=== PATIENT | male | born 1970 | race African-American/Black ===

== ENCOUNTER 2017-01-30 19:38 | Inpatient (IN) | payer OTHER ==
[2017-01-30 20:35] VITALS: BMI 27.4
--- NOTE | 2017-01-30 20:45 | HP ---
CIWA Score - CIWA Score Nausea/Vomitin-No Nausea/No Vomiting Muscle Tremors: 2 Anxiety: 3 Agitation: 3 Paroxysmal Sweats: 2 Orientation: 0-Oriented Tacttile Disturbances: 0-None Auditory Disturbances: 1-Very Mild Visual Disturbances: 2-Mild Sensitivity Headache: 2-Mild CIWA-Ar Total Score: 15 Admission ROS BHS - HPI Chief Complaint: WITHDRAWAL SYMPTOMS Allergies/Adverse Reactions: Allergies Allergy/AdvReac Type Severity Reaction Status Date / Time No Known Allergies Allergy Verified 01/30/17 20:23 History of Present Illness: 46 Y.O. MAN WITH AN EXTENSIVE HISTORY OF DRUG AND ALCOHOL DEPENDENCE IS HERE FOR DETOX. REPORTS THE LONGEST PERIOD OF SOBRIETY HAS BEEN 2 YEARS WHILE INCARCERATED. Exam Limitations: No Limitations - Ebola screening Have you traveled outside of the country in the last 21 days: No Have you had contact with anyone from an Ebola affected area: No Have you been sick,other than usual withdrawal symptoms: No Do you have a fever: No - Review of Systems Constitutional: Night Sweats EENT: reports: Blurred Vision, Double Vision, Tearing Respiratory: reports: No Symptoms reported Cardiac: reports: Lightheadedness GI: reports: No Symptoms Reported : reports: No Symptoms Reported Musculoskeletal: reports: Muscle Pain, Other (RIGHT SHOULDER PAIN) Integumentary: reports: No Symptoms Reported Neuro: reports: No Symptoms reported Endocrine: reports: No Symptoms Reported Hematology: reports: Anemia (SICKLE CELL TRAIN) Psychiatric: reports: Mood/Affect Appropiate, Orientated x3, Anxious, Depressed , other (BIPOLAR) Other Systems: Reviewed and Negative Patient History - Patient Medical History Hx Anemia: Yes (SICKLE CELL TRAIT ) Hx Asthma: No Hx Chronic Obstructive Pulmonary Disease (COPD): No Hx Cancer: No Hx Cardiac Disorders: No Hx Congestive Heart Failure: No Hx Hypertension: No Hx Hypercholesterolemia: No Hx Pacemaker: No HX Cerebrovascular Accident: No Hx Seizures: No Hx Dementia: No Hx Diabetes: No (BORDERLINE ) Hx Gastrointestinal Disorders: No Hx Liver Disease: No Hx Genitourinary Disorders: No Hx Sexually Transmitted Disorders: No Hx Renal Disease (ESRD): No Hx Thyroid Disease: No Hx Human Immunodeficiency Virus (HIV): No Hx Hepatitis C: No Hx Depression: Yes Hx Suicide Attempt: No Hx Bipolar Disorder: Yes Hx Schizophrenia: No Other Medical History: H/O TB (TREATED) - Patient Surgical History Past Surgical History: Yes Hx Neurologic Surgery: No Hx Cataract Extraction: No Hx Cardiac Surgery: No Hx Lung Surgery: No Hx Breast Surgery: No Hx Breast Biopsy: No Hx Abdominal Surgery: No Hx Appendectomy: No Hx Cholecystectomy: No Hx Genitourinary Surgery: No Hx Section: No Hx Orthopedic Surgery: No Hx Hysterectomy: No Other Surgical History: fx floor of orbit in 2009 at [facility] with numbness of right fa Anesthesia Reaction: No - PPD History Previous Implant?: Yes Documented Results: Positive w/proof Results: NEEDS CXR PPD to be Administered?: No - Reproductive History Patient is a Female of Child Bearing Age (11 -55 yrs old): No - Smoking Cessation Smoking history: Current every day smoker Have you smoked in the past 12 months: Yes Aproximately how many cigarettes per day: 8 Hx Chewing Tobacco Use: No Initiated information on smoking cessation: Yes 'Breaking Loose' booklet given: 01/30/17 - Substance & Tx. History Hx Alcohol Use: Yes Hx Substance Use: Yes Substance Use Type: Alcohol, Cocaine Hx Substance Use Treatment: Yes (DETOX & REHAB (DOESN'T RECALL WHEN & WHERE HE WAS LAST ADMITTED;NOT RECENT)) - Substances Abused Alcohol Route: Oral Frequency: Daily Amount used: liquor- 2 pints, beer- 1 six pack Age of first use: 13 Date of Last Use: 01/30/17 Cocaine Route: Inhalation Frequency: 3-6 times per week Amount used: 10 bags Age of first use: 17 Date of Last Use: 01/30/17 Family Disease History - Family Disease History Family Disease History: Diabetes: Father, Heart Disease: Father Admission Physical Exam [facility] - Vital Signs Vital Signs: Vital Signs - 24 hr 01/30/17 20:23 Temperature 98.6 F Pulse Rate 108 H Respiratory 20 Rate Blood Pressure 140/90 - Physical General Appearance: Yes: Sweating, Anxious HEENTM: Yes: Normocephalic, Normal Voice Respiratory: Yes: Lungs Clear, Normal Breath Sounds, No Respiratory Distress, No Accessory Muscle Use Neck: Yes: No masses,lesions,Nodules, Trachea in good position Breast: Yes: Breast Exam Deferred Cardiology: Yes: Regular Rhythm, Tachycardia Abdominal: Yes: Non Tender, Flat, Soft Genitourinary: Yes: Other (NO COMPLAINTS REPORTED) Back: Yes: Normal Inspection Musculoskeletal: Yes: Joint Stiffness (RIGHT SHOULDER), Other (RIGHT SHOULDR PAIN) Extremities: Yes: Normal Inspection, Normal Range of Motion, Non-Tender Neurological: Yes: Alert, Normal Mood/Affect, Normal Response Integumentary: Yes: Normal Color, Dry, Warm Lymphatic: Yes: Within Normal Limits - Diagnostic (1) Alcohol dependence with uncomplicated withdrawal Current Visit: Yes Status: Chronic (2) Cocaine dependence, uncomplicated Current Visit: Yes Status: Chronic (3) History of tuberculosis Current Visit: Yes Status: Chronic (4) Nicotine dependence Current Visit: Yes Status: Chronic Cleared for Admission [facility] - Detox or Rehab [facility] Level of Care: Medically Managed Detox Regimen/Protocol: Librium [facility] Breath Alcohol Content Breath Alcohol Content: 0.064 Urine Drug Screen - Results Drug Screen Negative: No Urine Drug Screen Results: TIMBO-Cocaine
[2017-01-30] MEDS ORDERED: guaiFENesin/D-METHORPHAN HB 10 ML UNIT-DOSE CUPS PO PRN (20:58)
[2017-01-30] MEDS ORDERED: MAGNESIUM HYDROX 2400MG/30ML ORAL SUSPENSION 30 ML CUP PO PRN (20:58)
[2017-01-30] MEDS ORDERED: MAG HYDROX/AL HYDROX/SIMETH 30 ML UNIT-DOSE CUP PO PRN (20:58)
[2017-01-30] MEDS ORDERED: MAGNESIUM CITRATE 300 ML BOTTLE PO PRN (20:58)
[2017-01-30] MEDS ORDERED: LOPERAMIDE HCL 2 MG CAPSULE PO PRN (20:58)
[2017-01-30] MEDS ORDERED: MENTHOL/PHENOL 1 EACH UD MM PRN (20:58)
[2017-01-30] MEDS ORDERED: chlordiazePOXIDE HCL 25 MG CAPSULE PO ONE (20:58)
[2017-01-30] MEDS ORDERED: P-EPHED 60MG/TRIPROLIDI 2.5MG TABLET PO PRN (20:58)
[2017-01-30] MEDS ORDERED: ACETAMINOPHEN 325 MG TABLET (FP) PO PRN (20:58)
[2017-01-30] MEDS: diphenhydrAMINE HCL 50 MG CAPSULE PO PRN (23:08)
[2017-01-30] MEDS: THIAMINE HCL 100 MG TABLET (FP) PO SCH (23:08)
[2017-01-30] MEDS: chlordiazePOXIDE HCL 25 MG CAPSULE PO SCH (23:08)
[2017-01-31] MEDS: chlordiazePOXIDE HCL 25 MG CAPSULE PO SCH ×4 (05:23→22:43)
[2017-01-31 09:43] LABS: MCH 29.3 pg (25.7-33.7); MCHC 33.3 g/dl (32.0-35.9); MEAN CELL VOLUME 88.1 fl (80-96); MEAN PLT VOLUME 10.1 fl (7.5-11.1); PLATELET COUNT 151 K/MM3 (134-434); RDW 13.6 % (11.9-15.9); WHITE BLOOD COUNT 4.4 K/mm3 (4.0-10.0)
[2017-01-31] MEDS: PRENATAL VITAMINS W/ FOLIC ACID TABLET (FP) PO SCH (10:05)
[2017-01-31] MEDS: SERTRALINE HCL 50 MG TABLET (FP) PO SCH (10:06)
--- NOTE | 2017-01-31 10:11 | CONSULT ---
[facility] Psychiatric Consult - Data Date of interview: 01/31/17 Admission source: [facility] Identifying data: This is 46 years old male with psychiatric hosp[italization history intoxicated with: Alcohol, Cocaine and Nicotine Substance Abuse History: - Smoking Cessation. Smoking history: Current every day smoker. Have you smoked in the past 12 months: Yes. Aproximately how many cigarettes per day: 8. Hx Chewing Tobacco Use: No. Initiated information on smoking cessation: Yes. 'Breaking Loose' booklet given: 01/30/17. - Substance & Tx. History. Hx Alcohol Use: Yes. Hx Substance Use: Yes. Substance Use Type : Alcohol, Cocaine. Hx Substance Use Treatment: Yes (DETOX & REHAB (DOESN'T RECALL WHEN & WHERE HE WAS LAST ADMITTED;NOT RECENT)). - Substances Abused. * * Alcohol. Route: Oral. Frequency: Daily. Amount used: liquor- 2 pints, beer - 1 six pack. Age of first use: 13. Date of Last Use: 01/30/17. Cocaine. Route: Inhalation. Frequency: 3-6 times per week. Amount used: 10 bags. Age of first use: 17. Date of Last Use: 01/30/17 Medical History: History of TBC, Acute renal failure history Psychiatric History: [facility] with depressed mood, denies suicidal history. Patient reports history of deporession and anxioety, reports taking priore to admission: Remeron 15mg po qhs. Zoloft 50mg poqd. Patient reprots psychiatric admission on 2015 at [facility] Physical/Sexual Abuse/Trauma History: Denies Additional Comment: Remeron 15mg po qhs. Zoloft 50mg poqd Mental Status Exam - Mental Status Exam Alert and Oriented to: Person Cognitive Function: Fair Patient Appearance: Unkempt Mood: Sad Affect: Flat Patient Behavior: Sedated Speech Pattern: Delayed Voice Loudness: Mildly Soft/Quiet Thought Process: Circumstantial Thought Disorder: Being Controlled Hallucinations: Denies Suicidal Ideation: Denies Homicidal Ideation: Denies Insight/Judgement: Fair Sleep: Difficulty falling asleep Appetite: Fair Muscle strength/Tone: Mild Hypertonicity Gait/Station: Shuffling Additional Comments: Remeron 15mg po qhs. Zoloft 50mg poqd Psychiatric Findings - Problem List ([place] 1, 2,3) (1) Alcohol dependence with uncomplicated withdrawal Current Visit: Yes Status: Chronic (2) Cocaine dependence, uncomplicated Current Visit: Yes Status: Chronic (3) Nicotine dependence Current Visit: Yes Status: Chronic (4) Drug-induced mood disorder Current Visit: Yes Status: Acute - Initial Treatment Plan Initial Treatment Plan: Remeron 15mg po qhs. Zoloft 50mg poqd
[2017-01-31 10:12] LABS: ALBUMIN 3.9 g/dl (3.4-5.0); ALK PHOS 97 U/L (45-117); ANION GAP 8 (8-16); BILIRUBIN,TOTAL 1.3 mg/dL (0.2-1.0); CALCIUM 9.1 mg/dL (8.5-10.1); CO2 29 mmol/L (21-32); CREATININE 1.2 mg/dL (0.7-1.3); GLUCOSE,RANDOM 116 mg/dL (74-106); SGOT/AST 19 U/L (15-37); SGPT/ALT 19 U/L (12-78); TOT PROT 7.1 g/dl (6.4-8.2)
[2017-01-31] MEDS: IBUPROFEN 400 MG TABLET (FP) PO PRN ×2 (10:38→22:42)
[2017-01-31] MEDS: chlordiazePOXIDE HCL 25 MG CAPSULE PO PRN (11:59)
[2017-01-31] MEDS: hydrOXYzine PAMOATE 50 MG CAPSULE (FP) PO PRN (11:59)
--- NOTE | 2017-01-31 14:46 | EKG ---
Test Reason : Blood Pressure : / mmHG Vent. Rate : 095 BPM Atrial Rate : 095 BPM P-R Int : 172 ms QRS Dur : 080 ms QT Int : 370 ms P-R-T Axes : 051 035 019 degrees QTc Int : 464 ms NORMAL SINUS RHYTHM NORMAL ECG WHEN COMPARED WITH ECG OF 07-APR-2015 22:38, T WAVE VARIATION Confirmed by ROZ GONZALES MD ([id number]) on 01/31/2017 2:46:19 PM Referred By: Confirmed By:ROZ GONZALES MD
--- NOTE | 2017-01-31 15:02 | PN ---
S CIWA - CIWA Score Nausea/Vomitin-Mild Nausea/No Vomiting Muscle Tremors: 4-Moderate,w/Arms Extend Anxiety: 4-Mod. Anxious/Guarded Agitation: 3 Paroxysmal Sweats: 3 Orientation: 0-Oriented Tacttile Disturbances: 0-None Auditory Disturbances: 0-None Visual Disturbances: 0-None Headache: 0-None Present CIWA-Ar Total Score: 15 BHS Progress Note (SOAP) Subjective: Sweating,anxiety,tremors,interrupted sleep,restless Objective: 01/31/17 15:01 Vital Signs - 8 hr 01/31/17 01/31/17 09:18 13:12 Temperature 97.2 F L 97.2 F L Pulse Rate 90 89 Respiratory 20 18 Rate Blood Pressure 128/88 132/85 Laboratory Tests 01/31/17 01/31/17 01/31/17 07:00 07:00 07:00 WBC 4.4 RBC 5.29 Hgb 15.5 D Hct 46.6 MCV 88.1 MCHC 33.3 RDW 13.6 D Plt Count 151 D MPV 10.1 Sodium 141 Potassium 3.9 Chloride 104 Carbon Dioxide 29 Anion Gap 8 BUN 18 D Creatinine 1.2 D Creat Clearance w eGFR > 60 Random Glucose 116 H Calcium 9.1 Total Bilirubin 1.3 H D AST 19 D ALT 19 D Alkaline Phosphatase 97 Total Protein 7.1 Albumin 3.9 RPR Titer Nonreactive labs noted Assessment: 01/31/17 15:01 Withdrawal sx. Plan: Continue detox
[2017-01-31] MEDS: diphenhydrAMINE HCL 50 MG CAPSULE PO PRN (22:42)
[2017-01-31] MEDS: THIAMINE HCL 100 MG TABLET (FP) PO SCH (22:42)
[2017-01-31] MEDS: MIRTAZAPINE 15 MG TABLET (FP) PO SCH (22:43)
[2017-02-01] MEDS: chlordiazePOXIDE HCL 25 MG CAPSULE PO SCH ×3 (06:55→18:25)
[2017-02-01] MEDS: PRENATAL VITAMINS W/ FOLIC ACID TABLET (FP) PO SCH (10:33)
[2017-02-01] MEDS: SERTRALINE HCL 50 MG TABLET (FP) PO SCH (10:33)
--- NOTE | 2017-02-01 11:46 | PN ---
S CIWA - CIWA Score Nausea/Vomitin-Mild Nausea/No Vomiting Muscle Tremors: 4-Moderate,w/Arms Extend Anxiety: 4-Mod. Anxious/Guarded Agitation: 1-Slight > Activity Paroxysmal Sweats: 3 Orientation: 2-Disoriented Date<2 days Tacttile Disturbances: 0-None Auditory Disturbances: 2-Mild Harshness/Frighten Visual Disturbances: 2-Mild Sensitivity Headache: 0-None Present CIWA-Ar Total Score: 19 BHS Progress Note (SOAP) Subjective: Tremors, Anxious, Sweating. Objective: PT. A & O X 2 (DISORIENTED ABOUT DAY / DATE). NO ACUTE DISTRESS. 02/01/17 11:44 Vital Signs Temperature 95.2 F L 02/01/17 10:37 Pulse Rate 82 02/01/17 10:37 Respiratory Rate 16 02/01/17 10:37 Blood Pressure 123/83 02/01/17 10:37 O2 Sat by Pulse Oximetry (%) Laboratory Tests 01/31/17 01/31/17 01/31/17 07:00 07:00 07:00 WBC 4.4 RBC 5.29 Hgb 15.5 D Hct 46.6 MCV 88.1 MCHC 33.3 RDW 13.6 D Plt Count 151 D MPV 10.1 Sodium 141 Potassium 3.9 Chloride 104 Carbon Dioxide 29 Anion Gap 8 BUN 18 D Creatinine 1.2 D Creat Clearance w eGFR > 60 Random Glucose 116 H Calcium 9.1 Total Bilirubin 1.3 H D AST 19 D ALT 19 D Alkaline Phosphatase 97 Total Protein 7.1 Albumin 3.9 RPR Titer Nonreactive LABS NOTED. Assessment: 02/01/17 11:45 WITHDRAWAL SYMPTOMS. Plan: CONTINUE DETOX. INCREASE PO FLUID INTAKE.
[2017-02-01] MEDS: chlordiazePOXIDE HCL 25 MG CAPSULE PO PRN (12:30)
[2017-02-01] MEDS: hydrOXYzine PAMOATE 50 MG CAPSULE (FP) PO PRN (12:30)
[2017-02-01] MEDS: chlordiazePOXIDE 5 MG CAPSULE PO SCH (22:19)
[2017-02-01] MEDS: THIAMINE HCL 100 MG TABLET (FP) PO SCH (22:19)
[2017-02-01] MEDS: MIRTAZAPINE 15 MG TABLET (FP) PO SCH (22:19)
[2017-02-01] MEDS: diphenhydrAMINE HCL 50 MG CAPSULE PO PRN (22:19)
[2017-02-02] MEDS: chlordiazePOXIDE 5 MG CAPSULE PO SCH ×3 (06:28→17:40)
[2017-02-02] MEDS: PRENATAL VITAMINS W/ FOLIC ACID TABLET (FP) PO SCH (10:11)
[2017-02-02] MEDS: SERTRALINE HCL 50 MG TABLET (FP) PO SCH (10:12)
--- NOTE | 2017-02-02 13:08 | PN ---
BHS Progress Note (SOAP) Subjective: Sweating, Anxious. Objective: PT. A & O X 2 (DISORIENTED ABOUT DAY / DATE). PT. OBSERVED AMBULATING ON UNIT. NO ACUTE DISTRESS. 02/02/17 13:06 Vital Signs Temperature 97.3 F L 02/02/17 09:45 Pulse Rate 90 02/02/17 09:45 Respiratory Rate 18 02/02/17 09:45 Blood Pressure 131/89 02/02/17 09:45 O2 Sat by Pulse Oximetry (%) Laboratory Tests 01/31/17 01/31/17 01/31/17 07:00 07:00 07:00 WBC 4.4 RBC 5.29 Hgb 15.5 D Hct 46.6 MCV 88.1 MCHC 33.3 RDW 13.6 D Plt Count 151 D MPV 10.1 Sodium 141 Potassium 3.9 Chloride 104 Carbon Dioxide 29 Anion Gap 8 BUN 18 D Creatinine 1.2 D Creat Clearance w eGFR > 60 Random Glucose 116 H Calcium 9.1 Total Bilirubin 1.3 H D AST 19 D ALT 19 D Alkaline Phosphatase 97 Total Protein 7.1 Albumin 3.9 RPR Titer Nonreactive LABS NOTED. ADMISSION UA NOT YET COLLECTED. 02/02/17 13:09 Assessment: 02/02/17 13:07 WITHDRAWAL SYMPTOMS. Plan: CONTINUE DETOX. UA ORDERED.
[2017-02-02 16:57] LABS: URINE APPEARANCE CLEAR; URINE BILIRUBIN NEGATIVE (NEGATIVE); URINE BLOOD NEGATIVE (NEGATIVE); URINE COLOR LTYELLOW; URINE GLUCOSE (UA) NEGATIVE (NEGATIVE); URINE KETONE NEGATIVE (NEGATIVE); URINE LEUK ESTERASE NEGATIVE (NEGATIVE); URINE NITRITE NEGATIVE (NEGATIVE); URINE PROTEIN NEGATIVE (NEGATIVE); URINE UROBILINOGEN NEGATIVE E.U./dl (0.2-1.0)
[2017-02-02] MEDS: MIRTAZAPINE 15 MG TABLET (FP) PO SCH (22:35)
[2017-02-02] MEDS: chlordiazePOXIDE HCL 10 MG CAPSULE PO SCH (22:35)
[2017-02-02] MEDS: diphenhydrAMINE HCL 50 MG CAPSULE PO PRN (22:35)
[2017-02-02] MEDS: THIAMINE HCL 100 MG TABLET (FP) PO SCH (22:36)
[2017-02-03] MEDS: chlordiazePOXIDE HCL 10 MG CAPSULE PO SCH ×2 (06:20→11:08)
[2017-02-03 09:47] VITALS: BP 137/94; PULSE 90; TEMP 96.1
[2017-02-03] MEDS: SERTRALINE HCL 50 MG TABLET (FP) PO SCH (11:08)
[2017-02-03] MEDS: PRENATAL VITAMINS W/ FOLIC ACID TABLET (FP) PO SCH (11:08)
--- NOTE | 2017-02-03 11:58 | DS ---
[facility] Detox Discharge Summary Admission Date: 01/30/17 Discharge Date: 02/03/17 - History Present History: Alcohol Dependence, Cocaine Dependence Additional Comments: ADVISED PATIENT TO FOLLOW-UP WITH PRESS MACHINE OPERATOR AFTER DISCHARGE FROM DETOX FOR GENERAL MEDICAL ASSESSMENT. Pertinent Past History: DM (Borderline), Tuberculosis (Treated), Sickle Cell Trait, Depression, Bipolar disorder. - Physical Exam Results Vital Signs: Vital Signs Temperature 96.1 F L 02/03/17 09:46 Pulse Rate 90 02/03/17 09:46 Respiratory Rate 18 02/03/17 09:46 Blood Pressure 137/94 02/03/17 09:46 O2 Sat by Pulse Oximetry (%) Pertinent Admission Physical Exam Findings: WITHDRAWAL SYMPTOMS. Laboratory Tests 01/31/17 01/31/17 01/31/17 07:00 07:00 07:00 WBC 4.4 RBC 5.29 Hgb 15.5 D Hct 46.6 MCV 88.1 MCHC 33.3 RDW 13.6 D Plt Count 151 D MPV 10.1 Sodium 141 Potassium 3.9 Chloride 104 Carbon Dioxide 29 Anion Gap 8 BUN 18 D Creatinine 1.2 D Creat Clearance w eGFR > 60 Random Glucose 116 H Calcium 9.1 Total Bilirubin 1.3 H D AST 19 D ALT 19 D Alkaline Phosphatase 97 Total Protein 7.1 Albumin 3.9 Urine Color Urine Appearance Urine pH Ur Specific [place] Urine Protein Urine Glucose (UA) Urine Ketones Urine Blood Urine Nitrite Urine Bilirubin Urine Urobilinogen Ur Leukocyte Esterase RPR Titer Nonreactive 02/02/17 14:00 WBC RBC Hgb Hct MCV MCHC RDW Plt Count MPV Sodium Potassium Chloride Carbon Dioxide Anion Gap BUN Creatinine Creat Clearance w eGFR Random Glucose Calcium Total Bilirubin AST ALT Alkaline Phosphatase Total Protein Albumin Urine Color Ltyellow Urine Appearance Clear Urine pH 7.0 Ur Specific [place] 1.015 Urine Protein Negative Urine Glucose (UA) Negative Urine Ketones Negative Urine Blood Negative Urine Nitrite Negative Urine Bilirubin Negative Urine Urobilinogen Negative Ur Leukocyte Esterase Negative RPR Titer LABS NOTED. - Treatment Hospital Course: Detox Protocol Followed, Detoxed Safely, Responded well, Discharged Condition Good Patient has Accepted a Rehab Referral to: PT. ELECTING TO GO HOME. 12-STEP/AA/ NA OUTPATIENT PROGRAMS RECOMMENDED. - Medication Discharge Medications: Ambulatory Orders Mirtazapine [Remeron -] 100 mg PO BID 04/07/15 Sertraline HCl [Zoloft] 50 mg PO BID 04/07/15 Mirtazapine [Remeron -] 15 mg PO HS #30 tablet 01/31/17 Sertraline HCl [Zoloft -] 50 mg PO DAILY #30 tablet 01/31/17 - Diagnosis (1) Drug-induced mood disorder Current Visit: Yes Status: Acute (2) Alcohol dependence with uncomplicated withdrawal Current Visit: Yes Status: Acute (3) Cocaine dependence, uncomplicated Current Visit: Yes Status: Acute (4) History of tuberculosis Current Visit: Yes Status: Chronic (5) Nicotine dependence Current Visit: Yes Status: Chronic Qualifiers: Nicotine product type: cigarettes Substance use status: uncomplicated Qualified Code(s): F17.210 - Nicotine dependence, cigarettes, uncomplicated - AMA Did Patient Leave Against Medical Advice: No
== END 2017-02-03 12:48 | disposition home or self-care (01) | DRG 774 ==
LOC: YASAS 19:38 → Y3N 20:50
PROVIDERS: ADMIT Internal Medicine; ATTEND Internal Medicine
PROC: HZ2ZZZZ Detoxification Services for Substance Abuse Treatment (ICD-10-PCS; principal; 2017-02-03)
DX: F10.230 Alcohol dependence with withdrawal, uncomplicated (principal); F14.20 Cocaine dependence, uncomplicated; F17.210 Nicotine dependence, cigarettes, uncomplicated; F19.24 Other psychoactive substance dependence with psychoactive substance-induced mood disorder; Z86.11 Personal history of tuberculosis
CPT/HCPCS: 36415; 71020-TC; 80053; 81003; 85027; 86593; 93005; 93010

== ENCOUNTER 2017-07-27 12:07 | Inpatient (IN) | payer OTHER ==
[2017-07-27 13:01] VITALS: BMI 25.7
[2017-07-27] MEDS ORDERED: P-EPHED 60MG/TRIPROLIDI 2.5MG TABLET PO PRN (15:10)
[2017-07-27] MEDS ORDERED: ACETAMINOPHEN 325 MG TABLET (FP) PO PRN (15:10)
[2017-07-27] MEDS ORDERED: MAG HYDROX/AL HYDROX/SIMETH 30 ML UNIT-DOSE CUP PO PRN (15:10)
[2017-07-27] MEDS ORDERED: MAGNESIUM HYDROX 2400MG/30ML ORAL SUSPENSION 30 ML CUP PO PRN (15:10)
[2017-07-27] MEDS ORDERED: MENTHOL/PHENOL 1 EACH UD MM PRN (15:10)
[2017-07-27] MEDS ORDERED: MAGNESIUM CITRATE 300 ML BOTTLE PO PRN (15:10)
[2017-07-27] MEDS ORDERED: NICOTINE POLACRILEX 2 MG GUM BUC PRN (15:10)
[2017-07-27] MEDS ORDERED: guaiFENesin/D-METHORPHAN HB 10 ML UNIT-DOSE CUPS PO PRN (15:10)
[2017-07-27] MEDS ORDERED: chlordiazePOXIDE HCL 25 MG CAPSULE PO PRN (15:10)
[2017-07-27] MEDS ORDERED: LOPERAMIDE HCL 2 MG CAPSULE PO PRN (15:10)
--- NOTE | 2017-07-27 15:10 | HP ---
CIWA Score - CIWA Score Nausea/Vomitin Muscle Tremors: 2 Anxiety: 4-Mod. Anxious/Guarded Agitation: 1-Slight > Activity Paroxysmal Sweats: No Perspiration Orientation: 1-Uncertain about Date Tacttile Disturbances: 0-None Auditory Disturbances: 2-Mild Harshness/Frighten Visual Disturbances: 2-Mild Sensitivity Headache: 2-Mild CIWA-Ar Total Score: 16 Admission ROS BHS - HPI Allergies/Adverse Reactions: Allergies Allergy/AdvReac Type Severity Reaction Status Date / Time No Known Allergies Allergy Verified 07/27/17 13:41 - Ebola screening Have you traveled outside of the country in the last 21 days: No Have you had contact with anyone from an Ebola affected area: No Have you been sick,other than usual withdrawal symptoms: No Patient History - Patient Medical History Hx Anemia: Yes (SICKLE CELL TRAIT ) Hx Asthma: No Hx Chronic Obstructive Pulmonary Disease (COPD): No Hx Cancer: No Hx Cardiac Disorders: No Hx Congestive Heart Failure: No Hx Hypertension: No Hx Hypercholesterolemia: No Hx Pacemaker: No HX Cerebrovascular Accident: No Hx Seizures: No Hx Dementia: No Hx Diabetes: No Hx Gastrointestinal Disorders: No Hx Liver Disease: No Hx Genitourinary Disorders: No Hx Sexually Transmitted Disorders: No Hx Renal Disease (ESRD): No Hx Thyroid Disease: No Hx Human Immunodeficiency Virus (HIV): No Hx Hepatitis C: No Hx Depression: Yes Hx Suicide Attempt: Yes (remote) Hx Bipolar Disorder: Yes Hx Schizophrenia: No Other Medical History: on remeron, zoloft - Patient Surgical History Past Surgical History: Yes Hx Neurologic Surgery: No Hx Cataract Extraction: No Hx Cardiac Surgery: No Hx Lung Surgery: No Hx Breast Surgery: No Hx Breast Biopsy: No Hx Abdominal Surgery: No Hx Appendectomy: No Hx Cholecystectomy: No Hx Genitourinary Surgery: No Hx Section: No Hx Orthopedic Surgery: No Hx Hysterectomy: No Other Surgical History: fx floor of orbit in 2009 at [facility] with numbness of right fa Anesthesia Reaction: No - PPD History Previous Implant?: Yes Documented Results: Positive w/proof Results: NEEDS CXR - Smoking Cessation Smoking history: Current every day smoker Have you smoked in the past 12 months: Yes Aproximately how many cigarettes per day: 8 Hx Chewing Tobacco Use: No Initiated information on smoking cessation: Yes 'Breaking Loose' booklet given: 07/27/17 - Substances Abused Alcohol Route: Oral Frequency: Daily Amount used: beer(5-6 cans24 oz ) Age of first use: 13 Date of Last Use: 07/27/17 Cocaine Route: Smoking Frequency: Daily Amount used: $100 Age of first use: 15 Date of Last Use: 07/26/17 Family Disease History - Family Disease History Family Disease History: Diabetes: Father, Heart Disease: Father Admission Physical Exam [facility] - Vital Signs Vital Signs: Vital Signs - 24 hr 07/27/17 12:59 Temperature 98.0 F Pulse Rate 82 Respiratory 16 Rate Blood Pressure 130/85 - Physical General Appearance: Yes: Disheveled HEENTM: Yes: EOMI Respiratory: Yes: Chest Non-Tender, Lungs Clear Neck: Yes: No masses,lesions,Nodules Breast: Yes: Breast Exam Deferred Cardiology: Yes: Regular Rhythm, Regular Rate, S1, S2 Abdominal: Yes: Within Normal Limits Genitourinary: Yes: Within Normal Limits Back: Yes: Within Normal Limits Musculoskeletal: Yes: full range of Motion, Gait Steady Extremities: Yes: Normal Capillary Refill Neurological: Yes: subway guard II-XII NML intact, Fully Oriented, Alert Integumentary: Yes: Other (ant tibial skin maceration) Lymphatic: Yes: Within Normal Limits - Diagnostic (1) Alcohol abuse Current Visit: No Status: Chronic (2) Alcohol dependence with uncomplicated withdrawal Current Visit: No Status: Acute (3) History of tuberculosis Current Visit: No Status: Chronic (4) Nicotine dependence Current Visit: No Status: Chronic Qualifiers: (5) Hepatitis C Current Visit: Yes Status: Acute Cleared for Admission [facility] - Detox or Rehab [facility] Level of Care: Medically Managed Detox Regimen/Protocol: Librium [facility] Breath Alcohol Content Breath Alcohol Content: 0.071 Urine Drug Screen - Results Drug Screen Negative: No Urine Drug Screen Results: TIMBO-Cocaine
[2017-07-27 17:33] LABS: URINE APPEARANCE CLEAR; URINE BILIRUBIN NEGATIVE (NEGATIVE); URINE BLOOD NEGATIVE (NEGATIVE); URINE COLOR YELLOW; URINE GLUCOSE (UA) NEGATIVE (NEGATIVE); URINE KETONE 1+ (NEGATIVE); URINE LEUK ESTERASE NEGATIVE (NEGATIVE); URINE NITRITE NEGATIVE (NEGATIVE); URINE PROTEIN NEGATIVE (NEGATIVE); URINE UROBILINOGEN NEGATIVE mg/dL (0.2-1.0)
[2017-07-27] MEDS: chlordiazePOXIDE HCL 25 MG CAPSULE PO SCH ×2 (19:24→22:44)
[2017-07-27] MEDS: NICOTINE 14 MG/24 HOURS TOPICAL PATCH TD SCH (19:25)
[2017-07-27] MEDS: IBUPROFEN 400 MG TABLET (FP) PO PRN (19:28)
[2017-07-27 20:15] LABS: URINE LEUK ESTERASE Negative (NEGATIVE)
[2017-07-27] MEDS: THIAMINE HCL 100 MG TABLET (FP) PO SCH (22:44)
[2017-07-28] MEDS: chlordiazePOXIDE HCL 25 MG CAPSULE PO SCH ×4 (05:55→23:02)
--- NOTE | 2017-07-28 09:19 | EKG ---
Test Reason : Blood Pressure : / mmHG Vent. Rate : 099 BPM Atrial Rate : 099 BPM P-R Int : 172 ms QRS Dur : 084 ms QT Int : 360 ms P-R-T Axes : 066 047 025 degrees QTc Int : 462 ms NORMAL SINUS RHYTHM NONSPECIFIC ST ABNORMALITY WHEN COMPARED WITH ECG OF 30-JAN-2017 21:06, NO SIGNIFICANT CHANGE WAS FOUND Confirmed by LYNDSEY CONCEPCION MD ([id number]) on 07/28/2017 9:19:42 AM Referred By: Confirmed By:LYNDSEY CONCEPCION MD
[2017-07-28 10:17] LABS: MCH 28.5 pg (25.7-33.7); MCHC 33.2 g/dl (32.0-35.9); MEAN CELL VOLUME 85.9 fl (80-96); MEAN PLT VOLUME 9.2 fl (7.5-11.1); PLATELET COUNT 185 K/MM3 (134-434); WHITE BLOOD COUNT 4.6 K/mm3 (4.0-10.0)
[2017-07-28] MEDS: PRENATAL VITAMINS W/ FOLIC ACID TABLET (FP) PO SCH (10:25)
[2017-07-28] MEDS: NICOTINE 14 MG/24 HOURS TOPICAL PATCH TD SCH (10:25)
[2017-07-28 10:30] LABS: ALBUMIN 3.5 g/dl (3.4-5.0); ANION GAP 8 (8-16); CALCIUM 8.6 mg/dL (8.5-10.1); CO2 26 mmol/L (21-32); CREATININE 0.9 mg/dL (0.7-1.3); GLUCOSE,RANDOM 84 mg/dL (74-106); SGOT/AST 28 U/L (15-37); SGPT/ALT 19 U/L (12-78)
[2017-07-28 10:32] LABS: ALK PHOS 112 U/L (45-117); TOT PROT 6.5 g/dl (6.4-8.2)
[2017-07-28 10:47] LABS: HIV 1 & 2 AB NEGATIVE; HIV 1 AGp24 NEGATIVE
--- NOTE | 2017-07-28 11:47 | PN ---
[facility] CIWA - CIWA Score Nausea/Vomitin-No Nausea/No Vomiting Muscle Tremors: None Anxiety: 4-Mod. Anxious/Guarded Agitation: 2 Paroxysmal Sweats: 3 Orientation: 0-Oriented Tacttile Disturbances: 2-Mild Itch/Numbness/Burn Auditory Disturbances: 0-None Visual Disturbances: 2-Mild Sensitivity Headache: 4-Moderately Severe CIWA-Ar Total Score: 17 BHS Progress Note (SOAP) Subjective: Anxious, Sweating, H/A, Body Aches. Objective: PT. A & O X 3, OBSERVED AMBULATING ON UNIT. NO ACUTE DISTRESS. 07/28/17 11:46 Vital Signs Temperature 98.1 F 07/28/17 10:39 Pulse Rate 89 07/28/17 10:39 Respiratory Rate 20 07/28/17 10:39 Blood Pressure 114/79 07/28/17 10:39 O2 Sat by Pulse Oximetry (%) Laboratory Tests 07/27/17 07/27/17 07/28/17 07:00 17:30 07:00 WBC 4.6 RBC 5.17 Hgb 14.7 Hct 44.4 MCV 85.9 MCH 28.5 MCHC 33.2 RDW 14.0 Plt Count 185 D MPV 9.2 Sodium Potassium Chloride Carbon Dioxide Anion Gap BUN Creatinine Creat Clearance w eGFR Random Glucose Calcium Total Bilirubin AST ALT Alkaline Phosphatase Total Protein Albumin Urine Color Yellow Urine Appearance Clear Urine pH 5.0 D Ur Specific [place] 1.015 Urine Protein Negative Urine Glucose (UA) Negative Urine Ketones 1+ H Urine Blood Negative Urine Nitrite Negative Urine Bilirubin Negative Urine Urobilinogen Negative Ur Leukocyte Esterase Negative RPR Titer HIV 1&2 Antibody Screen Negative HIV P24 Antigen Negative 07/28/17 07/28/17 07:00 07:00 WBC RBC Hgb Hct MCV MCH MCHC RDW Plt Count MPV Sodium 142 Potassium 3.7 Chloride 108 H Carbon Dioxide 26 Anion Gap 8 BUN 17 Creatinine 0.9 D Creat Clearance w eGFR > 60 Random Glucose 84 D Calcium 8.6 Total Bilirubin 1.0 D AST 28 D ALT 19 Alkaline Phosphatase 112 Total Protein 6.5 Albumin 3.5 Urine Color Urine Appearance Urine pH Ur Specific [place] Urine Protein Urine Glucose (UA) Urine Ketones Urine Blood Urine Nitrite Urine Bilirubin Urine Urobilinogen Ur Leukocyte Esterase RPR Titer Nonreactive HIV 1&2 Antibody Screen HIV P24 Antigen LABS NOTED. Assessment: 07/28/17 11:46 WITHDRAWAL SYMPTOMS. Plan: CONTINUE DETOX. INCREASE DAILY PO FLUID INTAKE.
[2017-07-28] MEDS ORDERED: FLU VACCINE QUAD 60 MCG/0.5 ML (MDV 17-18) IM ONE (12:00)
--- NOTE | 2017-07-28 12:32 | CONSULT ---
[facility] Psychiatric Consult - Data Date of interview: 07/28/17 Admission source: [facility] Identifying data: This is one of several admissions to [facility] for this 46 y/ o AA male seeking detox treatment on for alcohol and cocaine dependence.Patient is single without children,homeless,unemployed and supported on Public Assistance. Substance Abuse History: Confirmed by patient in this interview.See details in current [facility] report : Smoking history: Current every day smoker. Have you smoked in the past 12 months: Yes. Aproximately how many cigarettes per day: 8. Hx Chewing Tobacco Use: No. Initiated information on smoking cessation: Yes. 'Breaking Loose' booklet given: 07/27/17. - Substances Abused. Alcohol. Route: Oral. Frequency: Daily. Amount used: beer(5-6 cans24 oz ). Age of first use: 13. Date of Last Use: 07/27/17. Cocaine. Route: Smoking. Frequency: Daily. Amount used: $100. Age of first use: 15. Date of Last Use: 07/26/17 Medical History: Hepatitis C,antecedent of treatment for tuberculosis and renal failure,sickle cell trait and a history of surgery for fracture of floor of left orbit (2009). Psychiatric History: Patient remembers [facility] as one of the institutions where he received inpatient psychiatric care in the past.Reportedly diagnosed with Bipolar Disorder and prescribed seroquel and sertraline (doses not recalled).Mr Mcfarland denies recent history of OPD care." I don't have a psychiatrist outside." Non-adherent to medications.Patient denies history of suicide attempts. Physical/Sexual Abuse/Trauma History: Patient denies history of abuse. Additional Comment: Urine Drug Screen Results: TIMBO-Cocaine.Noted. Mental Status Exam - Mental Status Exam Alert and Oriented to: Time, Place, Person Cognitive Function: Good Patient Appearance: Well Groomed Mood: Nervous, Withdrawn, Irritable Affect: Mood Congruent Patient Behavior: Fatigued, Cooperative Speech Pattern: Clear, Appropriate Voice Loudness: Normal Thought Process: Goal Oriented Thought Disorder: Not Present Hallucinations: Denies Suicidal Ideation: Denies Homicidal Ideation: Denies Insight/Judgement: Poor Sleep: Poorly, Difficulty falling asleep Appetite: Good Muscle strength/Tone: Normal Gait/Station: Normal Psychiatric Findings - Problem List ([place] 1, 2,3) (1) Alcohol dependence with uncomplicated withdrawal Current Visit: Yes Status: Acute (2) Cocaine dependence, uncomplicated Current Visit: Yes Status: Acute (3) Nicotine dependence Current Visit: Yes Status: Acute Qualifiers: Nicotine product type: cigarettes (4) Drug-induced mood disorder Current Visit: Yes Status: Acute (5) Insomnia Current Visit: Yes Status: Acute - Initial Treatment Plan Initial Treatment Plan: Previous records are reviewed.Psychoeducation.Sleep hygiene.Detoxification in progress.Medications : seroquel 100 mg po hs + zoloft 50 mg po daily.Side effects/benefits of both drugs are discussed with patient.Mr Mcfarland expresses his agreement to this careplan.Obs
[2017-07-28] MEDS: IBUPROFEN 400 MG TABLET (FP) PO PRN (17:49)
[2017-07-28] MEDS: THIAMINE HCL 100 MG TABLET (FP) PO SCH (23:02)
[2017-07-29] MEDS: chlordiazePOXIDE HCL 25 MG CAPSULE PO SCH ×2 (06:13→10:41)
[2017-07-29] MEDS: NICOTINE 14 MG/24 HOURS TOPICAL PATCH TD SCH (10:41)
[2017-07-29] MEDS: PRENATAL VITAMINS W/ FOLIC ACID TABLET (FP) PO SCH (10:41)
[2017-07-29] MEDS: IBUPROFEN 400 MG TABLET (FP) PO PRN (15:36)
--- NOTE | 2017-07-29 16:36 | PN ---
S CIWA - CIWA Score Nausea/Vomitin-No Nausea/No Vomiting Muscle Tremors: None Anxiety: 4-Mod. Anxious/Guarded Agitation: 1-Slight > Activity Paroxysmal Sweats: 3 Orientation: 0-Oriented Tacttile Disturbances: 2-Mild Itch/Numbness/Burn Auditory Disturbances: 0-None Visual Disturbances: 3-Moderate Sensitivity Headache: 2-Mild CIWA-Ar Total Score: 15 BHS Progress Note (SOAP) Subjective: Anxious, Sweating, H/A, Body Aches. Objective: PT. A & O X 3. NO ACUTE DISTRESS. 07/29/17 16:37 Vital Signs Temperature 97.0 F L 07/29/17 13:55 Pulse Rate 88 07/29/17 13:55 Respiratory Rate 18 07/29/17 13:55 Blood Pressure 109/79 07/29/17 13:55 O2 Sat by Pulse Oximetry (%) Laboratory Tests 07/27/17 07/27/17 07/28/17 07:00 17:30 07:00 WBC 4.6 RBC 5.17 Hgb 14.7 Hct 44.4 MCV 85.9 MCH 28.5 MCHC 33.2 RDW 14.0 Plt Count 185 D MPV 9.2 Sodium Potassium Chloride Carbon Dioxide Anion Gap BUN Creatinine Creat Clearance w eGFR Random Glucose Calcium Total Bilirubin AST ALT Alkaline Phosphatase Total Protein Albumin Urine Color Yellow Urine Appearance Clear Urine pH 5.0 D Ur Specific [place] 1.015 Urine Protein Negative Urine Glucose (UA) Negative Urine Ketones 1+ H Urine Blood Negative Urine Nitrite Negative Urine Bilirubin Negative Urine Urobilinogen Negative Ur Leukocyte Esterase Negative RPR Titer HIV 1&2 Antibody Screen Negative HIV P24 Antigen Negative 07/28/17 07/28/17 07:00 07:00 WBC RBC Hgb Hct MCV MCH MCHC RDW Plt Count MPV Sodium 142 Potassium 3.7 Chloride 108 H Carbon Dioxide 26 Anion Gap 8 BUN 17 Creatinine 0.9 D Creat Clearance w eGFR > 60 Random Glucose 84 D Calcium 8.6 Total Bilirubin 1.0 D AST 28 D ALT 19 Alkaline Phosphatase 112 Total Protein 6.5 Albumin 3.5 Urine Color Urine Appearance Urine pH Ur Specific [place] Urine Protein Urine Glucose (UA) Urine Ketones Urine Blood Urine Nitrite Urine Bilirubin Urine Urobilinogen Ur Leukocyte Esterase RPR Titer Nonreactive HIV 1&2 Antibody Screen HIV P24 Antigen LABS NOTED. Assessment: 07/29/17 16:39 WITHDRAWAL SYMPTOMS. Plan: CONTINUE DETOX. INCREASE DAILY PO FLUID INTAKE. ENCOURAGE AMBULATION.
[2017-07-29] MEDS: chlordiazePOXIDE 5 MG CAPSULE PO SCH ×2 (16:39→22:15)
[2017-07-29] MEDS: THIAMINE HCL 100 MG TABLET (FP) PO SCH (22:15)
[2017-07-30] MEDS: chlordiazePOXIDE 5 MG CAPSULE PO SCH ×2 (06:10→10:36)
[2017-07-30] MEDS: SERTRALINE HCL 50 MG TABLET (FP) PO SCH (10:36)
[2017-07-30] MEDS: NICOTINE 14 MG/24 HOURS TOPICAL PATCH TD SCH (10:36)
[2017-07-30] MEDS: PRENATAL VITAMINS W/ FOLIC ACID TABLET (FP) PO SCH (10:37)
--- NOTE | 2017-07-30 16:16 | PN ---
[facility] Progress Note (SOAP) Subjective: Sweating, interrupted sleep, anxious Objective: 07/30/17 16:15 Last Vital Signs Temp Pulse Resp BP Pulse Ox 97.3 F L 74 19 108/72 07/30/17 09:34 07/30/17 09:34 07/30/17 09:34 07/30/17 09:34 Laboratory Tests 07/27/17 07/27/17 07/28/17 07:00 17:30 07:00 WBC 4.6 RBC 5.17 Hgb 14.7 Hct 44.4 MCV 85.9 MCH 28.5 MCHC 33.2 RDW 14.0 Plt Count 185 D MPV 9.2 Sodium Potassium Chloride Carbon Dioxide Anion Gap BUN Creatinine Creat Clearance w eGFR Random Glucose Calcium Total Bilirubin AST ALT Alkaline Phosphatase Total Protein Albumin Urine Color Yellow Urine Appearance Clear Urine pH 5.0 D Ur Specific [place] 1.015 Urine Protein Negative Urine Glucose (UA) Negative Urine Ketones 1+ H Urine Blood Negative Urine Nitrite Negative Urine Bilirubin Negative Urine Urobilinogen Negative Ur Leukocyte Esterase Negative RPR Titer HIV 1&2 Antibody Screen Negative HIV P24 Antigen Negative 07/28/17 07/28/17 07:00 07:00 WBC RBC Hgb Hct MCV MCH MCHC RDW Plt Count MPV Sodium 142 Potassium 3.7 Chloride 108 H Carbon Dioxide 26 Anion Gap 8 BUN 17 Creatinine 0.9 D Creat Clearance w eGFR > 60 Random Glucose 84 D Calcium 8.6 Total Bilirubin 1.0 D AST 28 D ALT 19 Alkaline Phosphatase 112 Total Protein 6.5 Albumin 3.5 Urine Color Urine Appearance Urine pH Ur Specific [place] Urine Protein Urine Glucose (UA) Urine Ketones Urine Blood Urine Nitrite Urine Bilirubin Urine Urobilinogen Ur Leukocyte Esterase RPR Titer Nonreactive HIV 1&2 Antibody Screen HIV P24 Antigen Labs noted Assessment: 07/30/17 16:15 Withdrawal symptoms Plan: Continue detox
[2017-07-30] MEDS: chlordiazePOXIDE HCL 10 MG CAPSULE PO SCH ×2 (17:35→22:09)
[2017-07-30] MEDS: IBUPROFEN 400 MG TABLET (FP) PO PRN (17:57)
[2017-07-30] MEDS ORDERED: QUEtiapine FUMARATE 100 MG TABLET (FP) PO SCH (22:00)
[2017-07-30] MEDS: THIAMINE HCL 100 MG TABLET (FP) PO SCH (22:09)
[2017-07-31] MEDS: chlordiazePOXIDE HCL 10 MG CAPSULE PO SCH ×2 (06:11→10:45)
[2017-07-31 09:34] VITALS: BP 117/82; PULSE 71; TEMP 98
[2017-07-31] MEDS: NICOTINE 14 MG/24 HOURS TOPICAL PATCH TD SCH (10:44)
[2017-07-31] MEDS: SERTRALINE HCL 50 MG TABLET (FP) PO SCH (10:45)
[2017-07-31] MEDS: PRENATAL VITAMINS W/ FOLIC ACID TABLET (FP) PO SCH (10:45)
--- NOTE | 2017-07-31 11:24 | DS ---
[facility] Detox Discharge Summary Admission Date: 07/27/17 Discharge Date: 07/31/17 - History Present History: Alcohol Dependence, Cocaine Dependence Pertinent Past History: Hepatitis C - Physical Exam Results Vital Signs: Vital Signs Temperature 98.0 F 07/31/17 09:33 Pulse Rate 71 07/31/17 09:33 Respiratory Rate 18 07/31/17 09:33 Blood Pressure 117/82 07/31/17 09:33 O2 Sat by Pulse Oximetry (%) Pertinent Admission Physical Exam Findings: Withdrawal symptoms Laboratory Tests 07/27/17 07/27/17 07/28/17 07:00 17:30 07:00 WBC 4.6 RBC 5.17 Hgb 14.7 Hct 44.4 MCV 85.9 MCH 28.5 MCHC 33.2 RDW 14.0 Plt Count 185 D MPV 9.2 Sodium Potassium Chloride Carbon Dioxide Anion Gap BUN Creatinine Creat Clearance w eGFR Random Glucose Calcium Total Bilirubin AST ALT Alkaline Phosphatase Total Protein Albumin Urine Color Yellow Urine Appearance Clear Urine pH 5.0 D Ur Specific [place] 1.015 Urine Protein Negative Urine Glucose (UA) Negative Urine Ketones 1+ H Urine Blood Negative Urine Nitrite Negative Urine Bilirubin Negative Urine Urobilinogen Negative Ur Leukocyte Esterase Negative RPR Titer HIV 1&2 Antibody Screen Negative HIV P24 Antigen Negative 07/28/17 07/28/17 07:00 07:00 WBC RBC Hgb Hct MCV MCH MCHC RDW Plt Count MPV Sodium 142 Potassium 3.7 Chloride 108 H Carbon Dioxide 26 Anion Gap 8 BUN 17 Creatinine 0.9 D Creat Clearance w eGFR > 60 Random Glucose 84 D Calcium 8.6 Total Bilirubin 1.0 D AST 28 D ALT 19 Alkaline Phosphatase 112 Total Protein 6.5 Albumin 3.5 Urine Color Urine Appearance Urine pH Ur Specific [place] Urine Protein Urine Glucose (UA) Urine Ketones Urine Blood Urine Nitrite Urine Bilirubin Urine Urobilinogen Ur Leukocyte Esterase RPR Titer Nonreactive HIV 1&2 Antibody Screen HIV P24 Antigen Labs noted - Treatment Hospital Course: Detox Protocol Followed, Detoxed Safely, Responded well, Discharged Condition Good - Medication Discharge Medications: Ambulatory Orders Mirtazapine [Remeron -] 15 mg PO HS #30 tablet 01/31/17 Sertraline HCl [Zoloft -] 50 mg PO DAILY #30 tablet 01/31/17 Quetiapine Fumarate [Seroquel -] 200 mg PO HS 07/27/17 - Diagnosis (1) Bipolar disorder Current Visit: Yes Status: Chronic (2) Depression Current Visit: Yes Status: Chronic (3) Alcohol dependence with uncomplicated withdrawal Current Visit: Yes Status: Acute (4) Cocaine dependence, uncomplicated Current Visit: Yes Status: Chronic (5) Hepatitis C Current Visit: Yes Status: Chronic Qualifiers: Viral hepatitis chronicity: chronic Hepatic coma status: without hepatic coma Qualified Code(s): B18.2 - Chronic viral hepatitis C (6) Nicotine dependence Current Visit: Yes Status: Chronic Qualifiers: Nicotine product type: cigarettes Substance use status: uncomplicated Qualified Code(s): F17.210 - Nicotine dependence, cigarettes, uncomplicated - AMA Did Patient Leave Against Medical Advice: No (F/U with PCP within 1-2 weeks or sooner if warranted )
== END 2017-07-31 13:46 | disposition home or self-care (01) | DRG 774 ==
LOC: YASAS 12:07 → Y3N 14:53
PROVIDERS: ADMIT Internal Medicine; ATTEND Internal Medicine
PROC: HZ2ZZZZ Detoxification Services for Substance Abuse Treatment (ICD-10-PCS; principal; 2017-07-27)
DX: F10.230 Alcohol dependence with withdrawal, uncomplicated (principal); F14.20 Cocaine dependence, uncomplicated; F17.210 Nicotine dependence, cigarettes, uncomplicated; F31.9 Bipolar disorder, unspecified; F19.24 Other psychoactive substance dependence with psychoactive substance-induced mood disorder; B18.2 Chronic viral hepatitis C; G47.00 Insomnia, unspecified; D57.3 Sickle-cell trait
CPT/HCPCS: 36415; 80053; 81003; 85027; 86593; 87389; 93005; 93010

== ENCOUNTER 2017-08-09 05:12 | Inpatient (IN) | payer SELFPAY ==
--- NOTE | 2017-08-09 08:06 | PDOC ---
History of Present Illness - General History Source: Patient - History of Present Illness Timing/Duration: other <Jose L George - Last Filed: 08/09/17 13:10> <Ronal Birmingham - Last Filed: 08/27/17 08:30> - General Chief Complaint: Pain, Acute Stated Complaint: LEG/BACK PAIN Time Seen by Provider: 08/09/17 07:30 Past History - Past Medical History Anemia: Yes (SICKLE CELL TRAIT ) Asthma: No Cancer: No Cardiac Disorders: No CVA: No COPD: No CHF: No Dementia: No Diabetes: No GI Disorders: No Disorders: No HTN: No Hypercholesterolemia: No Kidney Stones: No Liver Disease: No Psychiatric Problems: Yes (bipolar) Seizures: No Thyroid Disease: No - Surgical History Abdominal Surgery: No Appendectomy: No Cardiac Surgery: No Cholecystectomy: No Lung Surgery: No Neurologic Surgery: No Orthopedic Surgery: No - Reproductive History Testicular Surgery: No - Suicide/Smoking/Psychosocial Hx Smoking History: Current every day smoker Have you smoked in the past 12 months: Yes Number of Cigarettes Smoked Daily: 8 Information on smoking cessation initiated: No 'Breaking Loose' booklet given: 07/27/17 Hx Alcohol Use: Yes Drug/Substance Use Hx: Yes Substance Use Type: Alcohol, Cocaine Hx Substance Use Treatment: Yes <Jose L George - Last Filed: 08/09/17 13:10> <Ronal Birmingham - Last Filed: 08/27/17 08:30> - Past Medical History Allergies/Adverse Reactions: Allergies Allergy/AdvReac Type Severity Reaction Status Date / Time No Known Allergies Allergy Verified 08/25/17 10:08 Home Medications: Ambulatory Orders Mirtazapine [Remeron -] 15 mg PO HS #30 tablet 01/31/17 Sertraline HCl [Zoloft -] 50 mg PO DAILY #30 tablet 01/31/17 Quetiapine Fumarate [Seroquel -] 100 mg PO HS 08/25/17 Quetiapine Fumarate [Seroquel] 100 mg PO HS #30 tablet 08/26/17 Sertraline HCl [Zoloft -] 50 mg PO DAILY #30 tablet 08/26/17 Review of Systems - Review of Systems Constitutional: No: Chills, Fever Respiratory: No: Cough, Shortness of Breath Cardiac (ROS): No: Chest Pain ABD/GI: No: Diarrhea, Nausea, Vomiting, Abdominal cramping : No: Dysuria, Hematuria Psychiatric: Yes: Other (HI) <Jose L George - Last Filed: 08/09/17 13:10> *Physical Exam - Vital Signs Last Vital Signs Temp Pulse Resp BP Pulse Ox 96.6 F L 85 21 135/72 97 08/09/17 05:28 08/09/17 05:28 08/09/17 05:28 08/09/17 05:28 08/09/17 05:28 <Jose L George - Last Filed: 08/09/17 13:10> - Vital Signs Last Vital Signs Temp Pulse Resp BP Pulse Ox 96.6 F L 85 21 135/72 97 08/09/17 05:28 08/09/17 05:28 08/09/17 05:28 08/09/17 05:28 08/09/17 05:28 <VninieRonal - Last Filed: 08/27/17 08:30> Heart Score/ECG Review - ECG Impressions Comment:: 08/09/17 10:38 Twelve-lead EKG was performed and reviewed by me. There is normal sinus rhythm with a normal rate. rate of 78 The axis is normal. The intervals are normal. There is normal R wave progression There are no ST or T wave abnormalities. Impression: Normal twelve-lead EKG <VinnieEliaRonal - Last Filed: 08/27/17 08:30> ED Treatment Course - LABORATORY CBC & Chemistry Diagram: 08/09/17 08:35 08/09/17 08:35 - RADIOLOGY Radiology Studies Ordered: Category Date Time Status CHEST X-RAY PORTABLE* [RAD] Stat Radiology 08/09/17 07:57 Ordered <Jose L George - Last Filed: 08/09/17 13:10> - LABORATORY CBC & Chemistry Diagram: 08/10/17 06:25 08/10/17 06:25 - ADDITIONAL ORDERS Additional order review: Laboratory Results 08/09/17 08/09/17 08:35 08:35 Sodium 137 Potassium 4.4 Chloride 103 Carbon Dioxide 25 Anion Gap 9 BUN 16 Creatinine 1.1 D Creat Clearance w eGFR > 60 Random Glucose 81 Calcium 9.2 Total Bilirubin 1.2 H AST 26 ALT 28 D Alkaline Phosphatase 130 H Creatine Kinase 797 H Troponin I < 0.02 Total Protein 8.1 D Albumin 4.4 D Lipase 153 Alcohol, Quantitative < 5.0 08/09/17 08:35 RBC 5.58 MCV 85.8 MCHC 33.0 RDW 14.2 MPV 9.9 Neutrophils % 67.2 Lymphocytes % 18.2 Monocytes % 13.1 H Eosinophils % 0.8 Basophils % 0.7 - Medications Given in the ED: ED Medications Discontinued Medications Generic Name Dose Route Start Last Admin Trade Name Chelle PRN Reason Stop Dose Admin Acetaminophen 650 mg 08/09/17 08:07 08/09/17 08:45 Tylenol - PO 08/09/17 08:08 650 mg ONCE ONE Administration Diphenhydramine HCl 50 mg 08/09/17 08:45 08/09/17 08:45 Benadryl Injection - IVPUSH 08/09/17 08:46 50 mg ONCE ONE Administration Sodium Chloride 1,000 mls @ 1,000 mls/hr 08/09/17 08:07 08/09/17 08:45 Normal Saline - IV 08/09/17 09:06 1,000 mls/hr ASDIR STA Administration <Ronal Birmingham - Last Filed: 08/27/17 08:30> Medical Decision Making - Medical Decision Making 08/09/17 08:00 46-year-old male, undomiciled, w/ history of HTN, diabetes, bipolar disorder, cocaine and alcohol abuse, status post recent admission to [facility] for detox and discharged last week, p/w homicidal ideation. Patient states he is currently off all his meds for unclear reasons. States he does not have insurance or outpatient psychiatric M.D. Patient informs me that he was recently seen at [facility] for psych issues and was "kept" in ED for 4 days pending inpatient psychiatric bed at a facility in , but states he was ultimately told there were no bed available and that he was discharged 4 days ago. Patient here stating he wants to "hurt people" for hurting him. Denies any suicidal ideation or visual or auditory hallucinations at this time. Regarding medical complaints patient reports generalized body aches for 20 years. No acute medical symptoms See exam Homicidal ideation History of bipolar, not currently on meds No SI or hallucinations at this time No acute medical complaints Stable in ED with unremarkable physical exam -will medically clear and discuss case w/ Dr Mensah of psychiatry, patient most likely needs inpatient psych admission at this time 08/09/17 08:46 08/09/17 11:[address] Mensah, who states he should be in the ED in about an hour to assess patient. Is aware that case management coordinator contacted [facility], who is willing to board pt onto their psych unit, but states currently there are no beds available. assistant accounting manager was told to call back at 4 PM 08/09/17 12:[address] Mensah, who agrees with psych admission. 2 PC form signed. Given that patient will be here for over 8 hours, case was d/w hospitalist and pt admitted to ED OBs/short stay. 08/09/17 13:01 As per case management coordinator, patient should be made to be admitted to inpatient status given that he is a 2 PC and currently on one-to-one. Informed hospitalist <Jose L George - Last Filed: 08/09/17 13:10> - Medical Decision Making 08/27/17 08:29 The patient was seen and evaluated in conjunction with AUTUMN George under my direct supervision, ancillary studies were reviewed. I agree with the plan as outlined by AUTUMN George . <Ronal Birmingham - Last Filed: 08/27/17 08:30> *DC/Admit/Observation/Transfer - Discharge Dispostion Admit: Yes <Jose L George - Last Filed: 08/09/17 13:10> <Ronal Birmingham - Last Filed: 08/27/17 08:30> Diagnosis at time of Disposition: Bipolar disorder Qualifiers: Psychotic features: without psychotic features - Discharge Dispostion Disposition: TRANSFER ACUTE CARE/OTHER HOSP Condition at time of disposition: Guarded
[2017-08-09] MEDS ORDERED: ACETAMINOPHEN 325 MG TABLET (FP) PO ONE (08:07)
[2017-08-09] MEDS ORDERED: SODIUM CHLORIDE 1,000 ML IV STA ×3 (08:07→14:16)
[2017-08-09] MEDS ORDERED: ACETAMINOPHEN 650 MG/20.3 ML ORAL SOLUTION (CUPS) ONE (08:47)
[2017-08-09 09:13] LABS: BASO % 0.7 % (0-2.0); EOS % 0.8 % (0-4.5); HEMATOCRIT 47.9 % (35.4-49); HEMOGLOBIN 15.8 GM/dL (11.7-16.9); LYMPH % 18.2 % (8-40); MCH 28.3 pg (25.7-33.7); MEAN CELL VOLUME 85.8 fl (80-96); MEAN PLT VOLUME 9.9 fl (7.5-11.1); MONO % 13.1 % (3.8-10.2); NEUT % 67.2 % (42.8-82.8); PLATELET COUNT 174 K/MM3 (134-434); RBC 5.58 M/mm3 (4.00-5.60); RDW 14.2 % (11.9-15.9); WHITE BLOOD COUNT 7.9 K/mm3 (4.0-10.0)
[2017-08-09 09:35] LABS: CHLORIDE 103 mmol/L (98-107); POTASSIUM 4.4 mmol/L (3.5-5.1); SODIUM 137 mmol/L (136-145)
[2017-08-09 09:52] LABS: ALBUMIN 4.4 g/dl (3.4-5.0); ALK PHOS 130 U/L (45-117); ANION GAP 9 (8-16); BILIRUBIN,TOTAL 1.2 mg/dL (0.2-1.0); BLOOD UREA NITROGEN 16 mg/dL (7-18); CALCIUM 9.2 mg/dL (8.5-10.1); CO2 25 mmol/L (21-32); CREATININE 1.1 mg/dL (0.7-1.3); GLUCOSE,RANDOM 81 mg/dL (74-106); LIPASE 153 U/L (73-393); SGOT/AST 26 U/L (15-37); SGPT/ALT 28 U/L (12-78); TOT PROT 8.1 g/dl (6.4-8.2)
[2017-08-09 11:06] LABS: URINE APPEARANCE CLEAR; URINE BILIRUBIN NEGATIVE (NEGATIVE); URINE BLOOD NEGATIVE (NEGATIVE); URINE COLOR LTYELLOW; URINE GLUCOSE (UA) NEGATIVE (NEGATIVE); URINE KETONE NEGATIVE (NEGATIVE); URINE LEUK ESTERASE NEGATIVE (NEGATIVE); URINE NITRITE NEGATIVE (NEGATIVE); URINE PROTEIN NEGATIVE (NEGATIVE); URINE UROBILINOGEN NEGATIVE mg/dL (0.2-1.0)
[2017-08-09 11:29] LABS: URINE AMPHETAMINES NEGATIVE ng/ml (CUTOFF=500); URINE BARBITURATES NEGATIVE ng/ml (CUTOFF=200)
[2017-08-09 11:30] LABS: METHADONE, UR NEGATIVE ng/ml (CUTOFF=300); OPIATES, URI NEGATIVE ng/ml (CUTOFF=300); PHENCYCLIDINE,URINE NEGATIVE ng/ml (CUTOFF=25); URINE BENZODIAZEPINES POSITIVE ng/ml (CUTOFF=200)
[2017-08-09 11:31] LABS: COCAINE, UR POSITIVE ng/ml (CUTOFF=300)
--- NOTE | 2017-08-09 11:57 | CON.PSY ---
Psychiatry Consult Chief Complaint: I am a psych patient and abuse drugs. I need to go to the Hospital. i goto [facility]. I have been there many times. I sont feel good. i am afraid of doing some thing. I take Seroquel, zoloft and some thing else. I have not been taking my meds. Symptoms: reports: Self destructive thoughts, Inability to Control Temper, Aggressivity, Impulsivity - Previous Psychiatric Treatment Outpatient: Less than 6 mos ago Inpatient: 2 or more prior admissions - Previous Substance Abuse Treatment Outpatient: None Inpatient: None - Reason for Previous Treatment Reason for Previous Treatment: Biploar Illness, Cocaine - Allergies Allergies: Allergies Allergy/AdvReac Type Severity Reaction Status Date / Time No Known Allergies Allergy Verified 08/09/17 05:30 - Current Living Status Usual Living Arrangement: Alone - Current Mental Status Evaluation Appearance: Disheveled Attitude: Guarded - Affect Affect: Constrictive Appropriateness: Not Appropriate - Mood Mood: Angry - Speech/Language Expressive: Delayed - Psychomotor Activity Psychomotor Activity: Hyperactive - Thought Process Thought Process: Circumstantial - Thought Content Hallucinations: Absent Delusions: Present Type: Persectory, Grandiose - Self Perception Self Perception: No Impairment - Cognition Attention: Diminished Orientation: Time Memory, Immediate Recall: Intact Memory, Short Term: 2/3 Memory, Remote with Promptin/3 - Concentration Serial Sevens Intact: No Simple Calculations Intact: No - Abstraction Proverb Interpretation: Intact Judgement: Severely Impaired - Insight Insight: Impaired - Impulse Control Impulse Control: Moderately Impaired - Suicidal Ideation Suicidal Ideation: No - Homicidal Ideation Homicidal Ideation: No Assessment/Plan Patient requires In Patient psych Admission to stabilize his mental status.
--- NOTE | 2017-08-09 12:58 | PDOC ---
*Physical Exam - Vital Signs Last Vital Signs Temp Pulse Resp BP Pulse Ox 98.2 F 78 17 126/77 98 08/09/17 10:56 08/09/17 10:56 08/09/17 10:56 08/09/17 10:56 08/09/17 10:56 ED Treatment Course - LABORATORY CBC & Chemistry Diagram: 08/09/17 08:35 08/09/17 08:35 - ADDITIONAL ORDERS Additional order review: Laboratory Results 08/09/17 08/09/17 08/09/17 10:50 10:50 10:45 Sodium Potassium Chloride Carbon Dioxide Anion Gap BUN Creatinine Creat Clearance w eGFR Random Glucose Calcium Total Bilirubin AST ALT Alkaline Phosphatase Creatine Kinase Creatine Kinase Index CK-MB (CK-2) Troponin I Total Protein Albumin Lipase Urine Color Ltyellow Urine Appearance Clear Urine pH 5.0 Ur Specific [place] 1.012 Urine Protein Negative Urine Glucose (UA) Negative Urine Ketones Negative Urine Blood Negative Urine Nitrite Negative Urine Bilirubin Negative Urine Urobilinogen Negative Salicylates Opiates Screen Negative Methadone Screen Negative Acetaminophen < 5.0 L Barbiturate Screen Negative Phencyclidine Screen Negative Ur Amphetamines Screen Negative MDMA (Ecstasy) Screen Negative Benzodiazepines Screen Positive Cocaine Screen Positive U Marijuana (THC) Screen Negative Alcohol, Quantitative 08/09/17 08/09/17 08/09/17 10:45 08:35 08:35 Sodium 137 Potassium 4.4 Chloride 103 Carbon Dioxide 25 Anion Gap 9 BUN 16 Creatinine 1.1 D Creat Clearance w eGFR > 60 Random Glucose 81 Calcium 9.2 Total Bilirubin 1.2 H AST 26 ALT 28 D Alkaline Phosphatase 130 H Creatine Kinase 797 H Creatine Kinase Index 1.1 CK-MB (CK-2) 9.090 H Troponin I < 0.02 Total Protein 8.1 D Albumin 4.4 D Lipase 153 Urine Color Urine Appearance Urine pH Ur Specific [place] Urine Protein Urine Glucose (UA) Urine Ketones Urine Blood Urine Nitrite Urine Bilirubin Urine Urobilinogen Salicylates < 4.0 Opiates Screen Methadone Screen Acetaminophen Barbiturate Screen Phencyclidine Screen Ur Amphetamines Screen MDMA (Ecstasy) Screen Benzodiazepines Screen Cocaine Screen U Marijuana (THC) Screen Alcohol, Quantitative < 5.0 08/09/17 08:35 RBC 5.58 MCV 85.8 MCHC 33.0 RDW 14.2 MPV 9.9 Neutrophils % 67.2 Lymphocytes % 18.2 Monocytes % 13.1 H Eosinophils % 0.8 Basophils % 0.7 - RADIOLOGY Radiology Studies Ordered: Category Date Time Status CHEST X-RAY PORTABLE* [RAD] Stat Radiology 08/09/17 07:57 Ordered - Medications Given in the ED: ED Medications Discontinued Medications Generic Name Dose Route Start Last Admin Trade Name Chaunceyq PRN Reason Stop Dose Admin Acetaminophen 650 mg 08/09/17 08:07 08/09/17 08:45 Tylenol - PO 08/09/17 08:08 650 mg ONCE ONE Administration Diphenhydramine HCl 50 mg 08/09/17 08:45 08/09/17 08:45 Benadryl Injection - IVPUSH 08/09/17 08:46 50 mg ONCE ONE Administration Sodium Chloride 1,000 mls @ 1,000 mls/hr 08/09/17 08:07 08/09/17 08:45 Normal Saline - IV 08/09/17 09:06 1,000 mls/hr ASDIR STA Administration Sodium Chloride 1,000 mls @ 1,000 mls/hr 08/09/17 10:26 08/09/17 10:51 Normal Saline - IV 08/09/17 11:25 1,000 mls/hr ASDIR STA Administration *DC/Admit/Observation/Transfer Diagnosis at time of Disposition: Bipolar disorder Qualifiers: Active/Remission status: currently active Current bipolar episode type: mixed Current episode severity: severe Psychotic features: with psychotic features Qualified Code(s): F31.64 - Bipolar disorder, current episode mixed, severe, with psychotic features - Discharge Dispostion Condition at time of disposition: Fair Admit: Yes Decision to Admit order Date/Time: Decision to Admit Order Category Date Time Status Decision to Admit to Hospital Routine Admission 08/09/17 12:15 Active - Referrals - Patient Instructions - Post Discharge Activity
--- NOTE | 2017-08-09 13:10 | EKG ---
Test Reason : Blood Pressure : / mmHG Vent. Rate : 078 BPM Atrial Rate : 078 BPM P-R Int : 192 ms QRS Dur : 084 ms QT Int : 410 ms P-R-T Axes : 042 040 025 degrees QTc Int : 467 ms NORMAL SINUS RHYTHM NORMAL ECG WHEN COMPARED WITH ECG OF 27-JUL-2017 20:15, NO SIGNIFICANT CHANGE WAS FOUND Confirmed by ANDREW FAIRBANKS MD ([id number]) on 08/09/2017 1:10:06 PM Referred By: Confirmed By:ANDREW FAIRBANKS MD
[2017-08-09] MEDS ORDERED: ACETAMINOPHEN 325 MG TABLET (FP) PO PRN (14:16)
[2017-08-09] MEDS ORDERED: THIAMINE HCL 100 MG TABLET (FP) PO ONE (14:19)
[2017-08-09] MEDS ORDERED: HALOPERIDOL LACTATE 5 MG/ML IM PRN (14:22)
--- NOTE | 2017-08-09 15:07 | HP ---
CHIEF COMPLAINT: "I want to kill people." PCP: NONE HISTORY OF PRESENT ILLNESS: This is a 46yo man with PMH bipolar disorder and polysubstance abuse who was brought to the ER with homicidal ideation. He states he presented to a rehab facility at 2am and was told to return in the morning for admission. He states he refused to leave the facility at that time. EMS activated to bring to ED for evaluation. He reports using cocaine and ETOH last night. He states he wants to kill his sister's boyfriend. He denies access to weapon or specific plan to hurt him. ER course was notable for: (1) mildly elevated CPK (2) 2PC by Dr. Mensah Recent Travel: denies PAST MEDICAL HISTORY: see hpi PAST SURGICAL HISTORY: see hpi Social History: Smoking: denies Alcohol: daily- does not specify amount Drugs: daily cocaine- does not specify amount Family History: Allergies No Known Allergies Allergy (Verified 08/09/17 05:30) HOME MEDICATIONS: Home Medications Medication Instructions Recorded Mirtazapine [Remeron -] 15 mg PO HS #30 tablet 01/31/17 Sertraline HCl [Zoloft -] 50 mg PO DAILY #30 tablet 01/31/17 Quetiapine Fumarate [Seroquel -] 200 mg PO HS 07/27/17 REVIEW OF SYSTEMS CONSTITUTIONAL: Absent: fever, chills, diaphoresis, generalized weakness, malaise, loss of appetite, weight change HEENT: Absent: rhinorrhea, nasal congestion, throat pain, throat swelling, difficulty swallowing, mouth swelling, ear pain, eye pain, visual changes CARDIOVASCULAR: Absent: chest pain, syncope, palpitations, irregular heart rate, lightheadedness , peripheral edema RESPIRATORY: Absent: cough, shortness of breath, dyspnea with exertion, orthopnea, wheezing, stridor, hemoptysis GASTROINTESTINAL: Absent: abdominal pain, abdominal distension, nausea, vomiting, diarrhea, constipation, melena, hematochezia GENITOURINARY: Absent: dysuria, frequency, urgency, hesitancy, hematuria, flank pain, genital pain MUSCULOSKELETAL: Absent: myalgia, arthralgia, joint swelling, back pain, neck pain SKIN: Absent: rash, itching, pallor HEMATOLOGIC/IMMUNOLOGIC: Absent: easy bleeding, easy bruising, lymphadenopathy, frequent infections ENDOCRINE: Absent: unexplained weight gain, unexplained weight loss, heat intolerance, cold intolerance NEUROLOGIC: Absent: headache, focal weakness or paresthesias, dizziness, unsteady gait, seizure, mental status changes, bladder or bowel incontinence PSYCHIATRIC: Absent: anxiety, depression, suicidal or homicidal ideation, hallucinations. PHYSICAL EXAMINATION Vital Signs - 24 hr 08/09/17 08/09/17 05:28 10:56 Temperature 96.6 F L 98.2 F Pulse Rate 85 Pulse Rate [ 78 Right Radial] Respiratory 21 17 Rate Blood Pressure 135/72 Blood Pressure 126/77 [Left Arm] O2 Sat by Pulse 97 98 Oximetry (%) GENERAL: Awake, alert, and fully oriented, in no acute distress. HEAD: Normal with no signs of trauma. EYES: Pupils equal, round and reactive to light, extraocular movements intact, sclera anicteric, conjunctiva clear. No lid lag. EARS, NOSE, THROAT: Ears normal, nares patent, oropharynx clear without exudates. Moist mucous membranes. NECK: Normal range of motion, supple without lymphadenopathy, JVD, or masses. LUNGS: Breath sounds equal, clear to auscultation bilaterally. No wheezes, and no crackles. No accessory muscle use. HEART: Regular rate and rhythm, normal S1 and S2 without murmur, rub or gallop. ABDOMEN: Soft, nontender, not distended, normoactive bowel sounds, no guarding, no rebound, no masses. No hepatomegaly or splenomegaly. MUSCULOSKELETAL: Normal range of motion at all joints. No bony deformities or tenderness. No CVA tenderness. UPPER EXTREMITIES: 2+ pulses, warm, well-perfused. No cyanosis. No clubbing. No peripheral edema. LOWER EXTREMITIES: 2+ pulses, warm, well-perfused. No calf tenderness. No peripheral edema. NEUROLOGICAL: Cranial nerves II-XII intact. Normal speech. Normal gait. PSYCHIATRIC: Cooperative. Poor eye contact. pressured speech. Homicidal ideation - want to hurt his sister's boyfriend but won't because he would want to kill himself. SKIN: Warm, dry, normal turgor, no rashes or lesions noted, normal capillary refill. Laboratory Results - last 24 hr 08/09/17 08/09/17 08/09/17 08:35 08:35 08:35 WBC 7.9 D RBC 5.58 Hgb 15.8 Hct 47.9 MCV 85.8 MCH 28.3 MCHC 33.0 RDW 14.2 Plt Count 174 MPV 9.9 Neutrophils % 67.2 Lymphocytes % 18.2 Monocytes % 13.1 H Eosinophils % 0.8 Basophils % 0.7 Sodium 137 Potassium 4.4 Chloride 103 Carbon Dioxide 25 Anion Gap 9 BUN 16 Creatinine 1.1 D Creat Clearance w eGFR > 60 Random Glucose 81 Calcium 9.2 Total Bilirubin 1.2 H AST 26 ALT 28 D Alkaline Phosphatase 130 H Creatine Kinase 797 H Creatine Kinase Index 1.1 CK-MB (CK-2) 9.090 H Troponin I < 0.02 Total Protein 8.1 D Albumin 4.4 D Lipase 153 Urine Color Urine Appearance Urine pH Ur Specific [place] Urine Protein Urine Glucose (UA) Urine Ketones Urine Blood Urine Nitrite Urine Bilirubin Urine Urobilinogen Salicylates Opiates Screen Methadone Screen Acetaminophen Barbiturate Screen Phencyclidine Screen Ur Amphetamines Screen MDMA (Ecstasy) Screen Benzodiazepines Screen Cocaine Screen U Marijuana (THC) Screen Alcohol, Quantitative < 5.0 08/09/17 08/09/17 08/09/17 10:45 10:45 10:50 WBC RBC Hgb Hct MCV MCH MCHC RDW Plt Count MPV Neutrophils % Lymphocytes % Monocytes % Eosinophils % Basophils % Sodium Potassium Chloride Carbon Dioxide Anion Gap BUN Creatinine Creat Clearance w eGFR Random Glucose Calcium Total Bilirubin AST ALT Alkaline Phosphatase Creatine Kinase Creatine Kinase Index CK-MB (CK-2) Troponin I Total Protein Albumin Lipase Urine Color Ltyellow Urine Appearance Clear Urine pH 5.0 Ur Specific [place] 1.012 Urine Protein Negative Urine Glucose (UA) Negative Urine Ketones Negative Urine Blood Negative Urine Nitrite Negative Urine Bilirubin Negative Urine Urobilinogen Negative Salicylates < 4.0 Opiates Screen Methadone Screen Acetaminophen < 5.0 L Barbiturate Screen Phencyclidine Screen Ur Amphetamines Screen MDMA (Ecstasy) Screen Benzodiazepines Screen Cocaine Screen U Marijuana (THC) Screen Alcohol, Quantitative 08/09/17 10:50 WBC RBC Hgb Hct MCV MCH MCHC RDW Plt Count MPV Neutrophils % Lymphocytes % Monocytes % Eosinophils % Basophils % Sodium Potassium Chloride Carbon Dioxide Anion Gap BUN Creatinine Creat Clearance w eGFR Random Glucose Calcium Total Bilirubin AST ALT Alkaline Phosphatase Creatine Kinase Creatine Kinase Index CK-MB (CK-2) Troponin I Total Protein Albumin Lipase Urine Color Urine Appearance Urine pH Ur Specific [place] Urine Protein Urine Glucose (UA) Urine Ketones Urine Blood Urine Nitrite Urine Bilirubin Urine Urobilinogen Salicylates Opiates Screen Negative Methadone Screen Negative Acetaminophen Barbiturate Screen Negative Phencyclidine Screen Negative Ur Amphetamines Screen Negative MDMA (Ecstasy) Screen Negative Benzodiazepines Screen Positive Cocaine Screen Positive U Marijuana (THC) Screen Negative Alcohol, Quantitative ASSESSMENT/PLAN: A: 46yo man with PMH bipolar disorder and polysubstance abuse who was admitted pending transfer to [facility] for inpatient psych. P: Bipolar - 1:1 for homicidal ideation - 2pc - haldol prn - ativan prn - benadryl prn Mildly elevated CPK - NS 1 liter bolus - recheck in AM F/E/N - regular diet PPX - OOB Dispo- 2pc awaiting transfer to [facility] for inpatient psychiatric evaluation Visit type - Emergency Visit Emergency Visit: Yes Care time: The patient presented to the Emergency Department on the above date and was hospitalized for further evaluation of their emergent condition. - New Patient This patient is new to me today: Yes Date on this admission: 08/09/17 - Critical Care Critical Care patient: No
[2017-08-09] MEDS ORDERED: FOLIC ACID 1 MG TABLET (FP) PO ONE (15:45)
[2017-08-09] MEDS ORDERED: FOLIC ACID 1 MG TABLET (FP) ONE ×2 (16:54→16:55)
[2017-08-09] MEDS ORDERED: diphenhydrAMINE HCL 25 MG CAPSULE (FP) PO ONE ×2 (22:09→22:28)
--- NOTE | 2017-08-09 22:11 | HOSP ---
Subjective - Review of Symptoms Events since last encounter: Hospitalist Encounter Notified by the primary nurse that the patient is requesting medicine for sleep A/P 46yo man with PMH bipolar disorder and polysubstance abuse who was admitted pending transfer to [facility] for inpatient psych. Benadryl po x1 now Continue to monitor Physical Examination Vital Signs: Vital Signs Temperature 98.2 F 08/09/17 10:56 Pulse Rate 78 08/09/17 10:56 Respiratory Rate 17 08/09/17 10:56 Blood Pressure 126/77 08/09/17 10:56 O2 Sat by Pulse Oximetry (%) 98 08/09/17 10:56 Labs: CBC, BMP 08/09/17 08:35 08/09/17 08:35
[2017-08-10 07:26] LABS: BASO % 0.7 % (0-2.0); EOS % 2.8 % (0-4.5); HEMATOCRIT 42.7 % (35.4-49); LYMPH % 31.3 % (8-40); MCH 28.6 pg (25.7-33.7); MCHC 32.8 g/dl (32.0-35.9); MEAN CELL VOLUME 87.2 fl (80-96); MEAN PLT VOLUME 9.9 fl (7.5-11.1); MONO % 16.8 % (3.8-10.2); NEUT % 48.4 % (42.8-82.8); PLATELET COUNT 131 K/MM3 (134-434); RDW 14.2 % (11.9-15.9)
[2017-08-10 07:51] LABS: ALBUMIN 3.4 g/dl (3.4-5.0); ANION GAP 10 (8-16); BLOOD UREA NITROGEN 16 mg/dL (7-18); CALCIUM 8.7 mg/dL (8.5-10.1); CHLORIDE 107 mmol/L (98-107); CO2 24 mmol/L (21-32); GLUCOSE,RANDOM 77 mg/dL (74-106); POTASSIUM 4.2 mmol/L (3.5-5.1); SGOT/AST 16 U/L (15-37); SGPT/ALT 21 U/L (12-78); SODIUM 141 mmol/L (136-145)
[2017-08-10 07:53] LABS: ALK PHOS 102 U/L (45-117); BILIRUBIN,TOTAL 0.8 mg/dL (0.2-1.0); TOT PROT 6.3 g/dl (6.4-8.2)
[2017-08-10] MEDS ORDERED: HYDROCORTISONE 0.5% TOPICAL OINTMENT TUBE TP PRN (08:55)
--- NOTE | 2017-08-10 08:57 | PN ---
Physical Exam: SUBJECTIVE: Patient seen and examined in the ER. He denies pain, shortness of breath or discomfort. OBJECTIVE: Medically cleared for transfer to inpatient psych at [facility] Vital Signs Period Temp Pulse Resp BP Sys/Tyson Pulse Ox Last 24 Hr 98 F-98.2 F 65-78 17-18 116-126/65-77 98-98 GENERAL: The patient is awake, alert, and fully oriented, in no acute distress, has 1:1 at bedside HEAD: Normal with no signs of trauma. EYES: PERRL, extraocular movements intact, sclera anicteric, conjunctiva clear. No ptosis. ENT: Ears normal, nares patent, oropharynx clear without exudates, moist mucous membranes. NECK: Trachea midline, full range of motion, supple. LUNGS: Breath sounds equal, clear to auscultation bilaterally HEART: Regular rate and rhythm, S1, S2 without murmur, rub or gallop. ABDOMEN: Soft, nontender, nondistended, normoactive bowel sounds EXTREMITIES: no edema, mild itchiness, mild rash on right posterior leg NEUROLOGICAL: Normal speech, gait not observed. PSYCH: Poor eye contact. Homicidal ideation- want to hurt his sister's boyfriend Laboratory Results - last 24 hr 08/09/17 08/09/17 08/09/17 08:35 08:35 08:35 WBC 7.9 D RBC 5.58 Hgb 15.8 Hct 47.9 MCV 85.8 MCH 28.3 MCHC 33.0 RDW 14.2 Plt Count 174 MPV 9.9 Neutrophils % 67.2 Lymphocytes % 18.2 Monocytes % 13.1 H Eosinophils % 0.8 Basophils % 0.7 Sodium 137 Potassium 4.4 Chloride 103 Carbon Dioxide 25 Anion Gap 9 BUN 16 Creatinine 1.1 D Creat Clearance w eGFR > 60 Random Glucose 81 Calcium 9.2 Total Bilirubin 1.2 H AST 26 ALT 28 D Alkaline Phosphatase 130 H Creatine Kinase 797 H Creatine Kinase Index 1.1 CK-MB (CK-2) 9.090 H Troponin I < 0.02 Total Protein 8.1 D Albumin 4.4 D Lipase 153 Urine Color Urine Appearance Urine pH Ur Specific [place] Urine Protein Urine Glucose (UA) Urine Ketones Urine Blood Urine Nitrite Urine Bilirubin Urine Urobilinogen Ur Leukocyte Esterase Salicylates Opiates Screen Methadone Screen Acetaminophen Barbiturate Screen Phencyclidine Screen Ur Amphetamines Screen MDMA (Ecstasy) Screen Benzodiazepines Screen Cocaine Screen U Marijuana (THC) Screen Alcohol, Quantitative < 5.0 08/09/17 08/09/17 08/09/17 10:45 10:45 10:50 WBC RBC Hgb Hct MCV MCH MCHC RDW Plt Count MPV Neutrophils % Lymphocytes % Monocytes % Eosinophils % Basophils % Sodium Potassium Chloride Carbon Dioxide Anion Gap BUN Creatinine Creat Clearance w eGFR Random Glucose Calcium Total Bilirubin AST ALT Alkaline Phosphatase Creatine Kinase Creatine Kinase Index CK-MB (CK-2) Troponin I Total Protein Albumin Lipase Urine Color Ltyellow Urine Appearance Clear Urine pH 5.0 Ur Specific [place] 1.012 Urine Protein Negative Urine Glucose (UA) Negative Urine Ketones Negative Urine Blood Negative Urine Nitrite Negative Urine Bilirubin Negative Urine Urobilinogen Negative Ur Leukocyte Esterase Negative Salicylates < 4.0 Opiates Screen Methadone Screen Acetaminophen < 5.0 L Barbiturate Screen Phencyclidine Screen Ur Amphetamines Screen MDMA (Ecstasy) Screen Benzodiazepines Screen Cocaine Screen U Marijuana (THC) Screen Alcohol, Quantitative 08/09/17 08/10/17 08/10/17 10:50 06:25 06:25 WBC 4.0 D RBC 4.90 Hgb 14.0 D Hct 42.7 MCV 87.2 MCH 28.6 MCHC 32.8 RDW 14.2 Plt Count 131 L D MPV 9.9 Neutrophils % 48.4 D Lymphocytes % 31.3 D Monocytes % 16.8 H Eosinophils % 2.8 D Basophils % 0.7 Sodium 141 Potassium 4.2 Chloride 107 Carbon Dioxide 24 Anion Gap 10 BUN 16 Creatinine 1.0 Creat Clearance w eGFR > 60 Random Glucose 77 Calcium 8.7 Total Bilirubin 0.8 D AST 16 D ALT 21 D Alkaline Phosphatase 102 D Creatine Kinase Creatine Kinase Index CK-MB (CK-2) Troponin I Total Protein 6.3 L D Albumin 3.4 D Lipase Urine Color Urine Appearance Urine pH Ur Specific [place] Urine Protein Urine Glucose (UA) Urine Ketones Urine Blood Urine Nitrite Urine Bilirubin Urine Urobilinogen Ur Leukocyte Esterase Salicylates Opiates Screen Negative Methadone Screen Negative Acetaminophen Barbiturate Screen Negative Phencyclidine Screen Negative Ur Amphetamines Screen Negative MDMA (Ecstasy) Screen Negative Benzodiazepines Screen Positive Cocaine Screen Positive U Marijuana (THC) Screen Negative Alcohol, Quantitative Active Medications Generic Name Dose Route Start Last Admin Trade Name Freq PRN Reason Stop Dose Admin Acetaminophen 650 mg 08/09/17 14:16 Tylenol - PO Q4H PRN FEVER OR PAIN Diphenhydramine HCl 50 mg 08/09/17 14:22 Benadryl Injection - IM ONCE PRN AGITATION Folic Acid 1 mg 08/10/17 10:00 Folic Acid - PO DAILY [place] Haloperidol 5 mg 08/09/17 14:22 Haldol Injection (Fast Acting) - IM ONCE PRN AGITATION Lorazepam 2 mg 08/09/17 14:22 Ativan Injection - IM ONCE PRN AGITATION Thiamine HCl 100 mg 08/10/17 10:00 Vitamin B1 - PO DAILY [facility] ASSESSMENT/PLAN: Patient is a 46 year old male with a significant past medical history of bipolar disorder and polysubstance abuse. He is currently pending transfer to [facility] for inpatient psych. Psyche: Homicidal Ideation Bipolar Discorder with psychotic features On 1:1 for homicidal ideation 2 PC, Awaiting bed at [facility] Haldol, Ativan, Benadryl PRN Maintain safety with 1:1 Inpatient psyche at [facility] to stabilize his mental status. ETOH and cocaine use reported Utox noted Monitor for signs of withdrawal Mildly elevated CPK @ 797 NS 1 liter bolus, given on 08/09/2017 CPK now 409 Encourage PO fluid intake F.E.N. Fluids: PO adequate Electrolytes: within normal limits Nutrition: regular diet Prophy: DVT: ambulatory GI: deferred [facility] awaiting transfer to [facility] for inpatient psychiatric evaluation. Medically cleared for transfer to [facility]. Visit type - Emergency Visit Emergency Visit: Yes Care time: The patient presented to the Emergency Department on the above date and was hospitalized for further evaluation of their emergent condition. - New Patient This patient is new to me today: Yes Date on this admission: 08/10/17 - Critical Care Critical Care patient: No - Discharge Referral Referred to [facility] Med P.C.: No
--- NOTE | 2017-08-10 09:23 | DS ---
Physical Exam: SUBJECTIVE: Patient seen and examined OBJECTIVE: Vital Signs Period Temp Pulse Resp BP Sys/Tyson Pulse Ox Last 24 Hr 98 F-98.2 F 65-78 17-18 116-126/65-77 98-98 PHYSICAL EXAM GENERAL: The patient is awake, alert, and fully oriented, in no acute distress, has 1:1 at bedside HEAD: Normal with no signs of trauma. EYES: PERRL, extraocular movements intact, sclera anicteric, conjunctiva clear. No ptosis. ENT: Ears normal, nares patent, oropharynx clear without exudates, moist mucous membranes. NECK: Trachea midline, full range of motion, supple. LUNGS: Breath sounds equal, clear to auscultation bilaterally HEART: Regular rate and rhythm, S1, S2 without murmur, rub or gallop. ABDOMEN: Soft, nontender, nondistended, normoactive bowel sounds EXTREMITIES: no edema, mild itchiness, mild rash on right posterior leg NEUROLOGICAL: Normal speech, gait not observed. PSYCH: Poor eye contact. Homicidal ideation- want to hurt his sister's boyfriend LABS Laboratory Results - last 24 hr 08/09/17 08/09/17 08/09/17 08:35 08:35 10:45 WBC RBC Hgb Hct MCV MCH MCHC RDW Plt Count MPV Neutrophils % Lymphocytes % Monocytes % Eosinophils % Basophils % Sodium 137 Potassium 4.4 Chloride 103 Carbon Dioxide 25 Anion Gap 9 BUN 16 Creatinine 1.1 D Creat Clearance w eGFR > 60 Random Glucose 81 Calcium 9.2 Total Bilirubin 1.2 H AST 26 ALT 28 D Alkaline Phosphatase 130 H Creatine Kinase 797 H Creatine Kinase Index 1.1 CK-MB (CK-2) 9.090 H Troponin I < 0.02 Total Protein 8.1 D Albumin 4.4 D Lipase 153 Urine Color Urine Appearance Urine pH Ur Specific [place] Urine Protein Urine Glucose (UA) Urine Ketones Urine Blood Urine Nitrite Urine Bilirubin Urine Urobilinogen Ur Leukocyte Esterase Salicylates < 4.0 Opiates Screen Methadone Screen Acetaminophen Barbiturate Screen Phencyclidine Screen Ur Amphetamines Screen MDMA (Ecstasy) Screen Benzodiazepines Screen Cocaine Screen U Marijuana (THC) Screen Alcohol, Quantitative < 5.0 08/09/17 08/09/17 08/09/17 10:45 10:50 10:50 WBC RBC Hgb Hct MCV MCH MCHC RDW Plt Count MPV Neutrophils % Lymphocytes % Monocytes % Eosinophils % Basophils % Sodium Potassium Chloride Carbon Dioxide Anion Gap BUN Creatinine Creat Clearance w eGFR Random Glucose Calcium Total Bilirubin AST ALT Alkaline Phosphatase Creatine Kinase Creatine Kinase Index CK-MB (CK-2) Troponin I Total Protein Albumin Lipase Urine Color Ltyellow Urine Appearance Clear Urine pH 5.0 Ur Specific [place] 1.012 Urine Protein Negative Urine Glucose (UA) Negative Urine Ketones Negative Urine Blood Negative Urine Nitrite Negative Urine Bilirubin Negative Urine Urobilinogen Negative Ur Leukocyte Esterase Negative Salicylates Opiates Screen Negative Methadone Screen Negative Acetaminophen < 5.0 L Barbiturate Screen Negative Phencyclidine Screen Negative Ur Amphetamines Screen Negative MDMA (Ecstasy) Screen Negative Benzodiazepines Screen Positive Cocaine Screen Positive U Marijuana (THC) Screen Negative Alcohol, Quantitative 08/10/17 08/10/17 08/10/17 06:25 06:25 06:25 WBC 4.0 D RBC 4.90 Hgb 14.0 D Hct 42.7 MCV 87.2 MCH 28.6 MCHC 32.8 RDW 14.2 Plt Count 131 L D MPV 9.9 Neutrophils % 48.4 D Lymphocytes % 31.3 D Monocytes % 16.8 H Eosinophils % 2.8 D Basophils % 0.7 Sodium 141 Potassium 4.2 Chloride 107 Carbon Dioxide 24 Anion Gap 10 BUN 16 Creatinine 1.0 Creat Clearance w eGFR > 60 Random Glucose 77 Calcium 8.7 Total Bilirubin 0.8 D AST 16 D ALT 21 D Alkaline Phosphatase 102 D Creatine Kinase 409 H Cancelled Creatine Kinase Index CK-MB (CK-2) Troponin I Total Protein 6.3 L D Albumin 3.4 D Lipase Urine Color Urine Appearance Urine pH Ur Specific [place] Urine Protein Urine Glucose (UA) Urine Ketones Urine Blood Urine Nitrite Urine Bilirubin Urine Urobilinogen Ur Leukocyte Esterase Salicylates Opiates Screen Methadone Screen Acetaminophen Barbiturate Screen Phencyclidine Screen Ur Amphetamines Screen MDMA (Ecstasy) Screen Benzodiazepines Screen Cocaine Screen U Marijuana (THC) Screen Alcohol, Quantitative HOSPITAL COURSE: Date of Admission:08/09/17 Date of Discharge: 08/10/17 ASSESSMENT/PLAN: Patient is a 46 year old male with a significant past medical history of bipolar disorder and polysubstance abuse. He is currently pending transfer to [facility] for inpatient psych. Psyche: Homicidal Ideation Bipolar Discorder with psychotic features On 1:1 for homicidal ideation 2 PC, Awaiting bed at [facility] Haldol, Ativan, Benadryl PRN Maintain safety with 1:1 Inpatient psyche at [facility] to stabilize his mental status. ETOH and cocaine use reported Utox noted Monitor for signs of withdrawal Mildly elevated CPK @ 797 NS 1 liter bolus, given on 08/09/2017 CPK now 409 Encourage PO fluid intake F.E.N. Fluids: PO adequate Electrolytes: within normal limits Nutrition: regular diet Prophy: DVT: ambulatory GI: deferred [facility]position- [facility] awaiting transfer to [facility] for inpatient psychiatric evaluation. Medically cleared for transfer to [facility]. Minutes to complete discharge: 60 Discharge Summary Reason For Visit: LEG/BACK PAIN Current Active Problems Bipolar disorder (Chronic) Condition: Guarded - Instructions Diet, Activity, Other Instructions: Transfer to [facility] for homicidal ideation/psyche unit Inpatient psyche at [facility] to stabilize his mental status. Disposition: TRANSFER ACUTE CARE/OTHER HOSP - Home Medications Comprehensive Discharge Medication List: Ambulatory Orders Mirtazapine [Remeron -] 15 mg PO HS #30 tablet 01/31/17 Sertraline HCl [Zoloft -] 50 mg PO DAILY #30 tablet 01/31/17 Quetiapine Fumarate [Seroquel -] 200 mg PO HS 07/27/17 This patient is new to me today: Yes Date on this admission: 08/10/17 Emergency Visit: Yes Care time: The patient presented to the Emergency Department on the above date and was hospitalized for further evaluation of their emergent condition. Critical Care patient: No - Discharge Referral Referred to [facility] Med P.C.: No Physician Referral: Chester Niño MD ([facility])
[2017-08-10] MEDS: FOLIC ACID 1 MG TABLET (FP) PO SCH (10:27)
[2017-08-10] MEDS: THIAMINE HCL 100 MG TABLET (FP) PO SCH (10:27)
[2017-08-10] MEDS: HYDROCORTISONE 0.5% TOPICAL OINTMENT TUBE TP SCH (10:27)
[2017-08-10] MEDS ORDERED: SERTRALINE HCL 50 MG TABLET (FP) ONE (15:19)
[2017-08-10] MEDS: SERTRALINE HCL 50 MG TABLET (FP) PO SCH (15:21)
[2017-08-10] MEDS ORDERED: MIRTAZAPINE 15 MG TABLET (FP) ONE ×2 (16:48→23:27)
[2017-08-10] MEDS ORDERED: MIRTAZAPINE 15 MG TABLET (FP) PO ONE (17:25)
[2017-08-10] MEDS ORDERED: MIRTAZAPINE 15 MG TABLET (FP) PO SCH (22:00)
[2017-08-11] MEDS ORDERED: PNEUMOC 13-VAL CONJ-DIP CRM/PF 0.5 ML DISP.SYRIN IM ONE (00:16)
[2017-08-11 00:38] VITALS: BMI 26.1
[2017-08-11] MEDS ORDERED: FLU VACCINE QUAD 60 MCG/0.5 ML (MDV 17-18) IM ONE (09:00)
[2017-08-11] MEDS: SERTRALINE HCL 50 MG TABLET (FP) PO SCH (12:08)
[2017-08-11] MEDS: THIAMINE HCL 100 MG TABLET (FP) PO SCH (12:09)
[2017-08-11] MEDS: FOLIC ACID 1 MG TABLET (FP) PO SCH (12:09)
[2017-08-11] MEDS: HYDROCORTISONE 0.5% TOPICAL OINTMENT TUBE TP SCH (12:11)
[2017-08-11 14:19] VITALS: BP 117/82; PULSE 58; TEMP 98.1
--- NOTE | 2017-08-11 16:24 | PN ---
Physical Exam: SUBJECTIVE: Patient seen and examined at the bedside. OBJECTIVE: Medically cleared for transfer to inpatient psych at [facility] , bed pending Vital Signs Period Temp Pulse Resp BP Sys/Tyson Pulse Ox Last 24 Hr 98.0 F-98.4 F 58-69 16-18 117-134/61-82 98-98 GENERAL: The patient is awake, alert, and fully oriented, in no acute distress, has 1:1 at bedside for safety HEAD: Normal with no signs of trauma. EYES: PERRL, extraocular movements intact, sclera anicteric, conjunctiva clear. No ptosis. ENT: Ears normal, nares patent, oropharynx clear without exudates, moist mucous membranes. NECK: Trachea midline, full range of motion, supple. LUNGS: Breath sounds equal, clear to auscultation bilaterally HEART: Regular rate and rhythm, S1, S2 without murmur, rub or gallop. ABDOMEN: Soft, nontender, nondistended, normoactive bowel sounds EXTREMITIES: no edema, mild itchiness, mild rash on right posterior leg NEUROLOGICAL: Normal speech, gait not observed. PSYCH: Poor eye contact. Homicidal ideation Active Medications Generic Name Dose Route Start Last Admin Trade Name Freq PRN Reason Stop Dose Admin Acetaminophen 650 mg 08/09/17 14:16 Tylenol - PO Q4H PRN FEVER OR PAIN Diphenhydramine HCl 50 mg 08/09/17 14:22 Benadryl Injection - IM ONCE PRN AGITATION Folic Acid 1 mg 08/10/17 10:00 08/11/17 12:09 Folic Acid - PO 1 mg DAILY [place] Administration Haloperidol 5 mg 08/09/17 14:22 Haldol Injection (Fast Acting) - IM ONCE PRN AGITATION Hydrocortisone 1 applic 08/10/17 10:00 08/11/17 12:11 Hytone 0.5% Ointment - TP 1 applic DAILY [place] Administration Lorazepam 2 mg 08/09/17 14:22 Ativan Injection - IM ONCE PRN AGITATION Mirtazapine 15 mg 08/10/17 22:00 08/10/17 22:16 Remeron - PO 15 mg HS [place] Administration Sertraline HCl 50 mg 08/10/17 15:00 08/11/17 12:08 Zoloft - PO 50 mg DAILY [place] Administration Thiamine HCl 100 mg 08/10/17 10:00 08/11/17 12:09 Vitamin B1 - PO 100 mg DAILY [place] Administration ASSESSMENT/PLAN: Patient is a 46 year old male with a significant past medical history of bipolar disorder and polysubstance abuse. He is currently pending transfer to [facility] for inpatient psych. Psyche: Homicidal Ideation Bipolar Disorder with psychotic features On 1:1 for homicidal ideation 2 PC, Awaiting bed at [facility] Haldol, Ativan, Benadryl PRN Maintain safety with 1:1 Inpatient psyche at [facility] to stabilize his mental status. ETOH and cocaine use reported Utox noted Monitor for signs of withdrawal, none currently Mildly elevated CPK @ 797 NS 1 liter bolus, given on 08/09/2017 CPK now 409 Encourage PO fluid intake F.E.N. Fluids: PO adequate Electrolytes: within normal limits Nutrition: regular diet Prophy: DVT: ambulatory GI: deferred [facility] for inpatient psychiatric evaluation. Medically cleared for transfer to [facility]. Visit type - Emergency Visit Emergency Visit: Yes ED Registration Date: 08/09/17 Care time: The patient presented to the Emergency Department on the above date and was hospitalized for further evaluation of their emergent condition. - New Patient This patient is new to me today: No - Critical Care Critical Care patient: No - Discharge Referral Referred to [facility] Med P.C.: No
== END 2017-08-11 20:54 | DRG 753 ==
LOC: JER 05:12 → JERBED 12:15 → J8W 08-10 23:59
PROVIDERS: ADMIT Internal Medicine; ATTEND Nurse Practitioner Family
PROC: HZ2ZZZZ Detoxification Services for Substance Abuse Treatment (ICD-10-PCS; principal; 2017-08-09)
DX: F31.64 Bipolar disorder, current episode mixed, severe, with psychotic features (principal); F14.20 Cocaine dependence, uncomplicated; E11.9 Type 2 diabetes mellitus without complications; R45.850 Homicidal ideations; I10 Essential (primary) hypertension; F10.20 Alcohol dependence, uncomplicated; F17.210 Nicotine dependence, cigarettes, uncomplicated; M79.606 Pain in leg, unspecified; R74.8 Abnormal levels of other serum enzymes; D57.3 Sickle-cell trait; Z59.0 Homelessness; Y90.0 Blood alcohol level of less than 20 mg/100 ml
CPT/HCPCS: 36415; 80053; 80307; 81003; 82550; 82553; 83690; 84484; 85025; 90688; 93005; 93010; 99285-25; G0008

== ENCOUNTER 2017-08-25 00:22 | Emergency (ER) | payer SELFPAY ==
[2017-08-25 00:53] VITALS: TEMP 98.6; BMI 27.3
--- NOTE | 2017-08-25 01:41 | PDOC ---
Attending Attestation - HPI HPI: 08/25/17 01:45 The patient is a 46 year old male with a significant PMH of bipolar disorder, schizophrenia, alcohol abuse, and cocaine abuse who presents to the emergency department with right shoulder pain and requesting detox. The patient believes his right shoulder pain is chronic which has worsened recently. He primarily presents to the ED requesting detox for alcohol and cocaine, his last use being today. Allergies: NKA <Anson Churchill - Last Filed: 08/25/17 01:45> - Resident Resident Name: Srikanth Ko - ED Attending Attestation I have performed the following: I have examined & evaluated the patient, The case was reviewed & discussed with the resident, I agree w/resident's findings & plan, Exceptions are as noted - Physicial Exam PE: 08/25/17 04:04 *Physical Exam General Appearance: Yes: Appropriately Dressed. No: Apparent Distress, Intoxicated HEENT: positive: EOMI, VEDA, Normal ENT Inspection, Normal Voice, TMs Normal, Pharynx Normal. negative: Pale Conjunctivae, Photophobia, Scleral Icterus (R), Scleral Icterus (L) Neck: positive: Trachea midline, Normal Thyroid, Supple. negative: Tender, Rigid, Carotid bruit, Stridor, Lymphadenopathy (R), Lymphadenopathy (L), Thyromegaly Respiratory/Chest: positive: Lungs Clear, Normal Breath Sounds. negative: Chest Tender, Respiratory Distress, Accessory Muscle Use, Labored Respiration, RES, Crackles, Rales, Rhonchi, Stridor, Wheezing, Dullness Cardiovascular: positive: Regular Rhythm, Regular Rate, S1, S2. negative: Edema , JVD, Murmur, Bradycardia, Tachycardia Vascular Pulses: Dorsalis-Pedis (R): 2+, Doralis-Pedis (L): 2+ Gastrointestinal/Abdominal: positive: Normal Bowel Sounds, Flat, Soft. negative : Tender, Organomegaly, Pulsatile Mass, Increased Bowel Sounds, Decreased BS, Distended, Guarding, Rebound, Hernia, Hepatomegaly, Spleenomegaly Lymphatic: negative: Adenopathy, Tenderness Musculoskeletal: positive: Normal Inspection. negative: CVA Tenderness, Decreased Range of Motion Extremity: positive: Normal Capillary Refill, Normal Inspection, Normal Range of Motion, Pelvis Stable. negative: Tender, Pedal Edema, Swelling, Erythema Integumentary: positive: Normal Color, Dry, Warm. negative: Cyanotic, Erythema , Jaundice, Rash Neurologic: positive: medical researcher II-XII NML intact, Fully Oriented, Alert, Normal Mood/ Affect, Motor Strength 5/5. negative: EOM Palsy, Facial Droop, Sensory Deficit - Medical Decision Making 08/25/17 05:33 Pt treated and released. <Zoran Amos - Last Filed: 08/25/17 05:34>
--- NOTE | 2017-08-25 01:42 | PDOC ---
History of Present Illness - General Chief Complaint: Pain, Acute Stated Complaint: SHOULDER PAIN Time Seen by Provider: 08/25/17 01:18 History Source: Patient Exam Limitations: No Limitations - History of Present Illness Initial Comments: 08/25/17 01:42 Patient is a 46M with history of bipolar disorder, cocaine abuse, and alcohol abuse is here today complaining of right shoulder pain. The patient has had pain in his right shoulder for years after injuring it in [facility] and not healing it properly, but it has worsened in the past day. He denies any acute trauma. He is also requesting detox from alcohol and cocaine. Last use was today. Denies SI/HI. Denies chest pain, shortness of breath, abdominal pain, nausea, vomiting, fevers and chills. Past History - Past Medical History Allergies/Adverse Reactions: Allergies Allergy/AdvReac Type Severity Reaction Status Date / Time No Known Allergies Allergy Verified 08/25/17 00:30 Home Medications: Ambulatory Orders Mirtazapine [Remeron -] 15 mg PO HS #30 tablet 01/31/17 Sertraline HCl [Zoloft -] 50 mg PO DAILY #30 tablet 01/31/17 Quetiapine Fumarate [Seroquel -] 200 mg PO HS 07/27/17 Acetaminophen [Tylenol .Regular Strength -] 650 mg PO Q4H PRN tablet 08/10/17 Diphenhydramine [Benadryl Injection -] 50 mg IM ONCE PRN vial 08/10/17 Folic Acid - 1 mg PO DAILY tablet 08/10/17 Haloperidol Injection [Haldol Injection (Fast Acting) -] 5 mg IM ONCE PRN ml Hydrocortisone 0.5% Ointment [Hytone 0.5% Ointment -] 1 applic TP DAILY tube Hydrocortisone 0.5% Ointment [Hytone 0.5% Ointment -] 1 applic TP DAILY PRN tube 08/10/17 Thiamine HCl [Vitamin B1 -] 100 mg PO DAILY tablet 08/10/17 Anemia: Yes (SICKLE CELL TRAIT ) Kidney Stones: No Psychiatric Problems: Yes (bipolar) - Reproductive History Testicular Surgery: No - Suicide/Smoking/Psychosocial Hx Smoking History: Never smoked Have you smoked in the past 12 months: No Number of Cigarettes Smoked Daily: 8 Information on smoking cessation initiated: No 'Breaking Loose' booklet given: 07/27/17 Hx Alcohol Use: No Drug/Substance Use Hx: No Substance Use Type: Alcohol, Cocaine Hx Substance Use Treatment: Yes Review of Systems - Review of Systems Comments:: 08/25/17 01:44 GENERAL/CONSTITUTIONAL: No fever or chills. No weakness. HEAD, EYES, EARS, NOSE AND THROAT: No change in vision. No sore throat. CARDIOVASCULAR: No chest pain or shortness of breath RESPIRATORY: No cough, wheezing, or hemoptysis. GASTROINTESTINAL: No nausea, vomiting, diarrhea or constipation. GENITOURINARY: No dysuria, frequency, or change in urination. MUSCULOSKELETAL: Positive for right shoulder pain. SKIN: No rash NEUROLOGIC: No headache, vertigo, loss of consciousness, or change in strength/ sensation. ALLERGIC/IMMUNOLOGIC: No hives or skin allergy. *Physical Exam - Vital Signs Last Vital Signs Temp Pulse Resp BP Pulse Ox 98.6 F 98 H 20 131/72 99 08/25/17 00:30 08/25/17 00:30 08/25/17 00:30 08/25/17 00:30 08/25/17 00:30 - Physical Exam Comments: 08/25/17 01:45 GENERAL: Awake, alert, and fully oriented, in no acute distress PSYCH: Denies SI/HI, appropriate mood and affect R Shoulder: No gross dislocation, minimally tender along distal clavicle, extension limited at about 90%, no gross deformity or sign of injury, neurovascularly intact distal to injury. HEAD: No signs of trauma, normocephalic, atraumatic EYES: PERRLA, EOMI, sclera anicteric, conjunctiva clear ENT: Auricles normal inspection, hearing grossly normal, nares patent, oropharynx clear without exudates. Moist mucosa LUNGS: No distress, speaks full sentences, clear to auscultation bilaterally HEART: Regular rate and rhythm, normal S1 and S2, no murmurs, rubs or gallops, peripheral pulses normal and equal bilaterally. NEUROLOGICAL: Cranial nerves II through XII grossly intact. Normal speech, normal gait, no focal sensorimotor deficits SKIN: Warm, Dry, normal turgor, no rashes or lesions noted. ED Treatment Course - RADIOLOGY Radiology Studies Ordered: Category Date Time Status SHOULDER W/TRANS-RIGHT [RAD] Stat Radiology 08/25/17 01:27 Ordered Medical Decision Making - Medical Decision Making 08/25/17 01:46 46M with history of alcohol abuse, cocaine abuse, and bipolar disorder here today complaining of right shoulder pain. Vital signs stable and normal. Will evaluate with right shoulder x-ray and utox. [facility] called for possible placement. 08/25/17 03:31 Utox positive for cocaine. Patient has bed available at [facility]. X-ray of shoulder shows evidence of old fracture and arthritis, but no acute injury. Will discharge to [facility]. *DC/Admit/Observation/Transfer Diagnosis at time of Disposition: Cocaine abuse - Discharge Dispostion Disposition: HOME Condition at time of disposition: Good Admit: No - Referrals - Patient Instructions Additional Instructions: Please go to [facility] for detox and rehab. A bed is available for you. Please return if you have any new, worsening or concerning symptoms. - Post Discharge Activity
[2017-08-25 02:55] LABS: COCAINE, UR POSITIVE ng/ml (CUTOFF=300); METHADONE, UR NEGATIVE ng/ml (CUTOFF=300); OPIATES, URI NEGATIVE ng/ml (CUTOFF=300); PHENCYCLIDINE,URINE NEGATIVE ng/ml (CUTOFF=25); URINE AMPHETAMINES NEGATIVE ng/ml (CUTOFF=500); URINE BARBITURATES NEGATIVE ng/ml (CUTOFF=200); URINE BENZODIAZEPINES NEGATIVE ng/ml (CUTOFF=200)
[2017-08-25 04:39] VITALS: BP 118/77; PULSE 89
== END 2017-08-25 04:40 | disposition home or self-care (01) ==
LOC: JER 00:22
DX: M25.511 Pain in right shoulder (principal); F14.10 Cocaine abuse, uncomplicated; F10.10 Alcohol abuse, uncomplicated; F31.9 Bipolar disorder, unspecified
CPT/HCPCS: 73030-TC-RT; 80307; 99281-25

== ENCOUNTER 2017-08-25 08:29 | Inpatient (IN) | payer OTHER ==
[2017-08-25 09:20] VITALS: BMI 28.0
--- NOTE | 2017-08-25 11:17 | HP ---
CIWA Score - CIWA Score Nausea/Vomitin Muscle Tremors: 3 Anxiety: 3 Agitation: 3 Paroxysmal Sweats: 3 Orientation: 0-Oriented Tacttile Disturbances: 1-Very Mild Itch/Numbness Auditory Disturbances: 0-None Visual Disturbances: 0-None Headache: 2-Mild CIWA-Ar Total Score: 18 Admission ROS S - [facility] Chief Complaint: alcohol withdrawal sx Allergies/Adverse Reactions: Allergies Allergy/AdvReac Type Severity Reaction Status Date / Time No Known Allergies Allergy Verified 08/25/17 10:08 History of Present Illness: 46 yo m w h/o cnronic alcoholism repeated admissions to detox at [facility] alcso uses cocaine, was sent from ed after being treatted with ativan and otehr meds for chronic r shoulder pain from trauma. requesting inpatient detox for alcohool withdrwal sx, last drink yesterday. pmh depression on mecs, no h/ oseizuers or dts. Exam Limitations: No Limitations - Ebola screening Have you traveled outside of the country in the last 21 days: No (N) Have you had contact with anyone from an Ebola affected area: No Have you been sick,other than usual withdrawal symptoms: No Do you have a fever: No - Review of Systems Constitutional: Chills, Diaphoresis, Changes in sleep, Weakness, Unintentional Wgt. Loss EENT: reports: No Symptoms Reported Respiratory: reports: No Symptoms reported Cardiac: reports: No Symptoms Reported GI: reports: Nausea, Poor Appetite, Poor Fluid Intake, Abdominal cramping : reports: No Symptoms Reported Musculoskeletal: reports: Back Pain, Joint Pain (right shoulder), Other (feet pain) Integumentary: reports: Flushing, Sweating Neuro: reports: Headache, Numbness, Tingling, Tremors, Weakness Endocrine: reports: Increased Thirst Hematology: reports: No Symptoms Reported Psychiatric: reports: Judgement Intact, Mood/Affect Appropiate, Orientated x3, Anxious, Depressed Other Systems: Reviewed and Negative Patient History - Patient Medical History Hx Anemia: Yes (SICKLE CELL TRAIT ) Hx Asthma: No Hx Chronic Obstructive Pulmonary Disease (COPD): No Hx Cancer: No Hx Cardiac Disorders: No Hx Congestive Heart Failure: No Hx Hypertension: No Hx Hypercholesterolemia: No Hx Pacemaker: No HX Cerebrovascular Accident: No Hx Seizures: No Hx Dementia: No Hx Diabetes: Yes (borderline) Hx Gastrointestinal Disorders: No Hx Liver Disease: No Hx Genitourinary Disorders: No Hx Sexually Transmitted Disorders: No Hx Renal Disease (ESRD): No Hx Thyroid Disease: No Hx Human Immunodeficiency Virus (HIV): No Hx Hepatitis C: No Hx Depression: Yes (on meds) Hx Suicide Attempt: No (no si at this time) Hx Bipolar Disorder: Yes Hx Schizophrenia: No - Patient Surgical History Past Surgical History: Yes Hx Neurologic Surgery: No Hx Cataract Extraction: No Hx Cardiac Surgery: No Hx Lung Surgery: No Hx Breast Surgery: No Hx Breast Biopsy: No Hx Abdominal Surgery: No Hx Appendectomy: No Hx Cholecystectomy: No Hx Genitourinary Surgery: No Hx Section: No Hx Orthopedic Surgery: Yes (Fx R eye socket sx in 2013) Hx Hysterectomy: No Other Surgical History: fx floor of orbit in 2009 at [facility] with numbness of right fa Anesthesia Reaction: No - PPD History Previous Implant?: Yes Documented Results: Positive w/proof Implanted On Prior [facility] Admission?: No Results: CXR neg 01/28 PPD to be Administered?: No - Reproductive History Patient is a Female of Child Bearing Age (11 -55 yrs old): No Patient : No - Smoking Cessation Smoking history: Current every day smoker Have you smoked in the past 12 months: Yes Aproximately how many cigarettes per day: 6 Hx Chewing Tobacco Use: No Initiated information on smoking cessation: Yes 'Breaking Loose' booklet given: 08/25/17 - Substance & Tx. History Hx Alcohol Use: Yes Hx Substance Use: Yes Substance Use Type: Alcohol, Cocaine Hx Substance Use Treatment: Yes ([facility] detox) - Substances Abused Alcohol Route: Oral Frequency: Daily Amount used: 3-4 24 oz beers Age of first use: 13 Date of Last Use: 08/24/17 Crack Route: Smoking Frequency: Daily Amount used: 4-5 bags Age of first use: 16 Date of Last Use: 08/24/17 Family Disease History - Family Disease History Family Disease History: Diabetes: Father, Heart Disease: Father Admission Physical Exam [facility] - Vital Signs Vital Signs: Vital Signs - 24 hr 08/25/17 09:18 Temperature 97.7 F Pulse Rate 95 H Respiratory 18 Rate Blood Pressure 111/71 - Physical General Appearance: Yes: No Apparent Distress, Nourished, Appropriately Dressed , Disheveled, Alcohol on Breath, Tremorous, Irritable, Sweating, Anxious HEENTM: Yes: Within Normal Limits, EOMI, Hearing grossly Normal, Normal ENT Inspection, Normocephalic, Normal Voice, VEDA, Pharynx Normal Respiratory: Yes: Within Normal Limits, Chest Non-Tender, Lungs Clear, Normal Breath Sounds, No Respiratory Distress, No Accessory Muscle Use Neck: Yes: Within Normal Limits, No masses,lesions,Nodules, Supple, Trachea in good position Breast: Yes: Breast Exam Deferred Cardiology: Yes: Within Normal Limits, Regular Rhythm, Regular Rate, S1, S2 Abdominal: Yes: Within Normal Limits, Normal Bowel Sounds, Non Tender, Flat, Soft, Increased Bowel Sounds Back: Yes: Within Normal Limits, Normal Inspection Musculoskeletal: Yes: full range of Motion, Gait Steady, Pelvis Stable, Back pain, Joint Stiffness, Joint swelling, Muscle Pain Extremities: Yes: Normal Capillary Refill, Normal Range of Motion, Non-Tender, Tremors Neurological: Yes: secretary receptionist II-XII NML intact, Fully Oriented, Alert, Motor Strength 5/5, Normal Response, Depressed Affect Lymphatic: Yes: Within Normal Limits - Addiitonal Findings: withdrawal sx, patietn using cane to ambulate. pain management ordered fro rt shoulder and back pain - Diagnostic (1) Chronic pain in right shoulder Current Visit: Yes Status: Acute (2) Alcohol dependence with uncomplicated withdrawal Current Visit: No Status: Acute (3) Drug-induced mood disorder Current Visit: No Status: Acute (4) Bipolar disorder Current Visit: No Status: Chronic Qualifiers: Active/Remission status: currently active Current bipolar episode type: mixed Current episode severity: severe Psychotic features: with psychotic features Qualified Code(s): F31.64 - Bipolar disorder, current episode mixed, severe, with psychotic features (5) Cocaine dependence, uncomplicated Current Visit: No Status: Chronic (6) Hepatitis C Current Visit: No Status: Chronic Qualifiers: Viral hepatitis chronicity: chronic Hepatic coma status: without hepatic coma Qualified Code(s): B18.2 - Chronic viral hepatitis C (7) Nicotine dependence Current Visit: No Status: Chronic Qualifiers: Nicotine product type: cigarettes Substance use status: uncomplicated Qualified Code(s): F17.210 - Nicotine dependence, cigarettes, uncomplicated (8) History of tuberculosis Current Visit: No Status: Resolved Cleared for Admission S - Detox or Rehab [facility] Level of Care: Medically Managed Detox Regimen/Protocol: Librium [facility] Breath Alcohol Content Breath Alcohol Content: 0 Urine Drug Screen - Results Drug Screen Negative: No Urine Drug Screen Results: TIMBO-Cocaine, BZO-Benzodiazepines
[2017-08-25] MEDS ORDERED: chlordiazePOXIDE HCL 25 MG CAPSULE PO PRN (11:18)
[2017-08-25] MEDS ORDERED: NICOTINE POLACRILEX 2 MG GUM BUC PRN (11:18)
[2017-08-25] MEDS ORDERED: LOPERAMIDE HCL 2 MG CAPSULE PO PRN (11:18)
[2017-08-25] MEDS ORDERED: MAGNESIUM HYDROX 2400MG/30ML ORAL SUSPENSION 30 ML CUP PO PRN (11:18)
[2017-08-25] MEDS ORDERED: MENTHOL/PHENOL 1 EACH UD MM PRN (11:18)
[2017-08-25] MEDS ORDERED: P-EPHED 60MG/TRIPROLIDI 2.5MG TABLET PO PRN (11:18)
[2017-08-25] MEDS ORDERED: MAG HYDROX/AL HYDROX/SIMETH 30 ML UNIT-DOSE CUP PO PRN (11:18)
[2017-08-25] MEDS ORDERED: guaiFENesin/D-METHORPHAN HB 10 ML UNIT-DOSE CUPS PO PRN (11:18)
[2017-08-25] MEDS ORDERED: MAGNESIUM CITRATE 300 ML BOTTLE PO PRN (11:18)
[2017-08-25] MEDS ORDERED: chlordiazePOXIDE HCL 25 MG CAPSULE PO ONE (12:38)
[2017-08-25] MEDS: PANTOPRAZOLE 40 MG TABLET (FP) PO SCH (13:15)
[2017-08-25] MEDS: LIDOCAINE 5% TOPICAL PATCH TP SCH (13:15)
[2017-08-25] MEDS: NAPROXEN 500 MG TABLET (FP) PO SCH ×2 (13:15→22:12)
[2017-08-25] MEDS: NICOTINE 14 MG/24 HOURS TOPICAL PATCH TD SCH (13:15)
[2017-08-25 14:27] LABS: HEMATOCRIT 45.8 % (35.4-49); HEMOGLOBIN 14.8 GM/dL (11.7-16.9); MCH 28.2 pg (25.7-33.7); MCHC 32.3 g/dl (32.0-35.9); MEAN CELL VOLUME 87.3 fl (80-96); MEAN PLT VOLUME 10.4 fl (7.5-11.1); PLATELET COUNT 163 K/MM3 (134-434); RBC 5.24 M/mm3 (4.00-5.60); RDW 14.4 % (11.9-15.9); WHITE BLOOD COUNT 7.3 K/mm3 (4.0-10.0)
[2017-08-25 14:32] LABS: ALBUMIN 4.2 g/dl (3.4-5.0); ANION GAP 8 (8-16); BLOOD UREA NITROGEN 24 mg/dL (7-18); CALCIUM 8.6 mg/dL (8.5-10.1); CHLORIDE 103 mmol/L (98-107); CO2 27 mmol/L (21-32); GLUCOSE,RANDOM 117 mg/dL (74-106); POTASSIUM 3.9 mmol/L (3.5-5.1); SODIUM 138 mmol/L (136-145)
[2017-08-25 14:36] LABS: ALK PHOS 129 U/L (45-117); BILIRUBIN,TOTAL 1.6 mg/dL (0.2-1.0); CREATININE 1.1 mg/dL (0.7-1.3); SGOT/AST 48 U/L (15-37); SGPT/ALT 50 U/L (12-78); TOT PROT 7.9 g/dl (6.4-8.2)
--- NOTE | 2017-08-25 15:48 | CONSULT ---
[facility] Psychiatric Consult - Data Date of interview: 08/25/17 Admission source: [facility] Identifying data: Another admission to [facility] for this 46 y/o AA male seeking detox treatment on for alcohol and cocaine dependence.Patient is single without children,homeless,unemployed and supported on Public Assistance. Substance Abuse History: Confirmed by patient in this interview.Refer to current [facility] report for details : Smoking history: Current every day smoker. Have you smoked in the past 12 months: Yes. Aproximately how many cigarettes per day: 6. Hx Chewing Tobacco Use: No. Initiated information on smoking cessation: Yes. 'Breaking Loose' booklet given: 08/25/17. - Substance & Tx. History. Hx Alcohol Use: Yes. Hx Substance Use: Yes. Substance Use Type: Alcohol, Cocaine. Hx Substance Use Treatment: Yes ([facility] detox). - Substances Abused. Alcohol. Route: Oral. Frequency: Daily. Amount used: 3 -4 24 oz beers. Age of first use: 13. Date of Last Use: 08/24/17. Crack. Route: Smoking. Frequency: Daily. Amount used: 4-5 bags. Age of first use: 16. Date of Last Use: 08/24/17 Medical History: Diabetes mellitus (borderline),hepatitis C,antecedent of treatment for tuberculosis and renal failure,anemia,sickle cell trait and a history of surgery for fracture of floor of left orbit (2009). Psychiatric History: Patient admits to a history of multiple psychiatric hospitalizations (mostly at [facility] but also at [facility]).Reportedly diagnosed with Bipolar Disorder.Usually prescribed remeron 15 mg/hs + seroquel 100 mg/hs + zoloft 100 mg/day (self- report).Mr Mcfarland informs that he last took these medications "only two days ago ".No regular psychiatric OPD care." I get my medications whenever I get admitted somewhere.I get scripts from detox and rehab places around [facility]." Patient denies history of suicide attempts. Physical/Sexual Abuse/Trauma History: Patient denies history of abuse. Additional Comment: Urine Drug Screen Results: TIMBO-Cocaine, BZO- Benzodiazepines.Noted. Mental Status Exam - Mental Status Exam Alert and Oriented to: Time, Place, Person Cognitive Function: Good Patient Appearance: Well Groomed (tall stature,walks with a cane) Mood: Nervous, Withdrawn, Hopeful Affect: Mood Congruent, Constricted Patient Behavior: Fatigued, Cooperative Speech Pattern: Clear, Appropriate Voice Loudness: Normal Thought Process: Goal Oriented Thought Disorder: Not Present Hallucinations: Denies Suicidal Ideation: Denies Homicidal Ideation: Denies Insight/Judgement: Poor Sleep: Poorly, Difficulty falling asleep Appetite: Good Gait/Station: Other (walks with a cane) Psychiatric Findings - Problem List ([place] 1, 2,3) (1) Alcohol dependence with uncomplicated withdrawal Current Visit: Yes Status: Acute (2) Cocaine dependence, uncomplicated Current Visit: Yes Status: Acute (3) Nicotine dependence Current Visit: Yes Status: Acute Qualifiers: Nicotine product type: cigarettes Substance use status: uncomplicated Qualified Code(s): F17.210 - Nicotine dependence, cigarettes, uncomplicated (4) Drug-induced mood disorder Current Visit: Yes Status: Acute (5) Bipolar disorder Current Visit: No Status: Chronic Qualifiers: Psychotic features: without psychotic features Comment: As per records.Prescribed medications.History of non-compliance. (6) Insomnia Current Visit: Yes Status: Acute - Initial Treatment Plan Initial Treatment Plan: Old records are reviewed.Sleep hygiene discussed.Psychoeducation and support are provided.Detoxification in progress.Medications : seroquel 100 mg po hs + zoloft 50 mg po daily.Remeron NOT renewed.Side effects/benefits of both medications are discusssed with patient.Consent (verbal) given for this treatment.Contact made with [id number] for verification of medications ([phone]) with patient's verbal accord : last refills on file are dated 02/2017 for seroquel,zoloft and remeron (patient, according to pharmacist,declined to pick up driver remeron refill).Monitor daily progress.
[2017-08-25] MEDS: chlordiazePOXIDE HCL 25 MG CAPSULE PO SCH ×2 (17:26→22:12)
[2017-08-25] MEDS: THIAMINE HCL 100 MG TABLET (FP) PO SCH (22:12)
[2017-08-25] MEDS: QUEtiapine FUMARATE 100 MG TABLET (FP) PO SCH (22:12)
[2017-08-25] MEDS: LIDOCAINE PATCH REMOVAL MC SCH (22:14)
[2017-08-25 23:22] LABS: URINE APPEARANCE CLEAR; URINE BILIRUBIN NEGATIVE (NEGATIVE); URINE BLOOD NEGATIVE (NEGATIVE); URINE COLOR YELLOW; URINE GLUCOSE (UA) NEGATIVE (NEGATIVE); URINE KETONE NEGATIVE (NEGATIVE); URINE LEUK ESTERASE NEGATIVE (NEGATIVE); URINE NITRITE NEGATIVE (NEGATIVE); URINE PROTEIN NEGATIVE (NEGATIVE); URINE UROBILINOGEN NEGATIVE mg/dL (0.2-1.0)
[2017-08-26] MEDS: chlordiazePOXIDE HCL 25 MG CAPSULE PO SCH ×4 (05:53→22:20)
[2017-08-26] MEDS: LIDOCAINE 5% TOPICAL PATCH TP SCH (10:13)
[2017-08-26] MEDS: SERTRALINE HCL 50 MG TABLET (FP) PO SCH (10:14)
[2017-08-26] MEDS: NAPROXEN 500 MG TABLET (FP) PO SCH ×2 (10:14→22:20)
[2017-08-26] MEDS: PANTOPRAZOLE 40 MG TABLET (FP) PO SCH (10:14)
[2017-08-26] MEDS: PRENATAL VITAMINS W/ FOLIC ACID TABLET (FP) PO SCH (10:14)
[2017-08-26] MEDS: NICOTINE 14 MG/24 HOURS TOPICAL PATCH TD SCH (10:15)
--- NOTE | 2017-08-26 10:37 | PN ---
S CIWA - CIWA Score Nausea/Vomitin-Mild Nausea/No Vomiting Muscle Tremors: 2 Anxiety: 2 Agitation: 2 Paroxysmal Sweats: 3 Orientation: 0-Oriented Tacttile Disturbances: 1-Very Mild Itch/Numbness Auditory Disturbances: 1-Very Mild Visual Disturbances: 1-Very Mild Sensitivity Headache: 2-Mild CIWA-Ar Total Score: 15 S Progress Note (SOAP) Subjective: Sweats, chills and interrupted sleep Objective: 08/26/17 10:37 Vital Signs - 8 hr 08/26/17 08/26/17 08/26/17 03:26 06:23 09:07 Temperature 96.0 F L 97.1 F L Pulse Rate 67 74 Respiratory 18 18 18 Rate Blood Pressure 103/68 107/72 Laboratory Last Values WBC 7.3 K/mm3 (4.0-10.0) D 08/25/17 12:50 RBC 5.24 M/mm3 (4.00-5.60) 08/25/17 12:50 Hgb 14.8 GM/dL (11.7-16.9) 08/25/17 12:50 Hct 45.8 % (35.4-49) 08/25/17 12:50 MCV 87.3 fl (80-96) 08/25/17 12:50 MCH 28.2 pg (25.7-33.7) 08/25/17 12:50 MCHC 32.3 g/dl (32.0-35.9) 08/25/17 12:50 RDW 14.4 % (11.9-15.9) 08/25/17 12:50 Plt Count 163 K/MM3 (134-434) D 08/25/17 12:50 MPV 10.4 fl (7.5-11.1) 08/25/17 12:50 Sodium 138 mmol/L (136-145) 08/25/17 12:50 Potassium 3.9 mmol/L (3.5-5.1) 08/25/17 12:50 Chloride 103 mmol/L (98-107) 08/25/17 12:50 Carbon Dioxide 27 mmol/L (21-32) 08/25/17 12:50 Anion Gap 8 (8-16) 08/25/17 12:50 BUN 24 mg/dL (7-18) H D 08/25/17 12:50 Creatinine 1.1 mg/dL (0.7-1.3) 08/25/17 12:50 Creat Clearance w eGFR > 60 (>60) 08/25/17 12:50 POC Glucometer 120 UNITS (80-120) 08/25/17 10:27 Random Glucose 117 mg/dL (74-106) H D 08/25/17 12:50 Calcium 8.6 mg/dL (8.5-10.1) 08/25/17 12:50 Total Bilirubin 1.6 mg/dL (0.2-1.0) H D 08/25/17 12:50 AST 48 U/L (15-37) H D 08/25/17 12:50 ALT 50 U/L (12-78) D 08/25/17 12:50 Alkaline Phosphatase 129 U/L (45-117) H D 08/25/17 12:50 Total Protein 7.9 g/dl (6.4-8.2) D 08/25/17 12:50 Albumin 4.2 g/dl (3.4-5.0) D 08/25/17 12:50 Urine Color Yellow 08/25/17 21:00 Urine Appearance Clear 08/25/17 21:00 Urine pH 5.0 (5.0-8.0) 08/25/17 21:00 Ur Specific Felt 1.016 (1.001-1.035) 08/25/17 21:00 Urine Protein Negative (NEGATIVE) 08/25/17 21:00 Urine Glucose (UA) Negative (NEGATIVE) 08/25/17 21:00 Urine Ketones Negative (NEGATIVE) 08/25/17 21:00 Urine Blood Negative (NEGATIVE) 08/25/17 21:00 Urine Nitrite Negative (NEGATIVE) 08/25/17 21:00 Urine Bilirubin Negative (NEGATIVE) 08/25/17 21:00 Urine Urobilinogen Negative mg/dL (0.2-1.0) 08/25/17 21:00 Ur Leukocyte Esterase Negative (NEGATIVE) 08/25/17 21:00 RPR Titer Nonreactive (NONREACTIVE) 08/25/17 12:50 HIV 1&2 Antibody Screen Negative 08/25/17 10:15 HIV P24 Antigen Negative 08/25/17 10:15 Labs noted Assessment: 08/26/17 10:37 Alcohol withdrawal sx Plan: Continue detox
--- NOTE | 2017-08-26 17:10 | EKG ---
Test Reason : Blood Pressure : / mmHG Vent. Rate : 088 BPM Atrial Rate : 088 BPM P-R Int : 172 ms QRS Dur : 084 ms QT Int : 388 ms P-R-T Axes : 057 020 027 degrees QTc Int : 469 ms NORMAL SINUS RHYTHM NORMAL ECG WHEN COMPARED WITH ECG OF 09-AUG-2017 09:26, NO SIGNIFICANT CHANGE WAS FOUND Confirmed by EBENEZER GUDINO MD ([id number]) on 08/26/2017 5:10:10 PM Referred By: Confirmed By:EBENEZER GUDINO MD
[2017-08-26] MEDS: QUEtiapine FUMARATE 100 MG TABLET (FP) PO SCH (22:20)
[2017-08-26] MEDS: THIAMINE HCL 100 MG TABLET (FP) PO SCH (22:20)
[2017-08-26] MEDS: LIDOCAINE PATCH REMOVAL MC SCH (22:21)
[2017-08-27] MEDS: chlordiazePOXIDE HCL 25 MG CAPSULE PO SCH ×2 (06:17→10:37)
[2017-08-27] MEDS: ACETAMINOPHEN 325 MG TABLET (FP) PO PRN (06:18)
[2017-08-27] MEDS: SERTRALINE HCL 50 MG TABLET (FP) PO SCH (10:37)
[2017-08-27] MEDS: PRENATAL VITAMINS W/ FOLIC ACID TABLET (FP) PO SCH (10:37)
[2017-08-27] MEDS: PANTOPRAZOLE 40 MG TABLET (FP) PO SCH (10:37)
[2017-08-27] MEDS: NAPROXEN 500 MG TABLET (FP) PO SCH ×2 (10:37→22:14)
[2017-08-27] MEDS: LIDOCAINE 5% TOPICAL PATCH TP SCH (10:38)
[2017-08-27] MEDS: NICOTINE 14 MG/24 HOURS TOPICAL PATCH TD SCH (10:38)
--- NOTE | 2017-08-27 16:46 | PN ---
[facility] CIWA - CIWA Score Nausea/Vomitin Muscle Tremors: 3 Anxiety: 3 Agitation: 3 Paroxysmal Sweats: 2 Orientation: 0-Oriented Tacttile Disturbances: 0-None Auditory Disturbances: 0-None Visual Disturbances: 0-None Headache: 0-None Present CIWA-Ar Total Score: 13 B[facility] Progress Note (SOAP) Subjective: sweats shakes anxiety Objective: 08/27/17 16:45 Vital Signs Temperature 97.1 F L 08/27/17 14:10 Pulse Rate 77 08/27/17 14:10 Respiratory Rate 18 08/27/17 14:10 Blood Pressure 118/74 08/27/17 14:10 O2 Sat by Pulse Oximetry (%) Assessment: 08/27/17 16:46 withdrawal sx Plan: continue detox
[2017-08-27] MEDS: chlordiazePOXIDE 5 MG CAPSULE PO SCH ×2 (17:35→22:14)
[2017-08-27] MEDS: LIDOCAINE PATCH REMOVAL MC SCH (21:26)
[2017-08-27] MEDS: THIAMINE HCL 100 MG TABLET (FP) PO SCH (22:14)
[2017-08-27] MEDS: QUEtiapine FUMARATE 100 MG TABLET (FP) PO SCH (22:14)
[2017-08-28] MEDS: chlordiazePOXIDE 5 MG CAPSULE PO SCH ×2 (07:27→12:10)
[2017-08-28] MEDS: LIDOCAINE 5% TOPICAL PATCH TP SCH (10:45)
[2017-08-28] MEDS: NAPROXEN 500 MG TABLET (FP) PO SCH ×2 (10:45→22:08)
[2017-08-28] MEDS: NICOTINE 14 MG/24 HOURS TOPICAL PATCH TD SCH (10:45)
[2017-08-28] MEDS: SERTRALINE HCL 50 MG TABLET (FP) PO SCH (10:46)
[2017-08-28] MEDS: PANTOPRAZOLE 40 MG TABLET (FP) PO SCH (10:46)
[2017-08-28] MEDS: PRENATAL VITAMINS W/ FOLIC ACID TABLET (FP) PO SCH (10:46)
--- NOTE | 2017-08-28 12:08 | PN ---
[facility] Progress Note (SOAP) Subjective: SLIGHT ANXIETY,FATIGUE. Objective: 08/28/17 12:07 Vital Signs Temperature 97.3 F L 08/27/17 21:37 Pulse Rate 78 08/28/17 09:05 Respiratory Rate 18 08/28/17 09:05 Blood Pressure 114/87 08/28/17 09:05 O2 Sat by Pulse Oximetry (%) Laboratory Last Values WBC 7.3 K/mm3 (4.0-10.0) D 08/25/17 12:50 RBC 5.24 M/mm3 (4.00-5.60) 08/25/17 12:50 Hgb 14.8 GM/dL (11.7-16.9) 08/25/17 12:50 Hct 45.8 % (35.4-49) 08/25/17 12:50 MCV 87.3 fl (80-96) 08/25/17 12:50 MCH 28.2 pg (25.7-33.7) 08/25/17 12:50 MCHC 32.3 g/dl (32.0-35.9) 08/25/17 12:50 RDW 14.4 % (11.9-15.9) 08/25/17 12:50 Plt Count 163 K/MM3 (134-434) D 08/25/17 12:50 MPV 10.4 fl (7.5-11.1) 08/25/17 12:50 Sodium 138 mmol/L (136-145) 08/25/17 12:50 Potassium 3.9 mmol/L (3.5-5.1) 08/25/17 12:50 Chloride 103 mmol/L (98-107) 08/25/17 12:50 Carbon Dioxide 27 mmol/L (21-32) 08/25/17 12:50 Anion Gap 8 (8-16) 08/25/17 12:50 BUN 24 mg/dL (7-18) H D 08/25/17 12:50 Creatinine 1.1 mg/dL (0.7-1.3) 08/25/17 12:50 Creat Clearance w eGFR > 60 (>60) 08/25/17 12:50 POC Glucometer 120 UNITS (80-120) 08/25/17 10:27 Random Glucose 117 mg/dL (74-106) H D 08/25/17 12:50 Calcium 8.6 mg/dL (8.5-10.1) 08/25/17 12:50 Total Bilirubin 1.6 mg/dL (0.2-1.0) H D 08/25/17 12:50 AST 48 U/L (15-37) H D 08/25/17 12:50 ALT 50 U/L (12-78) D 08/25/17 12:50 Alkaline Phosphatase 129 U/L (45-117) H D 08/25/17 12:50 Total Protein 7.9 g/dl (6.4-8.2) D 08/25/17 12:50 Albumin 4.2 g/dl (3.4-5.0) D 08/25/17 12:50 Urine Color Yellow 08/25/17 21:00 Urine Appearance Clear 08/25/17 21:00 Urine pH 5.0 (5.0-8.0) 08/25/17 21:00 Ur Specific [place] 1.016 (1.001-1.035) 08/25/17 21:00 Urine Protein Negative (NEGATIVE) 08/25/17 21:00 Urine Glucose (UA) Negative (NEGATIVE) 08/25/17 21:00 Urine Ketones Negative (NEGATIVE) 08/25/17 21:00 Urine Blood Negative (NEGATIVE) 08/25/17 21:00 Urine Nitrite Negative (NEGATIVE) 08/25/17 21:00 Urine Bilirubin Negative (NEGATIVE) 08/25/17 21:00 Urine Urobilinogen Negative mg/dL (0.2-1.0) 08/25/17 21:00 Ur Leukocyte Esterase Negative (NEGATIVE) 08/25/17 21:00 RPR Titer Nonreactive (NONREACTIVE) 08/25/17 12:50 HIV 1&2 Antibody Screen Negative 08/25/17 10:15 HIV P24 Antigen Negative 08/25/17 10:15 Assessment: 08/28/17 12:08 WITHDRAWAL SX Plan: CONTINUE DETOX
[2017-08-28] MEDS: chlordiazePOXIDE HCL 10 MG CAPSULE PO SCH ×2 (17:06→22:08)
[2017-08-28] MEDS: LIDOCAINE PATCH REMOVAL MC SCH (22:08)
[2017-08-28] MEDS: THIAMINE HCL 100 MG TABLET (FP) PO SCH (22:08)
[2017-08-28] MEDS: QUEtiapine FUMARATE 100 MG TABLET (FP) PO SCH (22:08)
[2017-08-29] MEDS: chlordiazePOXIDE HCL 10 MG CAPSULE PO SCH ×2 (06:00→10:21)
[2017-08-29] MEDS: PRENATAL VITAMINS W/ FOLIC ACID TABLET (FP) PO SCH (10:19)
[2017-08-29] MEDS: NAPROXEN 500 MG TABLET (FP) PO SCH ×2 (10:19→22:07)
[2017-08-29] MEDS: PANTOPRAZOLE 40 MG TABLET (FP) PO SCH (10:19)
[2017-08-29] MEDS: NICOTINE 14 MG/24 HOURS TOPICAL PATCH TD SCH (10:19)
[2017-08-29] MEDS: SERTRALINE HCL 50 MG TABLET (FP) PO SCH (10:19)
[2017-08-29] MEDS: LIDOCAINE 5% TOPICAL PATCH TP SCH (10:20)
--- NOTE | 2017-08-29 10:55 | PN ---
[facility] Progress Note (SOAP) Subjective: DECREASED ANXIETY,SWEATS,TREMORS. LAST DAY OF LIBRIUM TAPER. PT WANTS TO GO TO REHAB. COUNSELOR SHASHI MET WITH PATIENT RE:REHAB ARRANGEMENTS. Objective: 08/29/17 10:54 Vital Signs Temperature 97.3 F L 08/29/17 10:09 Pulse Rate 79 08/29/17 10:09 Respiratory Rate 18 08/29/17 10:09 Blood Pressure 117/83 08/29/17 10:09 O2 Sat by Pulse Oximetry (%) Laboratory Last Values WBC 7.3 K/mm3 (4.0-10.0) D 08/25/17 12:50 RBC 5.24 M/mm3 (4.00-5.60) 08/25/17 12:50 Hgb 14.8 GM/dL (11.7-16.9) 08/25/17 12:50 Hct 45.8 % (35.4-49) 08/25/17 12:50 MCV 87.3 fl (80-96) 08/25/17 12:50 MCH 28.2 pg (25.7-33.7) 08/25/17 12:50 MCHC 32.3 g/dl (32.0-35.9) 08/25/17 12:50 RDW 14.4 % (11.9-15.9) 08/25/17 12:50 Plt Count 163 K/MM3 (134-434) D 08/25/17 12:50 MPV 10.4 fl (7.5-11.1) 08/25/17 12:50 Sodium 138 mmol/L (136-145) 08/25/17 12:50 Potassium 3.9 mmol/L (3.5-5.1) 08/25/17 12:50 Chloride 103 mmol/L (98-107) 08/25/17 12:50 Carbon Dioxide 27 mmol/L (21-32) 08/25/17 12:50 Anion Gap 8 (8-16) 08/25/17 12:50 BUN 24 mg/dL (7-18) H D 08/25/17 12:50 Creatinine 1.1 mg/dL (0.7-1.3) 08/25/17 12:50 Creat Clearance w eGFR > 60 (>60) 08/25/17 12:50 POC Glucometer 120 UNITS (80-120) 08/25/17 10:27 Random Glucose 117 mg/dL (74-106) H D 08/25/17 12:50 Calcium 8.6 mg/dL (8.5-10.1) 08/25/17 12:50 Total Bilirubin 1.6 mg/dL (0.2-1.0) H D 08/25/17 12:50 AST 48 U/L (15-37) H D 08/25/17 12:50 ALT 50 U/L (12-78) D 08/25/17 12:50 Alkaline Phosphatase 129 U/L (45-117) H D 08/25/17 12:50 Total Protein 7.9 g/dl (6.4-8.2) D 08/25/17 12:50 Albumin 4.2 g/dl (3.4-5.0) D 08/25/17 12:50 Urine Color Yellow 08/25/17 21:00 Urine Appearance Clear 08/25/17 21:00 Urine pH 5.0 (5.0-8.0) 08/25/17 21:00 Ur Specific [place] 1.016 (1.001-1.035) 08/25/17 21:00 Urine Protein Negative (NEGATIVE) 08/25/17 21:00 Urine Glucose (UA) Negative (NEGATIVE) 08/25/17 21:00 Urine Ketones Negative (NEGATIVE) 08/25/17 21:00 Urine Blood Negative (NEGATIVE) 08/25/17 21:00 Urine Nitrite Negative (NEGATIVE) 08/25/17 21:00 Urine Bilirubin Negative (NEGATIVE) 08/25/17 21:00 Urine Urobilinogen Negative mg/dL (0.2-1.0) 08/25/17 21:00 Ur Leukocyte Esterase Negative (NEGATIVE) 08/25/17 21:00 RPR Titer Nonreactive (NONREACTIVE) 08/25/17 12:50 HIV 1&2 Antibody Screen Negative 08/25/17 10:15 HIV P24 Antigen Negative 08/25/17 10:15 Assessment: 08/29/17 10:55 DECREASED WITHDRAWAL SX Plan: CONTINUE DETOX. DECEMBER D/C IN AM.
[2017-08-29] MEDS: THIAMINE HCL 100 MG TABLET (FP) PO SCH (22:07)
[2017-08-29] MEDS: QUEtiapine FUMARATE 100 MG TABLET (FP) PO SCH (22:07)
[2017-08-29] MEDS: ACETAMINOPHEN 325 MG TABLET (FP) PO PRN (22:08)
[2017-08-29] MEDS: hydrOXYzine PAMOATE 50 MG CAPSULE (FP) PO PRN (22:10)
[2017-08-29] MEDS: LIDOCAINE PATCH REMOVAL MC SCH (22:23)
[2017-08-30] MEDS: PANTOPRAZOLE 40 MG TABLET (FP) PO SCH (10:14)
[2017-08-30] MEDS: SERTRALINE HCL 50 MG TABLET (FP) PO SCH (10:14)
[2017-08-30] MEDS: NAPROXEN 500 MG TABLET (FP) PO SCH (10:14)
[2017-08-30] MEDS: PRENATAL VITAMINS W/ FOLIC ACID TABLET (FP) PO SCH (10:14)
[2017-08-30] MEDS: LIDOCAINE 5% TOPICAL PATCH TP SCH (10:15)
[2017-08-30] MEDS: NICOTINE 14 MG/24 HOURS TOPICAL PATCH TD SCH (10:15)
--- NOTE | 2017-08-30 11:06 | DS ---
[facility] Detox Discharge Summary Admission Date: 08/25/17 Discharge Date: 08/30/17 - History Present History: Alcohol Dependence, Cocaine Dependence Additional Comments: DETOX COMPLETED. ALERT O X 3. NAD. REFERRED TO REHAB. Pertinent Past History: SEE DX BELOW - Physical Exam Results Vital Signs: Vital Signs Temperature 96.1 F L 08/30/17 09:14 Pulse Rate 86 08/30/17 09:14 Respiratory Rate 18 08/30/17 09:14 Blood Pressure 128/82 08/30/17 09:14 O2 Sat by Pulse Oximetry (%) Pertinent Admission Physical Exam Findings: WITHDRAWAL SX Laboratory Last Values WBC 7.3 K/mm3 (4.0-10.0) D 08/25/17 12:50 RBC 5.24 M/mm3 (4.00-5.60) 08/25/17 12:50 Hgb 14.8 GM/dL (11.7-16.9) 08/25/17 12:50 Hct 45.8 % (35.4-49) 08/25/17 12:50 MCV 87.3 fl (80-96) 08/25/17 12:50 MCH 28.2 pg (25.7-33.7) 08/25/17 12:50 MCHC 32.3 g/dl (32.0-35.9) 08/25/17 12:50 RDW 14.4 % (11.9-15.9) 08/25/17 12:50 Plt Count 163 K/MM3 (134-434) D 08/25/17 12:50 MPV 10.4 fl (7.5-11.1) 08/25/17 12:50 Sodium 138 mmol/L (136-145) 08/25/17 12:50 Potassium 3.9 mmol/L (3.5-5.1) 08/25/17 12:50 Chloride 103 mmol/L (98-107) 08/25/17 12:50 Carbon Dioxide 27 mmol/L (21-32) 08/25/17 12:50 Anion Gap 8 (8-16) 08/25/17 12:50 BUN 24 mg/dL (7-18) H D 08/25/17 12:50 Creatinine 1.1 mg/dL (0.7-1.3) 08/25/17 12:50 Creat Clearance w eGFR > 60 (>60) 08/25/17 12:50 POC Glucometer 120 UNITS (80-120) 08/25/17 10:27 Random Glucose 117 mg/dL (74-106) H D 08/25/17 12:50 Calcium 8.6 mg/dL (8.5-10.1) 08/25/17 12:50 Total Bilirubin 1.6 mg/dL (0.2-1.0) H D 08/25/17 12:50 AST 48 U/L (15-37) H D 08/25/17 12:50 ALT 50 U/L (12-78) D 08/25/17 12:50 Alkaline Phosphatase 129 U/L (45-117) H D 08/25/17 12:50 Total Protein 7.9 g/dl (6.4-8.2) D 08/25/17 12:50 Albumin 4.2 g/dl (3.4-5.0) D 08/25/17 12:50 Urine Color Yellow 08/25/17 21:00 Urine Appearance Clear 08/25/17 21:00 Urine pH 5.0 (5.0-8.0) 08/25/17 21:00 Ur Specific [place] 1.016 (1.001-1.035) 08/25/17 21:00 Urine Protein Negative (NEGATIVE) 08/25/17 21:00 Urine Glucose (UA) Negative (NEGATIVE) 08/25/17 21:00 Urine Ketones Negative (NEGATIVE) 08/25/17 21:00 Urine Blood Negative (NEGATIVE) 08/25/17 21:00 Urine Nitrite Negative (NEGATIVE) 08/25/17 21:00 Urine Bilirubin Negative (NEGATIVE) 08/25/17 21:00 Urine Urobilinogen Negative mg/dL (0.2-1.0) 08/25/17 21:00 Ur Leukocyte Esterase Negative (NEGATIVE) 08/25/17 21:00 RPR Titer Nonreactive (NONREACTIVE) 08/25/17 12:50 HIV 1&2 Antibody Screen Negative 08/25/17 10:15 HIV P24 Antigen Negative 08/25/17 10:15 - Treatment Hospital Course: Detox Protocol Followed, Detoxed Safely, Responded well, Discharged Condition Good, Rehab Referral Accepted Patient has Accepted a Rehab Referral to: [address] - Medication Discharge Medications: Ambulatory Orders Mirtazapine [Remeron -] 15 mg PO HS #30 tablet 01/31/17 Sertraline HCl [Zoloft -] 50 mg PO DAILY #30 tablet 01/31/17 Quetiapine Fumarate [Seroquel -] 100 mg PO HS 08/25/17 Quetiapine Fumarate [Seroquel] 100 mg PO HS #30 tablet 08/26/17 Sertraline HCl [Zoloft -] 50 mg PO DAILY #30 tablet 08/26/17 - Diagnosis (1) Alcohol dependence with uncomplicated withdrawal Current Visit: Yes Status: Acute (2) Cocaine dependence, uncomplicated Current Visit: Yes Status: Acute (3) Nicotine dependence Current Visit: Yes Status: Acute Qualifiers: Nicotine product type: cigarettes Substance use status: in withdrawal Qualified Code(s): F17.213 - Nicotine dependence, cigarettes, with withdrawal (4) Chronic pain in right shoulder Current Visit: Yes Status: Acute (5) Hepatitis C Current Visit: Yes Status: Chronic Qualifiers: Viral hepatitis chronicity: chronic Hepatic coma status: without hepatic coma Qualified Code(s): B18.2 - Chronic viral hepatitis C - AMA Did Patient Leave Against Medical Advice: No
[2017-08-30 13:06] VITALS: BP 124/88; PULSE 72; TEMP 97
[2017-08-30] MEDS: hydrOXYzine PAMOATE 50 MG CAPSULE (FP) PO PRN (15:34)
== END 2017-08-30 16:52 | disposition other institution (70) | DRG 774 ==
LOC: YASAS 08:29 → Y3N 12:31
PROVIDERS: ADMIT Internal Medicine; ATTEND Internal Medicine
PROC: HZ2ZZZZ Detoxification Services for Substance Abuse Treatment (ICD-10-PCS; principal; 2017-08-25)
DX: F10.230 Alcohol dependence with withdrawal, uncomplicated (principal); F14.20 Cocaine dependence, uncomplicated; F17.213 Nicotine dependence, cigarettes, with withdrawal; F19.24 Other psychoactive substance dependence with psychoactive substance-induced mood disorder; F31.9 Bipolar disorder, unspecified; D57.3 Sickle-cell trait; B18.2 Chronic viral hepatitis C; R73.03 Prediabetes; M25.511 Pain in right shoulder; G89.29 Other chronic pain; G47.00 Insomnia, unspecified; Z86.11 Personal history of tuberculosis
CPT/HCPCS: 36415; 80053; 81003; 82962; 85027; 86593; 87389; 93005; 93010

== ENCOUNTER 2017-08-30 17:26 | Inpatient (IN) | payer OTHER ==
[2017-08-30 18:01] VITALS: BMI 22.3
[2017-08-30] MEDS ORDERED: MAGNESIUM CITRATE 300 ML BOTTLE PO PRN (18:08)
[2017-08-30] MEDS ORDERED: guaiFENesin/D-METHORPHAN HB 10 ML UNIT-DOSE CUPS PO PRN (18:08)
[2017-08-30] MEDS ORDERED: LOPERAMIDE HCL 2 MG CAPSULE PO PRN (18:08)
[2017-08-30] MEDS ORDERED: NICOTINE POLACRILEX 2 MG GUM BUC PRN (18:08)
[2017-08-30] MEDS ORDERED: P-EPHED 60MG/TRIPROLIDI 2.5MG TABLET PO PRN (18:08)
[2017-08-30] MEDS ORDERED: NICOTINE 14 MG/24 HOURS TOPICAL PATCH TD PRN (18:08)
[2017-08-30] MEDS ORDERED: MAG HYDROX/AL HYDROX/SIMETH 30 ML UNIT-DOSE CUP PO PRN (18:08)
[2017-08-30] MEDS ORDERED: MAGNESIUM HYDROX 2400MG/30ML ORAL SUSPENSION 30 ML CUP PO PRN (18:08)
[2017-08-30] MEDS ORDERED: MENTHOL/PHENOL 1 EACH UD MM PRN (18:08)
--- NOTE | 2017-08-30 18:08 | HP ---
[facility] Re[facility] Assess/Revision - Admission History Admitted to Rehab from: [facility] Date of Admission to Rehab: 08/30/17 - Vital signs Vital Signs: Vital Signs Period Temp Pulse Resp BP Sys/Tyson Pulse Ox Last 24 Hr 97.8 F 81 20 131/92 - Findings Detox History & Physical reviewed: Yes Concur with findings: Yes Comments/Additional Findings: transferred from detox to rehab admission as per protocol Inpatient Rehab Admission - Initial Determination Are CD services needed?: Yes Free of communicable disease: Yes Not in need of hospitalization: Yes - Rehab Admission Criteria Previous failed treatment: Yes Poor recovery environment: Yes Comorbidities: Yes Lacks judgement: No Patient is meeting Inpatient Rehab admission criteria:: Yes
[2017-08-30] MEDS: ACETAMINOPHEN 325 MG TABLET (FP) PO PRN (21:15)
[2017-08-30] MEDS: QUEtiapine FUMARATE 100 MG TABLET (FP) PO SCH (21:15)
[2017-08-30] MEDS: MIRTAZAPINE 15 MG TABLET (FP) PO SCH (21:15)
[2017-08-30] MEDS: THIAMINE HCL 100 MG TABLET (FP) PO SCH (21:15)
[2017-08-31] MEDS: PRENATAL VITAMINS W/ FOLIC ACID TABLET (FP) PO SCH (09:44)
[2017-08-31] MEDS: IBUPROFEN 400 MG TABLET (FP) PO PRN (09:45)
[2017-08-31] MEDS ORDERED: SERTRALINE HCL 50 MG TABLET (FP) PO SCH (10:00)
--- NOTE | 2017-08-31 11:41 | HP ---
Psychiatrist Admission - Data Date of interview: 08/31/17 Admission source: 3N Identifying data: This is the second 5N inpatient rehabilitation admission for this 46 year old AA male who is singel no children, unemployed and supported on PA. Medical History: Diabetes mellitus (borderline),hepatitis C,antecedent of treatment for tuberculosis and renal failure,anemia,sickle cell trait and a history of surgery for fracture of floor of left orbit (2009). Smokes cigarettes 6 a day. Psychiatric History: Patient reports history of several psychiatris hospiltalizations ([facility], [facility] with most recent admission on August 2017 at [facility] for 8 days , due to depressed, irritable mood, states prior to his last hospitalization he not been taking his medications. Patient states was diagnosed as Bipolar disorder. Was on different psychotropics (Seroquel, Risperdal, lexapro), currently on Remeron 15 mg po hs, Seroquel 100 mg po hs and Zoloft 100 mg po daily. Non-compliant with aftercare, reports he gets medications whenever he get admitted. Seen by and continued medications. Physical/Sexual Abuse/Trauma History: Patient denies history of sexual, physical and verbal abuse. Vital Signs: Vital Signs - 24 hr 08/30/17 08/31/17 08/31/17 17:53 00:52 03:59 Temperature 97.8 F Pulse Rate 81 Respiratory 20 18 18 Rate Blood Pressure 131/92 08/31/17 06:52 Temperature 97.2 F L Pulse Rate 85 Respiratory 18 Rate Blood Pressure 129/77 Allergies/Adverse Reactions: Allergies Allergy/AdvReac Type Severity Reaction Status Date / Time No Known Allergies Allergy Verified 08/30/17 17:56 Date of last physical exam: 08/25/17 Concur with the findings of this exam: Yes - Substance Abuse/Tx History Hx Alcohol Use: Yes (age at first use 13) Substance Use Type: Alcohol (daily 3-4 24 oz beer), Cocaine (age of first use 16 , daily 4-5 bags) Hx Substance Use Treatment: Yes ([facility] detox/rehab.) Mental Status Exam - Mental Status Exam Alert and Oriented to: Time, Place, Person Cognitive Function: Grossly Intact Patient Appearance: Well Groomed Mood: Depressed, Sad Affect: Mood Congruent, Flat, Constricted Patient Behavior: Appropriate, Cooperative Speech Pattern: Clear, Appropriate Voice Loudness: Normal Thought Process: Goal Oriented Thought Disorder: Not Present Hallucinations: Denies Suicidal Ideation: Denies Homicidal Ideation: Denies Insight/Judgement: Fair Sleep: Fair Appetite: Fair Muscle strength/Tone: Normal Gait/Station: Other (using cane) Psychiatric Findings - Problem List ([place] 1, 2,3) (1) Alcohol dependence Current Visit: Yes Status: Acute (2) Nicotine dependence Current Visit: No Status: Acute Qualifiers: Nicotine product type: cigarettes Substance use status: in withdrawal Qualified Code(s): F17.213 - Nicotine dependence, cigarettes, with withdrawal (3) Bipolar disorder Current Visit: No Status: Chronic Qualifiers: Psychotic features: without psychotic features Comment: As per records.Prescribed medications.History of non-compliance. (4) Hepatitis C Current Visit: No Status: Chronic Qualifiers: Viral hepatitis chronicity: chronic Hepatic coma status: without hepatic coma Qualified Code(s): B18.2 - Chronic viral hepatitis C (5) Cocaine dependence Current Visit: Yes Status: Acute - Initial Treatment Plan Initial Treatment Plan: Will continue medications, adjust Zoloft 100 mg , monitor progress as needed.
[2017-08-31] MEDS: MIRTAZAPINE 15 MG TABLET (FP) PO SCH (21:10)
[2017-08-31] MEDS: THIAMINE HCL 100 MG TABLET (FP) PO SCH (21:10)
[2017-08-31] MEDS: QUEtiapine FUMARATE 100 MG TABLET (FP) PO SCH (21:10)
[2017-08-31] MEDS: ACETAMINOPHEN 325 MG TABLET (FP) PO PRN (21:12)
[2017-09-01] MEDS: PRENATAL VITAMINS W/ FOLIC ACID TABLET (FP) PO SCH (11:25)
[2017-09-01] MEDS: SERTRALINE HCL 50 MG TABLET (FP) PO SCH (11:25)
[2017-09-01] MEDS: QUEtiapine FUMARATE 100 MG TABLET (FP) PO SCH (21:15)
[2017-09-01] MEDS: THIAMINE HCL 100 MG TABLET (FP) PO SCH (21:15)
[2017-09-01] MEDS: MIRTAZAPINE 15 MG TABLET (FP) PO SCH (21:15)
[2017-09-02] MEDS: PRENATAL VITAMINS W/ FOLIC ACID TABLET (FP) PO SCH (09:43)
[2017-09-02] MEDS: SERTRALINE HCL 50 MG TABLET (FP) PO SCH (09:43)
[2017-09-02] MEDS: ACETAMINOPHEN 325 MG TABLET (FP) PO PRN (09:44)
[2017-09-02] MEDS: IBUPROFEN 400 MG TABLET (FP) PO PRN (18:57)
[2017-09-02] MEDS: MIRTAZAPINE 15 MG TABLET (FP) PO SCH (21:04)
[2017-09-02] MEDS: QUEtiapine FUMARATE 100 MG TABLET (FP) PO SCH (21:04)
[2017-09-02] MEDS: THIAMINE HCL 100 MG TABLET (FP) PO SCH (21:04)
[2017-09-03] MEDS: ACETAMINOPHEN 325 MG TABLET (FP) PO PRN (06:56)
[2017-09-03] MEDS: PRENATAL VITAMINS W/ FOLIC ACID TABLET (FP) PO SCH (09:36)
[2017-09-03] MEDS: SERTRALINE HCL 50 MG TABLET (FP) PO SCH (09:36)
[2017-09-03] MEDS: THIAMINE HCL 100 MG TABLET (FP) PO SCH (21:03)
[2017-09-03] MEDS: QUEtiapine FUMARATE 100 MG TABLET (FP) PO SCH (21:03)
[2017-09-03] MEDS: MIRTAZAPINE 15 MG TABLET (FP) PO SCH (21:03)
[2017-09-03] MEDS: IBUPROFEN 400 MG TABLET (FP) PO PRN (21:04)
[2017-09-04] MEDS: PRENATAL VITAMINS W/ FOLIC ACID TABLET (FP) PO SCH (10:01)
[2017-09-04] MEDS: SERTRALINE HCL 50 MG TABLET (FP) PO SCH (10:01)
[2017-09-04] MEDS: ACETAMINOPHEN 325 MG TABLET (FP) PO PRN ×2 (10:02→21:14)
[2017-09-04] MEDS: QUEtiapine FUMARATE 100 MG TABLET (FP) PO SCH (21:13)
[2017-09-04] MEDS: MIRTAZAPINE 15 MG TABLET (FP) PO SCH (21:13)
[2017-09-04] MEDS: THIAMINE HCL 100 MG TABLET (FP) PO SCH (21:13)
[2017-09-05] MEDS: PRENATAL VITAMINS W/ FOLIC ACID TABLET (FP) PO SCH (09:51)
[2017-09-05] MEDS: SERTRALINE HCL 50 MG TABLET (FP) PO SCH (09:51)
[2017-09-05] MEDS: ACETAMINOPHEN 325 MG TABLET (FP) PO PRN ×2 (09:52→21:11)
[2017-09-05] MEDS: THIAMINE HCL 100 MG TABLET (FP) PO SCH (21:10)
[2017-09-05] MEDS: QUEtiapine FUMARATE 100 MG TABLET (FP) PO SCH (21:10)
[2017-09-05] MEDS: MIRTAZAPINE 15 MG TABLET (FP) PO SCH (21:10)
[2017-09-06] MEDS: PRENATAL VITAMINS W/ FOLIC ACID TABLET (FP) PO SCH (10:03)
[2017-09-06] MEDS: SERTRALINE HCL 50 MG TABLET (FP) PO SCH (10:03)
[2017-09-06] MEDS: ACETAMINOPHEN 325 MG TABLET (FP) PO PRN (10:04)
[2017-09-06] MEDS ORDERED: QUEtiapine FUMARATE 100 MG TABLET (FP) PO ONE (11:33)
[2017-09-06] MEDS ORDERED: QUEtiapine FUMARATE 50 MG TABLET PO PRN (11:35)
--- NOTE | 2017-09-06 12:05 | PN ---
Psychiatric Progress Note Vital Signs: Vital Signs Period Temp Pulse Resp BP Sys/Tyson Pulse Ox Last 24 Hr 98.0 F 74 14-20 131/90 Date of Session: 09/06/17 Chief Complaint:: "I want to hurt people" HPI: Patient is a 46 year old with history of alcohol, cocaine, nicotine dependence comorbid Bipolar disorder. ROS: HepC. Current Medications: Active Medications Generic Name Dose Route Start Last Admin Trade Name Freq PRN Reason Stop Dose Admin Acetaminophen 650 mg 08/30/17 18:08 09/06/17 10:04 Tylenol - PO 650 mg Q4H PRN Administration FEVER Al Hydroxide/Mg Hydroxide 30 ml 08/30/17 18:08 Mylanta Oral Suspension - PO Q6H PRN DYSPEPSIA Eucalyptus/Menthol/Phenol/Sorbitol 1 each 08/30/17 18:08 Cepastat Lozenge - MM Q4H PRN SORE THROAT Guaifenesin 10 ml 08/30/17 18:08 Robitussin Dm - PO Q6H PRN COUGH Ibuprofen 400 mg 08/30/17 18:08 09/03/17 21:04 Motrin - PO 400 mg Q6H PRN Administration Pain Level 4-6 Loperamide HCl 4 mg 08/30/17 18:08 Imodium - PO Q6H PRN DIARRHEA Magnesium Citrate 300 ml 08/30/17 18:08 Citroma - PO Q48H PRN CONSTIPATION Magnesium Hydroxide 30 ml 08/30/17 18:08 Milk Of Magnesia - PO DAILY PRN CONSTIPATION Mirtazapine 15 mg 08/30/17 22:00 09/05/17 21:10 Remeron - PO 15 mg HS [place] Administration Nicotine 14 mg 08/30/17 18:08 Nicoderm Patch - TD DAILY PRN WITHDRAWAL(CONT SUBST) Nicotine Polacrilex 2 mg 08/30/17 18:08 Nicorette Gum - BUC Q2H PRN NICOTINE REPLACEMENT RX Multivit/Folic Acid/Iron 1 tab 08/31/17 10:00 09/06/17 10:03 Vitamins (Sjr) - PO 1 tab DAILY [place] Administration Pseudoephedrine/Triprolidine 1 combo 08/30/17 18:08 Actifed - PO TID PRN NASAL CONGESTION Quetiapine Fumarate 50 mg 09/06/17 11:35 Seroquel - PO Q4H PRN AGITATION Quetiapine Fumarate 200 mg 09/06/17 22:00 Seroquel - PO HS [place] Sertraline HCl 100 mg 09/01/17 10:00 09/06/17 10:03 Zoloft - PO 100 mg DAILY [place] Administration Thiamine HCl 100 mg 08/30/17 22:00 09/05/17 21:10 Vitamin B1 - PO 100 mg HS CAR[place]INA Administration Medication(s) Change(s): Seroquel 100 mg po stat, increase 200 at hs , and 50 mg PRN for agitation. Current Side Effect: No Lab tests ordered: No Lab tests reviewed: Yes Provider note:: Patient was seen today, due to his threatening behavior toward to the staf and other patient (he wants to hurt people), patient is very angry, hostile, aggiated, uncooperative, irritable and confirmed that he is going to hurt people as well his sisters' boyfriend", he reports that he does not want to be desturbed, refusing vital signs, states needs to stay in bed otherwise he will hurt people. This morning patient had an incident with the medical staff, was very angry, agitated , disperspectful using profanity, patient was difficult to redirect. At this time patient is dangerous to self and others, he made a thread toward other patients on the unit as well to the staff, violent and needs to be placed to the inpatient psychiatric unit for evaluation and stabilization. Patient was placed on 1:1. Hospitals contacted for beds availability. Total face to face time:: 45 Mental Status Exam - Mental Status Exam Alert and Oriented to: Time, Place, Person Cognitive Function: Grossly Intact Patient Appearance: Inappropriate Mood: Angry, Hostile, Expansive, Irritable Affect: Mood Congruent Patient Behavior: Uncooperative, Impulsive, Resitive to Care, Agitated Speech Pattern: Clear Voice Loudness: Mildly Loud Thought Process: Flight of Ideas Thought Disorder: Paranoid Ideation Hallucinations: Denies Suicidal Ideation: Denies Homicidal Ideation: Current, Plan (to hurt medical staff and patients) Insight/Judgement: Impaired Sleep: Fair Appetite: Good Muscle strength/Tone: Normal Gait/Station: Other (ambulates with cane.) Psychiatric Treatment Plan - Problem List (1) Alcohol dependence Current Visit: Yes (2) Nicotine dependence Current Visit: No Qualifiers: Nicotine product type: cigarettes Substance use status: in withdrawal Qualified Code(s): F17.213 - Nicotine dependence, cigarettes, with withdrawal (3) Bipolar disorder Current Visit: No Qualifiers: Psychotic features: without psychotic features Comment: As per records.Prescribed medications.History of non-compliance. (4) Hepatitis C Current Visit: No Qualifiers: Viral hepatitis chronicity: chronic Hepatic coma status: without hepatic coma Qualified Code(s): B18.2 - Chronic viral hepatitis C (5) Cocaine dependence Current Visit: Yes
--- NOTE | 2017-09-06 13:41 | PN ---
[facility] Progress Note Note: 46 y/o pt admitted to detox with h/o alcohol ,cocaine and nicotine dependence. PMHX: hep. c, fx to rt eye socket in 2013 with reconstruction ,fx to floor of rt orbit in and h/o bipolar d/o . After detox he was placed in rehab. The pt has now become threathening to staff and states he wants to hurt pepole. Pt has no medical complaint except for chronic rt shoulder pain. He gives no h/ o other medical problems and he takes no meds except those for bipolar d/o Vital Signs Temperature 98.0 F 09/06/17 07:06 Pulse Rate 74 09/06/17 07:06 Respiratory Rate 18 09/06/17 07:06 Blood Pressure 131/90 09/06/17 07:06 O2 Sat by Pulse Oximetry (%) Laboratory Tests 08/30/17 09/01/17 18:35 06:53 POC Glucometer 127 164 pt aox3 in nad lying in bed heent wnl neck soft supple from lungs clear to a/p cor rrr, w/o m r or galop abd soft nontender bs+ ext no c/c/or edema neuro aox3 IMP - m pt with bipolar d/o expressing aggressive behavior who is medically clear for pysch hosp.transfer/evalauation . PLan -transfer to [facility] ,no medical tx indicated at this time
[2017-09-06] MEDS: MIRTAZAPINE 15 MG TABLET (FP) PO SCH (21:14)
[2017-09-06] MEDS: QUEtiapine FUMARATE 200 MG TABLET PO SCH (21:14)
[2017-09-06] MEDS: THIAMINE HCL 100 MG TABLET (FP) PO SCH (21:14)
[2017-09-06] MEDS: IBUPROFEN 400 MG TABLET (FP) PO PRN (21:15)
--- NOTE | 2017-09-07 08:04 | PN ---
[facility] Progress Note Note: Call made this am by undersigned to [facility] to inquire the status for patient, as per Elicia from transfer center beds are still available , but patient's chart is still reviewing by psychiatric department and they will contact [facility] when patient will be accepted for admission.Patient was seen this am, states he feels very uncomfortable and easily aggravated, continues with thoughts of hurting people. On 09/06/17 other hospitals contacted for bed [facility], [facility]. Will continue 1:1.
[2017-09-07] MEDS: PRENATAL VITAMINS W/ FOLIC ACID TABLET (FP) PO SCH (10:35)
[2017-09-07] MEDS: SERTRALINE HCL 50 MG TABLET (FP) PO SCH (10:35)
--- NOTE | 2017-09-07 13:49 | PN ---
Psychiatric Progress Note Vital Signs: Vital Signs Period Temp Pulse Resp BP Sys/Tyson Pulse Ox Last 24 Hr 98.4 F 93 17-20 99/76 Date of Session: 09/07/17 Chief Complaint:: progress update HPI: patient with h/o alcohol, cocaine, nicotine dependence comorbid bipolar disorder. ROS: Hep C. Current Medications: Active Medications Generic Name Dose Route Start Last Admin Trade Name Freq PRN Reason Stop Dose Admin Acetaminophen 650 mg 08/30/17 18:08 09/06/17 10:04 Tylenol - PO 650 mg Q4H PRN Administration FEVER Al Hydroxide/Mg Hydroxide 30 ml 08/30/17 18:08 09/06/17 18:16 Mylanta Oral Suspension - PO 30 ml Q6H PRN Administration DYSPEPSIA Eucalyptus/Menthol/Phenol/Sorbitol 1 each 08/30/17 18:08 Cepastat Lozenge - MM Q4H PRN SORE THROAT Guaifenesin 10 ml 08/30/17 18:08 Robitussin Dm - PO Q6H PRN COUGH Ibuprofen 400 mg 08/30/17 18:08 09/06/17 21:15 Motrin - PO 400 mg Q6H PRN Administration Pain Level 4-6 Loperamide HCl 4 mg 08/30/17 18:08 Imodium - PO Q6H PRN DIARRHEA Magnesium Citrate 300 ml 08/30/17 18:08 Citroma - PO Q48H PRN CONSTIPATION Magnesium Hydroxide 30 ml 08/30/17 18:08 Milk Of Magnesia - PO DAILY PRN CONSTIPATION Mirtazapine 15 mg 08/30/17 22:00 09/06/17 21:14 Remeron - PO 15 mg HS [place] Administration Nicotine 14 mg 08/30/17 18:08 Nicoderm Patch - TD DAILY PRN WITHDRAWAL(CONT SUBST) Nicotine Polacrilex 2 mg 08/30/17 18:08 Nicorette Gum - BUC Q2H PRN NICOTINE REPLACEMENT RX Multivit/Folic Acid/Iron 1 tab 08/31/17 10:00 09/07/17 10:35 Vitamins (Sjr) - PO Not Given DAILY [place] Pseudoephedrine/Triprolidine 1 combo 08/30/17 18:08 Actifed - PO TID PRN NASAL CONGESTION Quetiapine Fumarate 50 mg 09/06/17 11:35 Seroquel - PO Q4H PRN AGITATION Quetiapine Fumarate 200 mg 09/06/17 22:00 09/06/17 21:14 Seroquel - PO 200 mg HS [place] Administration Quetiapine Fumarate 50 mg 09/08/17 07:00 Seroquel - PO AM [place] Sertraline HCl 100 mg 09/01/17 10:00 09/07/17 10:35 Zoloft - PO Not Given DAILY [place] Thiamine HCl 100 mg 08/30/17 22:00 09/06/17 21:14 Vitamin B1 - PO 100 mg HS [place] Administration Medication(s) Change(s): add seroquel 50 mg po am Current Side Effect: No Lab tests ordered: No Lab tests reviewed: Yes Provider note:: patient was seen aj, unhappy he is on 1:1, reports he feels that he can be without observation, he admits to contiue having thoughts of hurting people, patient was explained that he at this point for safety he needs to be on 1:1 till he feels better/.MEanwhile the [facility] contacted today several times, last spoke with Riccardo at 1.30, it was reported that patient medical record still under review at [facility]. Patient was provided with supportive therapy, will continue 1:1. The other hospitals [facility] contacted, no beds. Will continue to monitor, patient will be re-evaluated. Total face to face time:: 35 Mental Status Exam - Mental Status Exam Alert and Oriented to: Time, Place, Person Cognitive Function: Grossly Intact Patient Appearance: Well Groomed Mood: Angry, Hostile, Irritable Affect: Mood Congruent, Labile Patient Behavior: Guarded, Resitive to Care Speech Pattern: Clear, Appropriate Voice Loudness: Normal Thought Process: Goal Oriented Thought Disorder: Not Present Hallucinations: Denies Suicidal Ideation: Denies Homicidal Ideation: Current (will hurt people when out ) Insight/Judgement: Poor Sleep: Fair Appetite: Fair Muscle strength/Tone: Normal Gait/Station: Normal Psychiatric Treatment Plan - Problem List (1) Alcohol dependence Current Visit: Yes (2) Nicotine dependence Current Visit: No Qualifiers: Nicotine product type: cigarettes Substance use status: in withdrawal Qualified Code(s): F17.213 - Nicotine dependence, cigarettes, with withdrawal (3) Bipolar disorder Current Visit: No Qualifiers: Psychotic features: without psychotic features Comment: As per records.Prescribed medications.History of non-compliance. (4) Hepatitis C Current Visit: No Qualifiers: Viral hepatitis chronicity: chronic Hepatic coma status: without hepatic coma Qualified Code(s): B18.2 - Chronic viral hepatitis C (5) Cocaine dependence Current Visit: Yes
[2017-09-07] MEDS: ACETAMINOPHEN 325 MG TABLET (FP) PO PRN (14:00)
[2017-09-07] MEDS: MIRTAZAPINE 15 MG TABLET (FP) PO SCH (21:24)
[2017-09-07] MEDS: QUEtiapine FUMARATE 200 MG TABLET PO SCH (21:24)
[2017-09-07] MEDS: THIAMINE HCL 100 MG TABLET (FP) PO SCH (21:24)
[2017-09-08] MEDS: ACETAMINOPHEN 325 MG TABLET (FP) PO PRN (06:21)
[2017-09-08 06:53] VITALS: BP 118/81; PULSE 80; TEMP 98.3
[2017-09-08] MEDS ORDERED: QUEtiapine FUMARATE 50 MG TABLET PO SCH (07:00)
[2017-09-08] MEDS: SERTRALINE HCL 50 MG TABLET (FP) PO SCH (10:07)
[2017-09-08] MEDS: PRENATAL VITAMINS W/ FOLIC ACID TABLET (FP) PO SCH (10:07)
--- NOTE | 2017-09-08 10:54 | PN ---
[facility] Progress Note Note: [facility] contacted, and was trying to reach psychiatrist on duty Dr.Lidia Tay, who was in ER and spoke with [facility] admitting who reported that chart still under review and they will contact me. Meanwhile continued to call the hospitals to get bed, [facility], [facility], [facility], [facility] and [facility] no bed available. This morning patient was seen in team meeting, he continued kept saying how angry and uncertain his behavior may become. Patient is dangerous for self and others, he is unpredictable, poor impulse control, history of violent behavior he needs to be in the psychiatric unit,to ensure safety of others. Due the the fact that beds are unavailable and patient consider the patient's severe mental condition for the patient and other patient's safety will call 911 and transfer patient to ER for further evaluation.
--- NOTE | 2017-09-08 11:23 | PN ---
[facility] Progress Note Note: received call from [facility] admission, Ms Jovanna who states that they don't have beds today.
--- NOTE | 2017-09-08 14:02 | PN ---
S Progress Note Note: Patient was transferred to the psychiatric ER for further evaluation.
--- NOTE | 2017-09-08 14:59 | PN ---
Psychiatric Progress Note Vital Signs: Vital Signs Period Temp Pulse Resp BP Sys/Tyson Pulse Ox Last 24 Hr 98.3 F 80 18-18 118/81 Date of Session: 09/08/17 Chief Complaint:: discharge ROS: Hep C. Current Side Effect: No Lab tests ordered: No Lab tests reviewed: Yes Provider note:: Patient was seen prior to 911 call, he was in his bed with 1:1, patient was explained that he will be transfer to psychiatric ER for further evaluations, he asked for [facility], patient was explained that he will be taken to the nearest hospital for evaluation, he verbalized understanding. Patient's C papers signed. Ambulance called. Patient was asked to provide with his sister's phone number to call her and inform about patient, but he refused to provide a number reported "I don't have anything to do with her, she is crazy I have not seen her in years". Total face to face time:: 15 Mental Status Exam - Mental Status Exam Alert and Oriented to: Place Cognitive Function: Impaired Patient Appearance: Unkempt Mood: Angry, Hostile, Irritable Affect: Mood Congruent Patient Behavior: Resitive to Care (refuses medications), Cooperative Speech Pattern: Clear Thought Process: Flight of Ideas Thought Disorder: Paranoid Ideation Hallucinations: Denies Suicidal Ideation: Denies Homicidal Ideation: Current, Past (history of vilence.) Insight/Judgement: Poor, Impaired Sleep: Fair Appetite: Fair Muscle strength/Tone: Normal Gait/Station: Normal Psychiatric Treatment Plan - Problem List (2) Nicotine dependence Qualifiers: Nicotine product type: cigarettes Substance use status: in withdrawal Qualified Code(s): F17.213 - Nicotine dependence, cigarettes, with withdrawal (3) Bipolar disorder Qualifiers: Psychotic features: without psychotic features Comment: As per records.Prescribed medications.History of non-compliance. (4) Hepatitis C Qualifiers: Viral hepatitis chronicity: chronic Hepatic coma status: without hepatic coma Qualified Code(s): B18.2 - Chronic viral hepatitis C
== END 2017-09-08 12:17 | disposition home or self-care (01) | DRG 772 ==
LOC: YASAS 17:26 → Y5N 17:27
PROVIDERS: ADMIT Psychiatry & Neurology Psychiatry; ATTEND Psychiatry & Neurology Psychiatry
PROC: HZ42ZZZ Group Counseling for Substance Abuse Treatment, Cognitive-Behavioral (ICD-10-PCS; principal; 2017-08-30)
DX: F10.20 Alcohol dependence, uncomplicated (principal); F14.20 Cocaine dependence, uncomplicated; F17.210 Nicotine dependence, cigarettes, uncomplicated; F31.9 Bipolar disorder, unspecified; B18.2 Chronic viral hepatitis C
CPT/HCPCS: 82962

== ENCOUNTER 2017-09-20 19:45 | Inpatient (IN) | payer MEDICARE, OTHER ==
--- NOTE | 2017-09-20 20:09 | PDOC ---
Rapid Medical Evaluation Time Seen by Provider: 09/20/17 19:58 Medical Evaluation: Allergies Allergy/AdvReac Type Severity Reaction Status Date / Time No Known Allergies Allergy Verified 08/30/17 17:56 09/20/17 19:58 I have performed a brief in-person evaluation of this patient. The patient presents with a chief complaint of: homocidal ideation, also c/o back and R shoulder pain hx of bipolar disorder, schizophrenia, alcohol abuse, and cocaine abuse. "i'm here for psychiatric help"- i was "told by a custodial in [place] that i can' t be on the property just because i broke a small window, i feel very angry right now", denies plan but admits ideation of "hurting other people" with weapons, was in long-term recently "turned myself in on warrant, and now they tell me i'm on 3 years probation" - was at [facility] was supposed to be sent into city "but i didn't want to go because it was 1 am and it was snowing" Pertinent physical exam findings: anxious appearing I have ordered the following: nothing The patient will proceed to the ED for further evaluation.
[2017-09-20] MEDS ORDERED: MIRTAZAPINE 15 MG TABLET (FP) PO ONE (21:16)
[2017-09-20] MEDS ORDERED: SERTRALINE HCL 50 MG TABLET (FP) PO ONE (21:16)
[2017-09-20] MEDS ORDERED: QUEtiapine FUMARATE 100 MG TABLET (FP) PO ONE (21:16)
[2017-09-20] MEDS ORDERED: ACETAMINOPHEN 325 MG TABLET (FP) PO ONE (21:19)
[2017-09-20] MEDS ORDERED: ACETAMINOPHEN 325 MG TABLET (FP) ONE (21:23)
[2017-09-20] MEDS ORDERED: SERTRALINE HCL 50 MG TABLET (FP) ONE (21:23)
[2017-09-20] MEDS ORDERED: QUEtiapine FUMARATE 100 MG TABLET (FP) ONE (21:23)
[2017-09-20] MEDS ORDERED: MIRTAZAPINE 15 MG TABLET (FP) ONE ×2 (21:23→21:26)
[2017-09-20 21:29] LABS: BASO % 0.6 % (0-2.0); EOS % 0.2 % (0-4.5); HEMATOCRIT 44.5 % (35.4-49); HEMOGLOBIN 14.9 GM/dL (11.7-16.9); MCH 28.8 pg (25.7-33.7); MCHC 33.5 g/dl (32.0-35.9); MEAN CELL VOLUME 85.9 fl (80-96); MEAN PLT VOLUME 9.4 fl (7.5-11.1); MONO % 9.2 % (3.8-10.2); PLATELET COUNT 210 K/MM3 (134-434); RBC 5.18 M/mm3 (4.00-5.60); RDW 14.3 % (11.9-15.9)
--- NOTE | 2017-09-20 21:31 | PDOC ---
History of Present Illness - General Chief Complaint: Psychiatric Stated Complaint: PSYCHIATRIC Time Seen by Provider: 09/20/17 19:58 History Source: Patient - History of Present Illness Initial Comments: 46-year-old male with history of bipolar disorder and depression currently on Seroquel, Zoloft, Remeron presents to the ER complaining of homicide ideation,' I just want to hurt people with weapons.' Patient reports that he is angry that he no longer can stay at the [facility] due to probation status [facility]. Due to previous behavioral problems patient is banned from coming to any is a [facility]. Patient reports that he was recently admitted at the [facility] behavioral unit and was released. Patient reports that I want to be admitted to the psychiatric unit. Patient also reports drinking beers last night, denies drug use. Patient has a history of alcohol and drug abuse. Past History - Past Medical History Allergies/Adverse Reactions: Allergies No Known Allergies Allergy (Verified 09/20/17 20:05) Home Medications: Ambulatory Orders Mirtazapine [Remeron -] 15 mg PO HS #30 tablet 01/31/17 Sertraline HCl [Zoloft -] 50 mg PO DAILY #30 tablet 01/31/17 Quetiapine Fumarate [Seroquel -] 100 mg PO HS 08/25/17 Psychosocial History: Yes: bipolar, depression Surgical History: Yes: No Surgical History - Immunization History Tetanus Status: Unknown - Social History Smoking Status: Current every day smoker Number of Cigarettes Per Day: 10 *Review of Systems - Review of Systems Able to Perform ROS?: Yes Constitutional: No: Symptoms Reported, See HPI, Chills, Diaphoresis, Fever, Loss of Appetite, Malaise, Night Sweats, Weakness, Weight Stable, Unintentional Wgt. Loss, Unexplained wgt Loss, Other HEENTM: No: Symptoms Reported, See HPI, Eye Pain, Blurred Vision, Tearing, Recent change in vision, Double Vision, Cataracts, Ear Pain, Ocular Prothesis, Ear Discharge, Nose Pain, Nose Congestion, Tinnitus, Nose Bleeding, Hearing Loss , Throat Pain, Throat Swelling, Mouth Pain, Dental Problems, Difficulty Swallowing, Mouth Swelling, Other Neurological: No: Symptoms reported, See HPI, Headache, Numbness, Paresthesia, Pre-Existing Deficit, Seizure, Tingling, Tremors, Weakness, Unsteady Gait, Ataxia, Dizziness, Other Psychiatric: Yes: Emotional Problems, Mood Swings. No: Anxiety, Depression, Frequent Crying, Stressors, Sleep Pattern Change, Change in Appetite, Other *Physical Exam - Vital Signs Last Vital Signs Temp Pulse Resp BP Pulse Ox 99.2 F 95 H 20 125/82 96 09/20/17 20:05 09/20/17 20:05 09/20/17 20:05 09/20/17 20:05 09/20/17 20:05 - Physical Exam Comments: 09/21/17 06:52 EKG: NSr 89bpm General Appearance: Yes: Appropriately Dressed, Other (loud and pressed speech) Respiratory/Chest: positive: Lungs Clear, Normal Breath Sounds Cardiovascular: positive: Regular Rhythm, Regular Rate Gastrointestinal/Abdominal: positive: Normal Bowel Sounds, Soft Extremity: positive: Normal Capillary Refill, Normal Inspection, Normal Range of Motion Integumentary: positive: Normal Color, Dry, Warm Neurologic: positive: Fully Oriented Plan - Laboratory CBC & Chemistry Diagram: 09/20/17 21:19 09/20/17 21:19 - Consult/PCP Time Called: 21:42 Case discussed with personal care physician: Abhinav Salazar Case Discussed with Personal Care Physician Not on Staff:: I spoke to Elvira Salazar. recommends 1: 1 monitoring. give scheduled meds. reevaluate in the Am.
[2017-09-20 21:43] LABS: URINE APPEARANCE CLEAR; URINE BILIRUBIN NEGATIVE (NEGATIVE); URINE BLOOD NEGATIVE (NEGATIVE); URINE COLOR LTYELLOW; URINE GLUCOSE (UA) NEGATIVE (NEGATIVE); URINE KETONE TRACE (NEGATIVE); URINE LEUK ESTERASE NEGATIVE (NEGATIVE); URINE NITRITE NEGATIVE (NEGATIVE); URINE PROTEIN NEGATIVE (NEGATIVE); URINE UROBILINOGEN NEGATIVE mg/dL (0.2-1.0)
[2017-09-20 22:07] LABS: METHADONE, UR NEGATIVE ng/ml (CUTOFF=300); OPIATES, URI NEGATIVE ng/ml (CUTOFF=300); PHENCYCLIDINE,URINE NEGATIVE ng/ml (CUTOFF=25); URINE AMPHETAMINES NEGATIVE ng/ml (CUTOFF=500); URINE BARBITURATES NEGATIVE ng/ml (CUTOFF=200); URINE BENZODIAZEPINES NEGATIVE ng/ml (CUTOFF=200)
[2017-09-20 22:08] LABS: COCAINE, UR POSITIVE ng/ml (CUTOFF=300)
[2017-09-20 22:10] LABS: ALBUMIN 4.7 g/dl (3.4-5.0); ANION GAP 12 (8-16); BLOOD UREA NITROGEN 18 mg/dL (7-18); CALCIUM 8.8 mg/dL (8.5-10.1); CHLORIDE 101 mmol/L (98-107); CO2 25 mmol/L (21-32); CREATININE 1.1 mg/dL (0.7-1.3); GLUCOSE,RANDOM 70 mg/dL (74-106); POTASSIUM 3.7 mmol/L (3.5-5.1); SGOT/AST 31 U/L (15-37); SGPT/ALT 27 U/L (12-78); SODIUM 138 mmol/L (136-145)
--- NOTE | 2017-09-20 22:13 | PDOC ---
*Physical Exam - Vital Signs Last Vital Signs Temp Pulse Resp BP Pulse Ox 99.2 F 95 H 20 125/82 96 09/20/17 20:05 09/20/17 20:05 09/20/17 20:05 09/20/17 20:05 09/20/17 20:05 ED Treatment Course - LABORATORY CBC & Chemistry Diagram: 09/20/17 21:19 09/24/17 06:37 - ADDITIONAL ORDERS Additional order review: Laboratory Results 09/20/17 09/20/17 09/20/17 21:19 21:10 21:10 Urine Color Ltyellow Urine Appearance Clear Urine pH 5.0 Ur Specific [place] 1.013 Urine Protein Negative Urine Glucose (UA) Negative Urine Ketones Trace H Urine Blood Negative Urine Nitrite Negative Urine Bilirubin Negative Urine Urobilinogen Negative Ur Leukocyte Esterase Negative Opiates Screen Negative Methadone Screen Negative Barbiturate Screen Negative Phencyclidine Screen Negative Ur Amphetamines Screen Negative MDMA (Ecstasy) Screen Negative Benzodiazepines Screen Negative Cocaine Screen Positive U Marijuana (THC) Screen Negative Alcohol, Quantitative 40.2 H* 09/20/17 21:19 RBC 5.18 MCV 85.9 MCHC 33.5 RDW 14.3 MPV 9.4 Neutrophils % 72.0 D Lymphocytes % 18.0 D Monocytes % 9.2 Eosinophils % 0.2 D Basophils % 0.6 - Medications Given in the ED: ED Medications Discontinued Medications Generic Name Dose Route Start Last Admin Trade Name Chelle PRN Reason Stop Dose Admin Acetaminophen 650 mg 09/20/17 21:19 09/20/17 21:43 Tylenol - PO 09/20/17 21:20 650 mg ONCE ONE Administration Mirtazapine 15 mg 09/20/17 21:16 09/20/17 21:43 Remeron - PO 09/20/17 21:17 15 mg ONCE ONE Administration Quetiapine Fumarate 100 mg 09/20/17 21:16 09/20/17 21:43 Seroquel - PO 09/20/17 21:17 Not Given ONCE ONE Sertraline HCl 100 mg 09/20/17 21:16 09/20/17 21:43 Zoloft - PO 09/20/17 21:17 100 mg ONCE ONE Administration - Consult/PCP Time Called: 21:42 Case discussed with personal care physician: Abhinav Salazar Case Discussed with Personal Care Physician Not on Staff:: I spoke to Grain Broker And Market Operator Darcy. recommends 1: 1 monitoring. give scheduled meds. reevaluate in the Am. Medical Decision Making - Medical Decision Making 09/20/17 22:12 agree with care from MELINDA Duke *DC/Admit/Observation/Transfer Diagnosis at time of Disposition: Homicidal ideation - Discharge Dispostion Disposition: HOME Condition at time of disposition: Improved - Prescriptions - Referrals - Patient Instructions - Post Discharge Activity
[2017-09-20 22:21] LABS: ALK PHOS 138 U/L (45-117); BILIRUBIN,TOTAL 1.9 mg/dL (0.2-1.0)
--- NOTE | 2017-09-21 09:12 | PDOC ---
*Physical Exam - Vital Signs Last Vital Signs Temp Pulse Resp BP Pulse Ox 99.2 F 95 H 20 125/82 96 09/20/17 20:05 09/20/17 20:05 09/20/17 20:05 09/20/17 20:05 09/20/17 20:05 ED Treatment Course - LABORATORY CBC & Chemistry Diagram: 09/20/17 21:19 09/20/17 21:19 - ADDITIONAL ORDERS Additional order review: Laboratory Results 09/20/17 09/20/17 09/20/17 21:19 21:19 21:10 Sodium 138 Potassium 3.7 Chloride 101 Carbon Dioxide 25 Anion Gap 12 BUN 18 D Creatinine 1.1 Creat Clearance w eGFR > 60 Random Glucose 70 L D Calcium 8.8 Total Bilirubin 1.9 H AST 31 D ALT 27 D Alkaline Phosphatase 138 H Total Protein 8.0 Albumin 4.7 TSH 4.05 H Urine Color Urine Appearance Urine pH Ur Specific [place] Urine Protein Urine Glucose (UA) Urine Ketones Urine Blood Urine Nitrite Urine Bilirubin Urine Urobilinogen Ur Leukocyte Esterase Opiates Screen Negative Methadone Screen Negative Barbiturate Screen Negative Phencyclidine Screen Negative Ur Amphetamines Screen Negative MDMA (Ecstasy) Screen Negative Benzodiazepines Screen Negative Cocaine Screen Positive U Marijuana (THC) Screen Negative Alcohol, Quantitative 40.2 H* 09/20/17 21:10 Sodium Potassium Chloride Carbon Dioxide Anion Gap BUN Creatinine Creat Clearance w eGFR Random Glucose Calcium Total Bilirubin AST ALT Alkaline Phosphatase Total Protein Albumin TSH Urine Color Ltyellow Urine Appearance Clear Urine pH 5.0 Ur Specific [place] 1.013 Urine Protein Negative Urine Glucose (UA) Negative Urine Ketones Trace H Urine Blood Negative Urine Nitrite Negative Urine Bilirubin Negative Urine Urobilinogen Negative Ur Leukocyte Esterase Negative Opiates Screen Methadone Screen Barbiturate Screen Phencyclidine Screen Ur Amphetamines Screen MDMA (Ecstasy) Screen Benzodiazepines Screen Cocaine Screen U Marijuana (THC) Screen Alcohol, Quantitative 09/20/17 21:19 RBC 5.18 MCV 85.9 MCHC 33.5 RDW 14.3 MPV 9.4 Neutrophils % 72.0 D Lymphocytes % 18.0 D Monocytes % 9.2 Eosinophils % 0.2 D Basophils % 0.6 - Medications Given in the ED: ED Medications Discontinued Medications Generic Name Dose Route Start Last Admin Trade Name Freq PRN Reason Stop Dose Admin Acetaminophen 650 mg 09/20/17 21:19 09/20/17 21:43 Tylenol - PO 09/20/17 21:20 650 mg ONCE ONE Administration Mirtazapine 15 mg 09/20/17 21:16 09/20/17 21:43 Remeron - PO 09/20/17 21:17 15 mg ONCE ONE Administration Quetiapine Fumarate 100 mg 09/20/17 21:16 09/20/17 21:43 Seroquel - PO 09/20/17 21:17 Not Given ONCE ONE Sertraline HCl 100 mg 09/20/17 21:16 09/20/17 21:43 Zoloft - PO 09/20/17 21:17 100 mg ONCE ONE Administration - Consult/PCP Time Called: 21:42 Case discussed with personal care physician: Abhinav Taveras Case Discussed with Personal Care Physician Not on Staff:: I spoke to Melinda Taveras. recommends 1: 1 monitoring. give scheduled meds. reevaluate in the Am. Medical Decision Making - Medical Decision Making 09/21/17 08:50 Patient received in sign out from MELINDA Duke. Patient awaiting psychiatry consult secondary to homicidal ideation. Patient currently with one-to-one and resting in bed. Called psychiatry , MELINDA Taveras, to confirm ETA and he states will be here before 12 noon 09/21/17 14:17 Patient seen by MELINDA Waldron who 2PC the patient's and now awaiting bed placement at [facility]. capacity planning manager aware and working on transfer. Microblog also sent to hospitalist in regards to the case in case patient does need to stay at [facility] due to no bed placement. Patient endorsed to resident Young.
--- NOTE | 2017-09-21 12:06 | EKG ---
Test Reason : Blood Pressure : / mmHG Vent. Rate : 089 BPM Atrial Rate : 089 BPM P-R Int : 168 ms QRS Dur : 086 ms QT Int : 400 ms P-R-T Axes : 119 137 140 degrees QTc Int : 486 ms SUSPECT ARM LEAD REVERSAL, INTERPRETATION ASSUMES NO REVERSAL NORMAL SINUS RHYTHM RIGHT AXIS DEVIATION INCREASED R/S RATIO IN V1, CONSIDER EARLY TRANSITION OR POSTERIOR INFARCT ABNORMAL ECG WHEN COMPARED WITH ECG OF 25-AUG-2017 14:23, QRS AXIS SHIFTED RIGHT NONSPECIFIC T WAVE ABNORMALITY NOW EVIDENT IN LATERAL LEADS Confirmed by YANET LING MD ([id number]) on 09/21/2017 12:05:56 PM Referred By: Confirmed By:YANET LING MD
[2017-09-21] MEDS ORDERED: ACETAMINOPHEN 325 MG TABLET (FP) PO ONE (19:13)
[2017-09-21] MEDS ORDERED: ACETAMINOPHEN 325 MG TABLET (FP) ONE (19:16)
--- NOTE | 2017-09-22 13:25 | CON.PSY ---
Psychiatry Consult Chief Complaint: 89 Year old AA male with a History of Paranoid Schizophrenia, chronic came to ER reporting that he is going to Kill his Brother In Law. also reports feeling helpless and hopeless and no place to go. He has not been taking his ppsychy meds for a while. Non Compliant with meds. Symptoms: reports: Depressed Mood, Suicidality, Hopelessness, Paranoia - Previous Psychiatric Treatment Outpatient: Less than 6 mos ago, More than 6 mos ago Inpatient: 2 or more prior admissions - Previous Substance Abuse Treatment Outpatient: None - Reason for Previous Treatment Reason for Previous Treatment: Major Depression, Psychotic Episode - Allergies Allergies: Allergies Allergy/AdvReac Type Severity Reaction Status Date / Time No Known Allergies Allergy Verified 09/20/17 20:05 - Current Living Status Usual Living Arrangement: Alone - Current Mental Status Evaluation Appearance: Disheveled Attitude: Suspicious - Affect Affect: Constrictive Appropriateness: Not Appropriate - Mood Mood: Angry - Speech/Language Expressive: Coherent - Psychomotor Activity Psychomotor Activity: Agitated - Thought Process Thought Process: Circumstantial - Thought Content Type: Auditory Delusions: Present Type: Persectory - Self Perception Self Perception: No Impairment - Cognition Attention: Alert Orientation: Time Memory, Immediate Recall: Intact Memory, Short Term: 2/3 Memory, Remote with Promptin/3 - Concentration Serial Sevens Intact: No Simple Calculations Intact: No - Abstraction Proverb Interpretation: Impaired Judgement: Severely Impaired - Insight Insight: Impaired - Impulse Control Impulse Control: Severly Impaired - Suicidal Ideation Suicidal Ideation: No - Homicidal Ideation Homicidal Ideation: Yes (wants to kill his brother in law,) Assessment/Plan 1) Patient needs In Patient Psych admission to stabilize his mental status, mental status.
[2017-09-22] MEDS ORDERED: MIRTAZAPINE 15 MG TABLET (FP) PO ONE (17:59)
[2017-09-22] MEDS ORDERED: SERTRALINE HCL 50 MG TABLET (FP) PO ONE (18:00)
--- NOTE | 2017-09-23 07:42 | PDOC ---
*Physical Exam - Vital Signs Last Vital Signs Temp Pulse Resp BP Pulse Ox 98.0 F 78 16 100/67 98 09/23/17 06:34 09/23/17 06:34 09/23/17 06:34 09/23/17 06:34 09/23/17 06:34 ED Treatment Course - LABORATORY CBC & Chemistry Diagram: 09/20/17 21:19 09/20/17 21:19 - ADDITIONAL ORDERS Additional order review: 09/20/17 21:19 RBC 5.18 MCV 85.9 MCHC 33.5 RDW 14.3 MPV 9.4 Neutrophils % 72.0 D Lymphocytes % 18.0 D Monocytes % 9.2 Eosinophils % 0.2 D Basophils % 0.6 - Medications Given in the ED: ED Medications Discontinued Medications Generic Name Dose Route Start Last Admin Trade Name Chaunceyq PRN Reason Stop Dose Admin Acetaminophen 650 mg 09/20/17 21:19 09/20/17 21:43 Tylenol - PO 09/20/17 21:20 650 mg ONCE ONE Administration Acetaminophen 650 mg 09/21/17 19:13 09/21/17 19:15 Tylenol - PO 09/21/17 19:14 650 mg ONCE ONE Administration Mirtazapine 15 mg 09/20/17 21:16 09/20/17 21:43 Remeron - PO 09/20/17 21:17 15 mg ONCE ONE Administration Mirtazapine 15 mg 09/22/17 17:59 09/22/17 22:05 Remeron - PO 09/22/17 18:00 15 mg NOW ONE Administration Quetiapine Fumarate 100 mg 09/20/17 21:16 09/20/17 21:43 Seroquel - PO 09/20/17 21:17 Not Given ONCE ONE Sertraline HCl 100 mg 09/20/17 21:16 09/20/17 21:43 Zoloft - PO 09/20/17 21:17 100 mg ONCE ONE Administration Sertraline HCl 50 mg 09/22/17 18:00 09/22/17 22:05 Zoloft - PO 09/22/17 18:01 50 mg NOW ONE Administration - Consult/PCP Time Called: 21:42 Case discussed with personal care physician: Abhinav Salazar Case Discussed with Personal Care Physician Not on Staff:: I spoke to Elvira Salazar. recommends 1: 1 monitoring. give scheduled meds. reevaluate in the Am. Medical Decision Making - Medical Decision Making 09/23/17 07:40 as pt has been herer 59hrs and still waiting for bed will admit to inpatient cse dw dr conner, agree with admission under dr. laguerre service stable for med surg on 08-14 currently Case discussed in detail with admitting physician including history, physical exam and ancillary studies. Admitting physician has assumed care for the patient, will follow all pending diagnostics and will complete the evaluation and treatment. *DC/Admit/Observation/Transfer Diagnosis at time of Disposition: Homicidal ideation - Discharge Dispostion Condition at time of disposition: Stable Admit: Yes - Referrals - Patient Instructions - Post Discharge Activity
--- NOTE | 2017-09-23 13:30 | HP ---
CHIEF COMPLAINT: "im going through problems" PCP: No PCP HISTORY OF PRESENT ILLNESS: 46 y/o M w/PMH of bipolar disorder and depression presents to the ER because pt states he wants to go into a psych facility. He states "Im going through problems" and states he would like to hurt his brother in law. He was recently released from nursing home 1 week ago and is on probation and states he is only allowed to live in [place] due to probation and the shelters here will not allow him in due to past transgressions. He states he is on seroquel, remeron, and zoloft but has been non-compliant with his meds. He denies any suicidal ideation , auditory or visual hallucinations. He denies CP, SOB, abd pain, change in bowel or urinary habits, lower extremity edema. Pt states he drinks 1-3 "twenty- five-ounce cans" of beer 1-2 times per week and his last drink was before coming to the ER. ER course was notable for: (1) remeron, sertraline, cbc, bmp, ua, utox, ekg (2) (3) PAST MEDICAL HISTORY: bipolar d/o, depression PAST SURGICAL HISTORY: "facial surgery" 3 years ago Social History: Smoking: current smoker, smokes 6 cigarettes/day Alcohol: 1-3 "ydnndg-dyhe-ggyip cans" of beer 1-2 times per week Drugs: when asked pt states he does "drugs" but would not admit to which. Utox positive for cocaine. Family History: mother - alcoholic () Allergies No Known Allergies Allergy (Verified 09/20/17 20:05) HOME MEDICATIONS: Home Medications Medication Instructions Recorded Mirtazapine [Remeron -] 15 mg PO HS #30 tablet 01/31/17 Sertraline HCl [Zoloft -] 50 mg PO DAILY #30 tablet 01/31/17 Quetiapine Fumarate [Seroquel -] 100 mg PO HS 08/25/17 REVIEW OF SYSTEMS CONSTITUTIONAL: Absent: fever, chills CARDIOVASCULAR: Absent: chest pain, peripheral edema RESPIRATORY: Absent: cough, shortness of breath GASTROINTESTINAL: Absent: abdominal pain, change in bowel habits GENITOURINARY: Absent: dysuria, change in urinary habits PSYCHIATRIC: +homicidal ideation Absent: suicidal ideation, auditory or visual hallucinations. PHYSICAL EXAMINATION Vital Signs - 24 hr 09/22/17 09/23/17 09/23/17 19:21 06:34 12:35 Temperature 98.0 F 98.0 F 97.8 F Pulse Rate [ 72 78 72 Left Apical] Respiratory 16 16 18 Rate Blood Pressure 110/62 100/67 134/78 [Left Arm] O2 Sat by Pulse 100 98 98 Oximetry (%) GENERAL: Awake, alert, and fully oriented, in no acute distress. EYES: extraocular movements intact, sclera anicteric, conjunctiva clear. EARS, NOSE, THROAT: Ears normal, nares patent, Moist mucous membranes. NECK: Normal range of motion, supple LUNGS: Breath sounds equal, clear to auscultation bilaterally. No wheezes, and no crackles. No accessory muscle use. HEART: Regular rate and rhythm, normal S1 and S2 without murmur, rub or gallop. ABDOMEN: Soft, nontender, not distended, normoactive bowel sounds, no guarding, no rebound UPPER EXTREMITIES: No peripheral edema. LOWER EXTREMITIES: 2+ pulses, warm, well-perfused. No peripheral edema. NEUROLOGICAL: Normal speech. Gait not observed. PSYCHIATRIC: Mostly cooperative. Good eye contact. SKIN: Warm, dry CBCD WBC 9.0 K/mm3 (4.0-10.0) 09/20/17 21:19 RBC 5.18 M/mm3 (4.00-5.60) 09/20/17 21:19 Hgb 14.9 GM/dL (11.7-16.9) 09/20/17 21:19 Hct 44.5 % (35.4-49) 09/20/17 21:19 MCV 85.9 fl (80-96) 09/20/17 21:19 MCHC 33.5 g/dl (32.0-35.9) 09/20/17 21:19 RDW 14.3 % (11.9-15.9) 09/20/17 21:19 Plt Count 210 K/MM3 (134-434) D 09/20/17 21:19 MPV 9.4 fl (7.5-11.1) 09/20/17 21:19 CMP Sodium 138 mmol/L (136-145) 09/20/17 21:19 Potassium 3.7 mmol/L (3.5-5.1) 09/20/17 21:19 Chloride 101 mmol/L (98-107) 09/20/17 21:19 Carbon Dioxide 25 mmol/L (21-32) 09/20/17 21:19 Anion Gap 12 (8-16) 09/20/17 21:19 BUN 18 mg/dL (7-18) D 09/20/17 21:19 Creatinine 1.1 mg/dL (0.7-1.3) 09/20/17 21:19 Creat Clearance w eGFR > 60 (>60) 09/20/17 21:19 Random Glucose 70 mg/dL (74-106) L D 09/20/17 21:19 Calcium 8.8 mg/dL (8.5-10.1) 09/20/17 21:19 Total Bilirubin 1.9 mg/dL (0.2-1.0) H 09/20/17 21:19 AST 31 U/L (15-37) D 09/20/17 21:19 ALT 27 U/L (12-78) D 09/20/17 21:19 Alkaline Phosphatase 138 U/L (45-117) H 09/20/17 21:19 Total Protein 8.0 g/dl (6.4-8.2) 09/20/17 21:19 Albumin 4.7 g/dl (3.4-5.0) 09/20/17 21:19 ASSESSMENT/PLAN: 46 y/o M w/PMH of bipolar disorder and depression presents to the ER because pt states he wants to go into a psych facility. Currently admitted for homicidal ideation and awaiting transfer to inpatient psych facility. -Homicidal Ideation -1:1 observation, c/w psych recommendations -awaiting transfer to inpatient psych -Hx of alcohol use -monitor for signs of withdrawal -no signs of withdrawal currently -Bipolar d/o w/MDD -pt last picked up his meds in February 2017. Will hold off on restarting meds currently. -DVT ppx -Heparin 5000 units SQ q8h -FEN -no fluids -electrolytes wnl on last labs -regular diet -Dispo: Admit to m/s, awaiting transfer to inpatient psych facility. Visit type - Emergency Visit Emergency Visit: Yes ED Registration Date: 09/23/17 Care time: The patient presented to the Emergency Department on the above date and was hospitalized for further evaluation of their emergent condition. - New Patient This patient is new to me today: Yes Date on this admission: 09/23/17 - Critical Care Critical Care patient: No
--- NOTE | 2017-09-23 14:00 | PN ---
Teaching Attending Note Name of Resident: Blayne Foster ATTENDING PHYSICIAN STATEMENT I saw and evaluated the patient. I reviewed the resident's note and discussed the case with the resident. I agree with the resident's findings and plan as documented. SUBJECTIVE: CC: " Homicidal ideation" HPI: limited hx as he did not want to provide much information . He had thought about hurting his brother in law. he has been stressed out . has no place to go. no further hx. denies any SOB, fever , chills, abd pain or other meical complaints . he said he took seroquel and remaron but his pharmacy confirmed that last time he picked up any meds was 02/27 . he was seen by psych and 2pc and aceted at [facility] per ER Md . To the resident he reported drinking 2 beers a day and reports using drugs ( not specified) . to me he reported no drug or alcohol use OBJECTIVE: NAD , flat affect. MMM, no facial droop, EOMI. tongue at mid mar[place] e CV: RRR Lungs: CTAB Abd: soft, NT, ND , NL BS ext: no edema on upper or lower ext , refused feet exam and any further exam ASSESSMENT AND PLAN: 46 y/o man with h/o Paranoid Schizophrenia who presented with homicidal ideations. 1- Homicidal ideation : - 2PC done for inpt psych - not compliant with meds, hold any treatment at this point - monitor 2- LAcohol use: no signs of withdrawal . Monitor 3- Drug use , no signs of withdrawal 4- elevated total bili, repeat in am . likely due to alcohol use . pending transfer to [facility]
[2017-09-23] MEDS ORDERED: ACETAMINOPHEN 325 MG TABLET (FP) PO ONE (14:31)
[2017-09-23] MEDS ORDERED: ACETAMINOPHEN 325 MG TABLET (FP) ONE (14:33)
[2017-09-23] MEDS ORDERED: QUEtiapine FUMARATE 100 MG TABLET (FP) PO ONE (17:25)
[2017-09-23] MEDS ORDERED: MIRTAZAPINE 15 MG TABLET (FP) PO ONE (17:26)
[2017-09-23] MEDS ORDERED: MIRTAZAPINE 15 MG TABLET (FP) ONE (17:29)
[2017-09-23] MEDS ORDERED: QUEtiapine FUMARATE 100 MG TABLET (FP) ONE (17:29)
[2017-09-23] MEDS: HEPARIN NA (PORCINE) 5,000 UNITS/ML 1ML VIAL SQ SCH (22:20)
[2017-09-24] MEDS: HEPARIN NA (PORCINE) 5,000 UNITS/ML 1ML VIAL SQ SCH ×2 (06:10→14:32)
[2017-09-24 06:57] VITALS: TEMP 97.9
[2017-09-24 07:27] LABS: ALBUMIN 3.7 g/dl (3.4-5.0); ALK PHOS 112 U/L (45-117); ANION GAP 2 (8-16); BILIRUBIN,TOTAL 0.8 mg/dL (0.2-1.0); BLOOD UREA NITROGEN 15 mg/dL (7-18); CALCIUM 8.7 mg/dL (8.5-10.1); CHLORIDE 111 mmol/L (98-107); CO2 30 mmol/L (21-32); CREATININE 1.2 mg/dL (0.7-1.3); GLUCOSE,RANDOM 86 mg/dL (74-106); POTASSIUM 4.4 mmol/L (3.5-5.1); SGOT/AST 13 U/L (15-37); SGPT/ALT 21 U/L (12-78); SODIUM 143 mmol/L (136-145); TOT PROT 6.7 g/dl (6.4-8.2)
[2017-09-24 12:04] VITALS: BP 141/75; PULSE 86
--- NOTE | 2017-09-24 14:21 | PN ---
Progress Note (short form) - Note Progress Note: Patient seen for Psych follow up.stable, alert and oriented. Has been Staff report that patient has been satble< Eating and sleeping well. No evidence of any acute Psychosis or depression. Talking to his family. Patient denies any acute suicidal or Homicidal ideas at this time. No acute Psychosis at this time. Cognitionis intact. PLan: Discharge patient . 2) will go [facility] Penitentiary and seek treatment there at [facility].
--- NOTE | 2017-09-24 14:47 | DS ---
Physical Examination Vital Signs: Vital Signs Temperature 97.9 F 09/24/17 06:56 Pulse Rate 86 09/24/17 12:04 Respiratory Rate 16 09/24/17 06:56 Blood Pressure 141/75 09/24/17 12:04 O2 Sat by Pulse Oximetry (%) 97 09/24/17 12:04 Findings/Remarks: feels the "same" refused to provide more hx and refused exam . wanted breakfast to eat Constitutional: Yes: Well Nourished, No Distress, Calm Labs: CBC, BMP 09/20/17 21:19 09/24/17 06:37 Discharge Summary Reason For Visit: HOMICIDAL IDEATION Current Active Problems Homicidal ideation (Acute) Hospital Course: 46 y/o man with h/o Paranoid Schizophrenia who presented with homicidal ideation. He reported more depression than normal and thoughts to hurt his brother in law. he was admitted and treated with seroquel , remaron . he was not compoliant without pt meds. he was seen by psych, and the initial plan was to do an inpt psych admission , but in the 3 days he has been here , he showed stable mood, good appetite and good sleep. He was also seen talking to his family. today dr. Mazariegos felt pt is not a danger to anyone, and was stable enough to go home. He was dc on his home meds and provided prescriptions he reported h/o alcohol and drg use, but had no signs of withdrawal at all He will be dc dispo: long-term. condition at dc stable and improved. Time spent 30 min Condition: Improved - Instructions Diet, Activity, Other Instructions: please follow up with your psychiatrist , if you don't have one , please see Dr. Villalta. please follow with ronald Adames don't have a primary care doctor Referrals: Du Mensah MD [Staff Physician] - Rivera Vincent MD [Staff Physician] - Disposition: HOME - Home Medications Comprehensive Discharge Medication List: Ambulatory Orders Mirtazapine [Remeron -] 15 mg PO HS #30 tablet 09/24/17 Quetiapine Fumarate [Seroquel -] 100 mg PO HS #60 tablet 09/24/17 Sertraline HCl [Zoloft -] 50 mg PO DAILY #30 tablet 09/24/17 This patient is new to me today: No Emergency Visit: Yes ED Registration Date: 09/23/17 Care time: The patient presented to the Emergency Department on the above date and was hospitalized for further evaluation of their emergent condition. Critical Care patient: No - Discharge Referral Referred to [facility] Med P.C.: No
[2017-09-24 15:02] VITALS: BMI 32.1
[2017-09-24] MEDS ORDERED: MIRTAZAPINE 15 MG TABLET (FP) PO SCH (22:00)
[2017-09-24] MEDS ORDERED: QUEtiapine FUMARATE 100 MG TABLET (FP) PO SCH (22:00)
== END 2017-09-24 15:05 | disposition home or self-care (01) | DRG 760 ==
LOC: JER 19:45 → JERBED 09-23 07:42
PROVIDERS: ADMIT Internal Medicine; ATTEND Internal Medicine
DX: R45.850 Homicidal ideations (principal); F31.89 Other bipolar disorder; F20.0 Paranoid schizophrenia; F17.210 Nicotine dependence, cigarettes, uncomplicated; F10.10 Alcohol abuse, uncomplicated; F14.10 Cocaine abuse, uncomplicated; Z91.19 Patient's noncompliance with other medical treatment and regimen; Z59.0 Homelessness
CPT/HCPCS: 36415; 80053; 80307; 81003; 84443; 85025; 93005; 93010; 99285-25

== ENCOUNTER 2017-09-25 21:08 | Inpatient (IN) | payer SELFPAY ==
[2017-09-25 21:11] VITALS: BMI 28.0
--- NOTE | 2017-09-25 22:20 | HP ---
CIWA Score - CIWA Score Nausea/Vomitin-No Nausea/No Vomiting Muscle Tremors: 3 Anxiety: 4-Mod. Anxious/Guarded Agitation: 3 Paroxysmal Sweats: 3 Orientation: 0-Oriented Tacttile Disturbances: 3-Moderate Itch/Numb/Burn Auditory Disturbances: 2-Mild Harshness/Frighten Visual Disturbances: 2-Mild Sensitivity Headache: 2-Mild CIWA-Ar Total Score: 22 Admission ROS S - HPI Chief Complaint: withdrawal symptoms Allergies/Adverse Reactions: Allergies Allergy/AdvReac Type Severity Reaction Status Date / Time No Known Allergies Allergy Verified 09/20/17 20:05 History of Present Illness: 46 yo male with hx cocaine, nicotine and alcohol dependence is here for detox. Reports smoking since 13 yo, currently smokes 7 cigarettes per day. PMHX: Hep C , Pre- diabetes, neuropathy b/t lower extremities, depression and bipolar . Reports hx of suicide attempt at 13 yo by drinking disinfectant. Currently denies suicidal / homicidal ideation, or suicide attempts. Reports last hospitalization 09/23/16 [address] [facility] for psych: homicidal ideation. Last detox [facility] July 2017. Exam Limitations: No Limitations - Ebola screening Have you traveled outside of the country in the last 21 days: No Have you had contact with anyone from an Ebola affected area: No Have you been sick,other than usual withdrawal symptoms: No Do you have a fever: Yes - Review of Systems Constitutional: Chills, Weakness EENT: reports: No Symptoms Reported Respiratory: reports: No Symptoms reported Cardiac: reports: No Symptoms Reported GI: reports: Indigestion : reports: No Symptoms Reported Musculoskeletal: reports: Joint Pain, Muscle Pain Integumentary: reports: No Symptoms Reported Neuro: reports: Numbness, Tingling (bilateral lower extremities), Unsteady Gait (uses a cane to get around) Endocrine: reports: No Symptoms Reported Hematology: reports: Anemia, Other (Sickle Cell Trait) Psychiatric: reports: Orientated x3, Anxious, Depressed Other Systems: Reviewed and Negative Patient History - Patient Medical History Hx Anemia: Yes Hx Asthma: No Hx Chronic Obstructive Pulmonary Disease (COPD): No Hx Cancer: No Hx Cardiac Disorders: No Hx Congestive Heart Failure: No Hx Hypertension: No Hx Hypercholesterolemia: No Hx Pacemaker: No HX Cerebrovascular Accident: No Hx Seizures: No Hx Dementia: No Hx Diabetes: Yes (borderline) Hx Gastrointestinal Disorders: No Hx Liver Disease: Yes (Hep C ) Hx Genitourinary Disorders: No Hx Sexually Transmitted Disorders: No Hx Renal Disease (ESRD): No Hx Thyroid Disease: No Hx Human Immunodeficiency Virus (HIV): No Hx Hepatitis C: No Hx Depression: Yes (on meds) Hx Suicide Attempt: Yes (slit inner elbow as a kid) Hx Bipolar Disorder: Yes Hx Schizophrenia: No - Patient Surgical History Past Surgical History: Yes Hx Neurologic Surgery: No Hx Cataract Extraction: No Hx Cardiac Surgery: No Hx Lung Surgery: No Hx Breast Surgery: No Hx Breast Biopsy: No Hx Abdominal Surgery: No Hx Appendectomy: No Hx Cholecystectomy: No Hx Genitourinary Surgery: No Hx Section: No Hx Orthopedic Surgery: Yes (Fx R eye socket sx in 2013) Hx Hysterectomy: No Other Surgical History: fx floor of orbit in 2009 at [facility] with numbness of right fa Anesthesia Reaction: No - PPD History Previous Implant?: Yes Documented Results: Positive w/o proof Results: CXR neg 08/31 PPD to be Administered?: No - Reproductive History Patient is a Female of Child Bearing Age (11 -55 yrs old): No - Smoking Cessation Smoking history: Current every day smoker Have you smoked in the past 12 months: Yes Aproximately how many cigarettes per day: 7 Hx Chewing Tobacco Use: No Initiated information on smoking cessation: Yes 'Breaking Loose' booklet given: 09/25/17 - Substance & Tx. History Hx Alcohol Use: Yes Hx Substance Use: Yes Substance Use Type: Alcohol, Cocaine Hx Substance Use Treatment: Yes ([facility] July 2017) - Substances Abused Alcohol Route: Oral Frequency: 3-6 times per week Amount used: 5- 6 25 oz Budweiser cans of beer Age of first use: 13 Date of Last Use: 09/23/17 Cocaine Route: Inhalation Frequency: Daily Amount used: $30 Age of first use: 18 Date of Last Use: 09/30/17 Family Disease History - Family Disease History Family Disease History: Diabetes: Father, Heart Disease: Father, Other: Mother ( dec, alcoholism ) Admission Physical Exam BHS - Vital Signs Vital Signs: Vital Signs - 24 hr 09/25/17 21:10 Temperature 98.8 F Pulse Rate 90 Respiratory 18 Rate Blood Pressure 115/97 - Physical General Appearance: Yes: Disheveled, Sweating, Anxious, Other (malodorous) HEENTM: Yes: EOMI, Hearing grossly Normal, Normal ENT Inspection, Normocephalic , Normal Voice, VEDA, Pharynx Normal, Tm's normal Respiratory: Yes: Chest Non-Tender, Lungs Clear, Normal Breath Sounds, No Respiratory Distress, No Accessory Muscle Use Neck: Yes: No masses,lesions,Nodules, Trachea in good position Breast: Yes: Breast Exam Deferred Cardiology: Yes: Regular Rhythm, Regular Rate, S1, S2 Abdominal: Yes: Normal Bowel Sounds, Non Tender, Flat, Soft Genitourinary: Yes: Within Normal Limits Back: Yes: Normal Inspection Extremities: Yes: Normal Capillary Refill, Normal Inspection, Normal Range of Motion, Non-Tender, Other (uses cane to ambulate) Neurological: Yes: hardware trainer II-XII NML intact, Fully Oriented, Alert, Motor Strength 5/5, Normal Response, Depressed Affect Integumentary: Yes: Normal Color, Dry, Warm Lymphatic: Yes: Within Normal Limits - Diagnostic (1) Alcohol dependence with withdrawal Current Visit: Yes Status: Acute Qualifiers: Complication of substance-induced condition: uncomplicated Qualified Code(s ): F10.230 - Alcohol dependence with withdrawal, uncomplicated (2) Use of cane as ambulatory aid Current Visit: Yes Status: Chronic (3) Prediabetes Current Visit: Yes Status: Chronic (4) Bipolar disorder Current Visit: Yes Status: Chronic Qualifiers: Psychotic features: without psychotic features Comment: As per records.Prescribed medications.History of non-compliance. (5) Chronic pain in right shoulder Current Visit: Yes Status: Chronic (6) Cocaine dependence Current Visit: No Status: Chronic (7) Hepatitis C Current Visit: Yes Status: Chronic Qualifiers: Viral hepatitis chronicity: chronic Hepatic coma status: without hepatic coma Qualified Code(s): B18.2 - Chronic viral hepatitis C (8) History of tuberculosis Current Visit: Yes Status: Chronic Cleared for Admission S - Detox or Rehab [facility] Level of Care: Medically Managed Detox Regimen/Protocol: Librium [facility] Breath Alcohol Content Breath Alcohol Content: 0 Urine Drug Screen - Results Drug Screen Negative: No Urine Drug Screen Results: TIMBO-Cocaine
[2017-09-25] MEDS ORDERED: hydrOXYzine PAMOATE 50 MG CAPSULE (FP) PO PRN (22:31)
[2017-09-25] MEDS ORDERED: MENTHOL/PHENOL 1 EACH UD MM PRN (22:31)
[2017-09-25] MEDS ORDERED: chlordiazePOXIDE HCL 25 MG CAPSULE PO ONE (22:31)
[2017-09-25] MEDS ORDERED: ACETAMINOPHEN 325 MG TABLET (FP) PO PRN (22:31)
[2017-09-25] MEDS ORDERED: P-EPHED 60MG/TRIPROLIDI 2.5MG TABLET PO PRN (22:31)
[2017-09-25] MEDS ORDERED: MAGNESIUM CITRATE 300 ML BOTTLE PO PRN (22:31)
[2017-09-25] MEDS ORDERED: MAG HYDROX/AL HYDROX/SIMETH 30 ML UNIT-DOSE CUP PO PRN (22:31)
[2017-09-25] MEDS ORDERED: MAGNESIUM HYDROX 2400MG/30ML ORAL SUSPENSION 30 ML CUP PO PRN (22:31)
[2017-09-25] MEDS ORDERED: IBUPROFEN 400 MG TABLET (FP) PO PRN (22:31)
[2017-09-25] MEDS ORDERED: guaiFENesin/D-METHORPHAN HB 10 ML UNIT-DOSE CUPS PO PRN (22:31)
[2017-09-25] MEDS ORDERED: LOPERAMIDE HCL 2 MG CAPSULE PO PRN (22:31)
[2017-09-25] MEDS ORDERED: NICOTINE POLACRILEX 2 MG GUM BC PRN (22:31)
[2017-09-25] MEDS ORDERED: chlordiazePOXIDE HCL 25 MG CAPSULE PO PRN (22:31)
[2017-09-25] MEDS: chlordiazePOXIDE HCL 25 MG CAPSULE PO SCH (23:57)
[2017-09-26] MEDS: chlordiazePOXIDE HCL 25 MG CAPSULE PO SCH ×4 (05:05→22:11)
[2017-09-26] MEDS: GABAPENTIN 100 MG CAPSULE (FP) PO SCH ×3 (05:05→22:10)
--- NOTE | 2017-09-26 09:08 | CONSULT ---
[facility] Psychiatric Consult - Data Date of interview: 09/26/17 Admission source: [facility] Identifying data: Pt is a 46 year old male, single, without kids, unemployed and currently homeless. This is one of multiple admissions for patient. Pt. admitted to for alcohol and cocaine dependence. Substance Abuse History: Following information confirmed with Mr. Mcfarland: - Smoking Cessation. Smoking history: Current every day smoker. Have you smoked in the past 12 months: Yes. Aproximately how many cigarettes per day: 7. Hx Chewing Tobacco Use: No. Initiated information on smoking cessation: Yes. ' Breaking Loose' booklet given: 09/25/17. - Substance & Tx. History. Hx Alcohol Use: Yes. Hx Substance Use: Yes. Substance Use Type: Alcohol, Cocaine. Hx Substance Use Treatment: Yes ([facility] July 2017). - Substances Abused. Alcohol. Route: Oral. Frequency: 3-6 times per week. Amount used : 5- 6 25 oz Budweiser cans of beer. Age of first use: 13. Date of Last Use: 09/23/17. Cocaine. Route: Inhalation. Frequency: Daily. Amount used: $ 30. Age of first use: 18. Date of Last Use: 09/30/17 Medical History: Diabetes (borderline), Hep C Psychiatric History: Patient's most recent psychiatric hospitalization was at [facility] in 2017. Pt. states he admitted himself because he was "angry." Pt. has also been admitted to [facility], [facility], and [facility]. Pt. has a diagnosis of Bipolar disorder. Denies outpatient care. Pt. was recently admitted to rehab in [facility] on 08/31 and was prescribed Zoloft 100mg +Seroquel 100mg qhs +Mirtzapine 15mg qhs. Pt. reports one suicide attempt as a child via drinking a small amount of disinfected liquid. Pt. denies suicidal and homicidal ideation. Physical/Sexual Abuse/Trauma History: Denies. Mental Status Exam - Mental Status Exam Alert and Oriented to: Time, Place, Person Cognitive Function: Good Patient Appearance: Well Groomed Mood: Euthymic Affect: Mood Congruent Patient Behavior: Cooperative Voice Loudness: Normal Thought Process: Goal Oriented Thought Disorder: Not Present Hallucinations: Denies Suicidal Ideation: Denies Homicidal Ideation: Denies Insight/Judgement: Poor Sleep: Poorly Appetite: Fair Muscle strength/Tone: Normal Gait/Station: Normal Psychiatric Findings - Problem List ([place] 1, 2,3) (1) Alcohol dependence with withdrawal Current Visit: Yes Status: Acute Qualifiers: Complication of substance-induced condition: uncomplicated Qualified Code(s ): F10.230 - Alcohol dependence with withdrawal, uncomplicated (2) Bipolar disorder Current Visit: Yes Status: Chronic Qualifiers: Psychotic features: without psychotic features Comment: As per records.Prescribed medications.History of non-compliance. (3) Alcohol dependence Current Visit: Yes Status: Acute (4) Cocaine dependence, uncomplicated Current Visit: Yes Status: Acute (5) Nicotine dependence Current Visit: Yes Status: Chronic Qualifiers: Nicotine product type: cigarettes Substance use status: in withdrawal Qualified Code(s): F17.213 - Nicotine dependence, cigarettes, with withdrawal - Initial Treatment Plan Initial Treatment Plan: Psychoeducation provided. Detoxification provided. Zoloft 100mg + seroquel 50mg qhs (Reduce dosage, will increase to 100mg depending if patient can tolerate current dosages of medications)+ Mirtazapine 15mg qhs. Benefits and side effects discussed. Verbal consent given. Will continue to monitor patient.
--- NOTE | 2017-09-26 09:19 | PN ---
S CIWA - CIWA Score Nausea/Vomitin Muscle Tremors: 3 Anxiety: 3 Agitation: 3 Paroxysmal Sweats: 2 Orientation: 0-Oriented Tacttile Disturbances: 1-Very Mild Itch/Numbness Auditory Disturbances: 1-Very Mild Visual Disturbances: 0-None Headache: 2-Mild CIWA-Ar Total Score: 18 BHS Progress Note (SOAP) Subjective: ALERT,IRRITABLE,ANXIOUS,INTERRUPTED SLEEP,TREMOR,PAIN IN THE BODY Objective: 09/26/17 09:15 Vital Signs Temperature 97.7 F 09/26/17 06:13 Pulse Rate 73 09/26/17 06:13 Respiratory Rate 18 09/26/17 06:13 Blood Pressure 99/59 09/26/17 06:13 O2 Sat by Pulse Oximetry (%) EKG NSR,NORMAL ECG Laboratory Last Values POC Glucometer 107 UNITS (80-120) 09/26/17 06:41 LABS PENDING Assessment: 09/26/17 09:16 WITHDRAWAL SYMPTOM Plan: CONTINUE DETOX
[2017-09-26 09:57] LABS: HEMOGLOBIN 14.9 GM/dL (11.7-16.9); MCH 28.6 pg (25.7-33.7); MCHC 33.2 g/dl (32.0-35.9); MEAN CELL VOLUME 86.1 fl (80-96); MEAN PLT VOLUME 9.8 fl (7.5-11.1); PLATELET COUNT 153 K/MM3 (134-434); RBC 5.22 M/mm3 (4.00-5.60); RDW 14.6 % (11.9-15.9); WHITE BLOOD COUNT 4.9 K/mm3 (4.0-10.0)
[2017-09-26 10:25] LABS: ALBUMIN 4.2 g/dl (3.4-5.0); BILIRUBIN,TOTAL 1.2 mg/dL (0.2-1.0); BLOOD UREA NITROGEN 22 mg/dL (7-18); CALCIUM 8.5 mg/dL (8.5-10.1); CO2 29 mmol/L (21-32); GLUCOSE,RANDOM 95 mg/dL (74-106); SGOT/AST 26 U/L (15-37); SGPT/ALT 24 U/L (12-78); TOT PROT 7.3 g/dl (6.4-8.2)
[2017-09-26 10:28] LABS: ALK PHOS 118 U/L (45-117); ANION GAP 7 (8-16); CHLORIDE 103 mmol/L (98-107); CREATININE 1.2 mg/dL (0.7-1.3); SODIUM 139 mmol/L (136-145)
[2017-09-26] MEDS: PRENATAL VITAMINS W/ FOLIC ACID TABLET (FP) PO SCH (12:06)
[2017-09-26] MEDS: NICOTINE 14 MG/24 HOURS TOPICAL PATCH TD SCH (12:06)
[2017-09-26] MEDS: SERTRALINE HCL 50 MG TABLET (FP) PO SCH (12:07)
--- NOTE | 2017-09-26 13:56 | EKG ---
Test Reason : Blood Pressure : / mmHG Vent. Rate : 093 BPM Atrial Rate : 093 BPM P-R Int : 168 ms QRS Dur : 084 ms QT Int : 372 ms P-R-T Axes : 062 024 014 degrees QTc Int : 462 ms NORMAL SINUS RHYTHM NORMAL ECG WHEN COMPARED WITH ECG OF 26-SEP-2017 00:03, NO SIGNIFICANT CHANGE WAS FOUND Confirmed by MD Arroyo Edward ([id number]) on 09/26/2017 1:56:44 PM Referred By: Confirmed By:Yuan Arroyo MD
[2017-09-26 14:38] LABS: URINE APPEARANCE CLEAR; URINE BILIRUBIN NEGATIVE (NEGATIVE); URINE BLOOD NEGATIVE (NEGATIVE); URINE COLOR LTYELLOW; URINE GLUCOSE (UA) NEGATIVE (NEGATIVE); URINE KETONE NEGATIVE (NEGATIVE); URINE LEUK ESTERASE NEGATIVE (NEGATIVE); URINE NITRITE NEGATIVE (NEGATIVE); URINE PROTEIN NEGATIVE (NEGATIVE); URINE UROBILINOGEN NEGATIVE mg/dL (0.2-1.0)
[2017-09-26] MEDS: QUEtiapine FUMARATE 50 MG TABLET PO SCH (22:10)
[2017-09-26] MEDS: THIAMINE HCL 100 MG TABLET (FP) PO SCH (22:10)
[2017-09-26] MEDS: MIRTAZAPINE 15 MG TABLET (FP) PO SCH (22:12)
[2017-09-27] MEDS: GABAPENTIN 100 MG CAPSULE (FP) PO SCH ×3 (05:57→22:13)
[2017-09-27] MEDS: chlordiazePOXIDE HCL 25 MG CAPSULE PO SCH ×3 (05:58→18:05)
--- NOTE | 2017-09-27 09:22 | PN ---
S CIWA - CIWA Score Nausea/Vomitin Muscle Tremors: 3 Anxiety: 3 Agitation: 3 Paroxysmal Sweats: 1-Minimal Palms Moist Orientation: 0-Oriented Tacttile Disturbances: 1-Very Mild Itch/Numbness Auditory Disturbances: 1-Very Mild Visual Disturbances: 1-Very Mild Sensitivity Headache: 2-Mild CIWA-Ar Total Score: 18 BHS Progress Note (SOAP) Subjective: ALERT,IRRITABLE,ANXIOUS,INTERRUPTED SLEEP,TREMOR Objective: 09/27/17 09:20 Vital Signs Temperature 96.8 F L 09/27/17 06:46 Pulse Rate 85 09/27/17 06:46 Respiratory Rate 19 09/27/17 06:46 Blood Pressure 111/65 09/27/17 06:46 O2 Sat by Pulse Oximetry (%) 09/27/17 09:20 Laboratory Last Values WBC 4.9 K/mm3 (4.0-10.0) D 09/26/17 07:30 RBC 5.22 M/mm3 (4.00-5.60) 09/26/17 07:30 Hgb 14.9 GM/dL (11.7-16.9) 09/26/17 07:30 Hct 45.0 % (35.4-49) 09/26/17 07:30 MCV 86.1 fl (80-96) 09/26/17 07:30 MCH 28.6 pg (25.7-33.7) 09/26/17 07:30 MCHC 33.2 g/dl (32.0-35.9) 09/26/17 07:30 RDW 14.6 % (11.9-15.9) 09/26/17 07:30 Plt Count 153 K/MM3 (134-434) D 09/26/17 07:30 MPV 9.8 fl (7.5-11.1) 09/26/17 07:30 Sodium 139 mmol/L (136-145) 09/26/17 07:30 Potassium 4.0 mmol/L (3.5-5.1) 09/26/17 07:30 Chloride 103 mmol/L (98-107) 09/26/17 07:30 Carbon Dioxide 29 mmol/L (21-32) 09/26/17 07:30 Anion Gap 7 (8-16) L 09/26/17 07:30 BUN 22 mg/dL (7-18) H D 09/26/17 07:30 Creatinine 1.2 mg/dL (0.7-1.3) 09/26/17 07:30 Creat Clearance w eGFR > 60 (>60) 09/26/17 07:30 POC Glucometer 107 UNITS (80-120) 09/26/17 06:41 Random Glucose 95 mg/dL (74-106) 09/26/17 07:30 Calcium 8.5 mg/dL (8.5-10.1) 09/26/17 07:30 Total Bilirubin 1.2 mg/dL (0.2-1.0) H D 09/26/17 07:30 AST 26 U/L (15-37) D 09/26/17 07:30 ALT 24 U/L (12-78) 09/26/17 07:30 Alkaline Phosphatase 118 U/L (45-117) H 09/26/17 07:30 Total Protein 7.3 g/dl (6.4-8.2) 09/26/17 07:30 Albumin 4.2 g/dl (3.4-5.0) 09/26/17 07:30 Urine Color Ltyellow 09/26/17 10:30 Urine Appearance Clear 09/26/17 10:30 Urine pH 5.0 (5.0-8.0) 09/26/17 10:30 Ur Specific [place] 1.018 (1.001-1.035) 09/26/17 10:30 Urine Protein Negative (NEGATIVE) 09/26/17 10:30 Urine Glucose (UA) Negative (NEGATIVE) 09/26/17 10:30 Urine Ketones Negative (NEGATIVE) 09/26/17 10:30 Urine Blood Negative (NEGATIVE) 09/26/17 10:30 Urine Nitrite Negative (NEGATIVE) 09/26/17 10:30 Urine Bilirubin Negative (NEGATIVE) 09/26/17 10:30 Urine Urobilinogen Negative mg/dL (0.2-1.0) 09/26/17 10:30 Ur Leukocyte Esterase Negative (NEGATIVE) 09/26/17 10:30 RPR Titer Nonreactive (NONREACTIVE) 09/26/17 07:30 Hepatitis C Antibody <0.1 s/co ratio (0.0-0.9) 09/25/17 07:30 Assessment: 09/27/17 09:22 WITHDRAWAL SYMPTOM Plan: CONTINUE DETOX,ENCOURAGE ORAL FLUID
[2017-09-27] MEDS: PRENATAL VITAMINS W/ FOLIC ACID TABLET (FP) PO SCH (11:37)
[2017-09-27] MEDS: NICOTINE 14 MG/24 HOURS TOPICAL PATCH TD SCH (11:37)
[2017-09-27] MEDS: SERTRALINE HCL 50 MG TABLET (FP) PO SCH (12:28)
[2017-09-27] MEDS: chlordiazePOXIDE 5 MG CAPSULE PO SCH (22:11)
[2017-09-27] MEDS: THIAMINE HCL 100 MG TABLET (FP) PO SCH (22:13)
[2017-09-27] MEDS: MIRTAZAPINE 15 MG TABLET (FP) PO SCH (22:13)
[2017-09-27] MEDS: QUEtiapine FUMARATE 50 MG TABLET PO SCH (22:13)
[2017-09-28] MEDS: GABAPENTIN 100 MG CAPSULE (FP) PO SCH ×4 (05:15→23:03)
[2017-09-28] MEDS: chlordiazePOXIDE 5 MG CAPSULE PO SCH ×3 (05:15→17:22)
--- NOTE | 2017-09-28 09:32 | PN ---
S Progress Note (SOAP) Subjective: ALERT,IRRITABLE,ANXIOUS,INTERRUPTED SLEEP Objective: 09/28/17 09:31 Vital Signs Temperature 97.9 F 09/28/17 06:00 Pulse Rate 70 09/28/17 06:00 Respiratory Rate 18 09/28/17 06:00 Blood Pressure 121/73 09/28/17 06:00 O2 Sat by Pulse Oximetry (%) Assessment: 09/28/17 09:31 WITHDRAWAL SYMPTOM Plan: CONTINUE DETOX,DISCHARGE IN AM
[2017-09-28] MEDS: NICOTINE 14 MG/24 HOURS TOPICAL PATCH TD SCH (12:35)
[2017-09-28] MEDS: PRENATAL VITAMINS W/ FOLIC ACID TABLET (FP) PO SCH (12:35)
[2017-09-28] MEDS: SERTRALINE HCL 50 MG TABLET (FP) PO SCH (13:48)
[2017-09-28 21:35] VITALS: BP 127/83; PULSE 83; TEMP 98.2
[2017-09-28] MEDS: MIRTAZAPINE 15 MG TABLET (FP) PO SCH (23:03)
[2017-09-28] MEDS: THIAMINE HCL 100 MG TABLET (FP) PO SCH (23:04)
[2017-09-28] MEDS: QUEtiapine FUMARATE 50 MG TABLET PO SCH (23:04)
[2017-09-28] MEDS: chlordiazePOXIDE HCL 10 MG CAPSULE PO SCH (23:05)
[2017-09-29] MEDS: chlordiazePOXIDE HCL 10 MG CAPSULE PO SCH (06:30)
[2017-09-29] MEDS: GABAPENTIN 100 MG CAPSULE (FP) PO SCH (06:30)
--- NOTE | 2017-09-29 08:56 | DS ---
[facility] Detox Discharge Summary Admission Date: 09/25/17 Discharge Date: 09/29/17 - History Present History: Alcohol Dependence, Cocaine Dependence Additional Comments: follow up with after care program as arrangement Pertinent Past History: bipolar disorder hepatitis c - Physical Exam Results Vital Signs: Vital Signs Temperature 98.2 F 09/28/17 21:34 Pulse Rate 83 09/28/17 21:34 Respiratory Rate 18 09/29/17 03:30 Blood Pressure 127/83 09/28/17 21:34 O2 Sat by Pulse Oximetry (%) Pertinent Admission Physical Exam Findings: withdrawal sign and symptom - Treatment Hospital Course: Detox Protocol Followed, Detoxed Safely, Responded well, Discharged Condition Good Patient has Accepted a Rehab Referral to: declined - Medication Discharge Medications: Ambulatory Orders Mirtazapine [Remeron -] 15 mg PO HS #30 tablet 09/24/17 Quetiapine Fumarate [Seroquel -] 100 mg PO HS #60 tablet 09/24/17 Sertraline HCl [Zoloft -] 50 mg PO DAILY #30 tablet 09/24/17 - Diagnosis (1) Alcohol dependence with withdrawal Current Visit: Yes Status: Acute Qualifiers: Complication of substance-induced condition: uncomplicated Qualified Code(s ): F10.230 - Alcohol dependence with withdrawal, uncomplicated (2) Cocaine dependence, uncomplicated Current Visit: Yes Status: Acute (3) Hepatitis C Current Visit: Yes Status: Chronic Qualifiers: Viral hepatitis chronicity: chronic Hepatic coma status: without hepatic coma Qualified Code(s): B18.2 - Chronic viral hepatitis C (4) Chronic pain in right shoulder Current Visit: Yes Status: Chronic - AMA Did Patient Leave Against Medical Advice: No
== END 2017-09-29 12:09 | disposition home or self-care (01) | DRG 774 ==
LOC: YASAS 21:08 → Y6N 22:54
PROVIDERS: ADMIT Internal Medicine; ATTEND Internal Medicine
PROC: HZ2ZZZZ Detoxification Services for Substance Abuse Treatment (ICD-10-PCS; principal; 2017-09-25)
DX: F10.230 Alcohol dependence with withdrawal, uncomplicated (principal); F14.20 Cocaine dependence, uncomplicated; F17.210 Nicotine dependence, cigarettes, uncomplicated; F31.9 Bipolar disorder, unspecified; R73.03 Prediabetes; B18.2 Chronic viral hepatitis C; M25.511 Pain in right shoulder; G89.29 Other chronic pain; G62.9 Polyneuropathy, unspecified; R26.2 Difficulty in walking, not elsewhere classified; Z99.89 Dependence on other enabling machines and devices; Z86.11 Personal history of tuberculosis; Z91.5 Personal history of self-harm
CPT/HCPCS: 36415; 80053; 81003; 82962; 85027; 86593; 86803; 93005; 93010

== ENCOUNTER 2017-10-24 23:56 | Emergency (ER) | payer SELFPAY ==
[2017-10-25 02:21] VITALS: BP 127/71; PULSE 71; TEMP 98.4; BMI 26.6
--- NOTE | 2017-10-25 04:12 | PDOC ---
History of Present Illness - General Chief Complaint: Alcohol intoxication Stated Complaint: DETOX Time Seen by Provider: 10/25/17 02:14 History Source: Patient Exam Limitations: No Limitations - History of Present Illness Initial Comments: CHIEF COMPLAINT: 47 y/o male BIB EMS after being turned away from [facility] detox because they don't have any beds. HISTORY OF PRESENT ILLNESS: The patient went to [facility] to be admitted for alcohol detox but they didn't have any beds so they sent him here. The patient has no complaints of pain and only wants to sleep here until the morning to go back to [facility] to be admitted. Vital signs on arrival are within normal limits. REVIEW OF SYSTEMS: GENERAL/CONSTITUTIONAL: No fever/chills. No weakness. No weight change. HEAD, EYES, EARS, NOSE AND THROAT: No change in vision. No ear pain or discharge. No sore throat. CARDIOVASCULAR: No chest pain or shortness of breath. RESPIRATORY: No cough, wheezing, or hemoptysis. GASTROINTESTINAL: No abd pain, nausea, vomiting, diarrhea. GENITOURINARY: No dysuria, frequency, or change in urination. MUSCULOSKELETAL: No joint or muscle swelling or pain. No neck or back pain. SKIN: No rash or easy bruising. NEUROLOGIC: No headache, vertigo, loss of consciousness, or loss of sensation. PHYSICAL EXAM: GENERAL: The patient is awake, alert, and fully oriented, in no acute distress. HEAD: Normal with no signs of trauma. ENT: Pupils equal, round and reactive to light, extraocular movements intact, sclera anicteric, conjunctiva clear. Neck supple. LUNGS: Clear to auscultation bilaterally. Normal excursion. No respiratory distress or use of accessory muscles. CV: RRR, S1/S2, no MRG. Cap refill < 2 sec. ABDOMEN: Soft, non-distended, non-tender even to deep palpation, no hepatomegaly or splenomegaly, no masses. EXTREMITIES: Normal range of motion, no edema. NEUROLOGICAL: Normal speech, normal gait. CN II-XII grossly intact. No tremors. SKIN: Warm, dry, normal turgor, no rashes or lesions noted. Past History - Past Medical History Allergies/Adverse Reactions: Allergies Allergy/AdvReac Type Severity Reaction Status Date / Time No Known Allergies Allergy Verified 10/25/17 02:10 Home Medications: Ambulatory Orders Mirtazapine [Remeron -] 15 mg PO HS #30 tablet 09/24/17 Quetiapine Fumarate [Seroquel -] 100 mg PO HS #60 tablet 09/24/17 Sertraline HCl [Zoloft -] 50 mg PO DAILY #30 tablet 09/24/17 Anemia: Yes Asthma: No Cancer: No Cardiac Disorders: No CVA: No COPD: No CHF: No Dementia: No Diabetes: Yes (borderline) GI Disorders: No Disorders: No HTN: No Hypercholesterolemia: No Kidney Stones: No Liver Disease: Yes (Hep C ) Psychiatric Problems: Yes (Depression, anxiety) Seizures: No Thyroid Disease: No - Surgical History Abdominal Surgery: No Appendectomy: No Cardiac Surgery: No Cholecystectomy: No Lung Surgery: No Neurologic Surgery: No Orthopedic Surgery: Yes (Fx R eye socket sx in 2013) - Reproductive History Testicular Surgery: No - Suicide/Smoking/Psychosocial Hx Smoking History: Unknown if ever smoked Have you smoked in the past 12 months: Yes Number of Cigarettes Smoked Daily: 7 Information on smoking cessation initiated: No 'Breaking Loose' booklet given: 09/25/17 Hx Alcohol Use: Yes Drug/Substance Use Hx: No Substance Use Type: Alcohol, Cocaine Hx Substance Use Treatment: Yes ([facility] July 2017) *Physical Exam - Vital Signs Last Vital Signs Temp Pulse Resp BP Pulse Ox 98.4 F 71 14 127/71 96 10/25/17 02:11 10/25/17 02:11 10/25/17 02:11 10/25/17 02:11 10/25/17 02:11 Medical Decision Making - Medical Decision Making A/P: 47 y/o male here to sleep until morning so he can go back to [facility] to be admitted for ETOH detox. The patient has no medical complaints and has a normal physical exam. Will be discharged. *DC/Admit/Observation/Transfer Diagnosis at time of Disposition: Alcohol dependence - Discharge Dispostion Disposition: HOME Condition at time of disposition: Good - Referrals - Patient Instructions Printed Discharge Instructions: DI for Alcohol Abuse - Post Discharge Activity
== END 2017-10-25 04:29 | disposition home or self-care (01) ==
LOC: JER 23:56
DX: F10.20 Alcohol dependence, uncomplicated (principal); B18.2 Chronic viral hepatitis C; F41.8 Other specified anxiety disorders
CPT/HCPCS: 99281-25

== ENCOUNTER 2017-10-25 11:28 | Inpatient (IN) | payer SELFPAY ==
[2017-10-25 13:51] VITALS: BMI 26.2
--- NOTE | 2017-10-25 17:44 | HP ---
CIWA Score - CIWA Score Nausea/Vomitin-Mild Nausea/No Vomiting Muscle Tremors: 3 Anxiety: 3 Agitation: 3 Paroxysmal Sweats: 3 Orientation: 0-Oriented Tacttile Disturbances: 1-Very Mild Itch/Numbness Auditory Disturbances: 0-None Visual Disturbances: 0-None Headache: 2-Mild CIWA-Ar Total Score: 16 Admission ROS BHS - HPI Chief Complaint: alcohol withdrawal sx Allergies/Adverse Reactions: Allergies Allergy/AdvReac Type Severity Reaction Status Date / Time No Known Allergies Allergy Verified 10/25/17 02:10 History of Present Illness: 47 yo m with h/o alcohol use diorder and cocaien dependence admitted becasue of alcohol withrawql sx when he does nto drink. dnies seizures or DTs, smoke 1/2 PPD thirsty, anxiety depression and insomnia on medications Exam Limitations: No Limitations - Ebola screening Have you traveled outside of the country in the last 21 days: No Have you had contact with anyone from an Ebola affected area: No Have you been sick,other than usual withdrawal symptoms: No Do you have a fever: No - Review of Systems Constitutional: Chills, Diaphoresis, Night Sweats, Changes in sleep, Unintentional Wgt. Loss EENT: reports: No Symptoms Reported Respiratory: reports: No Symptoms reported Cardiac: reports: No Symptoms Reported GI: reports: Diarrhea, Nausea, Poor Appetite, Poor Fluid Intake, Indigestion, Abdominal cramping : reports: No Symptoms Reported Musculoskeletal: reports: No Symptoms Reported, Joint Pain (shoulder pain 2/2 trauma) Integumentary: reports: Flushing, Sweating Neuro: reports: Headache, Numbness, Tingling, Tremors Endocrine: reports: Increased Hunger, Increased Thirst Hematology: reports: No Symptoms Reported Psychiatric: reports: Judgement Intact, Mood/Affect Appropiate, Orientated x3, Anxious, Depressed Other Systems: Reviewed and Negative Patient History - Patient Medical History Hx Anemia: Yes Hx Asthma: No Hx Chronic Obstructive Pulmonary Disease (COPD): No Hx Cancer: No Hx Cardiac Disorders: No Hx Congestive Heart Failure: No Hx Hypertension: No Hx Hypercholesterolemia: No Hx Pacemaker: No HX Cerebrovascular Accident: No Hx Seizures: No Hx Dementia: No Hx Diabetes: Yes (borderline) Hx Gastrointestinal Disorders: No Hx Liver Disease: Yes (Hep C ) Hx Genitourinary Disorders: No Hx Sexually Transmitted Disorders: No Hx Renal Disease (ESRD): No Hx Thyroid Disease: No Hx Human Immunodeficiency Virus (HIV): No Hx Hepatitis C: No Hx Depression: No (onmedications) Hx Suicide Attempt: Yes (slit inner elbow as a kid, no si a this time) Hx Bipolar Disorder: Yes Hx Schizophrenia: No - Patient Surgical History Past Surgical History: Yes Hx Neurologic Surgery: No Hx Cataract Extraction: No Hx Cardiac Surgery: No Hx Lung Surgery: No Hx Breast Surgery: No Hx Breast Biopsy: No Hx Abdominal Surgery: No Hx Appendectomy: No Hx Cholecystectomy: No Hx Genitourinary Surgery: No Hx Section: No Hx Orthopedic Surgery: Yes (Fx R eye socket sx in 2013) Hx Hysterectomy: No Other Surgical History: fx floor of orbit in 2009 at [facility] with numbness of right fa Anesthesia Reaction: No - PPD History Results: CXR neg 08/31 - Smoking Cessation Smoking history: Unknown if ever smoked Have you smoked in the past 12 months: Yes Aproximately how many cigarettes per day: 7 Hx Chewing Tobacco Use: No - Substances Abused Alcohol Route: Oral Frequency: Daily Amount used: 5/25OZ CANS BEER Age of first use: 17 Date of Last Use: 10/24/17 Cocaine Route: Smoking Frequency: 3-6 times per week Amount used: 3 BAGS Age of first use: 16 Date of Last Use: 10/22/17 Family Disease History - Family Disease History Family Disease History: Diabetes: Father, Heart Disease: Father, Other: Mother ( dec, alcoholism ) Admission Physical Exam BHS - Vital Signs Vital Signs: Vital Signs - 24 hr 10/25/17 13:50 Temperature 97.7 F Pulse Rate 70 Respiratory 20 Rate Blood Pressure 117/75 - Physical General Appearance: Yes: Nourished, Appropriately Dressed, Disheveled, Mild Distress, Thin, Tremorous, Irritable, Sweating, Anxious HEENTM: Yes: Within Normal Limits, EOMI, Hearing grossly Normal, Normal ENT Inspection, Normocephalic, Normal Voice, VEDA, Pharynx Normal Respiratory: Yes: Within Normal Limits, Chest Non-Tender, Lungs Clear, Normal Breath Sounds, No Respiratory Distress, No Accessory Muscle Use Neck: Yes: Within Normal Limits, No masses,lesions,Nodules, Supple, Trachea in good position Breast: Yes: Breast Exam Deferred Cardiology: Yes: Within Normal Limits, Regular Rhythm, Regular Rate, S1, S2 Abdominal: Yes: Within Normal Limits, Normal Bowel Sounds, Non Tender, Flat, Soft, Increased Bowel Sounds Genitourinary: Yes: Within Normal Limits Back: Yes: Within Normal Limits, Normal Inspection Musculoskeletal: Yes: Gait Steady, Pelvis Stable, Joint Stiffness (right sholder pain with decreased rom 2/2 pain) Extremities: Yes: Normal Capillary Refill, Normal Range of Motion, Tremors Neurological: Yes: filer metal patterns II-XII NML intact, Fully Oriented, Alert, Motor Strength 5/5, Normal Response, Depressed Affect Integumentary: Yes: Normal Color, Warm, Diaphoresis, Moist Lymphatic: Yes: Within Normal Limits - Addiitonal Findings: withdrawal sx - Diagnostic (1) Cocaine dependence, uncomplicated Current Visit: No Status: Acute (2) Drug-induced mood disorder Current Visit: No Status: Acute (3) Alcohol dependence with uncomplicated withdrawal Current Visit: No Status: Chronic (4) Bipolar disorder Current Visit: No Status: Chronic Comment: As per records.Prescribed medications.History of non-compliance. (5) Chronic pain in right shoulder Current Visit: No Status: Chronic (6) Depression Current Visit: No Status: Chronic (7) Hepatitis C Current Visit: No Status: Chronic Qualifiers: (8) History of tuberculosis Current Visit: No Status: Chronic (9) Neuropathy Current Visit: No Status: Chronic (10) Nicotine dependence Current Visit: No Status: Chronic Qualifiers: (11) Use of cane as ambulatory aid Current Visit: No Status: Chronic Cleared for Admission [facility] - Detox or Rehab [facility] Level of Care: Medically Managed Detox Regimen/Protocol: Librium [facility] Breath Alcohol Content Breath Alcohol Content: 0 Urine Drug Screen - Results Drug Screen Negative: No Urine Drug Screen Results: TIMBO-Cocaine
[2017-10-25] MEDS ORDERED: guaiFENesin/D-METHORPHAN HB 10 ML UNIT-DOSE CUPS PO PRN (17:45)
[2017-10-25] MEDS ORDERED: MAGNESIUM CITRATE 300 ML BOTTLE PO PRN (17:45)
[2017-10-25] MEDS ORDERED: MAGNESIUM HYDROX 2400MG/30ML ORAL SUSPENSION 30 ML CUP PO PRN (17:45)
[2017-10-25] MEDS ORDERED: IBUPROFEN 400 MG TABLET (FP) PO PRN (17:45)
[2017-10-25] MEDS ORDERED: P-EPHED 60MG/TRIPROLIDI 2.5MG TABLET PO PRN (17:45)
[2017-10-25] MEDS ORDERED: LOPERAMIDE HCL 2 MG CAPSULE PO PRN (17:45)
[2017-10-25] MEDS ORDERED: MENTHOL/PHENOL 1 EACH UD MM PRN (17:45)
[2017-10-25] MEDS ORDERED: MAG HYDROX/AL HYDROX/SIMETH 30 ML UNIT-DOSE CUP PO PRN (17:45)
[2017-10-25] MEDS ORDERED: ACETAMINOPHEN 325 MG TABLET (FP) PO PRN (17:45)
[2017-10-25] MEDS: chlordiazePOXIDE HCL 25 MG CAPSULE PO PRN (19:11)
[2017-10-25] MEDS: PANTOPRAZOLE 40 MG TABLET (FP) PO SCH (19:11)
[2017-10-25] MEDS: LIDOCAINE 5% TOPICAL PATCH TP SCH (19:11)
[2017-10-25] MEDS: chlordiazePOXIDE HCL 25 MG CAPSULE PO SCH (23:04)
[2017-10-25] MEDS: THIAMINE HCL 100 MG TABLET (FP) PO SCH (23:06)
[2017-10-25] MEDS: NAPROXEN 500 MG TABLET (FP) PO SCH (23:06)
[2017-10-25] MEDS: LIDOCAINE PATCH REMOVAL MC SCH (23:07)
[2017-10-25 23:13] LABS: URINE APPEARANCE CLEAR; URINE BILIRUBIN NEGATIVE (NEGATIVE); URINE BLOOD NEGATIVE (NEGATIVE); URINE COLOR LTYELLOW; URINE GLUCOSE (UA) NEGATIVE (NEGATIVE); URINE KETONE NEGATIVE (NEGATIVE); URINE LEUK ESTERASE NEGATIVE (NEGATIVE); URINE NITRITE NEGATIVE (NEGATIVE); URINE PROTEIN NEGATIVE (NEGATIVE); URINE UROBILINOGEN NEGATIVE mg/dL (0.2-1.0)
[2017-10-26] MEDS: chlordiazePOXIDE HCL 25 MG CAPSULE PO SCH ×4 (06:15→22:13)
--- NOTE | 2017-10-26 10:01 | CONSULT ---
[facility] Psychiatric Consult - Data Date of interview: 10/26/17 Admission source: [facility] Identifying data: Pt. is a 47 year old single male, father of one, disabled and currently homeless. This is one of multiple admissions for patient. Pt. admitted to for alcohol and cocaine dependence. Substance Abuse History: Following information confirmed with Mr. Mcfarland: Smoking Cessation. Smoking history: Unknown if ever smoked. Have you smoked in the past 12 months: Yes. Aproximately how many cigarettes per day: 7. Hx Chewing Tobacco Use: No. - Substances Abused. Alcohol. Route: Oral. Frequency: Daily. Amount used: 5/25OZ CANS BEER. Age of first use: 17. Date of Last Use: 10/24/17. Cocaine. Route: Smoking. Frequency: 3-6 times per week. Amount used: 3 BAGS. Age of first use: 16. Date of Last Use: 10/22/17 Medical History: Anemia, diabetes, Hep C Psychiatric History: Pt. reports multiple psychiatric hospitalizations with most recent hospitalization at [facility] in 2017 for depression. Pt. has also been hospitalized at [facility]. Pt is noncompliant to outpatient treatment and reports getting his medications from hospitals and detox/rehab facilities. Pt. has a diagnosis of Bipolar disorder and is prescribed Zoloft 50mg, Seroquel 100mg, and Mirtzapine 15mg. Pt. reports last taking his medications less then one week ago. Pt. reports one suicide attempt as a child via drinking a small amount of disinfected liquid. Pt. currently denies suicidal and homicidal ideation. Physical/Sexual Abuse/Trauma History: Denies. Mental Status Exam - Mental Status Exam Alert and Oriented to: Time, Place, Person Cognitive Function: Good Patient Appearance: Well Groomed Mood: Irritable Affect: Mood Congruent Patient Behavior: Fatigued, Guarded Speech Pattern: Delayed Voice Loudness: Normal Thought Process: Goal Oriented Thought Disorder: Not Present Hallucinations: Denies Suicidal Ideation: Denies Homicidal Ideation: Denies Insight/Judgement: Poor Sleep: Poorly Appetite: Fair Muscle strength/Tone: Normal Gait/Station: Normal Psychiatric Findings - Problem List ([place] 1, 2,3) (1) Alcohol dependence Current Visit: Yes Status: Acute (2) Cocaine dependence, uncomplicated Current Visit: Yes Status: Acute (3) Drug-induced mood disorder Current Visit: Yes Status: Acute (4) Bipolar disorder Current Visit: Yes Status: Chronic Comment: As per records.Prescribed medications.History of non-compliance to outpatient treatment. States he receives medications from hospitals and detox/rehah facilities. (5) Nicotine dependence Current Visit: Yes Status: Chronic Qualifiers: - Initial Treatment Plan Initial Treatment Plan: Psychoeducation provided. Detoxification provided. Zoloft 50mg PO daily + Seroquel 100mg qhs. Will not order Mirtazapine 15mg qhs due to patient's history of noncompliance. Benefits and side effects discussed. Verbal consent given. Will continue to monitor.
[2017-10-26 10:14] LABS: HEMOGLOBIN 14.7 GM/dL (11.7-16.9); MCH 29.4 pg (25.7-33.7); MCHC 33.5 g/dl (32.0-35.9); MEAN CELL VOLUME 87.8 fl (80-96); MEAN PLT VOLUME 9.9 fl (7.5-11.1); PLATELET COUNT 135 K/MM3 (134-434); RBC 5.01 M/mm3 (4.00-5.60); RDW 14.7 % (11.9-15.9); WHITE BLOOD COUNT 3.4 K/mm3 (4.0-10.0)
[2017-10-26] MEDS: SERTRALINE HCL 50 MG TABLET (FP) PO SCH (10:15)
[2017-10-26] MEDS: PANTOPRAZOLE 40 MG TABLET (FP) PO SCH (10:15)
[2017-10-26] MEDS: NAPROXEN 500 MG TABLET (FP) PO SCH ×2 (10:15→22:12)
[2017-10-26] MEDS: PRENATAL VITAMINS W/ FOLIC ACID TABLET (FP) PO SCH (10:16)
[2017-10-26] MEDS: LIDOCAINE 5% TOPICAL PATCH TP SCH (10:16)
[2017-10-26 10:24] LABS: CHLORIDE 110 mmol/L (98-107); POTASSIUM 4.3 mmol/L (3.5-5.1); SODIUM 144 mmol/L (136-145)
[2017-10-26 10:30] LABS: ALBUMIN 3.5 g/dl (3.4-5.0); ALK PHOS 106 U/L (45-117); ANION GAP 8 (8-16); BILIRUBIN,TOTAL 0.8 mg/dL (0.2-1.0); BLOOD UREA NITROGEN 11 mg/dL (7-18); CALCIUM 8.1 mg/dL (8.5-10.1); CO2 26 mmol/L (21-32); CREATININE 1.1 mg/dL (0.7-1.3); GLUCOSE,RANDOM 84 mg/dL (74-106); SGOT/AST 10 U/L (15-37); SGPT/ALT 14 U/L (12-78); TOT PROT 6.2 g/dl (6.4-8.2)
--- NOTE | 2017-10-26 15:12 | PN ---
[facility] CIWA - CIWA Score Nausea/Vomitin-No Nausea/No Vomiting Muscle Tremors: 3 Anxiety: 5 Agitation: 4-Moderately Restless Paroxysmal Sweats: 3 Orientation: 2-Disoriented Date<2 days Tacttile Disturbances: 2-Mild Itch/Numbness/Burn Auditory Disturbances: 0-None Visual Disturbances: 0-None Headache: 0-None Present CIWA-Ar Total Score: 19 BHS Progress Note (SOAP) Subjective: Tremors, Sweating, Body Aches, Anxious, Fatigue. Objective: PATIENT A & O X 2 (UNCERTAIN ABOUT CURRENT DAY /DATE). NO ACUTE DISTRESS. 10/26/17 15:10 Vital Signs Temperature 98.1 F 10/26/17 15:10 Pulse Rate 81 10/26/17 15:10 Respiratory Rate 18 10/26/17 15:10 Blood Pressure 124/77 10/26/17 15:10 O2 Sat by Pulse Oximetry (%) Laboratory Tests 10/25/17 10/26/17 10/26/17 23:00 08:00 08:00 WBC 3.4 L D RBC 5.01 Hgb 14.7 Hct 44.0 MCV 87.8 MCH 29.4 MCHC 33.5 RDW 14.7 Plt Count 135 MPV 9.9 Sodium Potassium Chloride Carbon Dioxide Anion Gap BUN Creatinine Creat Clearance w eGFR Random Glucose Calcium Total Bilirubin AST ALT Alkaline Phosphatase Total Protein Albumin Urine Color Ltyellow Urine Appearance Clear Urine pH 5.0 Ur Specific [place] 1.015 Urine Protein Negative Urine Glucose (UA) Negative Urine Ketones Negative Urine Blood Negative Urine Nitrite Negative Urine Bilirubin Negative Urine Urobilinogen Negative Ur Leukocyte Esterase Negative RPR Titer HIV 1&2 Antibody Screen Negative HIV P24 Antigen Negative 10/26/17 10/26/17 08:00 08:00 WBC RBC Hgb Hct MCV MCH MCHC RDW Plt Count MPV Sodium 144 Potassium 4.3 Chloride 110 H Carbon Dioxide 26 Anion Gap 8 BUN 11 D Creatinine 1.1 Creat Clearance w eGFR > 60 Random Glucose 84 Calcium 8.1 L Total Bilirubin 0.8 D AST 10 L D ALT 14 D Alkaline Phosphatase 106 Total Protein 6.2 L Albumin 3.5 Urine Color Urine Appearance Urine pH Ur Specific [place] Urine Protein Urine Glucose (UA) Urine Ketones Urine Blood Urine Nitrite Urine Bilirubin Urine Urobilinogen Ur Leukocyte Esterase RPR Titer Nonreactive HIV 1&2 Antibody Screen HIV P24 Antigen LABS NOTED. HCV AB RESULT PENDING. 10/26/17 15:12 Assessment: 10/26/17 15:11 WITHDRAWAL SYMPTOMS. Plan: CONTINUE DETOX. INCREASE DAILY PO FLUID INTAKE.
--- NOTE | 2017-10-26 16:44 | EKG ---
Test Reason : Blood Pressure : / mmHG Vent. Rate : 071 BPM Atrial Rate : 071 BPM P-R Int : 166 ms QRS Dur : 086 ms QT Int : 398 ms P-R-T Axes : 051 036 038 degrees QTc Int : 432 ms NORMAL SINUS RHYTHM NORMAL ECG WHEN COMPARED WITH ECG OF 26-SEP-2017 00:03, NO SIGNIFICANT CHANGE WAS FOUND Confirmed by YANET LING MD ([id number]) on 10/26/2017 4:43:56 PM Referred By: Fred Neil Confirmed By:YANET LING MD
[2017-10-26] MEDS: THIAMINE HCL 100 MG TABLET (FP) PO SCH (22:12)
[2017-10-26] MEDS: QUEtiapine FUMARATE 50 MG TABLET PO SCH (22:12)
[2017-10-26] MEDS: LIDOCAINE PATCH REMOVAL MC SCH (22:45)
[2017-10-27] MEDS: chlordiazePOXIDE HCL 25 MG CAPSULE PO SCH ×3 (07:09→18:04)
[2017-10-27] MEDS: PANTOPRAZOLE 40 MG TABLET (FP) PO SCH (10:17)
[2017-10-27] MEDS: SERTRALINE HCL 50 MG TABLET (FP) PO SCH (10:17)
[2017-10-27] MEDS: NAPROXEN 500 MG TABLET (FP) PO SCH ×2 (10:17→22:20)
[2017-10-27] MEDS: PRENATAL VITAMINS W/ FOLIC ACID TABLET (FP) PO SCH (10:17)
[2017-10-27] MEDS: LIDOCAINE 5% TOPICAL PATCH TP SCH (11:13)
--- NOTE | 2017-10-27 13:04 | PN ---
[facility] CIWA - CIWA Score Nausea/Vomitin-No Nausea/No Vomiting Muscle Tremors: 3 Anxiety: 4-Mod. Anxious/Guarded Agitation: 3 Paroxysmal Sweats: 3 Orientation: 0-Oriented Tacttile Disturbances: 2-Mild Itch/Numbness/Burn Auditory Disturbances: 0-None Visual Disturbances: 1-Very Mild Sensitivity Headache: 0-None Present CIWA-Ar Total Score: 16 S Progress Note (SOAP) Subjective: Tremors, Anxious, Body Aches, Sweating, Fatigue. Objective: PATIENT A & O X 3. NO ACUTE DISTRESS. 10/27/17 13:02 Vital Signs Temperature 98.1 F 10/27/17 10:19 Pulse Rate 75 10/27/17 10:19 Respiratory Rate 18 10/27/17 10:19 Blood Pressure 124/73 10/27/17 10:19 O2 Sat by Pulse Oximetry (%) Laboratory Tests 10/25/17 10/26/17 10/26/17 23:00 08:00 08:00 WBC 3.4 L D RBC 5.01 Hgb 14.7 Hct 44.0 MCV 87.8 MCH 29.4 MCHC 33.5 RDW 14.7 Plt Count 135 MPV 9.9 Sodium Potassium Chloride Carbon Dioxide Anion Gap BUN Creatinine Creat Clearance w eGFR Random Glucose Calcium Total Bilirubin AST ALT Alkaline Phosphatase Total Protein Albumin Urine Color Ltyellow Urine Appearance Clear Urine pH 5.0 Ur Specific [place] 1.015 Urine Protein Negative Urine Glucose (UA) Negative Urine Ketones Negative Urine Blood Negative Urine Nitrite Negative Urine Bilirubin Negative Urine Urobilinogen Negative Ur Leukocyte Esterase Negative RPR Titer Hep C Ab Diagnostic HIV 1&2 Antibody Screen Negative HIV P24 Antigen Negative 10/26/17 10/26/17 10/26/17 08:00 08:00 08:00 WBC RBC Hgb Hct MCV MCH MCHC RDW Plt Count MPV Sodium 144 Potassium 4.3 Chloride 110 H Carbon Dioxide 26 Anion Gap 8 BUN 11 D Creatinine 1.1 Creat Clearance w eGFR > 60 Random Glucose 84 Calcium 8.1 L Total Bilirubin 0.8 D AST 10 L D ALT 14 D Alkaline Phosphatase 106 Total Protein 6.2 L Albumin 3.5 Urine Color Urine Appearance Urine pH Ur Specific [place] Urine Protein Urine Glucose (UA) Urine Ketones Urine Blood Urine Nitrite Urine Bilirubin Urine Urobilinogen Ur Leukocyte Esterase RPR Titer Nonreactive Hep C Ab Diagnostic 0.1 HIV 1&2 Antibody Screen HIV P24 Antigen LABS NOTED. Assessment: 10/27/17 13:02 WITHDRAWAL SYMPTOMS. Plan: CONTINUE DETOX. INCREASE DAILY PO FLUID INTAKE.
[2017-10-27] MEDS: QUEtiapine FUMARATE 50 MG TABLET PO SCH (22:20)
[2017-10-27] MEDS: chlordiazePOXIDE 5 MG CAPSULE PO SCH (22:20)
[2017-10-27] MEDS: THIAMINE HCL 100 MG TABLET (FP) PO SCH (22:21)
[2017-10-27] MEDS: LIDOCAINE PATCH REMOVAL MC SCH (22:21)
[2017-10-28] MEDS: chlordiazePOXIDE 5 MG CAPSULE PO SCH ×3 (07:15→17:02)
[2017-10-28] MEDS: PANTOPRAZOLE 40 MG TABLET (FP) PO SCH (11:16)
[2017-10-28] MEDS: NAPROXEN 500 MG TABLET (FP) PO SCH ×2 (11:16→22:07)
[2017-10-28] MEDS: LIDOCAINE 5% TOPICAL PATCH TP SCH (11:16)
[2017-10-28] MEDS: PRENATAL VITAMINS W/ FOLIC ACID TABLET (FP) PO SCH (11:16)
[2017-10-28] MEDS: SERTRALINE HCL 50 MG TABLET (FP) PO SCH (11:16)
[2017-10-28] MEDS: chlordiazePOXIDE HCL 25 MG CAPSULE PO PRN (12:23)
--- NOTE | 2017-10-28 16:21 | PN ---
BHS Progress Note (SOAP) Subjective: Sweating, Anxious, Fatigue. Objective: PATIENT A & O X 3, OBSERVED AMBULATING ON UNIT. NO ACUTE DISTRESS. 10/28/17 16:20 Vital Signs Temperature 97.4 F L 10/28/17 14:47 Pulse Rate 95 H 10/28/17 14:47 Respiratory Rate 18 10/28/17 14:47 Blood Pressure 133/86 10/28/17 14:47 O2 Sat by Pulse Oximetry (%) Laboratory Tests 10/25/17 10/26/17 10/26/17 23:00 08:00 08:00 WBC 3.4 L D RBC 5.01 Hgb 14.7 Hct 44.0 MCV 87.8 MCH 29.4 MCHC 33.5 RDW 14.7 Plt Count 135 MPV 9.9 Sodium Potassium Chloride Carbon Dioxide Anion Gap BUN Creatinine Creat Clearance w eGFR Random Glucose Calcium Total Bilirubin AST ALT Alkaline Phosphatase Total Protein Albumin Urine Color Ltyellow Urine Appearance Clear Urine pH 5.0 Ur Specific [place] 1.015 Urine Protein Negative Urine Glucose (UA) Negative Urine Ketones Negative Urine Blood Negative Urine Nitrite Negative Urine Bilirubin Negative Urine Urobilinogen Negative Ur Leukocyte Esterase Negative RPR Titer Hep C Ab Diagnostic HIV 1&2 Antibody Screen Negative HIV P24 Antigen Negative 10/26/17 10/26/17 10/26/17 08:00 08:00 08:00 WBC RBC Hgb Hct MCV MCH MCHC RDW Plt Count MPV Sodium 144 Potassium 4.3 Chloride 110 H Carbon Dioxide 26 Anion Gap 8 BUN 11 D Creatinine 1.1 Creat Clearance w eGFR > 60 Random Glucose 84 Calcium 8.1 L Total Bilirubin 0.8 D AST 10 L D ALT 14 D Alkaline Phosphatase 106 Total Protein 6.2 L Albumin 3.5 Urine Color Urine Appearance Urine pH Ur Specific [place] Urine Protein Urine Glucose (UA) Urine Ketones Urine Blood Urine Nitrite Urine Bilirubin Urine Urobilinogen Ur Leukocyte Esterase RPR Titer Nonreactive Hep C Ab Diagnostic 0.1 HIV 1&2 Antibody Screen HIV P24 Antigen LABS NOTED. Assessment: 10/28/17 16:20 WITHDRAWAL SYMPTOMS. Plan: CONTINUE DETOX.
[2017-10-28] MEDS: THIAMINE HCL 100 MG TABLET (FP) PO SCH (22:07)
[2017-10-28] MEDS: LIDOCAINE PATCH REMOVAL MC SCH (22:07)
[2017-10-28] MEDS: QUEtiapine FUMARATE 50 MG TABLET PO SCH (22:07)
[2017-10-28] MEDS: chlordiazePOXIDE HCL 10 MG CAPSULE PO SCH (22:07)
[2017-10-28] MEDS ORDERED: hydrOXYzine PAMOATE 50 MG CAPSULE (FP) PO ONE (23:20)
[2017-10-29] MEDS: chlordiazePOXIDE HCL 10 MG CAPSULE PO SCH (06:06)
[2017-10-29 06:23] VITALS: BP 122/79; PULSE 65; TEMP 97.2
--- NOTE | 2017-10-29 11:23 | DS ---
[facility] Detox Discharge Summary Admission Date: 10/25/17 Discharge Date: 10/29/17 - History Present History: Alcohol Dependence, Cocaine Dependence Pertinent Past History: Hepatitis C Neuropathy History of TB - Physical Exam Results Vital Signs: Vital Signs Temperature 97.2 F L 10/29/17 06:22 Pulse Rate 65 10/29/17 06:22 Respiratory Rate 18 10/29/17 06:22 Blood Pressure 122/79 10/29/17 06:22 O2 Sat by Pulse Oximetry (%) Pertinent Admission Physical Exam Findings: Withdrawal symptoms Laboratory Tests 10/25/17 10/26/17 10/26/17 23:00 08:00 08:00 WBC 3.4 L D RBC 5.01 Hgb 14.7 Hct 44.0 MCV 87.8 MCH 29.4 MCHC 33.5 RDW 14.7 Plt Count 135 MPV 9.9 Sodium Potassium Chloride Carbon Dioxide Anion Gap BUN Creatinine Creat Clearance w eGFR Random Glucose Calcium Total Bilirubin AST ALT Alkaline Phosphatase Total Protein Albumin Urine Color Ltyellow Urine Appearance Clear Urine pH 5.0 Ur Specific [place] 1.015 Urine Protein Negative Urine Glucose (UA) Negative Urine Ketones Negative Urine Blood Negative Urine Nitrite Negative Urine Bilirubin Negative Urine Urobilinogen Negative Ur Leukocyte Esterase Negative RPR Titer Hep C Ab Diagnostic HIV 1&2 Antibody Screen Negative HIV P24 Antigen Negative 10/26/17 10/26/17 10/26/17 08:00 08:00 08:00 WBC RBC Hgb Hct MCV MCH MCHC RDW Plt Count MPV Sodium 144 Potassium 4.3 Chloride 110 H Carbon Dioxide 26 Anion Gap 8 BUN 11 D Creatinine 1.1 Creat Clearance w eGFR > 60 Random Glucose 84 Calcium 8.1 L Total Bilirubin 0.8 D AST 10 L D ALT 14 D Alkaline Phosphatase 106 Total Protein 6.2 L Albumin 3.5 Urine Color Urine Appearance Urine pH Ur Specific [place] Urine Protein Urine Glucose (UA) Urine Ketones Urine Blood Urine Nitrite Urine Bilirubin Urine Urobilinogen Ur Leukocyte Esterase RPR Titer Nonreactive Hep C Ab Diagnostic 0.1 HIV 1&2 Antibody Screen HIV P24 Antigen Labs reviewed - Treatment Hospital Course: Detox Protocol Followed, Detoxed Safely, Responded well, Discharged Condition Good - Medication Discharge Medications: Ambulatory Orders Mirtazapine [Remeron -] 15 mg PO HS #30 tablet 09/24/17 Quetiapine Fumarate [Seroquel -] 100 mg PO HS #60 tablet 09/24/17 Sertraline HCl [Zoloft -] 50 mg PO DAILY #30 tablet 09/24/17 - Diagnosis (1) Alcohol dependence with uncomplicated withdrawal Current Visit: Yes Status: Acute (2) Cocaine dependence, uncomplicated Current Visit: Yes Status: Chronic (3) Drug-induced mood disorder Current Visit: Yes Status: Acute (4) Bipolar disorder Current Visit: Yes Status: Chronic Qualifiers: Active/Remission status: remission status unspecified Qualified Code(s): F31.9 - Bipolar disorder, unspecified (5) Chronic pain in right shoulder Current Visit: Yes Status: Chronic (6) Hepatitis C Current Visit: Yes Status: Chronic Qualifiers: Viral hepatitis chronicity: chronic Hepatic coma status: without hepatic coma Qualified Code(s): B18.2 - Chronic viral hepatitis C (7) History of tuberculosis Current Visit: Yes Status: Resolved (8) Nicotine dependence Current Visit: Yes Status: Chronic Qualifiers: Nicotine product type: cigarettes Substance use status: uncomplicated Qualified Code(s): F17.210 - Nicotine dependence, cigarettes, uncomplicated (9) Depression Current Visit: No Status: Chronic Qualifiers: Depression Type: unspecified Qualified Code(s): F32.9 - Major depressive disorder, single episode, unspecified (10) Neuropathy Current Visit: No Status: Chronic - AMA Did Patient Leave Against Medical Advice: No (Follow up with your PCP within 1- 2 weeks post discharge)
== END 2017-10-29 10:30 | disposition home or self-care (01) | DRG 774 ==
LOC: YASAS 11:28 → Y3N 17:46
PROVIDERS: ADMIT Internal Medicine; ATTEND Internal Medicine
PROC: HZ2ZZZZ Detoxification Services for Substance Abuse Treatment (ICD-10-PCS; principal; 2017-10-25)
DX: F10.230 Alcohol dependence with withdrawal, uncomplicated (principal); F14.20 Cocaine dependence, uncomplicated; F17.210 Nicotine dependence, cigarettes, uncomplicated; F19.24 Other psychoactive substance dependence with psychoactive substance-induced mood disorder; F31.9 Bipolar disorder, unspecified; B18.2 Chronic viral hepatitis C; G62.9 Polyneuropathy, unspecified; M25.511 Pain in right shoulder; G89.29 Other chronic pain; R26.89 Other abnormalities of gait and mobility; Z99.89 Dependence on other enabling machines and devices; Z91.5 Personal history of self-harm
CPT/HCPCS: 36415; 80053; 81003; 85027; 86593; 87389; 93005; 93010

== ENCOUNTER 2017-10-31 06:48 | Emergency (ER) | payer SELFPAY ==
[2017-10-31 07:44] VITALS: BP 123/60; PULSE 92; TEMP 97.8; BMI 26.3
--- NOTE | 2017-10-31 08:07 | PDOC ---
History of Present Illness - General History Source: Patient Exam Limitations: No Limitations - History of Present Illness Initial Comments: 10/31/17 09:39 The patient is an undomiciled 47 year old male, with a significant past medical history of bipolar depression, substance abuse (alcohol and cocaine), who presents to the emergency department with, bilateral foot pain for two days. The patient states he was recently discharged from [facility] 2 days ago and has been actively using cocaine and alcohol since discharge. The patient denies any recent falls or trauma but states he has had difficulty ambulating on his feet secondary to the bilateral foot pain from extensive walking. He denies any numbness, tingling or loss of sensation. He denies any neck or back pain. He denies any recent fevers, chills, headache or dizziness. He denies any recent nausea, vomit, diarrhea or constipation. He denies any recent chest pain or shortness of breath. Allergies: NKA Social History: Patient has a history of alcohol and cocaine substance abuse. <Cain Aguilar - Last Filed: 10/31/17 09:59> <Jarrett Alatorre - Last Filed: 10/31/17 13:28> - General Chief Complaint: Back Pain Stated Complaint: CHEST PAIN/BODY ACHES, BACK PAIN Time Seen by Provider: 10/31/17 07:27 Past History <Cain Aguilar - Last Filed: 10/31/17 09:59> - Past Medical History Anemia: Yes Asthma: No Cancer: No Cardiac Disorders: No CVA: No COPD: No CHF: No Dementia: No Diabetes: Yes (borderline) GI Disorders: No Disorders: No HTN: No Hypercholesterolemia: No Kidney Stones: No Liver Disease: Yes (Hep C ) Psychiatric Problems: Yes (Depression, anxiety) Seizures: No Thyroid Disease: No - Surgical History Abdominal Surgery: No Appendectomy: No Cardiac Surgery: No Cholecystectomy: No Lung Surgery: No Neurologic Surgery: No Orthopedic Surgery: Yes (Fx R eye socket sx in 2013) - Reproductive History Testicular Surgery: No - Suicide/Smoking/Psychosocial Hx Smoking History: Unknown if ever smoked Have you smoked in the past 12 months: Yes Number of Cigarettes Smoked Daily: 10 Information on smoking cessation initiated: No 'Breaking Loose' booklet given: 09/25/17 Hx Alcohol Use: No Drug/Substance Use Hx: Yes (cocaine) Substance Use Type: Alcohol, Cocaine Hx Substance Use Treatment: Yes ([facility] July 2017) <CeliJarrett - Last Filed: 10/31/17 13:28> - Past Medical History Allergies/Adverse Reactions: Allergies Allergy/AdvReac Type Severity Reaction Status Date / Time No Known Allergies Allergy Verified 10/25/17 02:10 Home Medications: Ambulatory Orders Sertraline HCl [Zoloft -] 50 mg PO DAILY #30 tablet 09/24/17 Mirtazapine [Remeron -] 15 mg PO BID 10/31/17 Quetiapine Fumarate [Seroquel -] 100 mg PO BID 10/31/17 Review of Systems - Review of Systems Constitutional: No: Chills, Fever Respiratory: No: Cough, Shortness of Breath, SOB with Exertion Cardiac (ROS): No: Chest Pain, Edema, Palpitations, Syncope ABD/GI: No: Nausea, Vomiting Musculoskeletal: Yes: Joint Pain Neurological: No: Headache, Weakness All Other Systems: Reviewed and Negative <Jarrett Alatorre - Last Filed: 10/31/17 13:28> *Physical Exam - Vital Signs Last Vital Signs Temp Pulse Resp BP Pulse Ox 97.8 F 92 H 18 123/60 97 10/31/17 07:23 10/31/17 07:23 10/31/17 07:23 10/31/17 07:23 10/31/17 07:23 - Physical Exam Comments: 10/31/17 09:54 GENERAL: Patient is sleeping comfortably and arousable. The patient is alert, and fully oriented, in no acute distress. HEAD: Normal with no signs of trauma. EYES: Pupils equal, round and reactive to light, extraocular movements intact, sclera anicteric, conjunctiva clear with no pallor. ENT: Ears normal, nares patent, oropharynx clear without exudates. Moist mucous membranes. NECK: Normal range of motion, supple without lymphadenopathy, JVD, or masses. LUNGS: Breath sounds equal, clear to auscultation bilaterally. No wheeze/ crackles. HEART: Regular rate and rhythm, normal S1 and S2 without murmur or rub. ABDOMEN: Soft/nontender/nondistended. BS wnl. No guarding or rebound. No palpable masses. No hepatosplenomegaly. EXTREMITIES: Normal range of motion, no edema. No clubbing or cyanosis. No cords, erythema, or tenderness. No bony deformities. NEUROLOGICAL: Cranial nerves II through XII grossly intact. Normal speech, normal gait. PSYCH: Normal mood, normal affect. Patient is calm and appropriate. SKIN: (+) Dry skin on feet. No wounds on feet. Warm, Dry, normal turgor, no rashes or lesions noted. <Cain Aguilar - Last Filed: 10/31/17 09:59> - Vital Signs Last Vital Signs Temp Pulse Resp BP Pulse Ox 97.8 F 92 H 18 123/60 97 10/31/17 07:23 10/31/17 07:23 10/31/17 07:23 10/31/17 07:23 10/31/17 07:23 <Jarrett Alatorre - Last Filed: 10/31/17 13:28> Heart Score/ECG Review #1 ECG reviewed & interpreted by me at: 09:02 General ECG Interpretation: Sinus Rhythm, Normal Rate (86), Normal Intervals ( qtc 490), No acute ischemic changes Compared to previous ECG there are: No significant change (prolonged qtc seen on prior ekg (09/20/17)) <Jarrett Alatorre - Last Filed: 10/31/17 13:28> Medical Decision Making - Medical Decision Making 10/31/17 09:23 A portion of this note was documented by scribe services under my direction. I have reviewed the details of the note, within reason, and agree with the documentation with the following case summary and management plan written by me. 47-year-old male well known to this institution with history of bipolar and schizophrenia, polysubstance abuse with several visits here and psychiatric admissions, most recently had admission to [facility] where he was discharged 2 days ago, now presents after being homeless on the street for 2 days with bilateral foot and ankle pain from extensive walking. No falls, has been abusing alcohol and cocaine but denies any cardiopulmonary or neurological complaints, presents today looking for warm place to stay, some pain relief, and an appropriate skilled nursing. Triage note reviewed, he is denying any acute chest pain or back pain or difficulty breathing. Denies any acute psychiatric complaints at this time. Denies any acute intoxication or withdrawal symptoms. Exam is nonfocal, he is calm lying in stretcher Asleep but arousable to voice Pupils are slightly dilated but reactive Heart and lung exam is normal, abdomen is benign Neurological exam is nonfocal, no focal bony tenderness or joint abnormality, neurovascularly intact distally, no wounds on the feet 47-year-old undomiciled male with history of bipolar, schizophrenia, polysubstance abuse presents for nonspecific musculoskeletal complaints and looking for social work and placement in an appropriate skilled nursing. We'll check EKG given the recent cocaine use and triage complaint No indication for emergent imaging or workup No indication for emergent psychiatric evaluation Discussed with case management, will see patient and assist with disposition 10/31/17 13:04 Patient has remained hemodynamically stable throughout, no acute medical or psychiatric issues. In-depth communication with case management and patient's past show social workers and medical case manager. Plan at this time is for patient to return to [facility], where he prefers to present to a skilled nursing (rather than [facility]). He was given a transportation card, received librium in the ED to prevent withdrawal, and is awake now eating lunch. He is ambulatory and medically cleared for discharge. 10/31/17 13:27 Stable for discharge. Has his metrocard, discussed options for presenting to a drop-in, he may proceed to a facility that also knows his situation. He will finish his sandwich then discharge. <Jarrett Alatorre - Last Filed: 10/31/17 13:28> *DC/Admit/Observation/Transfer - Attestations Scribe Attestion: 10/31/17 09:39 Documentation prepared by Cain Aguilar, acting as medical physiologist for Jarrett Alatorre MD. <Cain Aguilar - Last Filed: 10/31/17 09:59> <Jarrett Alatorre - Last Filed: 10/31/17 13:28> Diagnosis at time of Disposition: Cocaine dependence, uncomplicated, Homeless Alcohol dependence Qualifiers: Substance use status: uncomplicated Qualified Code(s): F10.20 - Alcohol dependence, uncomplicated - Discharge Dispostion Disposition: HOME Condition at time of disposition: Stable - Referrals Referrals: Rivera Vincent MD [Staff Physician] - - Patient Instructions Printed Discharge Instructions: Alcoholism (Alternative Therapy) Additional Instructions: Activity as tolerated. Stay hydrated. Do your best to minimize alcohol or cocaine use. Return to the ER or detox facility for any withdrawal or help with stopping. Take Tylenol as needed for your body aches. We have provided you with transportation to [facility], where you should present to the skilled nursing of your choice. Continue your medications as previously prescribed by your physician. You should follow up with a primary doctor (consider calling Dr. Vincent) as soon as possible regarding today's emergency department visit. Return to the emergency department for any new or concerning symptoms, particularly chest pain or difficulty breathing, intoxication or withdrawal, intolerable pain.
[2017-10-31] MEDS ORDERED: ACETAMINOPHEN 500 MG TABLET (FP) PO ONE (08:52)
[2017-10-31] MEDS ORDERED: chlordiazePOXIDE HCL 25 MG CAPSULE PO ONE (08:59)
[2017-10-31] MEDS ORDERED: ACETAMINOPHEN 325 MG TABLET (FP) ONE (09:27)
[2017-10-31] MEDS ORDERED: chlordiazePOXIDE HCL 25 MG CAPSULE ONE (09:51)
--- NOTE | 2017-10-31 11:06 | EKG ---
Test Reason : Blood Pressure : / mmHG Vent. Rate : 086 BPM Atrial Rate : 086 BPM P-R Int : 166 ms QRS Dur : 084 ms QT Int : 410 ms P-R-T Axes : 058 015 -01 degrees QTc Int : 490 ms NORMAL SINUS RHYTHM PROLONGED QT ABNORMAL ECG WHEN COMPARED WITH ECG OF 25-OCT-2017 18:02, QT HAS LENGTHENED Confirmed by Constantin Otero ([id number]) on 10/31/2017 11:05:48 AM Referred By: Confirmed By:Constantin Otero
== END 2017-10-31 13:58 | disposition home or self-care (01) ==
LOC: JER 06:48
DX: M79.672 Pain in left foot (principal); M79.671 Pain in right foot; X50.9XXA Other and unspecified overexertion or strenuous movements or postures, initial encounter; Y93.01 Activity, walking, marching and hiking; Y92.414 Local residential or business street as the place of occurrence of the external cause; F31.9 Bipolar disorder, unspecified; F20.9 Schizophrenia, unspecified; B18.2 Chronic viral hepatitis C; F10.20 Alcohol dependence, uncomplicated; F14.20 Cocaine dependence, uncomplicated; Z59.0 Homelessness
CPT/HCPCS: 93005; 93010; 99282-25

== ENCOUNTER 2018-05-20 21:29 | Inpatient (IN) | payer OTHER ==
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
[2018-05-20 22:23] VITALS: BMI 28.0
[2018-05-20] MEDS ORDERED: guaiFENesin/D-METHORPHAN HB 10 ML UNIT-DOSE CUPS PO PRN (22:31)
[2018-05-20] MEDS ORDERED: chlordiazePOXIDE HCL 25 MG CAPSULE PO ONE (22:31)
[2018-05-20] MEDS ORDERED: MAGNESIUM HYDROX 2400MG/30ML ORAL SUSPENSION 30 ML CUP PO PRN (22:31)
[2018-05-20] MEDS ORDERED: MENTHOL/PHENOL 1 EACH UD MM PRN (22:31)
[2018-05-20] MEDS ORDERED: MAG HYDROX/AL HYDROX/SIMETH 30 ML UNIT-DOSE CUP PO PRN (22:31)
[2018-05-20] MEDS ORDERED: ACETAMINOPHEN 325 MG TABLET (FP) PO PRN (22:31)
[2018-05-20] MEDS ORDERED: LOPERAMIDE HCL 2 MG CAPSULE PO PRN (22:31)
[2018-05-20] MEDS ORDERED: NICOTINE POLACRILEX 2 MG GUM BUC PRN (22:31)
[2018-05-20] MEDS ORDERED: MAGNESIUM CITRATE 300 ML BOTTLE PO PRN (22:31)
[2018-05-20] MEDS ORDERED: chlordiazePOXIDE HCL 25 MG CAPSULE PO PRN (22:31)
[2018-05-20] MEDS ORDERED: hydrOXYzine PAMOATE 50 MG CAPSULE (FP) PO PRN (22:31)
[2018-05-20] MEDS: chlordiazePOXIDE HCL 25 MG CAPSULE PO SCH (23:44)
[2018-05-21] MEDS: chlordiazePOXIDE HCL 25 MG CAPSULE PO SCH ×4 (05:52→22:35)
[2018-05-21 10:11] LABS: HEMATOCRIT 40.8 % (35.4-49); HEMOGLOBIN 13.5 GM/dL (11.7-16.9); MCH 29.5 pg (25.7-33.7); MCHC 33.1 g/dl (32.0-35.9); MEAN CELL VOLUME 89.2 fl (80-96); MEAN PLT VOLUME 9.7 fl (7.5-11.1); PLATELET COUNT 158 K/MM3 (134-434); RBC 4.57 M/mm3 (4.00-5.60); RDW 14.7 % (11.9-15.9); WHITE BLOOD COUNT 5.6 K/mm3 (4.0-10.0)
[2018-05-21 10:24] LABS: ALBUMIN 3.8 g/dl (3.4-5.0); ALK PHOS 133 U/L (45-117); ANION GAP 4 MMOL/L (8-16); BILIRUBIN,TOTAL 0.5 mg/dL (0.2-1); BLOOD UREA NITROGEN 27 mg/dL (7-18); CALCIUM 8.6 mg/dL (8.5-10.1); CHLORIDE 109 mmol/L (98-107); CO2 25 mmol/L (21-32); GLUCOSE,RANDOM 110 mg/dL (74-106); POTASSIUM 4.1 mmol/L (3.5-5.1); SGOT/AST 34 U/L (15-37); SGPT/ALT 25 U/L (13-61); SODIUM 138 mmol/L (136-145)
[2018-05-21] MEDS: PRENATAL VITAMINS W/ FOLIC ACID TABLET (FP) PO SCH (10:51)
[2018-05-21] MEDS: NICOTINE 14 MG/24 HOURS TOPICAL PATCH TD SCH (10:52)
--- NOTE | 2018-05-21 11:10 | EKG ---
Test Reason : Blood Pressure : / mmHG Vent. Rate : 093 BPM Atrial Rate : 093 BPM P-R Int : 162 ms QRS Dur : 082 ms QT Int : 380 ms P-R-T Axes : 061 045 032 degrees QTc Int : 472 ms NORMAL SINUS RHYTHM NORMAL ECG WHEN COMPARED WITH ECG OF 31-OCT-2017 09:24, NO SIGNIFICANT CHANGE WAS FOUND Confirmed by ROZ GONZALES MD ([id number]) on 05/21/2018 11:10:10 AM Referred By: Confirmed By:ROZ GONZALES MD
--- NOTE | 2018-05-21 16:58 | CONSULT ---
[facility] Psychiatric Consult - Data Date of interview: 05/21/18 Admission source: [facility] Identifying data: Patient is approached on 3 occasions, at bedside for psychiatric interview. Mr Mcfarland declines.Nursing staff is made aware.
--- NOTE | 2018-05-21 16:59 | PN ---
S CIWA - CIWA Score Nausea/Vomitin Muscle Tremors: 3 Anxiety: 3 Agitation: 2 Paroxysmal Sweats: 3 Orientation: 0-Oriented Tacttile Disturbances: 0-None Auditory Disturbances: 0-None Visual Disturbances: 0-None Headache: 0-None Present CIWA-Ar Total Score: 13 BHS Progress Note (SOAP) Subjective: sleep disturbance sweats tremors Objective: 05/21/18 16:57 In bed arousable to verbal stimuli Vital Signs Temperature 97.6 F 05/21/18 13:18 Pulse Rate 95 H 05/21/18 13:18 Respiratory Rate 20 05/21/18 13:18 Blood Pressure 125/85 05/21/18 13:18 O2 Sat by Pulse Oximetry (%) Laboratory Last Values WBC 5.6 K/mm3 (4.0-10.0) 05/21/18 07:30 RBC 4.57 M/mm3 (4.00-5.60) 05/21/18 07:30 Hgb 13.5 GM/dL (11.7-16.9) 05/21/18 07:30 Hct 40.8 % (35.4-49) 05/21/18 07:30 MCV 89.2 fl (80-96) 05/21/18 07:30 MCH 29.5 pg (25.7-33.7) 05/21/18 07:30 MCHC 33.1 g/dl (32.0-35.9) 05/21/18 07:30 RDW 14.7 % (11.9-15.9) 05/21/18 07:30 Plt Count 158 K/MM3 (134-434) 05/21/18 07:30 MPV 9.7 fl (7.5-11.1) 05/21/18 07:30 Sodium 138 mmol/L (136-145) 05/21/18 07:30 Potassium 4.1 mmol/L (3.5-5.1) 05/21/18 07:30 Chloride 109 mmol/L (98-107) H 05/21/18 07:30 Carbon Dioxide 25 mmol/L (21-32) 05/21/18 07:30 Anion Gap 4 MMOL/L (8-16) L 05/21/18 07:30 BUN 27 mg/dL (7-18) H 05/21/18 07:30 Creatinine 1.0 mg/dL (0.55-1.3) 05/21/18 07:30 Creat Clearance w eGFR > 60 (>60) 05/21/18 07:30 Random Glucose 110 mg/dL (74-106) H 05/21/18 07:30 Calcium 8.6 mg/dL (8.5-10.1) 05/21/18 07:30 Total Bilirubin 0.5 mg/dL (0.2-1) 05/21/18 07:30 AST 34 U/L (15-37) 05/21/18 07:30 ALT 25 U/L (13-61) 05/21/18 07:30 Alkaline Phosphatase 133 U/L (45-117) H 05/21/18 07:30 Total Protein 7.0 g/dl (6.4-8.2) 05/21/18 07:30 Albumin 3.8 g/dl (3.4-5.0) 05/21/18 07:30 RPR Titer Nonreactive (NONREACTIVE) 05/21/18 07:30 labs noted UA pending Assessment: 05/21/18 16:58 withdrawal sx Plan: continue detox increase hydration
[2018-05-21] MEDS: IBUPROFEN 400 MG TABLET (FP) PO PRN (17:20)
[2018-05-21] MEDS: THIAMINE HCL 100 MG TABLET (FP) PO SCH (22:35)
[2018-05-21] MEDS: MELATONIN 5 MG TABLETS PO PRN (22:35)
[2018-05-22] MEDS: chlordiazePOXIDE HCL 25 MG CAPSULE PO SCH ×3 (06:14→17:24)
[2018-05-22] MEDS: NICOTINE 14 MG/24 HOURS TOPICAL PATCH TD SCH (10:42)
[2018-05-22] MEDS: PRENATAL VITAMINS W/ FOLIC ACID TABLET (FP) PO SCH (10:42)
[2018-05-22] MEDS: IBUPROFEN 400 MG TABLET (FP) PO PRN (13:58)
--- NOTE | 2018-05-22 14:12 | PN ---
S CIWA - CIWA Score Nausea/Vomitin Muscle Tremors: 3 Anxiety: 2 Agitation: 2 Paroxysmal Sweats: 2 Orientation: 0-Oriented Tacttile Disturbances: 0-None Auditory Disturbances: 0-None Visual Disturbances: 0-None Headache: 2-Mild CIWA-Ar Total Score: 13 BHS Progress Note (SOAP) Subjective: Runny nose, interrupted sleep Objective: 05/22/18 14:09 Last Vital Signs Temp Pulse Resp BP Pulse Ox 97.2 F L 97 H 18 128/91 05/22/18 06:18 05/22/18 09:25 05/22/18 09:25 05/22/18 09:25 Laboratory Tests 05/21/18 05/21/18 05/21/18 07:30 07:30 07:30 WBC 5.6 RBC 4.57 Hgb 13.5 Hct 40.8 MCV 89.2 MCH 29.5 MCHC 33.1 RDW 14.7 Plt Count 158 MPV 9.7 Sodium 138 Potassium 4.1 Chloride 109 H Carbon Dioxide 25 Anion Gap 4 L BUN 27 H Creatinine 1.0 Creat Clearance w eGFR > 60 Random Glucose 110 H Calcium 8.6 Total Bilirubin 0.5 AST 34 ALT 25 Alkaline Phosphatase 133 H Total Protein 7.0 Albumin 3.8 RPR Titer Nonreactive Labs reviewed: bun 27 Assessment: 05/22/18 14:10 Withdrawal sxs Noted with azotemia Plan: Continue detox Azotemia: encouraged PO water intake
[2018-05-22] MEDS: chlordiazePOXIDE 5 MG CAPSULE PO SCH (22:18)
[2018-05-22] MEDS: THIAMINE HCL 100 MG TABLET (FP) PO SCH (22:18)
[2018-05-22] MEDS: MELATONIN 5 MG TABLETS PO PRN (22:19)
[2018-05-23] MEDS: chlordiazePOXIDE 5 MG CAPSULE PO SCH ×3 (06:16→16:53)
[2018-05-23] MEDS: IBUPROFEN 400 MG TABLET (FP) PO PRN (09:28)
[2018-05-23] MEDS: PRENATAL VITAMINS W/ FOLIC ACID TABLET (FP) PO SCH (09:30)
[2018-05-23] MEDS: NICOTINE 14 MG/24 HOURS TOPICAL PATCH TD SCH (09:30)
[2018-05-23] MEDS: P-EPHED 60MG/TRIPROLIDI 2.5MG TABLET PO PRN ×2 (09:30→16:54)
[2018-05-23] MEDS: LORATADINE 10 MG TABLET PO SCH (10:11)
--- NOTE | 2018-05-23 13:22 | PN ---
[facility] Progress Note (SOAP) Subjective: Runny nose, interrupted sleep, sweating; c/o allergy sxs after floor in his room being cleaned with machine stating his nose runny and eyes watery and is requesting allergy pill. Objective: 05/23/18 13:16 Last Vital Signs Temp Pulse Resp BP Pulse Ox 98.9 F 112 H 18 149/96 05/23/18 09:38 05/23/18 09:38 05/23/18 09:38 05/23/18 09:38 Elevated b/p noted 149/96 Laboratory Tests 05/21/18 05/21/18 05/21/18 07:30 07:30 07:30 WBC 5.6 RBC 4.57 Hgb 13.5 Hct 40.8 MCV 89.2 MCH 29.5 MCHC 33.1 RDW 14.7 Plt Count 158 MPV 9.7 Sodium 138 Potassium 4.1 Chloride 109 H Carbon Dioxide 25 Anion Gap 4 L BUN 27 H Creatinine 1.0 Creat Clearance w eGFR > 60 Random Glucose 110 H Calcium 8.6 Total Bilirubin 0.5 AST 34 ALT 25 Alkaline Phosphatase 133 H Total Protein 7.0 Albumin 3.8 RPR Titer Nonreactive Labs reviewed Assessment: 05/23/18 13:18 Withdrawal sxs Noted with elevated b/p Plan: Continue detox Elevated blood pressure without mention of htn: clonidine 0.1mg PO q8hr prn ( give if b/p > 140/90)
[2018-05-23] MEDS ORDERED: cloNIDine HCL 0.1 MG TABLET PO PRN (14:00)
[2018-05-23] MEDS: THIAMINE HCL 100 MG TABLET (FP) PO SCH (22:03)
[2018-05-23] MEDS: MELATONIN 5 MG TABLETS PO PRN (22:04)
[2018-05-23] MEDS: chlordiazePOXIDE HCL 10 MG CAPSULE PO SCH (22:04)
[2018-05-24] MEDS: chlordiazePOXIDE HCL 10 MG CAPSULE PO SCH ×2 (06:49→10:25)
[2018-05-24 09:29] VITALS: BP 130/92; PULSE 105; TEMP 96.4
[2018-05-24] MEDS: PRENATAL VITAMINS W/ FOLIC ACID TABLET (FP) PO SCH (10:24)
[2018-05-24] MEDS: NICOTINE 14 MG/24 HOURS TOPICAL PATCH TD SCH (10:24)
[2018-05-24] MEDS: LORATADINE 10 MG TABLET PO SCH (10:24)
[2018-05-24] MEDS: IBUPROFEN 400 MG TABLET (FP) PO PRN (10:25)
--- NOTE | 2018-05-24 11:41 | DS ---
[facility] Detox Discharge Summary Admission Date: 05/20/18 Discharge Date: 05/24/18 - History Present History: Alcohol Dependence, Cannabis Dependence, Cocaine Dependence Pertinent Past History: Prediabetes - Physical Exam Results Vital Signs: Vital Signs Temperature 96.4 F L 05/24/18 09:28 Pulse Rate 105 H 05/24/18 09:28 Respiratory Rate 16 05/24/18 09:28 Blood Pressure 130/92 05/24/18 09:28 O2 Sat by Pulse Oximetry (%) Pertinent Admission Physical Exam Findings: Withdrawal sxs Laboratory Tests 05/21/18 05/21/18 05/21/18 07:30 07:30 07:30 WBC 5.6 RBC 4.57 Hgb 13.5 Hct 40.8 MCV 89.2 MCH 29.5 MCHC 33.1 RDW 14.7 Plt Count 158 MPV 9.7 Sodium 138 Potassium 4.1 Chloride 109 H Carbon Dioxide 25 Anion Gap 4 L BUN 27 H Creatinine 1.0 Creat Clearance w eGFR > 60 Random Glucose 110 H Calcium 8.6 Total Bilirubin 0.5 AST 34 ALT 25 Alkaline Phosphatase 133 H Total Protein 7.0 Albumin 3.8 RPR Titer Nonreactive Labs reviewed - Treatment Hospital Course: Detox Protocol Followed, Detoxed Safely, Responded well, Discharged Condition Good - Medication Discharge Medications: Ambulatory Orders Sertraline HCl [Zoloft -] 50 mg PO DAILY #30 tablet 09/24/17 Mirtazapine [Remeron -] 15 mg PO BID 10/31/17 Quetiapine Fumarate [Seroquel -] 100 mg PO BID 10/31/17 - Diagnosis (1) Azotemia Current Visit: Yes Status: Acute (2) Prediabetes Current Visit: Yes Status: Chronic (3) Alcohol dependence with uncomplicated withdrawal Current Visit: Yes Status: Chronic (4) Anxiety disorder Current Visit: Yes Status: Chronic Qualifiers: Anxiety disorder type: generalized anxiety disorder Qualified Code(s): F41.1 - Generalized anxiety disorder (5) Bipolar disorder Current Visit: Yes Status: Chronic Qualifiers: Active/Remission status: remission status unspecified Qualified Code(s): F31.9 - Bipolar disorder, unspecified (6) Cannabis dependence Current Visit: Yes Status: Chronic (7) Cocaine dependence, uncomplicated Current Visit: Yes Status: Chronic (8) Nicotine dependence Current Visit: Yes Status: Chronic Qualifiers: Nicotine product type: cigarettes Substance use status: uncomplicated Qualified Code(s): F17.210 - Nicotine dependence, cigarettes, uncomplicated (9) Elevated blood pressure reading without diagnosis of hypertension Current Visit: Yes Status: Acute - AMA Did Patient Leave Against Medical Advice: No (F/U with your PCP within 1-2 weeks )
== END 2018-05-24 11:17 | disposition home or self-care (01) | DRG 774 ==
LOC: YASAS 21:29 → Y3N 22:12
PROC: HZ2ZZZZ Detoxification Services for Substance Abuse Treatment (ICD-10-PCS; principal; 2018-05-20)
DX: F10.230 Alcohol dependence with withdrawal, uncomplicated (principal); F14.20 Cocaine dependence, uncomplicated; F12.20 Cannabis dependence, uncomplicated; F17.210 Nicotine dependence, cigarettes, uncomplicated; F31.9 Bipolar disorder, unspecified; F41.1 Generalized anxiety disorder; R73.03 Prediabetes; R79.89 Other specified abnormal findings of blood chemistry; R03.0 Elevated blood-pressure reading, without diagnosis of hypertension; M54.5 Low back pain; G89.29 Other chronic pain; R26.2 Difficulty in walking, not elsewhere classified; Z99.89 Dependence on other enabling machines and devices; Z91.5 Personal history of self-harm; Z59.0 Homelessness
CPT/HCPCS: 36415; 80053; 81003; 85027; 86593; 93005; 93010

== ENCOUNTER 2018-08-23 07:37 | Observation (INO) | payer OTHER ==
--- NOTE | 2018-08-23 08:57 | PDOC ---
History of Present Illness - General Chief Complaint: Substance Abuse Stated Complaint: Psychiatric Time Seen by Provider: 08/23/18 07:59 History Source: Patient Exam Limitations: No Limitations - History of Present Illness Initial Comments: 08/23/18 08:35 Patient is a 47 year old male with a PMHx of Bipolar disorder, depression, polysubstance abuse who presents here today complaining of feeling more depressed and weak. States he has bipolar that is "acting out" and that when someone "bothers him" he wants to do bad things to them like choke them. Also endorses suicidal thoughts and wishes his life can end however, has no plans. Patient reports binge drinking for the last three days as well as daily cocaine use within the last three days. Patient now endorses throat and "chest burning " that started yesterday. States its constant, nonradiating and worsens when you touch his chest, when he moves and when he eats. Patient now presents to the ED belligerent, aggressive and intoxicated. States he was drinking several bottles of beer and vodka prior to arrival Otherwise, denies shortness of breath, fever, chills, nausea, vomiting, abdominal pain, diarrhea, constipation, headaches, dizziness, loss of consciousness, dysuria, hematuria, hematemesis, hematochezia. Reports being admitted to [facility] one year ago PMHx: Bipolar Disorder Depression Anxiety PSHx: Facial surgery Social Hx: Reports daily alcohol use Reports daily marijuana and cocaine use Reports 15 cigarettes a day Lives at a senior care Allergies: NKDA Past History - Past Medical History Allergies/Adverse Reactions: Allergies Allergy/AdvReac Type Severity Reaction Status Date / Time No Known Allergies Allergy Verified 08/23/18 07:51 Home Medications: Ambulatory Orders Sertraline HCl [Zoloft -] 50 mg PO DAILY #30 tablet 09/24/17 Mirtazapine [Remeron -] 15 mg PO BID 10/31/17 Quetiapine Fumarate [Seroquel -] 100 mg PO BID 10/31/17 Anemia: Yes Asthma: No Cancer: No Cardiac Disorders: No CVA: No COPD: No CHF: No Dementia: No Diabetes: Yes (borderline) GI Disorders: No Disorders: No HTN: No Hypercholesterolemia: No Kidney Stones: No Liver Disease: Yes (HAD Hep B ) Psychiatric Problems: Yes (Depression, anxiety) Seizures: No Thyroid Disease: No - Surgical History Abdominal Surgery: No Appendectomy: No Cardiac Surgery: No Cholecystectomy: No Lung Surgery: No Neurologic Surgery: No Orthopedic Surgery: Yes (Fx R eye socket sx in 2014) - Reproductive History Testicular Surgery: No - Suicide/Smoking/Psychosocial Hx Smoking History: Current every day smoker Have you smoked in the past 12 months: Yes Number of Cigarettes Smoked Daily: 10 Information on smoking cessation initiated: Yes 'Breaking Loose' booklet given: 05/20/18 Hx Alcohol Use: No Drug/Substance Use Hx: No Substance Use Type: Alcohol, Cocaine, Marijuana Hx Substance Use Treatment: Yes ([facility] July 2017) Review of Systems - Review of Systems Able to Perform ROS?: Yes Constitutional: No: Chills, Diaphoresis, Fever, Night Sweats HEENTM: No: Blurred Vision, Throat Pain, Throat Swelling, Difficulty Swallowing Respiratory: No: Cough, Orthopnea, Shortness of Breath, SOB with Exertion, SOB at Rest, Wheezing, Productive cough, Hemoptysis Cardiac (ROS): Yes: Chest Pain (burning ). No: Edema, Irregular Heart Rate, Lightheadedness, Palpitations, Syncope, Chest Tightness ABD/GI: Yes: Indigestion. No: Abdominal Distended, Constipated, Diarrhea, Nausea, Vomiting : No: Burning, Dysuria, Discharge, Frequency, Flank Pain, Hematuria, Pain Musculoskeletal: No: Back Pain, Joint Pain, Muscle Pain Integumentary: No: Bruising, Erythema Neurological: No: Headache, Tingling, Tremors *Physical Exam - Vital Signs Last Vital Signs Temp Pulse Resp BP Pulse Ox 98.8 F 98 H 16 115/86 100 08/23/18 07:38 08/23/18 07:38 08/23/18 07:38 08/23/18 07:38 08/23/18 07:38 - Physical Exam General Appearance: Yes: Other (Awake, aggressive, intermittently compliant, no acute distress ) HEENT: positive: EOMI, VEDA, Normal ENT Inspection. negative: Tonsillar Exudate , Tonsillar Erythema, Rhinorrhea Neck: positive: Supple. negative: Carotid bruit, Decreased range of motion, Lymphadenopathy (R), Lymphadenopathy (L) Respiratory/Chest: positive: Lungs Clear, Normal Breath Sounds. negative: Chest Tender, Respiratory Distress, Accessory Muscle Use, Crackles, Wheezing Cardiovascular: positive: Regular Rhythm, Regular Rate, S1, S2. negative: Edema , JVD, Murmur Gastrointestinal/Abdominal: positive: Other (Soft, nontender, nondistended, normoactive bowel sounds, no rebound tenderness of guarding ) Extremity: positive: Normal Capillary Refill, Normal Inspection, Normal Range of Motion. negative: Tender, Cyanosis, Swelling, Calf Tenderness, Erythema Integumentary: positive: Normal Color, Dry, Warm. negative: Swelling, Ecchymosis, Bruising Neurologic: positive: student finance advisor II-XII NML intact, Fully Oriented, Motor Strength 5/ 5. negative: Numbness, Sensory Deficit Moderate Sedation - Procedure Monitoring Vital Signs: Procedure Monitoring Vital Signs Temperature 98.8 F 08/23/18 07:38 Pulse Rate 98 H 08/23/18 07:38 Respiratory Rate 16 08/23/18 07:38 Blood Pressure 115/86 08/23/18 07:38 O2 Sat by Pulse Oximetry (%) 100 08/23/18 07:38 ED Treatment Course - LABORATORY CBC & Chemistry Diagram: 08/23/18 09:30 08/23/18 15:18 - RADIOLOGY Radiology Studies Ordered: Category Date Time Status CHEST X-RAY PORTABLE* [RAD] Stat Radiology 08/23/18 08:24 Ordered Medical Decision Making - Medical Decision Making 08/23/18 09:11 Patient is a 47 year old male who presents here intoxicated and belligerent after binge drinking throughout the night. Patient now complains of indigestion , "chest burning," and suicidal/homicidal thoughts. -CBC, CMP, CARDIAC PROFILE -Urine toxicology -U/A -EKG, CXR 08/23/18 10:24 -EKG NSR @83BPM with no st elevation of depression -CXR shows no acute pathology -Urine toxicology (+) for marijuana and Cocaine -Patient resting comfortably in bed easting a sandwich -Spoke to Dr. Mensah who will evaluate patient once he's medically cleared 08/23/18 11:04 -Labs revealed VICKI with Creatinine 1.6 and CPK elevated. Will give two bolus of IV NS 08/23/18 11:30 -Patient cleared by PSYCH -Will microblog symphony for obs 08/23/18 13:28 -Spoke to hospitalist Dr. Duran and resident Dr. Crooks who recommend patient receives 2L of NC and repeat labs. If patient tolerates food and water with improved Creatinine, may be discharged and follow up with PCP. 08/23/18 15:29 -Patient will be admitted for OBS due to VICKI. -Repeat BMP sent -Patient accepted by Dr. Duran for obs *DC/Admit/Observation/Transfer Diagnosis at time of Disposition: Rhabdomyolysis Qualifiers: Rhabdomyolysis type: non-traumatic Qualified Code(s): M62.82 - Rhabdomyolysis - Discharge Dispostion Decision to Admit order: Yes - Referrals - Patient Instructions - Post Discharge Activity
[2018-08-23 09:05] LABS: URINE APPEARANCE SLCLOUDY; URINE BILIRUBIN NEGATIVE (<2.0 mg/dL); URINE COLOR YELLOW; URINE GLUCOSE (UA) NEGATIVE (NEGATIVE); URINE KETONE TRACE (NEGATIVE); URINE LEUK ESTERASE TRACE (NEGATIVE); URINE NITRITE NEGATIVE (NEGATIVE); URINE PROTEIN NEGATIVE (NEGATIVE); URINE UROBILINOGEN NEGATIVE mg/dL (0.2-1.0)
[2018-08-23 09:22] LABS: EPI CELLS RARE /HPF (FEW); GRANULAR CASTS 10 /lpf; URINE HYALINE CAST 136 /lpf; URINE MUCUS RARE
[2018-08-23 09:34] LABS: METHADONE, UR NEGATIVE ng/ml (CUTOFF=300); OPIATES, URI NEGATIVE ng/ml (CUTOFF=300); PHENCYCLIDINE,URINE NEGATIVE ng/ml (CUTOFF=25); URINE AMPHETAMINES NEGATIVE ng/ml (CUTOFF=500); URINE BARBITURATES NEGATIVE ng/ml (CUTOFF=200); URINE BENZODIAZEPINES NEGATIVE ng/ml (CUTOFF=200)
[2018-08-23 09:36] LABS: BASO % 0.4 % (0-2.0); EOS % 0.1 % (0-4.5); HEMATOCRIT 44.9 % (35.4-49); HEMOGLOBIN 15.9 GM/dL (11.7-16.9); LYMPH % 13.4 % (8-40); MCH 29.6 pg (25.7-33.7); MCHC 35.5 g/dl (32.0-35.9); MEAN CELL VOLUME 83.5 fl (80-96); MEAN PLT VOLUME 9.8 fl (7.5-11.1); MONO % 9.3 % (3.8-10.2); NEUT % 76.8 % (42.8-82.8); PLATELET COUNT 207 K/MM3 (134-434); RBC 5.37 M/mm3 (4.00-5.60); RDW 14.2 % (11.9-15.9); WHITE BLOOD COUNT 8.6 K/mm3 (4.0-10.0)
[2018-08-23 09:53] LABS: COCAINE, UR POSITIVE ng/ml (CUTOFF=300)
--- NOTE | 2018-08-23 10:04 | PDOC ---
Attending Attestation - Resident Resident Name: Michell Moore - ED Attending Attestation I have performed the following: I have examined & evaluated the patient, The case was reviewed & discussed with the resident, I agree w/resident's findings & plan, Exceptions are as noted - HPI HPI: 08/23/18 10:04 47 years old undomiciled bipolar previous suicidal ideation comes in complaining of depression and anger stating that if he doesn't get help he might hurt someone also requesting food and juice Symptoms have been chronic persistent concent worse over the last few days with no clear exacerbating factors ROS: A complete review of 10 out of 10 review of systems is taken and is negative apart from what is previously mentioned below and in the HPI. - Physicial Exam PE: 08/23/18 10:04 Vitals: Triage Vital signs reviewed General Appearance: no acute distress, well nourished well developed, Head: Atraumatic, Neck: Supple;No Nucal rigidity Chest Wall: Nontender Cardiac: Regular rate and rhythym, no murmurs, no rubs, no gallops, Lungs: Clear to auscultation bilateral, good air movement bilaterally, Abdomen: Soft, non distended, normal bowel sounds, non tender to palpation Extremities: Full range of motion to all extremities, no cyanosis, clubbing, or edema Skin: Warm and dry, no rashes or lesions, no rash, no petechiae Neuro: AOX3; Cranial Nerves 2-12 grossly intact, Strength intact to all extremities, Sensation intact to all extremities,gait normal Psych: anger and depression, withdrawn affect, denies over SI, no plan for specific HI, but expressing feelings on generalized anger - Medical Decision Making 08/23/18 15:56 Patient presented initially with anger depression. Cleared by psychiatry. Requesting detox status post cocaine and substance abuse His laboratory analysis is notable for rhabdomyolysis with acute kidney injury We'll observe overnight given acute in their injury for IV hydration Unfortunately at this time no detox beds available will consult case management and behavioral health for possible placement tomorrow 08/23/18 15:57 Heart Score/ECG Review - ECG Impressions Comment:: 08/23/18 10:06 EKG performed at 9:11 AM demonstrates normal sinus rhythm no ST elevations or T- wave inversions incomplete right bundle-branch block noted Interpreted by me.
[2018-08-23 11:00] LABS: ALBUMIN 4.3 g/dl (3.4-5.0); ALK PHOS 111 U/L (45-117); ANION GAP 14 MMOL/L (8-16); BLOOD UREA NITROGEN 26 mg/dL (7-18); CALCIUM 9.3 mg/dL (8.5-10.1); CHLORIDE 101 mmol/L (98-107); CO2 21 mmol/L (21-32); CREATININE 1.6 mg/dL (0.55-1.3); GLUCOSE,RANDOM 82 mg/dL (74-106); POTASSIUM 4.3 mmol/L (3.5-5.1); SGOT/AST 43 U/L (15-37); SGPT/ALT 23 U/L (13-61); SODIUM 136 mmol/L (136-145); TOT PROT 7.6 g/dl (6.4-8.2)
[2018-08-23] MEDS ORDERED: SODIUM CHLORIDE 1,000 ML IV STA ×2 (11:03→11:20)
--- NOTE | 2018-08-23 11:32 | CON.PSY ---
Psychiatry Consult Chief Complaint: I wanterd detox, i told them to bring me there. I dont know why they brought me here. I have been drinking, am nervous. Symptoms: reports: Irritability - Previous Psychiatric Treatment Outpatient: None Inpatient: None - Previous Substance Abuse Treatment Outpatient: None Inpatient: One prior admission - Reason for Previous Treatment Reason for Previous Treatment: Alcohol Abuse - Current Medications Current Medications: Active Medications Sodium Chloride (Normal Saline -) 1,000 mls @ 1,000 mls/hr IV ASDIR STA Stop: 08/23/18 12:02 Sodium Chloride (Normal Saline -) 1,000 mls @ 1,000 mls/hr IV ASDIR STA Stop: 08/23/18 12:19 - Allergies Allergies: Allergies Allergy/AdvReac Type Severity Reaction Status Date / Time No Known Allergies Allergy Verified 08/23/18 07:51 - Current Living Status Usual Living Arrangement: Alone - Current Mental Status Evaluation Appearance: Well Groomed Attitude: Cooperative - Affect Affect: Constrictive Appropriateness: Appropriate to Content - Mood Mood: Irritable - Speech/Language Expressive: Coherent - Psychomotor Activity Psychomotor Activity: Hyperactive - Thought Process Thought Process: Intact - Thought Content Hallucinations: Absent Delusions: Absent - Self Perception Self Perception: No Impairment - Cognition Attention: Alert Orientation: Time Memory, Short Term: 3/3 Memory, Remote with Promptin/3 - Concentration Serial Sevens Intact: No Simple Calculations Intact: Yes - Abstraction Proverb Interpretation: Intact Judgement: Moderately Impaired - Insight Insight: Impaired - Impulse Control Impulse Control: Minimally Impaired - Suicidal Ideation Suicidal Ideation: No - Homicidal Ideation Homicidal Ideation: No Assessment/Plan 1) Patient is not suicidal or Homicidal at this time. 2) No evidence of any acute Psychosis or acute DEpression, 3) Refer to In Patient Detox.
--- NOTE | 2018-08-23 12:44 | EKG ---
Test Reason : Blood Pressure : / mmHG Vent. Rate : 083 BPM Atrial Rate : 083 BPM P-R Int : 178 ms QRS Dur : 084 ms QT Int : 392 ms P-R-T Axes : 043 055 048 degrees QTc Int : 460 ms NORMAL SINUS RHYTHM NORMAL ECG WHEN COMPARED WITH ECG OF 20-MAY-2018 23:04, ST ELEVATION NOW PRESENT IN ANTERIOR LEADS Confirmed by YANET LING MD ([id number]) on 08/23/2018 12:43:26 PM Referred By: Confirmed By:YANET LING MD
--- NOTE | 2018-08-23 15:50 | HP ---
CHIEF COMPLAINT: PCP: Doesn't have a PCP HISTORY OF PRESENT ILLNESS: Patient is a 47 year old male presented to the ED complaining of "feeling Sad and depressed". He didn't want to talk about it so further history couldn't be obtained. Hx obtained from the ED note. Patient reports that he has suicidal ideation and thoughts about killing himself. Also had a binge drinking for 3 days and using cocaine. Lives at a long term. Prior to the arrival to the ED, he was drinking several bottles of vodka and beer. Patient reports that he doesn't work but has money to buy alcohol and cocaine. In the ED, he also complained of epigastric burning pain Last year was admitted at [facility] for one year in the psych facility. Patient was admitted at [facility] for suicidal ideation 09/23/2017-09-24-2017. Completed detox at [facility] on 05/24/10 was sent on Sertraline, Mirtazipine and Quetiapine. Called pharmacy to confirm, he hasn't picked up any medications. ER course was notable for: (1) (2) (3) Recent Travel: PAST MEDICAL HISTORY: Bipolar disorder, Depression PAST SURGICAL HISTORY: "facial surgery" 3 years ago Social History: Smoking: current smoker, smokes 4-6 cigarettes/day Alcohol: 1-3 cans of beer 1-2 times per week Drugs: Cocaine 2 days ago, Marijuana. Family History: Mother: Alcoholic () Allergies No Known Allergies Allergy (Verified 08/23/18 07:51) HOME MEDICATIONS: Home Medications Medication Instructions Recorded Sertraline HCl [Zoloft -] 50 mg PO DAILY #30 tablet 09/24/17 Mirtazapine [Remeron -] 15 mg PO BID 10/31/17 Quetiapine Fumarate [Seroquel -] 100 mg PO BID 10/31/17 REVIEW OF SYSTEMS CONSTITUTIONAL: Absent: fever, chills, diaphoresis, generalized weakness, malaise, loss of appetite, weight change HEENT: Absent: rhinorrhea, nasal congestion, throat pain, throat swelling, difficulty swallowing, mouth swelling, ear pain, eye pain, visual changes CARDIOVASCULAR: Absent: chest pain, syncope, palpitations, irregular heart rate, lightheadedness , peripheral edema RESPIRATORY: Absent: cough, shortness of breath, dyspnea with exertion, orthopnea, wheezing, stridor, hemoptysis GASTROINTESTINAL: Absent: abdominal pain, abdominal distension, nausea, vomiting, diarrhea, constipation, melena, hematochezia GENITOURINARY: Absent: dysuria, frequency, urgency, hesitancy, hematuria, flank pain, genital pain MUSCULOSKELETAL: Absent: myalgia, arthralgia, joint swelling, back pain, neck pain SKIN: Absent: rash, itching, pallor HEMATOLOGIC/IMMUNOLOGIC: Absent: easy bleeding, easy bruising, lymphadenopathy, frequent infections ENDOCRINE: Absent: unexplained weight gain, unexplained weight loss, heat intolerance, cold intolerance NEUROLOGIC: Absent: headache, focal weakness or paresthesias, dizziness, unsteady gait, seizure, mental status changes, bladder or bowel incontinence PSYCHIATRIC: Absent: anxiety, depression, suicidal or homicidal ideation, hallucinations. PHYSICAL EXAMINATION Vital Signs - 24 hr 08/23/18 08/23/18 07:38 13:30 Temperature 98.8 F 98.8 F Pulse Rate 98 H Pulse Rate [ 87 Right] Respiratory 16 18 Rate Blood Pressure 115/86 Blood Pressure 111/60 [Right Arm] O2 Sat by Pulse 100 95 Oximetry (%) GENERAL: Middle aged male, Awake, alert, and fully oriented, in no acute distress. EYES: EOM intact, no pallor or icterus. EARS, NOSE, THROAT: Ears normal. Moist mucous membranes. NECK: Supple LUNGS: B/L lungs clear. no wheeze. HEART: Regular rate and rhythm, normal S1 and S2 without murmur, rub or gallop. ABDOMEN: Soft, nontender, not distended, normoactive bowel sounds, no guarding, no rebound UPPER EXTREMITIES: No peripheral edema. LOWER EXTREMITIES: 2+ pulses, warm, well-perfused. No peripheral edema. NEUROLOGICAL: Normal speech. Gait not observed. PSYCHIATRIC: Mostly cooperative. Good eye contact. SKIN: Warm, dry Laboratory Results - last 24 hr 08/23/18 08/23/18 08/23/18 08:45 08:45 09:30 WBC 8.6 RBC 5.37 Hgb 15.9 Hct 44.9 MCV 83.5 MCH 29.6 MCHC 35.5 RDW 14.2 Plt Count 207 D MPV 9.8 Absolute Neuts (auto) 6.6 Neutrophils % 76.8 Lymphocytes % 13.4 D Monocytes % 9.3 Eosinophils % 0.1 Basophils % 0.4 Nucleated RBC % 0 Sodium Potassium Chloride Carbon Dioxide Anion Gap BUN Creatinine Creat Clearance w eGFR Random Glucose Calcium Total Bilirubin AST ALT Alkaline Phosphatase Creatine Kinase Creatine Kinase Index CK-MB (CK-2) Troponin I Total Protein Albumin Urine Color Yellow Urine Appearance Slcloudy Urine pH 5.0 Ur Specific [place] 1.015 Urine Protein Negative Urine Glucose (UA) Negative Urine Ketones Trace H Urine Blood Negative Urine Nitrite Negative Urine Bilirubin Negative Urine Urobilinogen Negative Ur Leukocyte Esterase Trace Urine WBC (Auto) 8 Urine RBC (Auto) 1 Ur Epithelial Cells Rare Hyaline Casts 136 Granular Casts 10 Urine Mucus Rare Ur Random Sodium Ur Random Chloride Urine Creatinine Opiates Screen Negative Methadone Screen Negative Barbiturate Screen Negative Phencyclidine Screen Negative Ur Amphetamines Screen Negative MDMA (Ecstasy) Screen Negative Benzodiazepines Screen Negative Cocaine Screen Positive A* U Marijuana (THC) Screen Positive A* 08/23/18 08/23/18 09:30 13:26 WBC RBC Hgb Hct MCV MCH MCHC RDW Plt Count MPV Absolute Neuts (auto) Neutrophils % Lymphocytes % Monocytes % Eosinophils % Basophils % Nucleated RBC % Sodium 136 Potassium 4.3 Chloride 101 Carbon Dioxide 21 Anion Gap 14 BUN 26 H Creatinine 1.6 H Creat Clearance w eGFR 46.37 Random Glucose 82 Calcium 9.3 Total Bilirubin 1.0 AST 43 H ALT 23 Alkaline Phosphatase 111 Creatine Kinase 1321 H Creatine Kinase Index 1.1 CK-MB (CK-2) 15.1 H Troponin I < 0.02 Total Protein 7.6 Albumin 4.3 Urine Color Urine Appearance Urine pH Ur Specific [place] Urine Protein Urine Glucose (UA) Urine Ketones Urine Blood Urine Nitrite Urine Bilirubin Urine Urobilinogen Ur Leukocyte Esterase Urine WBC (Auto) Urine RBC (Auto) Ur Epithelial Cells Hyaline Casts Granular Casts Urine Mucus Ur Random Sodium 24 L Ur Random Chloride < 11 L Urine Creatinine 160.0 H Opiates Screen Methadone Screen Barbiturate Screen Phencyclidine Screen Ur Amphetamines Screen MDMA (Ecstasy) Screen Benzodiazepines Screen Cocaine Screen U Marijuana (THC) Screen ASSESSMENT/PLAN: 46 y/o M w/PMH of bipolar disorder and depression presents to the ER with the complaints of feeling depressed/sad. # Bipolar/Depression with suicidal ideation In the ED, patient reported has suicidal ideation. Psych was consulted. Patient is not suicidal or homicidal at this time. Continue Zoloft 50 mg Daily, hold seroquel and Rameron # Rhabdomyolysis CK 1300's, repeat CPK is pending. Continue IV hydration # VICKI resolved creatinine 1.6---> s/p 2 bags of NS creatinine 1.2 # Alcohol abuse Unsure if patient wants inpatient vs outpatient Detox Detox consult requested. monitor for signs of withdrawal no signs of withdrawal currently # FEN IV NS @ 83 mls/hr Electrolytes WNL Regular Diet # Prophylaxis For DVT: SCDs, early ambulation For GI: Not indicated # Code Status: Full Code # Dispo: Place in observation. D/C in AM Illness, Investigation and Plan of care explained to the patient. He verbalized understanding. Case discussed with Dr. Duran. Problem List - Problem (1) Rhabdomyolysis Code(s): M62.82 - RHABDOMYOLYSIS Qualifiers: Rhabdomyolysis type: non-traumatic Qualified Code(s): M62.82 - Rhabdomyolysis (2) Acute renal failure Code(s): N17.9 - ACUTE KIDNEY FAILURE, UNSPECIFIED (3) Alcohol dependence Code(s): F10.20 - ALCOHOL DEPENDENCE, UNCOMPLICATED Qualifiers: Substance use status: uncomplicated Qualified Code(s): F10.20 - Alcohol dependence, uncomplicated (4) Azotemia Code(s): R79.89 - OTHER SPECIFIED ABNORMAL FINDINGS OF BLOOD CHEMISTRY (5) Drug-induced mood disorder Code(s): F19.94 - OTH PSYCHOACTIVE SUBSTANCE USE, UNSP W MOOD DISORDER (6) Elevated blood pressure reading without diagnosis of hypertension Code(s): R03.0 - ELEVATED BLOOD-PRESSURE READING, W/O DIAGNOSIS OF HTN (7) Homeless Code(s): Z59.0 - HOMELESSNESS (8) Homicidal ideation Code(s): R45.850 - HOMICIDAL IDEATIONS Visit type - Emergency Visit Emergency Visit: Yes ED Registration Date: 08/23/18 Care time: The patient presented to the Emergency Department on the above date and was hospitalized for further evaluation of their emergent condition. - New Patient This patient is new to me today: Yes Date on this admission: 08/23/18 - Critical Care Critical Care patient: No
--- NOTE | 2018-08-23 16:08 | PN ---
Teaching Attending Note Name of Resident: Farhana Crooks ATTENDING PHYSICIAN STATEMENT I saw and evaluated the patient. I reviewed the resident's note and discussed the case with the resident. I agree with the resident's findings and plan as documented. HPI: Mr Mcfarland is a 47 year old gentleman who comes into the ER requesting rehabilitation for drug use. He is rather uncooperative with the history for me , often not answering questions or being very vague. He says that he is here for rehab for "drugs, poverty, everything". He says he uses "all the drugs" and he started with kieran dust, however it is unclear if he is using this recently. He says his most recent drug use was yesterday and it was cocaine. He endorses drinking about 3 beers a day and says he has never went through withdrawal. I cannot obtain any further history as he says he does not want to answer because he is eating his sandwich OBJECTIVE: Last Vital Signs Temp Pulse Resp BP Pulse Ox 36.6 C 90 18 105/60 96 08/23/18 16:31 08/23/18 16:31 08/23/18 16:31 08/23/18 16:31 08/23/18 16:31 Gen: nad Pulm: ctab w/o w/r/r CV: rrr w/o w/r/r Abd: +bs, s/nt/nd Ext: no c/c/e CBC, BMP 08/23/18 09:30 08/23/18 15:18 ASSESSMENT AND PLAN: -admit to telemetry -continue hydration with IVF -consult program support specialist -plan for discharge in am Problem List - Problems (1) Rhabdomyolysis Code(s): M62.82 - RHABDOMYOLYSIS Qualifiers: Rhabdomyolysis type: non-traumatic Qualified Code(s): M62.82 - Rhabdomyolysis (2) Acute renal failure Code(s): N17.9 - ACUTE KIDNEY FAILURE, UNSPECIFIED (3) Drug-induced mood disorder Code(s): F19.94 - OTH PSYCHOACTIVE SUBSTANCE USE, UNSP W MOOD DISORDER (4) Alcohol abuse Code(s): F10.10 - ALCOHOL ABUSE, UNCOMPLICATED (5) Cannabis dependence Code(s): F12.20 - CANNABIS DEPENDENCE, UNCOMPLICATED (6) Cocaine dependence, uncomplicated Code(s): F14.20 - COCAINE DEPENDENCE, UNCOMPLICATED (7) Hepatitis C Code(s): B19.20 - UNSPECIFIED VIRAL HEPATITIS C WITHOUT HEPATIC COMA Qualifiers: Viral hepatitis chronicity: chronic Hepatic coma status: without hepatic coma Qualified Code(s): B18.2 - Chronic viral hepatitis C
[2018-08-23 16:09] LABS: ANION GAP 10 MMOL/L (8-16); BLOOD UREA NITROGEN 23 mg/dL (7-18); CALCIUM 7.7 mg/dL (8.5-10.1); CHLORIDE 106 mmol/L (98-107); CO2 24 mmol/L (21-32); CREATININE 1.2 mg/dL (0.55-1.3); GLUCOSE,RANDOM 88 mg/dL (74-106); POTASSIUM 3.6 mmol/L (3.5-5.1); SODIUM 140 mmol/L (136-145)
[2018-08-23] MEDS: SODIUM CHLORIDE 1,000 ML IV SCH (16:48)
[2018-08-23 20:04] VITALS: BMI 27.6
[2018-08-23] MEDS ORDERED: QUEtiapine FUMARATE 100 MG TABLET (FP) PO SCH (22:00)
[2018-08-23] MEDS ORDERED: MIRTAZAPINE 15 MG TABLET (FP) PO SCH (22:00)
[2018-08-24] MEDS: SERTRALINE HCL 50 MG TABLET (FP) PO SCH (09:37)
--- NOTE | 2018-08-24 11:23 | DS ---
Physical Exam: SUBJECTIVE: Patient seen and examined at bed side this morning. States he is feeling better .No suicidal or homicidal ideation. Interested to go for inpatient detox. OBJECTIVE: Vital Signs Period Temp Pulse Resp BP Sys/Tyson Pulse Ox Last 24 Hr 98 F-98.8 F 64-94 18-20 105-150/60-88 95-96 PHYSICAL EXAM GENERAL: Middle aged male, Awake, alert, and fully oriented, in no acute distress. EYES: EOM intact, no pallor or icterus. NECK: Supple LUNGS: B/L lungs clear. no wheeze. HEART: Regular rate and rhythm, normal S1 and S2 , no murmur. ABDOMEN: Soft, nontender, BS +, no organomegaly. UPPER EXTREMITIES: No peripheral edema. LOWER EXTREMITIES: 2+ pulses, warm, well-perfused. No peripheral edema. NEUROLOGICAL: Normal speech. Gait not observed. PSYCHIATRIC: Mostly cooperative. Good eye contact. SKIN: Warm, dry LABS Laboratory Results - last 24 hr 08/23/18 08/23/18 13:26 15:18 Sodium 140 Potassium 3.6 Chloride 106 Carbon Dioxide 24 Anion Gap 10 BUN 23 H Creatinine 1.2 Creat Clearance w eGFR > 60 Random Glucose 88 Calcium 7.7 L Creatine Kinase 982 H Creatine Kinase Index 0.9 CK-MB (CK-2) 9.8 H Ur Random Sodium 24 L Ur Random Potassium 23.0 Ur Random Chloride < 11 L Urine Creatinine 160.0 H HOSPITAL COURSE: Date of Admission:08/23/18 Date of Discharge: 08/24/18 Patient is a 46 year old male with significant past medical history of bipolar disorder,depression with suicidal/homicidal ideation in the past, admitted in inpatient psych a year ago presents to the Ed with the complaints of feeling depressed/sad. Was evaluated by psychiatrist, there was no evidence of any acute Psychosis or acute Depression, patient is not suicidal or Homicidal at this time. Patient is non compliant to his psychiatric medications. Zoloft resumed this admission, recommended patient to follow up with psychiatrist. Labs were significant for acute kidney injury (creatinine 1.6, baseline 1) and rhabdomyolysis CK 1321 which improved after IV hydration. VICKI resolved, creatinine 1.2. Urine toxicology was positive for Cocaine and marijuana. order entry specialist consulted, referred patient to inpatient rehab. Patient is hemodynamically stable, is not suicidal or homicidal at this time. Referring to inpatient rehab. Plan of care explained to the patient. He verbalized understanding. Minutes to complete discharge: 45 Discharge Summary Reason For Visit: ACUTE KIDNEY INJURY,RHABDOMYOLYSIS Current Active Problems Acute renal failure (Acute) Homicidal ideation (Acute) Rhabdomyolysis (Acute) Alcohol abuse (Chronic) Cocaine dependence, uncomplicated (Chronic) Insomnia (Chronic) Nicotine dependence (Chronic) Condition: Improved - Instructions Diet, Activity, Other Instructions: You were admitted because you had suicidal ideation. You were evaluated by Psychiatry and medically cleared. Since you are interested in inpatient detox, sending you to inpatient rehabilitation. Blood work was significant for acute kidney injury and rhabdomyolysis. Acute kidney injury has now resolved after IV hydration. Please continue to drink plenty of water. MEDICATIONS: Please continue taking Zoloft. ACTIVITY: As tolerated DIET: Regular diet Follow up with your pyschiatrist and primary care physician. If you develop any suicidal or homicidal ideations, please call for help or call 911 and come to the ED immediately. Referrals: Rivera Vincent MD [Staff Physician] - Disposition: ASSISTED FACILITY - Home Medications Comprehensive Discharge Medication List: Ambulatory Orders Sertraline HCl [Zoloft -] 50 mg PO DAILY #30 tablet 09/24/17 Problem List - Problems (1) Rhabdomyolysis Code(s): M62.82 - RHABDOMYOLYSIS Qualifiers: Rhabdomyolysis type: non-traumatic Qualified Code(s): M62.82 - Rhabdomyolysis (2) Acute renal failure Code(s): N17.9 - ACUTE KIDNEY FAILURE, UNSPECIFIED (3) Alcohol dependence Code(s): F10.20 - ALCOHOL DEPENDENCE, UNCOMPLICATED Qualifiers: Substance use status: uncomplicated Qualified Code(s): F10.20 - Alcohol dependence, uncomplicated (4) Azotemia Code(s): R79.89 - OTHER SPECIFIED ABNORMAL FINDINGS OF BLOOD CHEMISTRY (5) Drug-induced mood disorder Code(s): F19.94 - OTH PSYCHOACTIVE SUBSTANCE USE, UNSP W MOOD DISORDER (6) Elevated blood pressure reading without diagnosis of hypertension Code(s): R03.0 - ELEVATED BLOOD-PRESSURE READING, W/O DIAGNOSIS OF HTN (7) Homeless Code(s): Z59.0 - HOMELESSNESS (8) Homicidal ideation Code(s): R45.850 - HOMICIDAL IDEATIONS This patient is new to me today: No Emergency Visit: Yes ED Registration Date: 08/23/18 Care time: The patient presented to the Emergency Department on the above date and was hospitalized for further evaluation of their emergent condition. Critical Care patient: No - Discharge Referral Referred to [facility] No
[2018-08-24] MEDS: SODIUM CHLORIDE 1,000 ML IV SCH ×2 (12:58→15:18)
--- NOTE | 2018-08-24 16:43 | PN ---
Teaching Attending Note Name of Resident: Farhana Crooks ATTENDING PHYSICIAN STATEMENT I saw and evaluated the patient. I reviewed the resident's note and discussed the case with the resident. I agree with the resident's findings and plan as documented. SUBJECTIVE: Mr Mcfarland denies cp, sob, n/v. OBJECTIVE: Last Vital Signs Temp Pulse Resp BP Pulse Ox 37.1 C 68 20 139/92 96 08/24/18 14:40 08/24/18 14:40 08/24/18 14:40 08/24/18 14:40 08/24/18 08:00 Gen: nad Pulm: ctab CV: rrr Abd: +bs, s/nt/nd Ext: no c/c/e Refused labs ASSESSMENT AND PLAN: -patient doing well today -medically stable for discharge -planning for transfer to [facility] for rehab Problem List - Problems (1) Rhabdomyolysis Code(s): M62.82 - RHABDOMYOLYSIS Qualifiers: Rhabdomyolysis type: non-traumatic Qualified Code(s): M62.82 - Rhabdomyolysis (2) Acute renal failure Code(s): N17.9 - ACUTE KIDNEY FAILURE, UNSPECIFIED (3) Drug-induced mood disorder Code(s): F19.94 - OTH PSYCHOACTIVE SUBSTANCE USE, UNSP W MOOD DISORDER (4) Alcohol abuse Code(s): F10.10 - ALCOHOL ABUSE, UNCOMPLICATED (5) Cannabis dependence Code(s): F12.20 - CANNABIS DEPENDENCE, UNCOMPLICATED (6) Cocaine dependence, uncomplicated Code(s): F14.20 - COCAINE DEPENDENCE, UNCOMPLICATED (7) Hepatitis C Code(s): B19.20 - UNSPECIFIED VIRAL HEPATITIS C WITHOUT HEPATIC COMA Qualifiers: Viral hepatitis chronicity: chronic Hepatic coma status: without hepatic coma Qualified Code(s): B18.2 - Chronic viral hepatitis C
[2018-08-25] MEDS: SERTRALINE HCL 50 MG TABLET (FP) PO SCH (09:31)
--- NOTE | 2018-08-25 14:19 | PN ---
Progress Note, Physician Chief Complaint: Mr Mcfarland says he "feels like relaxing". He denies cp, sob, n/v. - Current Medication List Current Medications: Active Medications Sodium Chloride (Normal Saline -) 1,000 mls @ 83 mls/hr IV ASDIR [facility] Last Admin: 08/24/18 15:18 Dose: Not Given Sertraline HCl (Zoloft -) 50 mg PO DAILY [facility] Last Admin: 08/25/18 09:31 Dose: 50 mg - Objective Vital Signs: Vital Signs Temperature 36.7 C 08/25/18 05:45 Pulse Rate 60 08/25/18 05:45 Respiratory Rate 20 08/25/18 05:45 Blood Pressure 144/90 08/25/18 05:45 O2 Sat by Pulse Oximetry (%) 96 08/25/18 03:00 Constitutional: Yes: Well Nourished, No Distress, Calm Cardiovascular: Yes: Regular Rate and Rhythm. No: Gallop, Murmur, Rub Respiratory: Yes: Regular, CTA Bilaterally. No: Rales, Rhonchi, Wheezes Gastrointestinal: Yes: Normal Bowel Sounds, Soft. No: Distention, Tenderness Extremities: Yes: WNL Edema: No Labs: CBC, BMP 08/23/18 09:30 08/23/18 15:18 Problem List - Problems (1) Rhabdomyolysis Code(s): M62.82 - RHABDOMYOLYSIS Qualifiers: Rhabdomyolysis type: non-traumatic Qualified Code(s): M62.82 - Rhabdomyolysis (2) Acute renal failure Code(s): N17.9 - ACUTE KIDNEY FAILURE, UNSPECIFIED (3) Drug-induced mood disorder Code(s): F19.94 - OTH PSYCHOACTIVE SUBSTANCE USE, UNSP W MOOD DISORDER (4) Alcohol abuse Code(s): F10.10 - ALCOHOL ABUSE, UNCOMPLICATED (5) Cannabis dependence Code(s): F12.20 - CANNABIS DEPENDENCE, UNCOMPLICATED (6) Cocaine dependence, uncomplicated Code(s): F14.20 - COCAINE DEPENDENCE, UNCOMPLICATED (7) Hepatitis C Code(s): B19.20 - UNSPECIFIED VIRAL HEPATITIS C WITHOUT HEPATIC COMA Qualifiers: Viral hepatitis chronicity: chronic Hepatic coma status: without hepatic coma Qualified Code(s): B18.2 - Chronic viral hepatitis C Assessment/Plan -awaiting placement at [facility] for drug rehabilitation -medically stable
[2018-08-25] MEDS ORDERED: diphenhydrAMINE HCL 25 MG CAPSULE (FP) PO ONE (23:22)
[2018-08-26] MEDS: SERTRALINE HCL 50 MG TABLET (FP) PO SCH (09:22)
[2018-08-26 10:28] VITALS: BP 128/74; PULSE 71; TEMP 98.6
--- NOTE | 2018-08-26 12:15 | DS ---
Physical Examination Vital Signs: Vital Signs Temperature 37.0 C 08/26/18 09:00 Pulse Rate 71 08/26/18 09:00 Respiratory Rate 20 08/26/18 09:00 Blood Pressure 128/74 08/26/18 09:00 O2 Sat by Pulse Oximetry (%) 96 08/26/18 10:25 Constitutional: Yes: Well Nourished, No Distress, Calm Cardiovascular: Yes: Regular Rate and Rhythm. No: Gallop, Murmur, Rub Respiratory: Yes: Regular, CTA Bilaterally. No: Rales, Rhonchi, Wheezes Gastrointestinal: Yes: Normal Bowel Sounds, Soft. No: Distention, Tenderness Extremities: Yes: WNL Edema: No Labs: CBC, BMP 08/23/18 09:30 08/23/18 15:18 Discharge Summary Reason For Visit: ACUTE KIDNEY INJURY,RHABDOMYOLYSIS Current Active Problems Acute renal failure (Acute) Homicidal ideation (Acute) Rhabdomyolysis (Acute) Alcohol abuse (Chronic) Cocaine dependence, uncomplicated (Chronic) Insomnia (Chronic) Nicotine dependence (Chronic) Hospital Course: Please refer to discharge summary from 08/24. Patient was medically stable for discharge then but awaiting rehabilitation bed. However no beds were available, discussed with patient and he will follow up as an outpatient. Patient is safe for discharge. Condition: Improved - Instructions Diet, Activity, Other Instructions: You were admitted because you had suicidal ideation. You were evaluated by Psychiatry and medically cleared. Since you are interested in inpatient detox, referring you to inpatient rehabilitation. Blood work was significant for acute kidney injury and rhabdomyolysis. Acute kidney injury has now resolved after IV hydration. Please continue to drink plenty of water. MEDICATIONS: Please continue taking Zoloft. ACTIVITY: As tolerated DIET: Regular diet Follow up with your pyschiatrist and primary care physician. If you develop any suicidal or homicidal ideations, please call for help or call 911 and come to the ED immediately. Referrals: Rivera Vincent MD [Staff Physician] - Disposition: HOME - Home Medications Comprehensive Discharge Medication List: Ambulatory Orders Sertraline HCl [Zoloft -] 50 mg PO DAILY #30 tablet 09/24/17
== END 2018-08-26 13:35 | disposition home or self-care (01) ==
LOC: JER 07:37 → JERBED 15:31 → J6S 18:33
PROVIDERS: ADMIT Internal Medicine; ATTEND Internal Medicine
PROC: 3E0337Z Introduction of Electrolytic and Water Balance Substance into Peripheral Vein, Percutaneous Approach (ICD-10-PCS; principal; 2018-08-23)
DX: M62.82 Rhabdomyolysis (principal); N17.9 Acute kidney failure, unspecified; R45.851 Suicidal ideations; F10.129 Alcohol abuse with intoxication, unspecified; F19.94 Other psychoactive substance use, unspecified with psychoactive substance-induced mood disorder; B18.2 Chronic viral hepatitis C; D64.9 Anemia, unspecified; F17.210 Nicotine dependence, cigarettes, uncomplicated; F14.20 Cocaine dependence, uncomplicated; Z59.0 Homelessness
CPT/HCPCS: 36415; 71045-TC-FY; 80048; 80053; 80307; 81003; 81015; 82436; 82550; 82553; 82570; 84133; 84300; 84484; 85025; 93005; 93010; 96360; 99284-25; G0378; J7030

== ENCOUNTER 2018-10-16 18:30 | Inpatient (IN) | payer OTHER ==
[2018-10-16 21:14] VITALS: BMI 27.6
[2018-10-16] MEDS ORDERED: MELATONIN 5 MG TABLETS PO PRN (22:00)
--- NOTE | 2018-10-16 23:15 | HP ---
CIWA Score Nausea/Vomitin-No Nausea/No Vomiting Muscle Tremors: 1-None Visible, but [place] Anxiety: 4-Mod. Anxious/Guarded Agitation: 4-Moderately Restless Paroxysmal Sweats: 3 Orientation: 0-Oriented Tacttile Disturbances: 0-None Auditory Disturbances: 0-None Visual Disturbances: 3-Moderate Sensitivity Headache: 3-Moderate CIWA-Ar Total Score: 18 - Admission Criteria OAS Guidelines: Admission for Medically Managed Detox: Requires at least one of the followin. CIWA greater than 12 2. Seizures within the past 24 hours 3. Delirium tremens within the past 24 hours 4. Hallucinations within the past 24 hours 5. Acute intervention needed for co occurring medical disorder 6. Acute intervention needed for co occurring psychiatric disorder 7. Severe withdrawal that cannot be handled at a lower level of care (continued vomiting, continued diarrhea, abnormal vital signs) requiring intravenous medication and/or fluids 8. Patient presents the following: CIWA greater than 12 Admission Criteria Met: Admission criteria met Admission ROS [facility] - [facility] Chief Complaint: C/O WORSENING WITHDRAWAL SX'S. SEEKING DETOX Allergies/Adverse Reactions: Allergies Allergy/AdvReac Type Severity Reaction Status Date / Time No Known Allergies Allergy Verified 10/16/18 22:07 History of Present Illness: 48 Y.O. MALE WITH ALCOHOLISM HERE FOR DETOX. CLIENT IS A SELF REFERRAL. KNOWN TO THE PROGRAM. LAST ADMISSION 05/2018. cLIENT PRESENT WITH C/O WITHDRAWAL SX' S. CIWA 18. UTOX + TIMBO. DENIES ANY SIGNIFICANT PERIOD OF CLEAN TIME. REPORTS DRINKS DAILY.LAST DRANK EARLIER TODAY. MARY OOO. DENIES SEIZURE D/O, AVH/ SI/HI, DRUG OVERDOSE. LIVES [place], UNEMPLOYED, DENIES LEGALS PMHX- FROZEN R SHOULDER, +PPD-HX/O PSYCH- DENIES Exam Limitations: No Limitations - Ebola screening Have you traveled outside of the country in the last 21 days: No (N) Have you had contact with anyone from an Ebola affected area: No Have you been sick,other than usual withdrawal symptoms: No Do you have a fever: No - Review of Systems Constitutional: Chills, Loss of Appetite, Malaise, Night Sweats EENT: reports: Other (RUNNY NOSE) Respiratory: reports: No Symptoms reported Cardiac: reports: No Symptoms Reported GI: reports: No Symptoms Reported : reports: No Symptoms Reported Musculoskeletal: reports: Back Pain (CHRONIC), Joint Pain (R SHOULDER FROZEN) Integumentary: reports: Sweating Neuro: reports: No Symptoms reported Endocrine: reports: No Symptoms Reported Hematology: reports: No Symptoms Reported Psychiatric: reports: Orientated x3, Agitated Other Systems: Reviewed and Negative Patient History - Patient Medical History Hx Anemia: Yes Hx Asthma: No Hx Chronic Obstructive Pulmonary Disease (COPD): No Hx Cancer: No Hx Cardiac Disorders: No Hx Congestive Heart Failure: No Hx Hypertension: No Hx Hypercholesterolemia: No Hx Pacemaker: No HX Cerebrovascular Accident: No Hx Seizures: No Hx Dementia: No Hx Diabetes: Yes (borderline- NO MEDS) Hx Gastrointestinal Disorders: No Hx Liver Disease: Yes (HAD Hep B ) Hx Genitourinary Disorders: No Hx Sexually Transmitted Disorders: No Hx Renal Disease (ESRD): No Hx Thyroid Disease: No Hx Human Immunodeficiency Virus (HIV): No Hx Hepatitis C: No Hx Depression: Yes Hx Suicide Attempt: Yes (slit inner elbow as a kid, no si a this time) Hx Bipolar Disorder: Yes Hx Schizophrenia: No - Patient Surgical History Past Surgical History: Yes Hx Neurologic Surgery: No Hx Cataract Extraction: No Hx Cardiac Surgery: No Hx Lung Surgery: No Hx Breast Surgery: No Hx Breast Biopsy: No Hx Abdominal Surgery: No Hx Appendectomy: No Hx Cholecystectomy: No Hx Genitourinary Surgery: No Hx Section: No Hx Orthopedic Surgery: Yes (Fx R eye socket sx in 2013) Hx Hysterectomy: No Other Surgical History: fx floor of orbit in 2009 at [facility] with numbness of right fa Anesthesia Reaction: No - PPD History Previous Implant?: Yes Documented Results: Positive w/o proof Implanted On Prior [facility] Admission?: No Results: CXR neg 08/31 PPD to be Administered?: No - Smoking Cessation Smoking history: Current every day smoker Have you smoked in the past 12 months: Yes Aproximately how many cigarettes per day: 10 Cigars Per Day: 0 Hx Chewing Tobacco Use: No Initiated information on smoking cessation: Yes 'Breaking Loose' booklet given: 10/16/18 - Substance & Tx. History Hx Alcohol Use: Yes Hx Substance Use: Yes Substance Use Type: Alcohol, Cocaine Hx Substance Use Treatment: Yes ([facility]) - Substances Abused Alcohol Route: Oral Frequency: Daily Amount used: 2 6PACKS BEER Age of first use: 13 Date of Last Use: 10/16/18 Cocaine Route: Smoking Frequency: Daily Amount used: $60 Age of first use: 16 Date of Last Use: 10/15/18 Family Disease History - Family Disease History Family Disease History: Diabetes: Father, Heart Disease: Father, Other: Mother ( dec, alcoholism ) Admission Physical Exam [facility] - Vital Signs Vital Signs: Vital Signs - 24 hr 10/16/18 21:10 Temperature 96.8 F L Pulse Rate 94 H Respiratory 18 Rate Blood Pressure 116/73 - Physical General Appearance: Yes: Disheveled, Moderate Distress, Tremorous (FELT), Irritable, Sweating HEENTM: Yes: EOMI, Normocephalic, Normal Voice, VEDA, Pharynx Normal Respiratory: Yes: Chest Non-Tender, Lungs Clear, Normal Breath Sounds, No Respiratory Distress, No Accessory Muscle Use Neck: Yes: No masses,lesions,Nodules, Supple, Trachea in good position Breast: Yes: Breast Exam Deferred Cardiology: Yes: Regular Rhythm, Regular Rate, S1, S2 Abdominal: Yes: Normal Bowel Sounds, Non Tender, Soft Genitourinary: Yes: Within Normal Limits Back: Yes: Normal Inspection, Other (REFUSED EXAM STATES HE IS SENSITIVE) Musculoskeletal: Yes: Gait Steady, Other (LROM TO R ARM) Extremities: Yes: Non-Tender, Tremors (FELT) Neurological: Yes: Fully Oriented, Alert, Depressed Affect Integumentary: Yes: Warm, Moist Lymphatic: Yes: Within Normal Limits - Diagnostic (1) History of positive PPD Current Visit: Yes Status: Chronic (2) Drug-induced mood disorder Current Visit: Yes Status: Chronic (3) Homeless Current Visit: Yes Status: Chronic (4) Alcohol dependence with uncomplicated withdrawal Current Visit: Yes Status: Acute (5) Chronic back pain Current Visit: Yes Status: Chronic Qualifiers: Back pain location: low back pain Back pain laterality: midline Sciatica laterality: sciatica laterality unspecified (6) Chronic pain in right shoulder Current Visit: Yes Status: Chronic (7) Cocaine dependence, uncomplicated Current Visit: Yes Status: Acute (8) Nicotine dependence Current Visit: Yes Status: Chronic Qualifiers: Nicotine product type: cigarettes Substance use status: uncomplicated Qualified Code(s): F17.210 - Nicotine dependence, cigarettes, uncomplicated (9) Prediabetes Current Visit: Yes Status: Chronic Cleared for Admission [facility] - Detox or Rehab [facility] Level of Care: Medically Managed Detox Regimen/Protocol: Librium Claeared for Rehab Admission: No [facility] Breath Alcohol Content Breath Alcohol Content: 0 Urine Drug Screen - Results Drug Screen Negative: No Urine Drug Screen Results: TIMBO-Cocaine Inpatient Rehab Admission - Rehab Decision to Admit Inpatient rehab admission?: No
[2018-10-16] MEDS ORDERED: MAGNESIUM CITRATE 300 ML BOTTLE PO PRN (23:33)
[2018-10-16] MEDS ORDERED: MAG HYDROX/AL HYDROX/SIMETH 30 ML UNIT-DOSE CUP PO PRN (23:33)
[2018-10-16] MEDS ORDERED: MAGNESIUM HYDROX 2400MG/30ML ORAL SUSPENSION 30 ML CUP PO PRN (23:33)
[2018-10-16] MEDS ORDERED: MENTHOL/PHENOL 1 EACH UD MM PRN (23:33)
[2018-10-16] MEDS ORDERED: P-EPHED 60MG/TRIPROLIDI 2.5MG TABLET PO PRN (23:33)
[2018-10-16] MEDS ORDERED: LOPERAMIDE HCL 2 MG CAPSULE PO PRN (23:33)
[2018-10-16] MEDS ORDERED: NICOTINE POLACRILEX 2 MG GUM BC PRN (23:33)
[2018-10-16] MEDS ORDERED: guaiFENesin/D-METHORPHAN HB 10 ML UNIT-DOSE CUPS PO PRN (23:33)
[2018-10-16] MEDS ORDERED: IBUPROFEN 400 MG TABLET (FP) PO PRN (23:33)
[2018-10-16] MEDS ORDERED: ACETAMINOPHEN 325 MG TABLET (FP) PO PRN (23:33)
[2018-10-16] MEDS ORDERED: hydrOXYzine PAMOATE 50 MG CAPSULE (FP) PO PRN (23:33)
[2018-10-17] MEDS ORDERED: chlordiazePOXIDE HCL 25 MG CAPSULE PO PRN (01:02)
[2018-10-17] MEDS ORDERED: chlordiazePOXIDE HCL 25 MG CAPSULE PO ONE (01:02)
[2018-10-17] MEDS: chlordiazePOXIDE HCL 25 MG CAPSULE PO SCH ×4 (07:20→23:38)
[2018-10-17] MEDS: PRENATAL VITAMINS W/ FOLIC ACID TABLET (FP) PO SCH (11:55)
--- NOTE | 2018-10-17 12:04 | PN ---
S CIWA - CIWA Score Nausea/Vomitin-No Nausea/No Vomiting Muscle Tremors: 3 Anxiety: 3 Agitation: 3 Paroxysmal Sweats: 3 Orientation: 0-Oriented Tacttile Disturbances: 0-None Auditory Disturbances: 0-None Visual Disturbances: 0-None Headache: 0-None Present CIWA-Ar Total Score: 12 [facility] Progress Note (SOAP) Subjective: tired sweats shakes irritable Objective: 10/17/18 12:03 Vital Signs Temperature 98.3 F 10/17/18 09:29 Pulse Rate 62 10/17/18 09:29 Respiratory Rate 20 10/17/18 09:29 Blood Pressure 106/68 10/17/18 09:29 O2 Sat by Pulse Oximetry (%) labs pending aaox3 ambulating no acute distress Assessment: 10/17/18 12:04 withdrawal sx Plan: continue detox increase fluids labs pending
[2018-10-17] MEDS: THIAMINE HCL 100 MG TABLET (FP) PO SCH (23:38)
[2018-10-18] MEDS: chlordiazePOXIDE HCL 25 MG CAPSULE PO SCH ×4 (06:19→22:42)
--- NOTE | 2018-10-18 10:16 | PN ---
S CIWA - CIWA Score Nausea/Vomitin-No Nausea/No Vomiting Muscle Tremors: 3 Anxiety: 3 Agitation: 3 Paroxysmal Sweats: 3 Orientation: 0-Oriented Tacttile Disturbances: 0-None Auditory Disturbances: 0-None Visual Disturbances: 0-None Headache: 0-None Present CIWA-Ar Total Score: 12 [facility] Progress Note (SOAP) Subjective: sweats shakes irritable body aches Objective: 10/18/18 10:15 Vital Signs Temperature 97.7 F 10/18/18 10:00 Pulse Rate 79 10/18/18 10:00 Respiratory Rate 18 10/18/18 10:00 Blood Pressure 124/94 10/18/18 10:00 O2 Sat by Pulse Oximetry (%) labs pending aaox3 ambulating no acute distress Assessment: 10/18/18 10:15 withdrawal sx Plan: continue detox increase fluids
[2018-10-18 10:36] LABS: ALBUMIN 3.4 g/dl (3.4-5.0); ALK PHOS 104 U/L (45-117); ANION GAP 8 MMOL/L (8-16); BILIRUBIN,TOTAL 0.5 mg/dL (0.2-1); BLOOD UREA NITROGEN 14 mg/dL (7-18); CALCIUM 8.6 mg/dL (8.5-10.1); CHLORIDE 108 mmol/L (98-107); CO2 25 mmol/L (21-32); GLUCOSE,RANDOM 105 mg/dL (74-106); SGOT/AST 18 U/L (15-37); SGPT/ALT 15 U/L (13-61); SODIUM 141 mmol/L (136-145); TOT PROT 6.4 g/dl (6.4-8.2)
[2018-10-18 10:41] LABS: HEMATOCRIT 42.3 % (35.4-49); HEMOGLOBIN 14.5 GM/dL (11.7-16.9); MCH 29.6 pg (25.7-33.7); MCHC 34.3 g/dl (32.0-35.9); MEAN CELL VOLUME 86.2 fl (80-96); MEAN PLT VOLUME 9.9 fl (7.5-11.1); PLATELET COUNT 114 K/MM3 (134-434); RBC 4.91 M/mm3 (4.00-5.60); RDW 15.2 % (11.9-15.9); WHITE BLOOD COUNT 2.9 K/mm3 (4.0-10.0)
[2018-10-18] MEDS: PRENATAL VITAMINS W/ FOLIC ACID TABLET (FP) PO SCH (10:48)
[2018-10-18] MEDS: THIAMINE HCL 100 MG TABLET (FP) PO SCH (22:42)
[2018-10-19] MEDS: chlordiazePOXIDE 5 MG CAPSULE PO SCH ×2 (06:29→11:34)
[2018-10-19] MEDS: PRENATAL VITAMINS W/ FOLIC ACID TABLET (FP) PO SCH (11:34)
[2018-10-19 13:28] VITALS: BP 135/99; PULSE 102; TEMP 98.8
--- NOTE | 2018-10-19 13:46 | PN ---
[facility] Progress Note (SOAP) Subjective: feeling better some sweats Objective: 10/19/18 13:45 Vital Signs Temperature 98.8 F 10/19/18 13:28 Pulse Rate 102 H 10/19/18 13:28 Respiratory Rate 18 10/19/18 13:28 Blood Pressure 135/99 10/19/18 13:28 O2 Sat by Pulse Oximetry (%) aaox3 ambulating no acute distress Assessment: 10/19/18 13:46 mild withdrawal sx Plan: continue detox d/c in am
--- NOTE | 2018-10-19 17:16 | DS ---
[facility] Detox Discharge Summary Admission Date: 10/16/18 Discharge Date: 10/19/18 - Physical Exam Results Vital Signs: Vital Signs Temperature 98.8 F 10/19/18 13:28 Pulse Rate 102 H 10/19/18 13:28 Respiratory Rate 18 10/19/18 13:28 Blood Pressure 135/99 10/19/18 13:28 O2 Sat by Pulse Oximetry (%) - Treatment Hospital Course: Detox Protocol Followed - Medication Discharge Medications: Ambulatory Orders Mirtazapine [Remeron -] 15 mg PO HS 10/16/18 Quetiapine Fumarate [Seroquel] 100 tab PO HS 10/16/18 Sertraline HCl [Zoloft -] 100 mg PO DAILY 10/16/18 - Diagnosis (1) Alcohol dependence with uncomplicated withdrawal Current Visit: Yes Status: Acute (2) Cocaine dependence, uncomplicated Current Visit: Yes Status: Acute (3) Nicotine dependence Current Visit: Yes Status: Chronic Qualifiers: Nicotine product type: cigarettes Substance use status: uncomplicated Qualified Code(s): F17.210 - Nicotine dependence, cigarettes, uncomplicated - AMA Did Patient Leave Against Medical Advice: Yes (met w/ pt , adamant about leaving ,states he has things to do . )
[2018-10-20] MEDS ORDERED: chlordiazePOXIDE HCL 10 MG CAPSULE PO SCH (05:00)
== END 2018-10-19 17:30 | disposition left against medical advice (07) | DRG 770 ==
LOC: YASAS 18:30 → Y6N 23:41
PROVIDERS: ADMIT Surgery; ATTEND Surgery
PROC: HZ2ZZZZ Detoxification Services for Substance Abuse Treatment (ICD-10-PCS; principal; 2018-10-16)
DX: F10.230 Alcohol dependence with withdrawal, uncomplicated (principal); F14.20 Cocaine dependence, uncomplicated; F17.210 Nicotine dependence, cigarettes, uncomplicated; F19.24 Other psychoactive substance dependence with psychoactive substance-induced mood disorder; R73.03 Prediabetes; R76.11 Nonspecific reaction to tuberculin skin test without active tuberculosis; M54.5 Low back pain; M25.511 Pain in right shoulder; Z91.5 Personal history of self-harm; Z59.0 Homelessness
CPT/HCPCS: 36415; 71046-TC-FY; 80053; 85027; 86593

== ENCOUNTER 2019-02-21 12:42 | Inpatient (IN) | payer OTHER ==
[2019-02-21 14:42] VITALS: BMI 26.9
--- NOTE | 2019-02-21 15:17 | HP ---
CIWA Score Nausea/Vomitin-Mild Nausea/No Vomiting Muscle Tremors: 3 Anxiety: 3 Agitation: 2 Paroxysmal Sweats: 1-Minimal Palms Moist Orientation: 0-Oriented Tacttile Disturbances: 0-None Auditory Disturbances: 0-None Visual Disturbances: 0-None Headache: 2-Mild CIWA-Ar Total Score: 12 - Admission Criteria OASAS Guidelines: Admission for Medically Managed Detox: Requires at least one of the followin. CIWA greater than 12 2. Seizures within the past 24 hours 3. Delirium tremens within the past 24 hours 4. Hallucinations within the past 24 hours 5. Acute intervention needed for co occurring medical disorder 6. Acute intervention needed for co occurring psychiatric disorder 7. Severe withdrawal that cannot be handled at a lower level of care (continued vomiting, continued diarrhea, abnormal vital signs) requiring intravenous medication and/or fluids 8. Admission ROS S - [facility] Chief Complaint: alcohol and cocaine use Allergies/Adverse Reactions: Allergies Allergy/AdvReac Type Severity Reaction Status Date / Time No Known Allergies Allergy Verified 02/21/19 14:33 History of Present Illness: 48 yo h/o torn rotator cuff after a fall, here for alcohol detox. h/o bipolar- on seroquel and zoloft. Pt states he was recently at [facility] for detox. left about 3 days ago- pt states he started with alcohol use as soon as he left. Has been drinking daily since then. Said he had the shakes yesterday and last drink was last night. MRAY 0.01. Says he lives in the skilled nursing. alcohol- 5 cans of alcohol/day, h/o withdrawal, no seizures or DT's cocaine-$100/day DUR- no controlled substances - Ebola screening Have you traveled outside of the country in the last 21 days: No Have you had contact with anyone from an Ebola affected area: No Do you have a fever: No - Review of Systems Constitutional: No Symptoms Reported EENT: reports: No Symptoms Reported Respiratory: reports: No Symptoms reported Cardiac: reports: No Symptoms Reported GI: reports: No Symptoms Reported : reports: No Symptoms Reported Musculoskeletal: reports: Other (says he left his cane in his skilled nursing) Integumentary: reports: No Symptoms Reported Neuro: reports: No Symptoms reported Endocrine: reports: No Symptoms Reported Hematology: reports: No Symptoms Reported Patient History - Patient Medical History Hx Anemia: Yes Hx Asthma: No Hx Chronic Obstructive Pulmonary Disease (COPD): No Hx Cancer: No Hx Cardiac Disorders: No Hx Congestive Heart Failure: No Hx Hypertension: No Hx Hypercholesterolemia: No Hx Pacemaker: No HX Cerebrovascular Accident: No Hx Seizures: No Hx Dementia: No Hx Diabetes: Yes (borderline- NO MEDS) Hx Gastrointestinal Disorders: No Hx Liver Disease: Yes (HAD Hep B ) Hx Genitourinary Disorders: No Hx Sexually Transmitted Disorders: No Hx Renal Disease (ESRD): No Hx Thyroid Disease: No Hx Human Immunodeficiency Virus (HIV): No Hx Hepatitis C: No Hx Depression: Yes Hx Suicide Attempt: Yes (slit inner elbow as a kid, no si a this time) Hx Bipolar Disorder: Yes Hx Schizophrenia: No - Patient Surgical History Past Surgical History: Yes Hx Neurologic Surgery: No Hx Cataract Extraction: No Hx Cardiac Surgery: No Hx Lung Surgery: No Hx Breast Surgery: No Hx Breast Biopsy: No Hx Abdominal Surgery: No Hx Appendectomy: No Hx Cholecystectomy: No Hx Genitourinary Surgery: No Hx Section: No Hx Orthopedic Surgery: Yes (Fx R eye socket sx in 2013) Hx Hysterectomy: No Other Surgical History: fx floor of orbit in 2009 at [facility] with numbness of right fa Anesthesia Reaction: No - PPD History Results: CXR neg 08/31 - Smoking Cessation Smoking history: Current every day smoker Have you smoked in the past 12 months: Yes Aproximately how many cigarettes per day: 10 Cigars Per Day: 0 Hx Chewing Tobacco Use: No Initiated information on smoking cessation: Yes 'Breaking Loose' booklet given: 02/21/19 - Substance & Tx. History Substance Use Type: Alcohol, Cocaine - Substances abused Alcohol Substance route: Oral Frequency: Daily Amount used: 4 CANS OF BEER Age of first use: 13 Date of last use: 02/21/19 Cocaine Substance route: Smoking Frequency: Daily Amount used: $100 FOR THE WEEK Age of first use: 16 Date of last use: 02/20/19 Family Disease History - Family Disease History Family Disease History: Diabetes: Father, Heart Disease: Father, Other: Mother ( dec, alcoholism ) Admission Physical Exam BHS - Vital Signs Vital Signs: Vital Signs - 24 hr 02/21/19 14:34 Temperature 97.6 F Pulse Rate 101 H Respiratory 20 Rate Blood Pressure 114/82 - Physical General Appearance: Yes: Within Normal Limits, Mild Distress HEENTM: Yes: Within Normal Limits, EOMI, Hearing grossly Normal, Normal Voice, VEDA Respiratory: Yes: Within Normal Limits, Lungs Clear Neck: Yes: Within Normal Limits Cardiology: Yes: Within Normal Limits, Regular Rhythm Back: Yes: Within Normal Limits Musculoskeletal: Yes: Within Normal Limits, full range of Motion Extremities: Yes: Other (R shoulder- limited range of motion due to rotator cuff problem) Neurological: Yes: Within Normal Limits, Fully Oriented, Alert Integumentary: Yes: Within Normal Limits Lymphatic: Yes: Within Normal Limits - Diagnostic (1) Alcohol dependence with uncomplicated withdrawal Current Visit: No Status: Acute (2) Cocaine dependence, uncomplicated Current Visit: No Status: Acute (3) History of positive PPD Current Visit: No Status: Chronic (4) Nicotine dependence Current Visit: No Status: Chronic Qualifiers: Nicotine product type: cigarettes Substance use status: uncomplicated Qualified Code(s): F17.210 - Nicotine dependence, cigarettes, uncomplicated Breathalyzer - Breathalyzer Breathalyzer: 0.010 Urine Drug Screen - Test Device Lot number: [id number] Expiration date: 12/11/20 - Control Is test valid?: Yes - Results Drug screen NEGATIVE: No Urine drug screen results: TIMBO-Cocaine, BZO-Benzodiazepines Inpatient Rehab Admission - Rehab Decision to Admit Inpatient rehab admission?: No
[2019-02-21] MEDS ORDERED: BISMUTH SUBSALICYLATE 524 MG/30 ML UD PO PRN (15:54)
[2019-02-21] MEDS ORDERED: ONDANSETRON *ODT* 4 MG TABLET SL PRN (15:54)
[2019-02-21] MEDS ORDERED: hydrOXYzine PAMOATE 25 MG CAPSULE (FP) PO PRN (15:54)
[2019-02-21] MEDS ORDERED: MAGNESIUM HYDROX 2400MG/30ML ORAL SUSPENSION 30 ML CUP PO PRN (15:54)
[2019-02-21] MEDS ORDERED: MENTHOL/PHENOL 1 EACH UD MM PRN (15:54)
[2019-02-21] MEDS ORDERED: METHOCARBAMOL 500 MG TABLET PO PRN (15:54)
[2019-02-21] MEDS ORDERED: MELATONIN 5 MG TABLETS PO PRN (15:54)
[2019-02-21] MEDS ORDERED: ACETAMINOPHEN 325 MG TABLET (FP) PO PRN ×2 (15:54)
[2019-02-21] MEDS ORDERED: MAGNESIUM CITRATE 300 ML BOTTLE PO PRN (15:54)
[2019-02-21] MEDS ORDERED: MAG HYDROX/AL HYDROX/SIMETH 30 ML UNIT-DOSE CUP PO PRN (15:54)
[2019-02-21] MEDS ORDERED: IBUPROFEN 400 MG TABLET (FP) PO PRN ×2 (15:54)
[2019-02-21] MEDS ORDERED: chlordiazePOXIDE HCL 25 MG CAPSULE PO PRN (15:56)
[2019-02-21] MEDS: chlordiazePOXIDE HCL 25 MG CAPSULE PO SCH ×2 (17:44→22:25)
[2019-02-21] MEDS: QUEtiapine FUMARATE 100 MG TABLET (FP) PO SCH (22:25)
[2019-02-21] MEDS: THIAMINE HCL 100 MG TABLET (FP) PO SCH (22:25)
[2019-02-21] MEDS: MIRTAZAPINE 15 MG TABLET (FP) PO SCH (22:25)
[2019-02-22] MEDS: chlordiazePOXIDE HCL 25 MG CAPSULE PO SCH ×4 (07:41→22:49)
[2019-02-22 10:31] LABS: MEAN PLT VOLUME 10.2 fl (7.5-11.1); PLATELET COUNT 117 K/MM3 (134-434); RBC 4.95 M/mm3 (4.00-5.60); WHITE BLOOD COUNT 4.3 K/mm3 (4.0-10.0)
[2019-02-22 10:39] LABS: ALBUMIN 3.8 g/dl (3.4-5.0); BLOOD UREA NITROGEN 20.7 mg/dL (7-18); CALCIUM 8.6 mg/dL (8.5-10.1); CREATININE 1.3 mg/dL (0.55-1.3); POTASSIUM 4.2 mmol/L (3.5-5.1); TOT PROT 6.8 g/dl (6.4-8.2)
[2019-02-22 10:47] LABS: HEMATOCRIT 43.5 % (35.4-49); HEMOGLOBIN 14.6 GM/dL (11.7-16.9); MCH 29.4 pg (25.7-33.7); MCHC 33.5 g/dl (32.0-35.9); MEAN CELL VOLUME 87.8 fl (80-96); RDW 13.9 % (11.9-15.9)
[2019-02-22] MEDS: PRENATAL VITAMINS W/ FOLIC ACID TABLET (FP) PO SCH (11:29)
[2019-02-22] MEDS: SERTRALINE HCL 50 MG TABLET (FP) PO SCH (11:29)
--- NOTE | 2019-02-22 11:34 | PN ---
S CIWA - CIWA Score Nausea/Vomitin-No Nausea/No Vomiting Muscle Tremors: 2 Anxiety: 1-Mildly Anxious Agitation: 0-Normal Activity Paroxysmal Sweats: No Perspiration Orientation: 0-Oriented Tacttile Disturbances: 1-Very Mild Itch/Numbness Auditory Disturbances: 0-None Visual Disturbances: 1-Very Mild Sensitivity Headache: 2-Mild CIWA-Ar Total Score: 7 BHS Progress Note (SOAP) Subjective: sleepy interrupted sleep tired sweats Objective: 02/22/19 11:35 Vital Signs Temperature 97.5 F L 02/22/19 09:50 Pulse Rate 87 02/22/19 09:50 Respiratory Rate 18 02/22/19 09:50 Blood Pressure 143/86 02/22/19 09:50 O2 Sat by Pulse Oximetry (%) Laboratory Tests 02/22/19 02/22/19 02/22/19 07:00 07:00 07:00 WBC 4.3 RBC 4.95 Hgb 14.6 Hct 43.5 MCV 87.8 MCH 29.4 MCHC 33.5 RDW 13.9 Plt Count 117 L MPV 10.2 Sodium 141 Potassium 4.2 Chloride 108 H Carbon Dioxide 31 Anion Gap 2 L BUN 20.7 H Creatinine 1.3 Est GFR (CKD-EPI)AfAm 74.26 Est GFR (CKD-EPI)NonAf 64.07 Random Glucose 111 H Calcium 8.6 Total Bilirubin 1.0 AST 42 H ALT 25 Alkaline Phosphatase 92 Total Protein 6.8 Albumin 3.8 TB Test (QFT) Nil Cancelled TB Test (QFT) Mitogen Cancelled TB Test (QFT) Antigen Cancelled TB Test (QFT) Cancelled TB Positive Criteria Cancelled labs noted aaox3 ambulating no acute distress Assessment: 02/22/19 11:35 withdrawal sx Plan: continue detox increase fluids
--- NOTE | 2019-02-22 14:02 | CONSULT ---
[facility] Psychiatric Consult - Data Date of interview: 02/22/19 Admission source: Self-referred Identifying data: Mr Mcfarland is a 48 years old single [place] male, father of one, unemployed receiving public assistance, homeless seeking detox treatment for alcohol and cocaine Substance Abuse History: Reports history of alcohol and cocaine use. Refer to addiction counselor's summary for further information Medical History: Significant for borderline diabetes mellitus, history of hepatitis B and surgeries(fracture right eye socket, repair of torn rotator cuff right shoulder). Smokes 10 cigarettes daily Psychiatric History: Patient is somewhat sedated but easily arousable to respond to questions for interview. Reports being diagnosed with Bipolar Disorder in the . Reports multiple psychiatric hospitalizations at various facilities including [facility] in [place], [facility], [facility] and most recently in 2017 at [facility] for depressio. Reports non adherence to OPD care and medications. Reportedly only gets medications whenever admitted to substance abuse inpatient programs. In October 2017 was the last time he was prescribed medications in this facility. Then he was seen by MELINDA Ratliff on 10/16/17 and was prescribed Zoloft 50 mg/day and Seroquel 100 mg/hs. Patient denies currently receiving outpatient psychiatric treament nor taking any psychotropic medication. 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 Reportedly, he had a distant suicidal attempt as a child by drinking disinfectant liquid. At present, he is irritable, drowsy, sleepy Physical/Sexual Abuse/Trauma History: Reportedly denies history of sexual, physical and verbal abuse. Mental Status Exam - Mental Status Exam Alert and Oriented to: Time, Place, Person Cognitive Function: Fair Patient Appearance: Well Groomed Mood: Irritable Patient Behavior: Sedated, Uncooperative, Asleep Speech Pattern: Clear Voice Loudness: Normal Thought Process: Intact, Goal Oriented Thought Disorder: Not Present Hallucinations: Denies Suicidal Ideation: Denies Homicidal Ideation: Denies Insight/Judgement: Poor Appetite: Fair Muscle strength/Tone: Normal Gait/Station: Normal Psychiatric Findings - Problem List ([place] 1, 2,3) (1) Bipolar disorder Current Visit: Yes Status: Chronic (2) Substance induced mood disorder Current Visit: Yes Status: Acute (3) Alcohol dependence with uncomplicated withdrawal Current Visit: No Status: Acute (4) Cocaine dependence, uncomplicated Current Visit: No Status: Acute (5) Nicotine dependence Current Visit: No Status: Chronic Qualifiers: Nicotine product type: cigarettes Substance use status: uncomplicated Qualified Code(s): F17.210 - Nicotine dependence, cigarettes, uncomplicated (6) Chronic pain in right shoulder Current Visit: No Status: Chronic (7) Hepatitis C Current Visit: No Status: Chronic Qualifiers: Viral hepatitis chronicity: chronic Hepatic coma status: without hepatic coma Qualified Code(s): B18.2 - Chronic viral hepatitis C (8) History of positive PPD Current Visit: No Status: Chronic (9) Neuropathy Current Visit: No Status: Chronic (10) Prediabetes Current Visit: No Status: Chronic - Initial Treatment Plan Initial Treatment Plan: Will not start patient on any psychotropic medication at this time due to drowsiness
[2019-02-22] MEDS: THIAMINE HCL 100 MG TABLET (FP) PO SCH (22:48)
[2019-02-22] MEDS: QUEtiapine FUMARATE 100 MG TABLET (FP) PO SCH (22:49)
[2019-02-22] MEDS: MIRTAZAPINE 15 MG TABLET (FP) PO SCH (22:49)
[2019-02-23] MEDS ORDERED: chlordiazePOXIDE HCL 25 MG CAPSULE PO SCH (05:00)
[2019-02-23] MEDS: SERTRALINE HCL 50 MG TABLET (FP) PO SCH (10:20)
[2019-02-23] MEDS: PRENATAL VITAMINS W/ FOLIC ACID TABLET (FP) PO SCH (10:20)
[2019-02-23] MEDS: chlordiazePOXIDE 5 MG CAPSULE PO SCH ×3 (10:20→22:18)
--- NOTE | 2019-02-23 12:02 | PN ---
S CIWA - CIWA Score Nausea/Vomitin-No Nausea/No Vomiting Muscle Tremors: 2 Anxiety: 2 Agitation: 0-Normal Activity Paroxysmal Sweats: 3 Orientation: 0-Oriented Tacttile Disturbances: 0-None Auditory Disturbances: 0-None Visual Disturbances: 0-None Headache: 1-Very Mild CIWA-Ar Total Score: 8 S Progress Note (SOAP) Subjective: c/o sweats, headache, and anxiety. Objective: 02/23/19 12:01 Vital Signs 02/23/19 02/23/19 06:00 09:20 Temperature 97.5 F L 97.9 F Pulse Rate 73 77 Respiratory 18 18 Rate Blood Pressure 113/74 108/53 L Lab Results WBC 4.3 K/mm3 (4.0-10.0) 02/22/19 07:00 RBC 4.95 M/mm3 (4.00-5.60) 02/22/19 07:00 Hgb 14.6 GM/dL (11.7-16.9) 02/22/19 07:00 Hct 43.5 % (35.4-49) 02/22/19 07:00 MCV 87.8 fl (80-96) 02/22/19 07:00 MCHC 33.5 g/dl (32.0-35.9) 02/22/19 07:00 RDW 13.9 % (11.9-15.9) 02/22/19 07:00 Plt Count 117 K/MM3 (134-434) L 02/22/19 07:00 Sodium 141 mmol/L (136-145) 02/22/19 07:00 Potassium 4.2 mmol/L (3.5-5.1) 02/22/19 07:00 Chloride 108 mmol/L (98-107) H 02/22/19 07:00 Carbon Dioxide 31 mmol/L (21-32) 02/22/19 07:00 Anion Gap 2 MMOL/L (8-16) L 02/22/19 07:00 BUN 20.7 mg/dL (7-18) H 02/22/19 07:00 Creatinine 1.3 mg/dL (0.55-1.3) 02/22/19 07:00 Random Glucose 111 mg/dL (74-106) H 02/22/19 07:00 Calcium 8.6 mg/dL (8.5-10.1) 02/22/19 07:00 Labs noted. Assessment: 02/23/19 12:01 AOX3, in no acute respiratory distress Full ROM, ambulating in the unit. Withdrawal symptoms. Plan: continue detox.
[2019-02-23] MEDS: QUEtiapine FUMARATE 100 MG TABLET (FP) PO SCH (22:18)
[2019-02-23] MEDS: MIRTAZAPINE 15 MG TABLET (FP) PO SCH (22:18)
[2019-02-23] MEDS: THIAMINE HCL 100 MG TABLET (FP) PO SCH (22:18)
[2019-02-24] MEDS ORDERED: chlordiazePOXIDE HCL 10 MG CAPSULE PO PRN
[2019-02-24] MEDS: chlordiazePOXIDE HCL 10 MG CAPSULE PO SCH ×4 (05:15→22:24)
[2019-02-24] MEDS: SERTRALINE HCL 50 MG TABLET (FP) PO SCH (10:14)
[2019-02-24] MEDS: PRENATAL VITAMINS W/ FOLIC ACID TABLET (FP) PO SCH (10:14)
[2019-02-24] MEDS ORDERED: cloNIDine HCL 0.1 MG TABLET PO PRN (15:11)
--- NOTE | 2019-02-24 15:15 | PN ---
[facility] CIWA - CIWA Score Nausea/Vomitin-No Nausea/No Vomiting Muscle Tremors: 3 Anxiety: 2 Agitation: 2 Paroxysmal Sweats: 3 Orientation: 0-Oriented Tacttile Disturbances: 0-None Auditory Disturbances: 0-None Visual Disturbances: 0-None Headache: 0-None Present CIWA-Ar Total Score: 10 S Progress Note (SOAP) Subjective: Tremor, lots of sweating Objective: 02/24/19 15:09 Last Vital Signs Temp Pulse Resp BP Pulse Ox 98.1 F 84 18 157/92 02/24/19 14:06 02/24/19 14:06 02/24/19 14:06 02/24/19 14:06 Elevated b/p 157/92 Laboratory Tests 02/22/19 02/22/19 02/22/19 07:00 07:00 07:00 WBC 4.3 RBC 4.95 Hgb 14.6 Hct 43.5 MCV 87.8 MCH 29.4 MCHC 33.5 RDW 13.9 Plt Count 117 L MPV 10.2 Sodium 141 Potassium 4.2 Chloride 108 H Carbon Dioxide 31 Anion Gap 2 L BUN 20.7 H Creatinine 1.3 Est GFR (CKD-EPI)AfAm 74.26 Est GFR (CKD-EPI)NonAf 64.07 Random Glucose 111 H Calcium 8.6 Total Bilirubin 1.0 AST 42 H ALT 25 Alkaline Phosphatase 92 Total Protein 6.8 Albumin 3.8 RPR Titer Nonreactive TB Test (QFT) Nil TB Test (QFT) Mitogen TB Test (QFT) Antigen TB Test (QFT) TB Positive Criteria 02/22/19 07:00 WBC RBC Hgb Hct MCV MCH MCHC RDW Plt Count MPV Sodium Potassium Chloride Carbon Dioxide Anion Gap BUN Creatinine Est GFR (CKD-EPI)AfAm Est GFR (CKD-EPI)NonAf Random Glucose Calcium Total Bilirubin AST ALT Alkaline Phosphatase Total Protein Albumin RPR Titer TB Test (QFT) Nil Cancelled TB Test (QFT) Mitogen Cancelled TB Test (QFT) Antigen Cancelled TB Test (QFT) Cancelled TB Positive Criteria Cancelled Labs reviewed: plt 117, elevated bun Assessment: 02/24/19 15:13 Withdrawal symptoms Noted with elevated b/p, azotemia and thrombocytopenia Plan: Continue detox Encouraged PO water intake Elevated b/p: could be withdrawal related; start clonidine prn if b/p > 140,90 Azotemia: encouraged PO water hydration Thrombocytopenia: most likely r/t chronic alcoholism, follow up with PCP for monitoring
[2019-02-24] MEDS: QUEtiapine FUMARATE 100 MG TABLET (FP) PO SCH (22:23)
[2019-02-24] MEDS: MIRTAZAPINE 15 MG TABLET (FP) PO SCH (22:24)
[2019-02-24] MEDS: THIAMINE HCL 100 MG TABLET (FP) PO SCH (22:24)
[2019-02-25] MEDS ORDERED: chlordiazePOXIDE HCL 10 MG CAPSULE PO ONE ×2 (05:00→10:00)
[2019-02-25] MEDS ORDERED: chlordiazePOXIDE HCL 10 MG CAPSULE PO SCH (05:00)
[2019-02-25 06:20] VITALS: TEMP 97.3
--- NOTE | 2019-02-25 09:42 | DS ---
[facility] Detox Discharge Summary Admission Date: 02/21/19 Discharge Date: 02/25/19 - History Present History: Alcohol Dependence, Cannabis Dependence, Cocaine Dependence - Physical Exam Results Vital Signs: Vital Signs Temperature 97.3 F L 02/25/19 06:00 Pulse Rate 63 02/25/19 06:00 Respiratory Rate 18 02/25/19 06:00 Blood Pressure 120/75 02/25/19 06:00 O2 Sat by Pulse Oximetry (%) Pertinent Admission Physical Exam Findings: pt arrived in withdrawal s/s Laboratory Tests 02/22/19 02/22/19 02/22/19 07:00 07:00 07:00 WBC 4.3 RBC 4.95 Hgb 14.6 Hct 43.5 MCV 87.8 MCH 29.4 MCHC 33.5 RDW 13.9 Plt Count 117 L MPV 10.2 Sodium 141 Potassium 4.2 Chloride 108 H Carbon Dioxide 31 Anion Gap 2 L BUN 20.7 H Creatinine 1.3 Est GFR (CKD-EPI)AfAm 74.26 Est GFR (CKD-EPI)NonAf 64.07 POC Glucometer Random Glucose 111 H Calcium 8.6 Total Bilirubin 1.0 AST 42 H ALT 25 Alkaline Phosphatase 92 Total Protein 6.8 Albumin 3.8 RPR Titer Nonreactive TB (QFT) Incubation TB Test (QFT) Nil TB Test (QFT) Mitogen TB Test (QFT) Antigen TB Test (QFT) TB Positive Criteria 02/22/19 02/22/19 02/23/19 07:00 07:30 05:11 WBC RBC Hgb Hct MCV MCH MCHC RDW Plt Count MPV Sodium Potassium Chloride Carbon Dioxide Anion Gap BUN Creatinine Est GFR (CKD-EPI)AfAm Est GFR (CKD-EPI)NonAf POC Glucometer 100 Random Glucose Calcium Total Bilirubin AST ALT Alkaline Phosphatase Total Protein Albumin RPR Titer TB (QFT) Incubation TB Test (QFT) Nil Cancelled 0.10 TB Test (QFT) Mitogen Cancelled >10.00 TB Test (QFT) Antigen Cancelled 0.09 TB Test (QFT) Cancelled Negative TB Positive Criteria Cancelled - Treatment Hospital Course: Detox Protocol Followed, Detoxed Safely, Responded well, Discharged Condition Good, Rehab Referral Accepted - Medication Discharge Medications: Ambulatory Orders Mirtazapine [Remeron -] 15 mg PO HS 10/16/18 Quetiapine Fumarate [Seroquel] 100 tab PO HS 10/16/18 Sertraline HCl [Zoloft -] 100 mg PO DAILY 10/16/18 - Diagnosis (1) Substance induced mood disorder Current Visit: Yes Status: Acute (2) Bipolar disorder Current Visit: Yes Status: Chronic (3) Alcohol dependence with uncomplicated withdrawal Current Visit: Yes Status: Chronic (4) Cocaine dependence, uncomplicated Current Visit: Yes Status: Chronic (5) Elevated blood pressure reading without diagnosis of hypertension Current Visit: Yes Status: Acute (6) Insomnia Current Visit: No Status: Acute (7) Rhabdomyolysis Current Visit: No Status: Acute Qualifiers: Rhabdomyolysis type: non-traumatic Qualified Code(s): M62.82 - Rhabdomyolysis (8) Anxiety disorder Current Visit: No Status: Chronic Qualifiers: Anxiety disorder type: generalized anxiety disorder Qualified Code(s): F41.1 - Generalized anxiety disorder (9) Bipolar disorder Current Visit: No Status: Chronic Qualifiers: Active/Remission status: remission status unspecified Qualified Code(s): F31.9 - Bipolar disorder, unspecified (10) Cannabis dependence Current Visit: Yes Status: Chronic (11) Chronic back pain Current Visit: Yes Status: Chronic Qualifiers: Back pain location: low back pain Back pain laterality: midline Sciatica laterality: sciatica laterality unspecified (12) Chronic pain in right shoulder Current Visit: Yes Status: Chronic (13) Depression Current Visit: No Status: Chronic Qualifiers: Depression Type: unspecified Qualified Code(s): F32.9 - Major depressive disorder, single episode, unspecified (14) Drug-induced mood disorder Current Visit: No Status: Chronic (15) Hepatitis C Current Visit: Yes Status: Chronic Qualifiers: Viral hepatitis chronicity: chronic Hepatic coma status: without hepatic coma Qualified Code(s): B18.2 - Chronic viral hepatitis C (16) History of positive PPD Current Visit: No Status: Chronic (17) Insomnia Current Visit: No Status: Chronic (18) Nicotine dependence Current Visit: Yes Status: Chronic Qualifiers: Nicotine product type: cigarettes Substance use status: uncomplicated Qualified Code(s): F17.210 - Nicotine dependence, cigarettes, uncomplicated (19) History of tuberculosis Current Visit: No Status: Resolved - AMA Did Patient Leave Against Medical Advice: No (pt referred to [facility])
[2019-02-25] MEDS: SERTRALINE HCL 50 MG TABLET (FP) PO SCH (10:17)
[2019-02-25] MEDS: PRENATAL VITAMINS W/ FOLIC ACID TABLET (FP) PO SCH (10:18)
[2019-02-25 13:16] VITALS: BP 112/64; PULSE 78
[2019-02-26] MEDS ORDERED: chlordiazePOXIDE HCL 10 MG CAPSULE PO ONE (05:00)
== END 2019-02-25 14:54 | disposition home or self-care (01) | DRG 774 ==
LOC: YASAS 12:42 → Y6N 16:51
PROVIDERS: ADMIT Surgery; ATTEND Surgery
PROC: HZ2ZZZZ Detoxification Services for Substance Abuse Treatment (ICD-10-PCS; principal; 2019-02-21)
DX: F10.230 Alcohol dependence with withdrawal, uncomplicated (principal); F14.20 Cocaine dependence, uncomplicated; F12.20 Cannabis dependence, uncomplicated; F17.210 Nicotine dependence, cigarettes, uncomplicated; F19.24 Other psychoactive substance dependence with psychoactive substance-induced mood disorder; F31.9 Bipolar disorder, unspecified; F41.1 Generalized anxiety disorder; F32.9 Major depressive disorder, single episode, unspecified; G47.00 Insomnia, unspecified; M62.82 Rhabdomyolysis; M54.5 Low back pain; M25.511 Pain in right shoulder; G89.29 Other chronic pain; R03.0 Elevated blood-pressure reading, without diagnosis of hypertension; Z86.11 Personal history of tuberculosis; Z59.0 Homelessness
CPT/HCPCS: 36415; 80053; 82962; 85027; 86480; 86593

== ENCOUNTER 2019-08-03 04:14 | Emergency (ER) | payer OTHER ==
[2019-08-03 04:27] VITALS: BMI 27.6
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
[2019-08-03] MEDS ORDERED: DIPHTH,PERTUSS(ACELL),TET 0.5 ML DISP.SYRIN IM ONE ×2 (05:43→07:02)
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
[2019-08-03 10:41] VITALS: BP 126/78; PULSE 81; TEMP 98.2
== END 2019-08-03 11:06 | disposition home or self-care (01) ==
LOC: JER 04:14
PROC: 3E0234Z Introduction of Serum, Toxoid and Vaccine into Muscle, Percutaneous Approach (ICD-10-PCS; principal; 2019-08-03)
DX: S01.512A Laceration without foreign body of oral cavity, initial encounter (principal); S60.512A Abrasion of left hand, initial encounter; S60.511A Abrasion of right hand, initial encounter; M25.511 Pain in right shoulder; G89.29 Other chronic pain; F31.9 Bipolar disorder, unspecified; F41.8 Other specified anxiety disorders; F17.210 Nicotine dependence, cigarettes, uncomplicated; F10.10 Alcohol abuse, uncomplicated; F14.10 Cocaine abuse, uncomplicated; Y04.0XXA Assault by unarmed brawl or fight, initial encounter; Y93.89 Activity, other specified; Y92.89 Other specified places as the place of occurrence of the external cause; Y99.8 Other external cause status; Z59.0 Homelessness
CPT/HCPCS: 70450-TC; 72125-TC; 90715; 99282-25

== ENCOUNTER 2019-08-04 21:55 | Emergency (ER) | payer OTHER ==
[2019-08-04 22:12] VITALS: BMI 25.0
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
[2019-08-05 04:22] VITALS: TEMP 97.5
[2019-08-05 06:23] VITALS: BP 115/76; PULSE 88
== END 2019-08-05 09:38 | disposition home or self-care (01) ==
LOC: JER 22:20
DX: F14.20 Cocaine dependence, uncomplicated (principal); F10.10 Alcohol abuse, uncomplicated; M25.511 Pain in right shoulder; G89.29 Other chronic pain; F31.9 Bipolar disorder, unspecified; F17.210 Nicotine dependence, cigarettes, uncomplicated; E11.9 Type 2 diabetes mellitus without complications; Z59.0 Homelessness
CPT/HCPCS: 99283-25

== ENCOUNTER 2021-08-17 20:49 | Emergency (ER) | payer SELFPAY ==
[2021-08-17 20:53] VITALS: TEMP 98.9; BMI 23.1
[2021-08-17 23:08] LABS: HEMATOCRIT 44.9 % (35.4-49); HEMOGLOBIN 15.4 GM/dL (11.7-16.9); MCH 30.3 pg (25.7-33.7); MCHC 34.3 g/dl (32.0-35.9); MEAN CELL VOLUME 88.3 fl (80-96); MEAN PLT VOLUME 9.5 fl (7.5-11.1); PLATELET COUNT 187 10^3/uL (134-434); RBC 5.09 M/mm3 (4.00-5.60); RDW 13.6 % (11.9-15.9); WHITE BLOOD COUNT 4.3 K/mm3 (4.0-10.0)
[2021-08-17 23:34] LABS: INR 1.15 (0.83-1.09); PROTHROMBIN TIME (PATIENT) 12.9 SEC (9.7-13.0)
[2021-08-17 23:36] LABS: CHLORIDE 101 mmol/L (98-107); SODIUM 135 mmol/L (136-145)
[2021-08-17 23:37] LABS: ACTIVATED PTT 28.2 SECONDS (25.2-36.5)
[2021-08-17 23:38] LABS: CALCIUM 8.4 mg/dL (8.5-10.1)
[2021-08-17 23:39] LABS: ALBUMIN 4.1 g/dl (3.4-5.0); ANION GAP 11 MMOL/L (8-16); BLOOD UREA NITROGEN 21.9 mg/dL (7-18); CO2 23 mmol/L (21-32); GLUCOSE,RANDOM 77 mg/dL (74-106)
[2021-08-17 23:42] LABS: CREATININE 1.2 mg/dL (0.55-1.3); SGOT/AST 48 U/L (15-37); SGPT/ALT 30 U/L (13-61)
[2021-08-17 23:43] LABS: TOT PROT 7.7 g/dl (6.4-8.2)
[2021-08-17 23:44] LABS: BILIRUBIN,TOTAL 1.2 mg/dL (0.2-1)
[2021-08-17 23:45] LABS: ALK PHOS 98 U/L (45-117)
[2021-08-18 06:27] VITALS: BP 128/70; PULSE 72
== END 2021-08-18 09:25 | disposition home or self-care (01) ==
LOC: JER 20:49
DX: R07.9 Chest pain, unspecified (principal)
CPT/HCPCS: 36415; 80053; 82550; 82553; 84484; 85027; 85610; 85730; 93005; 93010; 99284-25

== ENCOUNTER 2021-11-17 03:14 | Emergency (ER) | payer OTHER ==
[2021-11-17 03:29] VITALS: BP 135/77; PULSE 90; TEMP 98.8; BMI 23.7
== END 2021-11-17 06:51 | disposition home or self-care (01) ==
LOC: JER 03:14
DX: R53.83 Other fatigue (principal)
CPT/HCPCS: 93005; 93010; 99283-25

== ENCOUNTER 2021-11-17 08:18 | Inpatient (IN) | payer OTHER ==
[2021-11-17] MEDS ORDERED: MAGNESIUM CITRATE 300 ML BOTTLE PO PRN (10:22)
[2021-11-17] MEDS ORDERED: METHOCARBAMOL 500 MG TABLET PO PRN (10:22)
[2021-11-17] MEDS ORDERED: ONDANSETRON *ODT* 4 MG TABLET SL PRN (10:22)
[2021-11-17] MEDS ORDERED: BISMUTH SUBSALICYLATE 262 MG/15 ML BTL PO PRN (10:22)
[2021-11-17] MEDS ORDERED: chlordiazePOXIDE HCL 25 MG CAPSULE PO PRN (10:22)
[2021-11-17] MEDS ORDERED: DICYCLOMINE HCL 10 MG CAPSULE PO PRN (10:22)
[2021-11-17] MEDS ORDERED: ACETAMINOPHEN 325 MG TABLET (FP) PO PRN (10:22)
[2021-11-17] MEDS ORDERED: LOPERAMIDE HCL 2 MG CAPSULE PO PRN (10:22)
[2021-11-17] MEDS ORDERED: MENTHOL/PHENOL 1 EACH UD MM PRN (10:22)
[2021-11-17] MEDS ORDERED: IBUPROFEN 400 MG TABLET (FP) PO PRN (10:22)
[2021-11-17] MEDS ORDERED: MAGNESIUM HYDROX 2400MG/30ML ORAL SUSPENSION 30 ML CUP PO PRN (10:22)
[2021-11-17] MEDS ORDERED: NICOTINE 10 MG CARTRIDGE (INHALER) IH PRN (10:22)
[2021-11-17] MEDS ORDERED: MAG HYDROX/AL HYDROX/SIMETH 30 ML UNIT-DOSE CUP PO PRN (10:22)
[2021-11-17] MEDS: chlordiazePOXIDE HCL 25 MG CAPSULE PO SCH ×3 (14:17→22:29)
[2021-11-17] MEDS: PRENATAL VITAMINS W/ FOLIC ACID TABLET (FP) PO SCH (14:19)
[2021-11-17] MEDS: hydrOXYzine PAMOATE 25 MG CAPSULE (FP) PO SCH ×3 (14:20→22:29)
[2021-11-17] MEDS: NICOTINE 14 MG/24 HOURS TOPICAL PATCH TD SCH (14:32)
[2021-11-17 15:17] LABS: HEMATOCRIT 41.8 % (35.4-49); HEMOGLOBIN 14.3 GM/dL (11.7-16.9); MCH 29.9 pg (25.7-33.7); MCHC 34.1 g/dl (32.0-35.9); MEAN CELL VOLUME 87.6 fl (80-96); MEAN PLT VOLUME 10.5 fl (7.5-11.1); PLATELET COUNT 172 10^3/uL (134-434); RBC 4.77 M/mm3 (4.00-5.60); RDW 13.9 % (11.9-15.9); WHITE BLOOD COUNT 7.1 K/mm3 (4.0-10.0)
[2021-11-17 15:23] LABS: BLOOD UREA NITROGEN 23.2 mg/dL (7-18); CALCIUM 8.9 mg/dL (8.5-10.1)
[2021-11-17 15:24] LABS: ALBUMIN 4.2 g/dl (3.4-5.0)
[2021-11-17 15:27] LABS: CREATININE 1.2 mg/dL (0.55-1.3)
[2021-11-17 15:28] LABS: BILIRUBIN,TOTAL 1.4 mg/dL (0.2-1); TOT PROT 7.4 g/dl (6.4-8.2)
[2021-11-17 16:49] VITALS: BMI 22.3
[2021-11-17] MEDS: ACETAMINOPHEN 325 MG TABLET (FP) PO PRN (22:28)
[2021-11-17] MEDS: THIAMINE HCL 100 MG TABLET (FP) PO SCH (22:29)
[2021-11-17] MEDS: MELATONIN 5 MG TABLETS PO SCH (22:29)
[2021-11-18] MEDS: chlordiazePOXIDE HCL 25 MG CAPSULE PO SCH ×4 (06:11→22:38)
[2021-11-18] MEDS: hydrOXYzine PAMOATE 25 MG CAPSULE (FP) PO SCH ×5 (06:12→22:38)
[2021-11-18] MEDS: NICOTINE 14 MG/24 HOURS TOPICAL PATCH TD SCH (10:11)
[2021-11-18] MEDS: PRENATAL VITAMINS W/ FOLIC ACID TABLET (FP) PO SCH (10:12)
[2021-11-18] MEDS: ACETAMINOPHEN 325 MG TABLET (FP) PO PRN (17:37)
[2021-11-18] MEDS: THIAMINE HCL 100 MG TABLET (FP) PO SCH (22:38)
[2021-11-18] MEDS: MELATONIN 5 MG TABLETS PO SCH (22:38)
[2021-11-19] MEDS ORDERED: chlordiazePOXIDE HCL 25 MG CAPSULE PO SCH (05:00)
[2021-11-19] MEDS: hydrOXYzine PAMOATE 25 MG CAPSULE (FP) PO SCH (06:32)
[2021-11-19 18:47] VITALS: BP 116/66; PULSE 92; TEMP 97.9
[2021-11-20] MEDS ORDERED: chlordiazePOXIDE HCL 10 MG CAPSULE PO PRN
[2021-11-20 00:07] LABS: SARS-CoV-2 NAA Not Detected (Not Detected)
[2021-11-20] MEDS ORDERED: chlordiazePOXIDE HCL 10 MG CAPSULE PO SCH (05:00)
[2021-11-21] MEDS ORDERED: chlordiazePOXIDE HCL 10 MG CAPSULE PO SCH (05:00)
[2021-11-22] MEDS ORDERED: chlordiazePOXIDE HCL 10 MG CAPSULE PO ONE (05:00)
== END 2021-11-19 09:30 | disposition left against medical advice (07) | DRG 770 ==
LOC: YASAS 08:18 → Y3N 11:17
PROVIDERS: ADMIT Allergy & Immunology; ATTEND Allergy & Immunology
PROC: HZ2ZZZZ Detoxification Services for Substance Abuse Treatment (ICD-10-PCS; principal; 2021-11-17)
DX: F10.230 Alcohol dependence with withdrawal, uncomplicated (principal); F12.20 Cannabis dependence, uncomplicated; F17.210 Nicotine dependence, cigarettes, uncomplicated; F31.9 Bipolar disorder, unspecified; B18.2 Chronic viral hepatitis C; M54.50 Low back pain, unspecified; Z86.11 Personal history of tuberculosis; Z59.01 Sheltered homelessness
CPT/HCPCS: 36415; 71046-TC-FY; 80053; 85027; 86780; 87811; 93005; 93010; 99283-25; C9803-CS; U0003; U0005

== ENCOUNTER 2022-02-02 18:55 | Inpatient (IN) | payer OTHER ==
[2022-02-02 19:47] VITALS: BMI 22.8
[2022-02-02] MEDS ORDERED: IBUPROFEN 400 MG TABLET (FP) PO PRN (20:11)
[2022-02-02] MEDS ORDERED: ACETAMINOPHEN 325 MG TABLET (FP) PO PRN (20:11)
[2022-02-02] MEDS ORDERED: LOPERAMIDE HCL 2 MG CAPSULE PO PRN (20:11)
[2022-02-02] MEDS ORDERED: IBUPROFEN 600 MG TABLET (FP) PO PRN (20:11)
[2022-02-02] MEDS ORDERED: NICOTINE POLACRILEX 2 MG GUM BUC PRN (20:11)
[2022-02-02] MEDS ORDERED: MAGNESIUM CITRATE 300 ML BOTTLE PO PRN (20:11)
[2022-02-02] MEDS ORDERED: DICYCLOMINE HCL 10 MG CAPSULE PO PRN (20:11)
[2022-02-02] MEDS ORDERED: MAGNESIUM HYDROX 2400MG/30ML ORAL SUSPENSION 30 ML CUP PO PRN (20:11)
[2022-02-02] MEDS ORDERED: BENZOCAINE/MENTHOL (CHLORASEPTIC ) LOZENGE MM PRN (20:11)
[2022-02-02] MEDS ORDERED: ONDANSETRON *ODT* 4 MG TABLET SL PRN (20:11)
[2022-02-02] MEDS ORDERED: MELATONIN 5 MG TABLETS PO PRN (20:11)
[2022-02-02] MEDS ORDERED: MAG HYDROX/AL HYDROX/SIMETH 30 ML UNIT-DOSE CUP PO PRN (20:11)
[2022-02-02] MEDS ORDERED: BISMUTH SUBSALICYLATE 524 MG/30 ML PO PRN (20:11)
[2022-02-02] MEDS ORDERED: hydrOXYzine PAMOATE 25 MG CAPSULE (FP) PO PRN (20:11)
[2022-02-02] MEDS ORDERED: NICOTINE 10 MG CARTRIDGE (INHALER) IH PRN (20:11)
[2022-02-02] MEDS ORDERED: diazePAM 5 MG TABLET PO PRN (20:14)
[2022-02-02] MEDS: METHOCARBAMOL 500 MG TABLET PO PRN (23:20)
[2022-02-02] MEDS: ACETAMINOPHEN 325 MG TABLET (FP) PO PRN (23:20)
[2022-02-02] MEDS: THIAMINE HCL 100 MG TABLET (FP) PO SCH (23:20)
[2022-02-02] MEDS: diazePAM 5 MG TABLET PO SCH (23:20)
[2022-02-03] MEDS: diazePAM 5 MG TABLET PO SCH ×4 (05:52→23:08)
[2022-02-03] MEDS: METHOCARBAMOL 500 MG TABLET PO PRN ×2 (05:53→23:05)
[2022-02-03] MEDS: PRENATAL VITAMINS W/ FOLIC ACID TABLET (FP) PO SCH (10:46)
[2022-02-03] MEDS: ACETAMINOPHEN 325 MG TABLET (FP) PO PRN (12:10)
[2022-02-03 12:44] LABS: CALCIUM 8.8 mg/dL (8.5-10.1)
[2022-02-03 12:46] LABS: ALBUMIN 4.2 g/dl (3.4-5.0); BLOOD UREA NITROGEN 27.3 mg/dL (7-18)
[2022-02-03 12:49] LABS: TOT PROT 7.2 g/dl (6.4-8.2)
[2022-02-03 12:50] LABS: BILIRUBIN,TOTAL 1.7 mg/dL (0.2-1)
[2022-02-03 12:58] LABS: HEMATOCRIT 41.4 % (35.4-49); HEMOGLOBIN 14.4 GM/dL (11.7-16.9); MCH 30.7 pg (25.7-33.7); MCHC 34.7 g/dl (32.0-35.9); MEAN CELL VOLUME 88.6 fl (80-96); MEAN PLT VOLUME 9.5 fl (7.5-11.1); PLATELET COUNT 156 10^3/uL (134-434); RBC 4.67 M/mm3 (4.00-5.60); RDW 14.2 % (11.9-15.9); WHITE BLOOD COUNT 5.5 K/mm3 (4.0-10.0)
[2022-02-03] MEDS: THIAMINE HCL 100 MG TABLET (FP) PO SCH (23:05)
[2022-02-03] MEDS: QUEtiapine FUMARATE 100 MG TABLET (FP) PO SCH (23:05)
[2022-02-04] MEDS: METHOCARBAMOL 500 MG TABLET PO PRN (06:36)
[2022-02-04] MEDS: diazePAM 5 MG TABLET PO SCH ×3 (06:36→22:46)
[2022-02-04] MEDS: PRENATAL VITAMINS W/ FOLIC ACID TABLET (FP) PO SCH (10:49)
[2022-02-04] MEDS: SERTRALINE HCL 50 MG TABLET (FP) PO SCH (10:49)
[2022-02-04] MEDS: METHYL SALICYLATE/MENTHOL OINT 30 GM TUBE TP SCH ×2 (12:23→22:44)
[2022-02-04] MEDS: THIAMINE HCL 100 MG TABLET (FP) PO SCH (22:46)
[2022-02-04] MEDS: QUEtiapine FUMARATE 100 MG TABLET (FP) PO SCH (22:46)
[2022-02-05] MEDS: diazePAM 5 MG TABLET PO SCH ×2 (05:54→18:45)
[2022-02-05] MEDS: METHYL SALICYLATE/MENTHOL OINT 30 GM TUBE TP SCH ×2 (12:01→22:42)
[2022-02-05] MEDS: SERTRALINE HCL 50 MG TABLET (FP) PO SCH (12:01)
[2022-02-05] MEDS: PRENATAL VITAMINS W/ FOLIC ACID TABLET (FP) PO SCH (12:01)
[2022-02-05] MEDS: QUEtiapine FUMARATE 100 MG TABLET (FP) PO SCH (22:42)
[2022-02-05] MEDS: THIAMINE HCL 100 MG TABLET (FP) PO SCH (22:42)
[2022-02-06] MEDS ORDERED: diazePAM 5 MG TABLET PO ONE (06:00)
[2022-02-06 09:24] VITALS: BP 145/92; PULSE 80; TEMP 98
== END 2022-02-06 10:50 | disposition home or self-care (01) | DRG 774 ==
LOC: YASAS 18:55 → Y3N 20:58
PROVIDERS: ADMIT Allergy & Immunology; ATTEND Surgery
PROC: HZ2ZZZZ Detoxification Services for Substance Abuse Treatment (ICD-10-PCS; principal; 2022-02-02)
DX: F10.230 Alcohol dependence with withdrawal, uncomplicated (principal); F14.20 Cocaine dependence, uncomplicated; F17.210 Nicotine dependence, cigarettes, uncomplicated; F41.1 Generalized anxiety disorder; F32.A Depression, unspecified; F19.24 Other psychoactive substance dependence with psychoactive substance-induced mood disorder; Z86.19 Personal history of other infectious and parasitic diseases; Z56.0 Unemployment, unspecified; Z59.01 Sheltered homelessness
CPT/HCPCS: 36415; 80053; 85027; 86780; 87811; 93005; 93010; 99283-25; C9803-CS; U0003; U0005

== ENCOUNTER 2022-04-20 20:49 | Inpatient (IN) | payer OTHER ==
[2022-04-21] MEDS ORDERED: ONDANSETRON *ODT* 4 MG TABLET SL PRN (00:30)
[2022-04-21] MEDS ORDERED: METHOCARBAMOL 500 MG TABLET PO PRN (00:30)
[2022-04-21] MEDS ORDERED: MAGNESIUM CITRATE 300 ML BOTTLE PO PRN (00:30)
[2022-04-21] MEDS ORDERED: LOPERAMIDE HCL 2 MG CAPSULE PO PRN (00:30)
[2022-04-21] MEDS ORDERED: ACETAMINOPHEN 325 MG TABLET (FP) PO PRN ×2 (00:30)
[2022-04-21] MEDS ORDERED: BISMUTH SUBSALICYLATE 524 MG/30 ML PO PRN (00:30)
[2022-04-21] MEDS ORDERED: DICYCLOMINE HCL 10 MG CAPSULE PO PRN (00:30)
[2022-04-21] MEDS ORDERED: guaiFENesin 200 MG/10 ML 10 ML UNIT-DOSE CUPS PO PRN (00:30)
[2022-04-21] MEDS ORDERED: BENZOCAINE/MENTHOL (CHLORASEPTIC ) LOZENGE MM PRN (00:30)
[2022-04-21] MEDS ORDERED: P-EPHED 60MG/TRIPROLIDI 2.5MG TABLET PO PRN (00:30)
[2022-04-21] MEDS ORDERED: MAG HYDROX/AL HYDROX/SIMETH 30 ML UNIT-DOSE CUP PO PRN (00:30)
[2022-04-21] MEDS ORDERED: IBUPROFEN 400 MG TABLET (FP) PO PRN (00:30)
[2022-04-21] MEDS ORDERED: MELATONIN 5 MG TABLETS PO PRN (00:30)
[2022-04-21] MEDS ORDERED: MAGNESIUM HYDROX 2400MG/30ML ORAL SUSPENSION 30 ML CUP PO PRN (00:30)
[2022-04-21] MEDS ORDERED: NICOTINE POLACRILEX 2 MG GUM BUC PRN (00:30)
[2022-04-21] MEDS ORDERED: IBUPROFEN 600 MG TABLET (FP) PO PRN (00:30)
[2022-04-21] MEDS ORDERED: hydrOXYzine PAMOATE 25 MG CAPSULE (FP) PO PRN (00:30)
[2022-04-21 00:57] VITALS: BMI 24.3
[2022-04-21] MEDS: PRENATAL VITAMINS W/ FOLIC ACID TABLET (FP) PO SCH (11:06)
[2022-04-21 12:50] LABS: HEMATOCRIT 42.9 % (35.4-49); HEMOGLOBIN 14.6 GM/dL (11.7-16.9); MCH 30.2 pg (25.7-33.7); MCHC 34.2 g/dl (32.0-35.9); MEAN CELL VOLUME 88.4 fl (80-96); MEAN PLT VOLUME 9.9 fl (7.5-11.1); PLATELET COUNT 151 10^3/uL (134-434); RBC 4.85 M/mm3 (4.00-5.60); RDW 14.2 % (11.9-15.9); WHITE BLOOD COUNT 4.3 K/mm3 (4.0-10.0)
[2022-04-21 12:51] LABS: ALBUMIN 3.7 g/dl (3.4-5.0); BLOOD UREA NITROGEN 18.2 mg/dL (7-18); CALCIUM 8.7 mg/dL (8.5-10.1)
[2022-04-21 12:53] LABS: CREATININE 0.9 mg/dL (0.55-1.3)
[2022-04-21 12:54] LABS: BILIRUBIN,TOTAL 1.2 mg/dL (0.2-1)
[2022-04-21 12:55] LABS: TOT PROT 6.6 g/dl (6.4-8.2)
[2022-04-21] MEDS: THIAMINE HCL 100 MG TABLET (FP) PO SCH (22:51)
[2022-04-22 10:09] VITALS: RESP 17; TEMP 97.3
[2022-04-22] MEDS: PRENATAL VITAMINS W/ FOLIC ACID TABLET (FP) PO SCH (10:38)
[2022-04-22 22:24] VITALS: BP 139/78; PULSE 70
[2022-04-22] MEDS: THIAMINE HCL 100 MG TABLET (FP) PO SCH (23:26)
[2022-04-23] MEDS: PRENATAL VITAMINS W/ FOLIC ACID TABLET (FP) PO SCH (10:48)
== END 2022-04-23 09:20 | disposition other institution (70) | DRG 774 ==
LOC: YASAS 20:49 → Y6N 04-21 01:39 → UNDOADMIN 04-21 01:39 → Y6N 04-21 11:06 → UNDODISIN 04-23 09:20
PROVIDERS: ADMIT Allergy & Immunology; ATTEND Surgery
PROC: HZ2ZZZZ Detoxification Services for Substance Abuse Treatment (ICD-10-PCS; principal; 2022-04-21)
DX: F10.230 Alcohol dependence with withdrawal, uncomplicated (principal); F14.20 Cocaine dependence, uncomplicated; F12.20 Cannabis dependence, uncomplicated; F17.210 Nicotine dependence, cigarettes, uncomplicated; F31.9 Bipolar disorder, unspecified; E11.9 Type 2 diabetes mellitus without complications; R73.03 Prediabetes; Z86.19 Personal history of other infectious and parasitic diseases
CPT/HCPCS: 36415; 80053; 85027; 86780; C9803-CS; U0003; U0005

== ENCOUNTER 2022-09-13 21:37 | Inpatient (IN) | payer OTHER ==
[2022-09-13 22:37] VITALS: BMI 24.3
[2022-09-13] MEDS ORDERED: ONDANSETRON *ODT* 4 MG TABLET SL PRN (22:50)
[2022-09-13] MEDS ORDERED: LOPERAMIDE HCL 2 MG CAPSULE PO PRN (22:50)
[2022-09-13] MEDS ORDERED: P-EPHED 60MG/TRIPROLIDI 2.5MG TABLET PO PRN (22:50)
[2022-09-13] MEDS ORDERED: guaiFENesin 200 MG/10 ML 10 ML UNIT-DOSE CUPS PO PRN (22:50)
[2022-09-13] MEDS ORDERED: BISMUTH SUBSALICYLATE 524 MG/30 ML PO PRN (22:50)
[2022-09-13] MEDS ORDERED: MAG HYDROX/AL HYDROX/SIMETH 30 ML UNIT-DOSE CUP PO PRN (22:50)
[2022-09-13] MEDS ORDERED: IBUPROFEN 600 MG TABLET (FP) PO PRN (22:50)
[2022-09-13] MEDS ORDERED: MAGNESIUM HYDROX 2400MG/30ML ORAL SUSPENSION 30 ML CUP PO PRN (22:50)
[2022-09-13] MEDS ORDERED: IBUPROFEN 400 MG TABLET (FP) PO PRN (22:50)
[2022-09-13] MEDS ORDERED: ACETAMINOPHEN 325 MG TABLET (FP) PO PRN (22:50)
[2022-09-13] MEDS ORDERED: DICYCLOMINE HCL 10 MG CAPSULE PO PRN (22:50)
[2022-09-13] MEDS ORDERED: POLYETHYLENE GLYCOL (HEALTHYLAX) 3350 17 GM PACKET PO PRN (22:50)
[2022-09-13] MEDS ORDERED: BENZOCAINE/MENTHOL (CHLORASEPTIC ) LOZENGE MM PRN (22:50)
[2022-09-13] MEDS ORDERED: diazePAM 5 MG TABLET PO PRN (22:56)
[2022-09-14] MEDS: diazePAM 5 MG TABLET PO SCH ×5 (00:24→22:15)
[2022-09-14] MEDS: PRENATAL VITAMINS W/ FOLIC ACID TABLET (FP) PO SCH (10:29)
[2022-09-14] MEDS: ACETAMINOPHEN 325 MG TABLET (FP) PO PRN (10:29)
[2022-09-14 11:59] LABS: HEMATOCRIT 40.9 % (35.4-49); HEMOGLOBIN 13.6 GM/dL (11.7-16.9); MCH 29.6 pg (25.7-33.7); MCHC 33.3 g/dl (32.0-35.9); MEAN CELL VOLUME 88.9 fl (80-96); MEAN PLT VOLUME 9.6 fl (7.5-11.1); PLATELET COUNT 167 10^3/uL (134-434); WHITE BLOOD COUNT 4.6 K/mm3 (4.0-10.0)
[2022-09-14] MEDS: METHOCARBAMOL 500 MG TABLET PO PRN (13:05)
[2022-09-14 13:52] LABS: CALCIUM 8.5 mg/dL (8.5-10.1)
[2022-09-14 13:53] LABS: ALBUMIN 3.6 g/dl (3.4-5.0); BLOOD UREA NITROGEN 16.8 mg/dL (7-18)
[2022-09-14 13:56] LABS: CREATININE 0.9 mg/dL (0.55-1.3)
[2022-09-14 13:57] LABS: BILIRUBIN,TOTAL 0.9 mg/dL (0.2-1); TOT PROT 6.5 g/dl (6.4-8.2)
[2022-09-14] MEDS: MELATONIN 5 MG TABLETS PO PRN (22:15)
[2022-09-14] MEDS: hydrOXYzine PAMOATE 25 MG CAPSULE (FP) PO PRN (22:15)
[2022-09-14] MEDS: THIAMINE HCL 100 MG TABLET (FP) PO SCH (22:15)
[2022-09-14] MEDS: QUEtiapine FUMARATE 100 MG TABLET (FP) PO SCH (22:15)
[2022-09-15] MEDS: diazePAM 5 MG TABLET PO SCH ×3 (05:56→22:29)
[2022-09-15] MEDS: PRENATAL VITAMINS W/ FOLIC ACID TABLET (FP) PO SCH (10:36)
[2022-09-15] MEDS: hydrOXYzine PAMOATE 25 MG CAPSULE (FP) PO PRN (19:23)
[2022-09-15] MEDS: MELATONIN 5 MG TABLETS PO PRN (22:28)
[2022-09-15] MEDS: THIAMINE HCL 100 MG TABLET (FP) PO SCH (22:28)
[2022-09-15] MEDS: QUEtiapine FUMARATE 100 MG TABLET (FP) PO SCH (22:28)
[2022-09-15] MEDS: METHOCARBAMOL 500 MG TABLET PO PRN (22:29)
[2022-09-16] MEDS: diazePAM 5 MG TABLET PO SCH ×2 (06:24→17:32)
[2022-09-16] MEDS: PRENATAL VITAMINS W/ FOLIC ACID TABLET (FP) PO SCH (10:26)
[2022-09-16] MEDS: METHOCARBAMOL 500 MG TABLET PO PRN (10:26)
[2022-09-16] MEDS: hydrOXYzine PAMOATE 25 MG CAPSULE (FP) PO PRN ×2 (10:27→22:59)
[2022-09-16] MEDS: THIAMINE HCL 100 MG TABLET (FP) PO SCH (22:58)
[2022-09-16] MEDS: QUEtiapine FUMARATE 100 MG TABLET (FP) PO SCH (22:58)
[2022-09-17] MEDS ORDERED: diazePAM 5 MG TABLET PO ONE (06:00)
[2022-09-17 08:59] VITALS: RESP 18
[2022-09-17] MEDS: PRENATAL VITAMINS W/ FOLIC ACID TABLET (FP) PO SCH (10:31)
[2022-09-17] MEDS: ACETAMINOPHEN 325 MG TABLET (FP) PO PRN (10:33)
[2022-09-17 16:54] VITALS: BP 122/67; PULSE 79; TEMP 97.8
== END 2022-09-17 17:35 | disposition other institution (70) | DRG 774 ==
LOC: YASAS 21:37 → Y6N 23:26
PROVIDERS: ADMIT Allergy & Immunology; ATTEND Family Medicine
PROC: HZ2ZZZZ Detoxification Services for Substance Abuse Treatment (ICD-10-PCS; principal; 2022-09-13)
DX: F10.230 Alcohol dependence with withdrawal, uncomplicated (principal); F14.20 Cocaine dependence, uncomplicated; F12.20 Cannabis dependence, uncomplicated; F17.210 Nicotine dependence, cigarettes, uncomplicated; F20.9 Schizophrenia, unspecified; F19.282 Other psychoactive substance dependence with psychoactive substance-induced sleep disorder; F19.24 Other psychoactive substance dependence with psychoactive substance-induced mood disorder; M54.50 Low back pain, unspecified; G89.29 Other chronic pain; R73.03 Prediabetes; Z62.810 Personal history of physical and sexual abuse in childhood; Z86.19 Personal history of other infectious and parasitic diseases; Z56.0 Unemployment, unspecified; Z59.01 Sheltered homelessness
CPT/HCPCS: 36415; 80053; 82962; 85027; 86780; C9803-CS; U0003; U0005

== ENCOUNTER 2022-09-17 17:59 | Inpatient (IN) | payer OTHER ==
[2022-09-17] MEDS ORDERED: NICOTINE 10 MG CARTRIDGE (INHALER) IH PRN (18:39)
[2022-09-17] MEDS ORDERED: P-EPHED 60MG/TRIPROLIDI 2.5MG TABLET PO PRN (18:39)
[2022-09-17] MEDS ORDERED: POLYETHYLENE GLYCOL (HEALTHYLAX) 3350 17 GM PACKET PO PRN (18:39)
[2022-09-17] MEDS ORDERED: MAGNESIUM HYDROX 2400MG/30ML ORAL SUSPENSION 30 ML CUP PO PRN (18:39)
[2022-09-17] MEDS ORDERED: guaiFENesin 200 MG/10 ML 10 ML UNIT-DOSE CUPS PO PRN (18:39)
[2022-09-17] MEDS ORDERED: MAG HYDROX/AL HYDROX/SIMETH 30 ML UNIT-DOSE CUP PO PRN (18:39)
[2022-09-17] MEDS ORDERED: hydrOXYzine PAMOATE 25 MG CAPSULE (FP) PO PRN (18:39)
[2022-09-17] MEDS ORDERED: BENZOCAINE/MENTHOL (CHLORASEPTIC ) LOZENGE MM PRN (18:39)
[2022-09-17] MEDS ORDERED: LOPERAMIDE HCL 2 MG CAPSULE PO PRN (18:39)
[2022-09-17] MEDS ORDERED: IBUPROFEN 400 MG TABLET (FP) PO PRN (18:39)
[2022-09-17] MEDS: MELATONIN 5 MG TABLETS PO SCH (21:47)
[2022-09-17] MEDS: THIAMINE HCL 100 MG TABLET (FP) PO SCH (21:47)
[2022-09-17] MEDS: ACETAMINOPHEN 325 MG TABLET (FP) PO PRN (21:51)
[2022-09-17] MEDS ORDERED: QUEtiapine FUMARATE 100 MG TABLET (FP) PO SCH (22:00)
[2022-09-17] MEDS: QUEtiapine FUMARATE 100 MG TABLET (FP) PO SCH (22:25)
[2022-09-18] MEDS: NICOTINE 7 MG/24 HOURS TOPICAL PATCH TD SCH (10:32)
[2022-09-18] MEDS: SERTRALINE HCL 50 MG TABLET (FP) PO SCH (10:32)
[2022-09-18] MEDS: PRENATAL VITAMINS W/ FOLIC ACID TABLET (FP) PO SCH (10:32)
[2022-09-18] MEDS: QUEtiapine FUMARATE 100 MG TABLET (FP) PO SCH (21:17)
[2022-09-18] MEDS: MELATONIN 5 MG TABLETS PO SCH (21:17)
[2022-09-18] MEDS: THIAMINE HCL 100 MG TABLET (FP) PO SCH (21:17)
[2022-09-19 08:08] VITALS: RESP 18
[2022-09-19] MEDS: PRENATAL VITAMINS W/ FOLIC ACID TABLET (FP) PO SCH (09:48)
[2022-09-19] MEDS: SERTRALINE HCL 50 MG TABLET (FP) PO SCH (09:48)
[2022-09-19] MEDS: NICOTINE 7 MG/24 HOURS TOPICAL PATCH TD SCH (09:49)
[2022-09-19] MEDS: ACETAMINOPHEN 325 MG TABLET (FP) PO PRN (14:19)
[2022-09-19 16:13] LABS: HIV INTERPRETATION NEGATIVE (NEGATIVE)
[2022-09-19] MEDS: QUEtiapine FUMARATE 100 MG TABLET (FP) PO SCH (22:38)
[2022-09-19] MEDS: MELATONIN 5 MG TABLETS PO SCH (22:38)
[2022-09-19] MEDS: THIAMINE HCL 100 MG TABLET (FP) PO SCH (22:38)
[2022-09-20] MEDS: NICOTINE 7 MG/24 HOURS TOPICAL PATCH TD SCH (10:24)
[2022-09-20] MEDS: SERTRALINE HCL 50 MG TABLET (FP) PO SCH (10:24)
[2022-09-20] MEDS: PRENATAL VITAMINS W/ FOLIC ACID TABLET (FP) PO SCH (10:24)
[2022-09-20] MEDS: MELATONIN 5 MG TABLETS PO SCH (21:26)
[2022-09-20] MEDS: QUEtiapine FUMARATE 100 MG TABLET (FP) PO SCH (21:26)
[2022-09-20] MEDS: THIAMINE HCL 100 MG TABLET (FP) PO SCH (21:26)
[2022-09-21] MEDS: PRENATAL VITAMINS W/ FOLIC ACID TABLET (FP) PO SCH (10:50)
[2022-09-21] MEDS: NICOTINE 7 MG/24 HOURS TOPICAL PATCH TD SCH (10:50)
[2022-09-21] MEDS: SERTRALINE HCL 50 MG TABLET (FP) PO SCH (10:50)
[2022-09-21] MEDS: ACETAMINOPHEN 325 MG TABLET (FP) PO PRN (11:05)
[2022-09-21] MEDS: QUEtiapine FUMARATE 100 MG TABLET (FP) PO SCH (21:30)
[2022-09-21] MEDS: MELATONIN 5 MG TABLETS PO SCH (21:30)
[2022-09-21] MEDS: THIAMINE HCL 100 MG TABLET (FP) PO SCH (21:30)
[2022-09-22 08:03] VITALS: BP 115/79; PULSE 79; TEMP 98
[2022-09-22] MEDS: SERTRALINE HCL 50 MG TABLET (FP) PO SCH (11:24)
[2022-09-22] MEDS: PRENATAL VITAMINS W/ FOLIC ACID TABLET (FP) PO SCH (11:24)
[2022-09-22] MEDS: NICOTINE 7 MG/24 HOURS TOPICAL PATCH TD SCH (11:24)
[2022-09-22] MEDS: THIAMINE HCL 100 MG TABLET (FP) PO SCH (21:30)
[2022-09-22] MEDS: QUEtiapine FUMARATE 100 MG TABLET (FP) PO SCH (21:30)
[2022-09-22] MEDS: MELATONIN 5 MG TABLETS PO SCH (21:30)
[2022-09-23] MEDS: NICOTINE 7 MG/24 HOURS TOPICAL PATCH TD SCH (11:13)
[2022-09-23] MEDS: PRENATAL VITAMINS W/ FOLIC ACID TABLET (FP) PO SCH (11:13)
[2022-09-23] MEDS: SERTRALINE HCL 50 MG TABLET (FP) PO SCH (11:13)
[2022-09-23] MEDS: MELATONIN 5 MG TABLETS PO SCH (21:21)
[2022-09-23] MEDS: THIAMINE HCL 100 MG TABLET (FP) PO SCH (21:21)
[2022-09-23] MEDS: QUEtiapine FUMARATE 100 MG TABLET (FP) PO SCH (21:21)
[2022-09-24] MEDS: NICOTINE 7 MG/24 HOURS TOPICAL PATCH TD SCH (10:49)
[2022-09-24] MEDS: PRENATAL VITAMINS W/ FOLIC ACID TABLET (FP) PO SCH (10:49)
[2022-09-24] MEDS: SERTRALINE HCL 50 MG TABLET (FP) PO SCH (10:49)
[2022-09-24] MEDS: THIAMINE HCL 100 MG TABLET (FP) PO SCH (21:33)
[2022-09-24] MEDS: MELATONIN 5 MG TABLETS PO SCH (21:33)
[2022-09-24] MEDS: QUEtiapine FUMARATE 100 MG TABLET (FP) PO SCH (21:33)
[2022-09-25] MEDS: SERTRALINE HCL 50 MG TABLET (FP) PO SCH (10:23)
[2022-09-25] MEDS: NICOTINE 7 MG/24 HOURS TOPICAL PATCH TD SCH (10:23)
[2022-09-25] MEDS: PRENATAL VITAMINS W/ FOLIC ACID TABLET (FP) PO SCH (10:23)
[2022-09-25] MEDS: THIAMINE HCL 100 MG TABLET (FP) PO SCH (21:01)
[2022-09-25] MEDS: QUEtiapine FUMARATE 100 MG TABLET (FP) PO SCH (21:01)
[2022-09-25] MEDS: MELATONIN 5 MG TABLETS PO SCH (21:01)
[2022-09-26] MEDS: PRENATAL VITAMINS W/ FOLIC ACID TABLET (FP) PO SCH (11:00)
[2022-09-26] MEDS: SERTRALINE HCL 50 MG TABLET (FP) PO SCH (11:00)
[2022-09-26] MEDS: NICOTINE 7 MG/24 HOURS TOPICAL PATCH TD SCH (11:07)
== END 2022-09-26 11:52 | disposition left against medical advice (07) | DRG 770 ==
LOC: YASAS 17:59 → Y3W 18:00
PROVIDERS: ADMIT Allergy & Immunology; ATTEND Psychiatry & Neurology Pain Medicine
PROC: HZ42ZZZ Group Counseling for Substance Abuse Treatment, Cognitive-Behavioral (ICD-10-PCS; principal; 2022-09-17)
DX: F10.20 Alcohol dependence, uncomplicated (principal); F14.20 Cocaine dependence, uncomplicated; F12.20 Cannabis dependence, uncomplicated; F10.220 Alcohol dependence with intoxication, uncomplicated; F17.210 Nicotine dependence, cigarettes, uncomplicated; F31.9 Bipolar disorder, unspecified; G47.00 Insomnia, unspecified; M25.511 Pain in right shoulder; M54.50 Low back pain, unspecified; G89.29 Other chronic pain; B18.2 Chronic viral hepatitis C; R73.03 Prediabetes; R26.89 Other abnormalities of gait and mobility; Z86.19 Personal history of other infectious and parasitic diseases; Z86.11 Personal history of tuberculosis; Z59.02 Unsheltered homelessness
CPT/HCPCS: 36415; 87389

== ENCOUNTER 2022-10-14 22:41 | Inpatient (IN) | payer OTHER ==
[2022-10-14 23:52] VITALS: BMI 23.3
[2022-10-15] MEDS ORDERED: LOPERAMIDE HCL 2 MG CAPSULE PO PRN (00:11)
[2022-10-15] MEDS ORDERED: BENZOCAINE/MENTHOL (CHLORASEPTIC ) LOZENGE MM PRN (00:11)
[2022-10-15] MEDS ORDERED: POLYETHYLENE GLYCOL (HEALTHYLAX) 3350 17 GM PACKET PO PRN (00:11)
[2022-10-15] MEDS ORDERED: NICOTINE POLACRILEX 2 MG GUM BUC PRN (00:11)
[2022-10-15] MEDS ORDERED: ACETAMINOPHEN 325 MG TABLET (FP) PO PRN ×2 (00:11)
[2022-10-15] MEDS ORDERED: MAGNESIUM HYDROX 2400MG/30ML ORAL SUSPENSION 30 ML CUP PO PRN (00:11)
[2022-10-15] MEDS ORDERED: ONDANSETRON *ODT* 4 MG TABLET SL PRN (00:11)
[2022-10-15] MEDS ORDERED: NALOXONE HCL (KLOXXADO) 8 MG SPRAY NS PRN (00:11)
[2022-10-15] MEDS ORDERED: hydrOXYzine PAMOATE 25 MG CAPSULE (FP) PO PRN (00:11)
[2022-10-15] MEDS ORDERED: DICYCLOMINE HCL 10 MG CAPSULE PO PRN (00:11)
[2022-10-15] MEDS ORDERED: IBUPROFEN 600 MG TABLET (FP) PO PRN (00:11)
[2022-10-15] MEDS ORDERED: MAG HYDROX/AL HYDROX/SIMETH 30 ML UNIT-DOSE CUP PO PRN (00:11)
[2022-10-15] MEDS ORDERED: METHOCARBAMOL 500 MG TABLET PO PRN (00:11)
[2022-10-15] MEDS ORDERED: BISMUTH SUBSALICYLATE 524 MG/30 ML PO PRN (00:11)
[2022-10-15] MEDS ORDERED: IBUPROFEN 400 MG TABLET (FP) PO PRN (00:11)
[2022-10-15] MEDS: PRENATAL VITAMINS W/ FOLIC ACID TABLET (FP) PO SCH (10:01)
[2022-10-15] MEDS: NICOTINE 14 MG/24 HOURS TOPICAL PATCH TD SCH (10:04)
[2022-10-15] MEDS ORDERED: THIAMINE HCL 100 MG TABLET (FP) PO SCH (22:00)
[2022-10-15] MEDS ORDERED: MELATONIN 5 MG TABLETS PO SCH (22:00)
[2022-10-16 06:37] VITALS: TEMP 97.1
[2022-10-16 09:11] VITALS: BP 127/65; PULSE 82; RESP 16
[2022-10-16] MEDS: NICOTINE 14 MG/24 HOURS TOPICAL PATCH TD SCH (09:47)
[2022-10-16] MEDS: PRENATAL VITAMINS W/ FOLIC ACID TABLET (FP) PO SCH (09:47)
[2022-10-16 10:21] LABS: ALBUMIN 4.1 g/dl (3.4-5.0); BLOOD UREA NITROGEN 19.4 mg/dL (7-18); CALCIUM 8.8 mg/dL (8.5-10.1)
[2022-10-16 10:24] LABS: HEMOGLOBIN 13.7 GM/dL (11.7-16.9); MCH 29.3 pg (25.7-33.7); MCHC 33.5 g/dl (32.0-35.9); MEAN CELL VOLUME 87.6 fl (80-96); MEAN PLT VOLUME 10.5 fl (7.5-11.1); PLATELET COUNT 137 10^3/uL (134-434); RBC 4.68 M/mm3 (4.00-5.60); RDW 14.6 % (11.9-15.9); WHITE BLOOD COUNT 5.6 K/mm3 (4.0-10.0)
[2022-10-16 10:26] LABS: BILIRUBIN,TOTAL 1.8 mg/dL (0.2-1); TOT PROT 7.1 g/dl (6.4-8.2)
== END 2022-10-16 12:08 | disposition home or self-care (01) | DRG 774 ==
LOC: YASAS 22:41 → UNDOADMIN 10-15 01:30 → Y6N 10-15 01:30 → UNDODISIN 10-16 12:08
PROVIDERS: ADMIT Allergy & Immunology; ATTEND Surgery
PROC: HZ2ZZZZ Detoxification Services for Substance Abuse Treatment (ICD-10-PCS; principal; 2022-10-15)
DX: F10.230 Alcohol dependence with withdrawal, uncomplicated (principal); F14.20 Cocaine dependence, uncomplicated; F17.213 Nicotine dependence, cigarettes, with withdrawal; F19.24 Other psychoactive substance dependence with psychoactive substance-induced mood disorder; F31.9 Bipolar disorder, unspecified; B18.2 Chronic viral hepatitis C; B18.1 Chronic viral hepatitis B without delta-agent; R73.03 Prediabetes; Z86.19 Personal history of other infectious and parasitic diseases; Z86.11 Personal history of tuberculosis
CPT/HCPCS: 36415; 80053; 85027; 86780; 87811; C9803-CS; U0003; U0005

== ENCOUNTER 2023-02-04 17:12 | Inpatient (IN) | payer OTHER ==
[2023-02-04 17:57] VITALS: BMI 24.3
[2023-02-04] MEDS ORDERED: ONDANSETRON *ODT* 4 MG TABLET SL PRN (19:19)
[2023-02-04] MEDS ORDERED: BISMUTH SUBSALICYLATE 524 MG/30 ML PO PRN (19:19)
[2023-02-04] MEDS ORDERED: BENZOCAINE/MENTHOL (CHLORASEPTIC ) LOZENGE MM PRN (19:19)
[2023-02-04] MEDS ORDERED: NALOXONE HCL 0.4 MG/ML VIAL IM PRN (19:19)
[2023-02-04] MEDS ORDERED: ACETAMINOPHEN 325 MG TABLET (FP) PO PRN (19:19)
[2023-02-04] MEDS ORDERED: BENZONATATE 200 MG CAPSULE PO PRN (19:19)
[2023-02-04] MEDS ORDERED: IBUPROFEN 600 MG TABLET (FP) PO PRN (19:19)
[2023-02-04] MEDS ORDERED: IBUPROFEN 400 MG TABLET (FP) PO PRN (19:19)
[2023-02-04] MEDS ORDERED: MAG HYDROX/AL HYDROX/SIMETH 30 ML UNIT-DOSE CUP PO PRN (19:19)
[2023-02-04] MEDS ORDERED: LOPERAMIDE HCL 2 MG CAPSULE PO PRN (19:19)
[2023-02-04] MEDS ORDERED: MAGNESIUM HYDROX 2400MG/30ML ORAL SUSPENSION 30 ML CUP PO PRN (19:19)
[2023-02-04] MEDS ORDERED: NICOTINE POLACRILEX 2 MG GUM BUC PRN (19:19)
[2023-02-04] MEDS ORDERED: DICYCLOMINE HCL 10 MG CAPSULE PO PRN (19:19)
[2023-02-04] MEDS ORDERED: NALOXONE HCL (KLOXXADO) 8 MG SPRAY NS PRN (19:19)
[2023-02-04] MEDS ORDERED: P-EPHED 60MG/TRIPROLIDI 2.5MG TABLET PO PRN (19:19)
[2023-02-04] MEDS ORDERED: NICOTINE 10 MG CARTRIDGE (INHALER) IH PRN (19:19)
[2023-02-04] MEDS ORDERED: POLYETHYLENE GLYCOL (HEALTHYLAX) 3350 17 GM PACKET PO PRN (19:19)
[2023-02-04] MEDS ORDERED: P-EPHED 60MG/TRIPROLIDI 2.5MG TABLET ONE (19:47)
[2023-02-04] MEDS: guaiFENesin 600 MG TABLET.ER (FP) PO PRN (20:03)
[2023-02-04] MEDS: THIAMINE HCL 100 MG TABLET (FP) PO SCH (21:06)
[2023-02-04] MEDS: hydrOXYzine PAMOATE 25 MG CAPSULE (FP) PO PRN (21:06)
[2023-02-04] MEDS: METHOCARBAMOL 500 MG TABLET PO PRN (21:06)
[2023-02-04] MEDS: MELATONIN 5 MG TABLETS PO SCH (21:06)
[2023-02-05] MEDS ORDERED: chlordiazePOXIDE HCL 10 MG CAPSULE PO PRN
[2023-02-05 09:17] LABS: HEMATOCRIT 41.3 % (35.4-49); HEMOGLOBIN 13.7 GM/dL (11.7-16.9); MCHC 33.2 g/dl (32.0-35.9); MEAN CELL VOLUME 87.3 fl (80-96); PLATELET COUNT 131 10^3/uL (134-434); RBC 4.74 M/mm3 (4.00-5.60); RDW 14.1 % (11.9-15.9); WHITE BLOOD COUNT 3.7 K/mm3 (4.0-10.0)
[2023-02-05 09:21] LABS: POTASSIUM 3.7 mmol/L (3.5-5.1)
[2023-02-05 09:44] LABS: ALBUMIN 3.1 g/dl (3.4-5.0); BLOOD UREA NITROGEN 11.5 mg/dL (7-18); CALCIUM 8.6 mg/dL (8.5-10.1)
[2023-02-05 09:49] LABS: BILIRUBIN,TOTAL 1.2 mg/dL (0.2-1); TOT PROT 5.7 g/dl (6.4-8.2)
[2023-02-05] MEDS: PRENATAL VITAMINS W/ FOLIC ACID TABLET (FP) PO SCH (10:21)
[2023-02-05] MEDS: chlordiazePOXIDE HCL 25 MG CAPSULE PO SCH ×3 (10:21→22:49)
[2023-02-05] MEDS: MELATONIN 5 MG TABLETS PO SCH (22:52)
[2023-02-05] MEDS: THIAMINE HCL 100 MG TABLET (FP) PO SCH (22:52)
[2023-02-06] MEDS: hydrOXYzine PAMOATE 25 MG CAPSULE (FP) PO PRN (02:18)
[2023-02-06] MEDS: guaiFENesin 600 MG TABLET.ER (FP) PO PRN (02:18)
[2023-02-06] MEDS: chlordiazePOXIDE HCL 10 MG CAPSULE PO SCH ×4 (05:54→22:41)
[2023-02-06] MEDS: PRENATAL VITAMINS W/ FOLIC ACID TABLET (FP) PO SCH (10:24)
[2023-02-06] MEDS: PNEUMOC 20-VAL CONJ-DIP CRM/PF 0.5 ML SYRINGE IM ONE ×2 (12:27→12:33)
[2023-02-06] MEDS: MELATONIN 5 MG TABLETS PO SCH (22:39)
[2023-02-06] MEDS: THIAMINE HCL 100 MG TABLET (FP) PO SCH (22:39)
[2023-02-07] MEDS: chlordiazePOXIDE HCL 10 MG CAPSULE PO SCH ×2 (05:58→17:50)
[2023-02-07] MEDS: PRENATAL VITAMINS W/ FOLIC ACID TABLET (FP) PO SCH (09:48)
[2023-02-07] MEDS: THIAMINE HCL 100 MG TABLET (FP) PO SCH (22:13)
[2023-02-07] MEDS: hydrOXYzine PAMOATE 25 MG CAPSULE (FP) PO PRN (22:13)
[2023-02-07] MEDS: METHOCARBAMOL 500 MG TABLET PO PRN (22:13)
[2023-02-07] MEDS: MELATONIN 5 MG TABLETS PO SCH (22:13)
[2023-02-08] MEDS ORDERED: chlordiazePOXIDE HCL 10 MG CAPSULE PO ONE (05:00)
[2023-02-08 06:12] VITALS: RESP 16
[2023-02-08 09:23] VITALS: BP 133/78; PULSE 92; TEMP 97.7
[2023-02-08] MEDS: PRENATAL VITAMINS W/ FOLIC ACID TABLET (FP) PO SCH (10:35)
== END 2023-02-08 11:55 | disposition other institution (70) | DRG 774 ==
LOC: YASAS 17:12 → Y3N 20:41
PROVIDERS: ADMIT Allergy & Immunology; ATTEND Surgery
PROC: HZ2ZZZZ Detoxification Services for Substance Abuse Treatment (ICD-10-PCS; principal; 2023-02-04)
DX: F10.230 Alcohol dependence with withdrawal, uncomplicated (principal); F14.20 Cocaine dependence, uncomplicated; F17.210 Nicotine dependence, cigarettes, uncomplicated; F31.9 Bipolar disorder, unspecified; R73.03 Prediabetes; Z86.19 Personal history of other infectious and parasitic diseases
CPT/HCPCS: 36415; 71046-TC-FY; 80053; 82962; 85027; 86780; 87635; 87811; 90677

== ENCOUNTER 2023-05-24 04:06 | Inpatient (IN) | payer OTHER ==
[2023-05-24 05:31] VITALS: BMI 20.9
[2023-05-24] MEDS ORDERED: guaiFENesin 600 MG TABLET.ER (FP) PO PRN (06:09)
[2023-05-24] MEDS ORDERED: NALOXONE HCL (KLOXXADO) 8 MG SPRAY NS PRN (06:09)
[2023-05-24] MEDS ORDERED: DICYCLOMINE HCL 10 MG CAPSULE PO PRN (06:09)
[2023-05-24] MEDS ORDERED: hydrOXYzine PAMOATE 25 MG CAPSULE (FP) PO PRN (06:09)
[2023-05-24] MEDS ORDERED: MAG HYDROX/AL HYDROX/SIMETH 30 ML UNIT-DOSE CUP PO PRN (06:09)
[2023-05-24] MEDS ORDERED: ACETAMINOPHEN 325 MG TABLET (FP) PO PRN (06:09)
[2023-05-24] MEDS ORDERED: POLYETHYLENE GLYCOL (HEALTHYLAX) 3350 17 GM PACKET PO PRN (06:09)
[2023-05-24] MEDS ORDERED: BENZONATATE 200 MG CAPSULE PO PRN (06:09)
[2023-05-24] MEDS ORDERED: NICOTINE POLACRILEX 2 MG GUM BUC PRN (06:09)
[2023-05-24] MEDS ORDERED: MAGNESIUM HYDROX 2400MG/30ML ORAL SUSPENSION 30 ML CUP PO PRN (06:09)
[2023-05-24] MEDS ORDERED: BISMUTH SUBSALICYLATE 524 MG/30 ML PO PRN (06:09)
[2023-05-24] MEDS ORDERED: IBUPROFEN 400 MG TABLET (FP) PO PRN (06:09)
[2023-05-24] MEDS ORDERED: IBUPROFEN 600 MG TABLET (FP) PO PRN (06:09)
[2023-05-24] MEDS ORDERED: BENZOCAINE/MENTHOL (CHLORASEPTIC ) LOZENGE MM PRN (06:09)
[2023-05-24] MEDS ORDERED: NALOXONE HCL 0.4 MG/ML VIAL IM PRN (06:09)
[2023-05-24] MEDS ORDERED: ONDANSETRON *ODT* 4 MG TABLET SL PRN (06:09)
[2023-05-24] MEDS ORDERED: LOPERAMIDE HCL 2 MG CAPSULE PO PRN (06:09)
[2023-05-24] MEDS: NICOTINE 14 MG/24 HOURS TOPICAL PATCH TD SCH (10:20)
[2023-05-24] MEDS: PRENATAL VITAMINS W/ FOLIC ACID TABLET (FP) PO SCH (10:20)
[2023-05-24] MEDS: THIAMINE HCL 100 MG TABLET (FP) PO SCH (22:55)
[2023-05-24] MEDS: MELATONIN 5 MG TABLETS PO SCH (22:55)
[2023-05-25 09:35] LABS: HEMATOCRIT 41.2 % (35.4-49); HEMOGLOBIN 14.3 GM/dL (11.7-16.9); MCH 30.3 pg (25.7-33.7); MCHC 34.8 g/dl (32.0-35.9); MEAN CELL VOLUME 87.1 fl (80-96); MEAN PLT VOLUME 9.3 fl (7.5-11.1); PLATELET COUNT 162 10^3/uL (134-434); RBC 4.73 M/mm3 (4.00-5.60); RDW 14.3 % (11.9-15.9); WHITE BLOOD COUNT 2.9 K/mm3 (4.0-10.0)
[2023-05-25] MEDS: NICOTINE 14 MG/24 HOURS TOPICAL PATCH TD SCH (10:52)
[2023-05-25] MEDS: PRENATAL VITAMINS W/ FOLIC ACID TABLET (FP) PO SCH (10:52)
[2023-05-25 11:02] LABS: ALBUMIN 3.1 g/dl (3.4-5.0); CALCIUM 8.3 mg/dL (8.5-10.1)
[2023-05-25 11:06] LABS: BILIRUBIN,TOTAL 0.7 mg/dL (0.2-1); CREATININE 0.8 mg/dL (0.55-1.3)
[2023-05-25 11:37] LABS: POTASSIUM 3.8 mmol/L (3.5-5.1)
[2023-05-25] MEDS: MELATONIN 5 MG TABLETS PO SCH (22:29)
[2023-05-25] MEDS: THIAMINE HCL 100 MG TABLET (FP) PO SCH (22:29)
[2023-05-26 10:00] VITALS: PULSE 87
[2023-05-26] MEDS: PRENATAL VITAMINS W/ FOLIC ACID TABLET (FP) PO SCH (10:38)
[2023-05-26] MEDS: NICOTINE 14 MG/24 HOURS TOPICAL PATCH TD SCH (10:38)
[2023-05-26 13:28] VITALS: BP 130/89; RESP 17; TEMP 97.3
== END 2023-05-26 16:08 | disposition other institution (70) | DRG 774 ==
LOC: YASAS 04:06 → Y3N 07:20
PROVIDERS: ADMIT Allergy & Immunology; ATTEND Allergy & Immunology
PROC: HZ2ZZZZ Detoxification Services for Substance Abuse Treatment (ICD-10-PCS; principal; 2023-05-24)
DX: F10.20 Alcohol dependence, uncomplicated (principal); F14.20 Cocaine dependence, uncomplicated; F17.210 Nicotine dependence, cigarettes, uncomplicated; F31.9 Bipolar disorder, unspecified; R73.03 Prediabetes; Z86.19 Personal history of other infectious and parasitic diseases; Z86.11 Personal history of tuberculosis; Z99.89 Dependence on other enabling machines and devices; Z59.00 Homelessness unspecified
CPT/HCPCS: 36415; 80053; 85027; 86780; 87635; 87811; 93005; 93010

== ENCOUNTER 2023-07-23 10:05 | Emergency (ER) | payer OTHER ==
[2023-07-23 10:10] VITALS: BMI 25.7
[2023-07-23] MEDS ORDERED: IBUPROFEN 600 MG TABLET (FP) PO ONE ×2 (12:08→12:12)
[2023-07-23 13:27] LABS: BASO % 0.6 % (0-2.0); EOS % 0.2 % (0-4.5); HEMATOCRIT 45.8 % (35.4-49); HEMOGLOBIN 15.5 GM/dL (11.7-16.9); LYMPH % 13.4 % (8-40); MCH 29.7 pg (25.7-33.7); MCHC 33.8 g/dl (32.0-35.9); MEAN CELL VOLUME 87.9 fl (80-96); MEAN PLT VOLUME 9.7 fl (7.5-11.1); MONO % 12.7 % (3.8-10.2); NEUT % 73.1 % (42.8-82.8); PLATELET COUNT 186 10^3/uL (134-434); RBC 5.21 M/mm3 (4.00-5.60); RDW 13.8 % (11.9-15.9); WHITE BLOOD COUNT 6.8 K/mm3 (4.0-10.0)
[2023-07-23 14:00] LABS: CHLORIDE 104 mmol/L (98-107); POTASSIUM 4.3 mmol/L (3.5-5.1); SODIUM 137 mmol/L (136-145)
[2023-07-23 14:02] LABS: CALCIUM 9.3 mg/dL (8.5-10.1)
[2023-07-23 14:04] LABS: ALBUMIN 4.8 g/dl (3.4-5.0); ANION GAP 10 mmol/L (4-13); BLOOD UREA NITROGEN 48.7 mg/dL (7-18); CO2 23 mmol/L (21-32); GLUCOSE,RANDOM 96 mg/dL (74-106)
[2023-07-23 14:05] LABS: CREATININE 1.3 mg/dL (0.55-1.3); SGPT/ALT 42 U/L (13-61)
[2023-07-23 14:06] LABS: SGOT/AST 80 U/L (15-37)
[2023-07-23 14:07] LABS: BILIRUBIN,TOTAL 3.3 mg/dL (0.2-1); TOT PROT 8.1 g/dl (6.4-8.2)
[2023-07-23 14:08] LABS: ALK PHOS 126 U/L (45-117)
[2023-07-23 14:39] LABS: LIPASE 81 U/L (73-393)
[2023-07-23 14:41] LABS: BILIRUBIN,DIRECT 0.6 mg/dL (0.0-0.2)
[2023-07-23 21:59] LABS: COCAINE, UR POSITIVE (NEGATIVE); METHADONE, UR NEGATIVE (NEGATIVE); OPIATES, URI NEGATIVE (NEGATIVE); PHENCYCLIDINE,URINE NEGATIVE (NEGATIVE); URINE AMPHETAMINES NEGATIVE (NEGATIVE); URINE BARBITURATES NEGATIVE (NEGATIVE); URINE BENZODIAZEPINES NEGATIVE (NEGATIVE)
[2023-07-24 05:35] VITALS: TEMP 98
[2023-07-24 11:30] VITALS: BP 135/80; PULSE 94; RESP 19
== END 2023-07-24 11:45 | disposition home or self-care (01) ==
LOC: JER 10:05
DX: R10.9 Unspecified abdominal pain (principal); F99 Mental disorder, not otherwise specified
CPT/HCPCS: 36415; 76705-TC; 80053; 80307; 82248; 83690; 84443; 85025; 99284-25

== ENCOUNTER 2023-08-11 13:07 | Inpatient (IN) | payer OTHER ==
[2023-08-11 13:39] VITALS: BMI 24.0
[2023-08-11] MEDS ORDERED: ACETAMINOPHEN 1000 MG/100 ML BAG IVPB ONE ×2 (14:08→19:27)
[2023-08-11] MEDS ORDERED: ONDANSETRON 4 MG/2 ML VIAL IVPUSH ONE ×2 (14:08→19:27)
[2023-08-11] MEDS ORDERED: FAMOTIDINE 20 MG/50 ML IVPB 20 MG/50 ML MG IVPB ONE ×2 (14:08→19:27)
[2023-08-11] MEDS ORDERED: SODIUM CHLORIDE 0.9% 500 ML INFUS.BAG IV ONE ×2 (14:08→19:27)
[2023-08-11] MEDS ORDERED: ONDANSETRON *ODT* 4 MG TABLET SL ONE (16:40)
[2023-08-11] MEDS ORDERED: chlordiazePOXIDE HCL 25 MG CAPSULE PO ONE (19:06)
[2023-08-11] MEDS ORDERED: FAMOTIDINE 10 MG/ML VIAL IVPB ONE (19:44)
[2023-08-11] MEDS ORDERED: ACETAMINOPHEN INJECTION 100 ML IVPB ONE (19:44)
[2023-08-11] MEDS ORDERED: ONDANSETRON 4 MG/2 ML VIAL ONE (19:44)
[2023-08-11] MEDS ORDERED: chlordiazePOXIDE HCL 25 MG CAPSULE ONE (19:44)
[2023-08-11 19:50] LABS: PH,URINE 8.5 (5.0-8.0); URINE APPEARANCE CLOUDY; URINE BILIRUBIN NEGATIVE (NEGATIVE); URINE COLOR YELLOW; URINE GLUCOSE (UA) NEGATIVE (NEGATIVE); URINE KETONE 2+ (NEGATIVE); URINE LEUK ESTERASE NEGATIVE (NEGATIVE); URINE NITRITE NEGATIVE (NEGATIVE); URINE PROTEIN TRACE (NEGATIVE); URINE UROBILINOGEN 0.2 mg/dL (0.2-1.0)
[2023-08-11 19:56] LABS: INR 1.09 (0.83-1.09); PROTHROMBIN TIME (PATIENT) 12.6 SEC (9.7-13.0)
[2023-08-11 19:59] LABS: ACTIVATED PTT 30.8 SECONDS (25.2-36.5); BASO % 0.5 % (0-2.0); EOS % 0.1 % (0-4.5); HEMATOCRIT 49.1 % (35.4-49); HEMOGLOBIN 16.5 GM/dL (11.7-16.9); LYMPH % 8.3 % (8-40); MCH 29.6 pg (25.7-33.7); MCHC 33.7 g/dl (32.0-35.9); MEAN PLT VOLUME 9.2 fl (7.5-11.1); MONO % 7.2 % (3.8-10.2); NEUT % 83.9 % (42.8-82.8); PLATELET COUNT 231 10^3/uL (134-434); RBC 5.58 M/mm3 (4.00-5.60); RDW 13.4 % (11.9-15.9); WHITE BLOOD COUNT 6.1 K/mm3 (4.0-10.0)
[2023-08-11 20:41] LABS: POTASSIUM 3.8 mmol/L (3.5-5.1)
[2023-08-11 20:43] LABS: ALBUMIN 4.1 g/dl (3.4-5.0); BLOOD UREA NITROGEN 8.9 mg/dL (7-18); CALCIUM 9.8 mg/dL (8.5-10.1)
[2023-08-11 20:48] LABS: TOT PROT 8.1 g/dl (6.4-8.2)
[2023-08-11] MEDS ORDERED: MAG HYDROX/AL HYDROX/SIMETH 30 ML UNIT-DOSE CUP PO ONE (22:55)
[2023-08-11] MEDS ORDERED: MAG HYDROX/AL HYDROX/SIMETH 30 ML UNIT-DOSE CUP ONE (23:29)
[2023-08-12] MEDS ORDERED: PIPERACILLIN/TAZOB 3.375 GM 3.375 GM in DEXTROSE 5%-WATER - 50 ML IVPB ONE
[2023-08-12] MEDS ORDERED: PIPERACILLIN/TAZOB 3.375 GM 3.375 GM/50 ML BAG IVPB ONE (01:28)
[2023-08-12] MEDS ORDERED: ACETAMINOPHEN 1000 MG/100 ML BAG IVPB PRN (02:58)
[2023-08-12] MEDS ORDERED: chlordiazePOXIDE HCL 25 MG CAPSULE PO PRN (03:00)
[2023-08-12 03:23] LABS: LACTIC ACID 2.1 mmol/L (0.4-2.0)
[2023-08-12] MEDS ORDERED: ONDANSETRON 8 MG TABLET (FP) PO PRN (04:00)
[2023-08-12] MEDS ORDERED: LORazepam 2 MG/ML SDV VIAL IVPUSH PRN (08:43)
[2023-08-12 09:32] LABS: HEMATOCRIT 40.3 % (35.4-49); HEMOGLOBIN 13.7 GM/dL (11.7-16.9); MEAN CELL VOLUME 88.2 fl (80-96); PLATELET COUNT 194 10^3/uL (134-434); RBC 4.56 M/mm3 (4.00-5.60); RDW 13.5 % (11.9-15.9); WHITE BLOOD COUNT 5.8 K/mm3 (4.0-10.0)
[2023-08-12 09:45] LABS: POTASSIUM 3.1 mmol/L (3.5-5.1)
[2023-08-12] MEDS ORDERED: NICOTINE 7 MG/24 HOURS TOPICAL PATCH TD SCH (10:00)
[2023-08-12 10:16] LABS: CALCIUM 8.5 mg/dL (8.5-10.1)
[2023-08-12 10:17] LABS: ALBUMIN 3.4 g/dl (3.4-5.0); BLOOD UREA NITROGEN 10.1 mg/dL (7-18); MAGNESIUM 2.3 mg/dL (1.8-2.4)
[2023-08-12 10:20] LABS: CREATININE 0.9 mg/dL (0.55-1.3); PHOSPHOROUS 3.1 mg/dL (2.5-4.9)
[2023-08-12 10:21] LABS: TOT PROT 6.4 g/dl (6.4-8.2)
[2023-08-12] MEDS: NICOTINE 7 MG/24 HOURS TOPICAL PATCH TD SCH ×2 (10:43→11:00)
[2023-08-12] MEDS ORDERED: POTASSIUM CHLORIDE TABS 20 MEQ TABLET.ER (FP) PO ONE (17:01)
[2023-08-12] MEDS: DEXTROSE 5%-LACTATED RINGERS 1,000 ML IV SCH (17:21)
[2023-08-12] MEDS: POTASSIUM CHLORIDE TABS 20 MEQ TABLET.ER (FP) PO SCH (21:28)
[2023-08-13] MEDS: DEXTROSE 5%-LACTATED RINGERS 1,000 ML IV SCH ×2 (05:39→18:50)
[2023-08-13] MEDS: POTASSIUM CHLORIDE TABS 20 MEQ TABLET.ER (FP) PO SCH (09:15)
[2023-08-13] MEDS: NICOTINE 7 MG/24 HOURS TOPICAL PATCH TD SCH (09:15)
[2023-08-13 09:40] LABS: BASO % 0.8 % (0-2.0); EOS % 1.8 % (0-4.5); HEMATOCRIT 39.3 % (35.4-49); HEMOGLOBIN 13.4 GM/dL (11.7-16.9); LYMPH % 28.9 % (8-40); MCH 29.9 pg (25.7-33.7); MCHC 34.2 g/dl (32.0-35.9); MEAN CELL VOLUME 87.5 fl (80-96); MEAN PLT VOLUME 9.1 fl (7.5-11.1); NEUT % 57.5 % (42.8-82.8); PLATELET COUNT 173 10^3/uL (134-434); RBC 4.48 M/mm3 (4.00-5.60); RDW 13.3 % (11.9-15.9); WHITE BLOOD COUNT 3.4 K/mm3 (4.0-10.0)
[2023-08-13 10:22] LABS: METHADONE, UR NEGATIVE (NEGATIVE); PHENCYCLIDINE,URINE NEGATIVE (NEGATIVE); URINE AMPHETAMINES NEGATIVE (NEGATIVE)
[2023-08-13 10:23] LABS: OPIATES, URI NEGATIVE (NEGATIVE); URINE BARBITURATES NEGATIVE (NEGATIVE)
[2023-08-13 10:24] LABS: COCAINE, UR POSITIVE (NEGATIVE); URINE BENZODIAZEPINES POSITIVE (NEGATIVE)
[2023-08-13 11:38] LABS: POTASSIUM 3.9 mmol/L (3.5-5.1)
[2023-08-13 11:44] LABS: ALBUMIN 3.1 g/dl (3.4-5.0); CALCIUM 8.5 mg/dL (8.5-10.1)
[2023-08-13 11:47] LABS: CREATININE 0.9 mg/dL (0.55-1.3)
[2023-08-13 11:48] LABS: PHOSPHOROUS 2.9 mg/dL (2.5-4.9)
[2023-08-13 11:49] LABS: BILIRUBIN,TOTAL 0.6 mg/dL (0.2-1)
[2023-08-13 11:50] LABS: TOT PROT 5.8 g/dl (6.4-8.2)
[2023-08-13] MEDS ORDERED: ONDANSETRON 4 MG TABLET PO PRN (23:46)
[2023-08-14] MEDS: NICOTINE 7 MG/24 HOURS TOPICAL PATCH TD SCH ×2 (09:49→09:55)
[2023-08-14 10:11] LABS: BASO % 0.7 % (0-2.0); EOS % 1.5 % (0-4.5); HEMATOCRIT 40.3 % (35.4-49); HEMOGLOBIN 13.3 GM/dL (11.7-16.9); LYMPH % 28.2 % (8-40); MCH 29.3 pg (25.7-33.7); MCHC 32.9 g/dl (32.0-35.9); MEAN CELL VOLUME 89.2 fl (80-96); MONO % 14.2 % (3.8-10.2); NEUT % 55.4 % (42.8-82.8); PLATELET COUNT 168 10^3/uL (134-434); RBC 4.52 M/mm3 (4.00-5.60); RDW 13.6 % (11.9-15.9); WHITE BLOOD COUNT 3.2 K/mm3 (4.0-10.0)
[2023-08-14 10:12] LABS: INR 1.08 (0.83-1.09); PROTHROMBIN TIME (PATIENT) 12.5 SEC (9.7-13.0)
[2023-08-14 10:32] LABS: CALCIUM 8.9 mg/dL (8.5-10.1)
[2023-08-14 10:33] LABS: BLOOD UREA NITROGEN 7.6 mg/dL (7-18); MAGNESIUM 2.2 mg/dL (1.8-2.4)
[2023-08-14 10:35] LABS: CREATININE 0.8 mg/dL (0.55-1.3); PHOSPHOROUS 3.3 mg/dL (2.5-4.9)
[2023-08-14] MEDS ORDERED: DEXTROSE 5%-LACTATED RINGERS 1,000 ML IV SCH (12:21)
[2023-08-14] MEDS ORDERED: POLYETHYLENE GLYCOL (HEALTHYLAX) 3350 17 GM PACKET PO ONE (15:45)
[2023-08-15 09:14] LABS: BASO % 0.8 % (0-2.0); EOS % 1.5 % (0-4.5); HEMATOCRIT 39.7 % (35.4-49); HEMOGLOBIN 13.2 GM/dL (11.7-16.9); LYMPH % 25.1 % (8-40); MCH 29.7 pg (25.7-33.7); MCHC 33.3 g/dl (32.0-35.9); MEAN CELL VOLUME 89.4 fl (80-96); MEAN PLT VOLUME 8.9 fl (7.5-11.1); MONO % 13.9 % (3.8-10.2); NEUT % 58.7 % (42.8-82.8); PLATELET COUNT 171 10^3/uL (134-434); RBC 4.44 M/mm3 (4.00-5.60); RDW 13.4 % (11.9-15.9); WHITE BLOOD COUNT 3.1 K/mm3 (4.0-10.0)
[2023-08-15 09:30] LABS: INR 1.08 (0.83-1.09); PROTHROMBIN TIME (PATIENT) 12.5 SEC (9.7-13.0)
[2023-08-15] MEDS ORDERED: PROPOFOL 20 ML ONE (09:39)
[2023-08-15] MEDS ORDERED: HYDROmorphone HCl 2 MG/ML VIAL ONE (09:39)
[2023-08-15] MEDS ORDERED: ONDANSETRON 4 MG/2 ML VIAL ONE (09:40)
[2023-08-15] MEDS ORDERED: SODIUM CHLORIDE 0.9% P/F 10 ML VIAL IJ ONE (09:40)
[2023-08-15] MEDS ORDERED: ALBUTEROL SO4 HFA INHALER IH ONE (09:40)
[2023-08-15] MEDS ORDERED: DEXAMETHASONE SOD PHOSPHATE 4 MG/1 ML VIAL ONE (09:40)
[2023-08-15] MEDS ORDERED: MIDAZOLAM HCL 2 MG/2 ML SINGLE DOSE VIAL ONE (09:40)
[2023-08-15] MEDS ORDERED: METOCLOPRAMIDE HCL INJECTION 10 MG/2 ML VIAL ONE (09:40)
[2023-08-15] MEDS ORDERED: ROCURONIUM BROMIDE 50 MG/5 ML SYRINGE ONE ×4 (09:41→12:06)
[2023-08-15 10:00] LABS: POTASSIUM 3.8 mmol/L (3.5-5.1)
[2023-08-15 10:11] LABS: CALCIUM 8.4 mg/dL (8.5-10.1)
[2023-08-15 10:12] LABS: BLOOD UREA NITROGEN 7.6 mg/dL (7-18)
[2023-08-15 10:15] LABS: CREATININE 0.9 mg/dL (0.55-1.3)
[2023-08-15] MEDS ORDERED: cefOXitin SODIUM 2 GM VIAL (RESTRICTED TO ID) IVPB ONE (10:25)
[2023-08-15] MEDS ORDERED: BUPIVACAINE HCL/PF 0.25% (2.5MG/ML) 10 ML VIAL IJ ONE (10:54)
[2023-08-15] MEDS ORDERED: METHYLENE BLUE 50 MG/10 ML AMPUL ONE (11:58)
[2023-08-15] MEDS ORDERED: SUGAMMADEX SODIUM 200 MG/2 ML VIAL ONE (13:43)
[2023-08-15] MEDS ORDERED: ONDANSETRON 4 MG/2 ML VIAL IVPUSH PRN ×2 (14:11→14:28)
[2023-08-15] MEDS ORDERED: LORazepam 2 MG/ML SDV VIAL IVPUSH PRN (14:28)
[2023-08-15] MEDS ORDERED: DEXTROSE 5%-LACTATED RINGERS 1,000 ML IV SCH (14:28)
[2023-08-15] MEDS ORDERED: ONDANSETRON 4 MG TABLET PO PRN (14:28)
[2023-08-15] MEDS ORDERED: oxyCODONE HCL 5 MG TABLET PO PRN (14:28)
[2023-08-15] MEDS: ACETAMINOPHEN 325 MG TABLET (FP) PO SCH (20:45)
[2023-08-16] MEDS: ACETAMINOPHEN 325 MG TABLET (FP) PO SCH ×5 (03:37→20:55)
[2023-08-16 09:03] LABS: BASO % 0.4 % (0-2.0); EOS % 0.2 % (0-4.5); HEMATOCRIT 39.3 % (35.4-49); LYMPH % 16.4 % (8-40); MCH 29.4 pg (25.7-33.7); MCHC 33.2 g/dl (32.0-35.9); MEAN CELL VOLUME 88.6 fl (80-96); MEAN PLT VOLUME 9.3 fl (7.5-11.1); PLATELET COUNT 179 10^3/uL (134-434); RBC 4.43 M/mm3 (4.00-5.60); RDW 13.6 % (11.9-15.9); WHITE BLOOD COUNT 6.6 K/mm3 (4.0-10.0)
[2023-08-16 09:08] LABS: POTASSIUM 3.9 mmol/L (3.5-5.1)
[2023-08-16 09:10] LABS: ALBUMIN 2.9 g/dl (3.4-5.0); CALCIUM 8.7 mg/dL (8.5-10.1); MAGNESIUM 2.1 mg/dL (1.8-2.4)
[2023-08-16 09:14] LABS: CREATININE 0.8 mg/dL (0.55-1.3)
[2023-08-16 09:15] LABS: BILIRUBIN,TOTAL 0.5 mg/dL (0.2-1); TOT PROT 5.6 g/dl (6.4-8.2)
[2023-08-16] MEDS: DOCUSATE SODIUM 100 MG CAPSULE (FP) PO SCH ×2 (13:51→22:33)
[2023-08-16] MEDS: POLYETHYLENE GLYCOL (HEALTHYLAX) 3350 17 GM PACKET PO SCH (13:51)
[2023-08-16] MEDS: NICOTINE 7 MG/24 HOURS TOPICAL PATCH TD SCH (18:26)
[2023-08-17] MEDS: ACETAMINOPHEN 325 MG TABLET (FP) PO SCH ×2 (03:25→09:17)
[2023-08-17] MEDS: DOCUSATE SODIUM 100 MG CAPSULE (FP) PO SCH (09:17)
[2023-08-17] MEDS: POLYETHYLENE GLYCOL (HEALTHYLAX) 3350 17 GM PACKET PO SCH (09:18)
[2023-08-17] MEDS: NICOTINE 7 MG/24 HOURS TOPICAL PATCH TD SCH (09:29)
[2023-08-17 15:06] VITALS: BP 118/76; PULSE 76; RESP 18; TEMP 98.8
== END 2023-08-17 15:46 | disposition other institution (70) | DRG 228 ==
LOC: JER 13:07 → JERBED 08-12 00:13 → J7W 08-12 04:29
PROVIDERS: ADMIT Internal Medicine; ATTEND Nurse Practitioner Acute Care
PROC: 8E0W4CZ Robotic Assisted Procedure of Trunk Region, Percutaneous Endoscopic Approach (ICD-10-PCS; 2023-08-15)
PROC: 0YUA4JZ Supplement Bilateral Inguinal Region with Synthetic Substitute, Percutaneous Endoscopic Approach (ICD-10-PCS; principal; 2023-08-15 18:30)
DX: K40.00 Bilateral inguinal hernia, with obstruction, without gangrene, not specified as recurrent (principal); F13.20 Sedative, hypnotic or anxiolytic dependence, uncomplicated; F14.20 Cocaine dependence, uncomplicated; F10.20 Alcohol dependence, uncomplicated; F31.9 Bipolar disorder, unspecified; B18.1 Chronic viral hepatitis B without delta-agent; B18.2 Chronic viral hepatitis C
CPT/HCPCS: 0241U-QW; 36415; 74177-TC; 80048; 80053; 80307; 81003; 83605; 83690; 83735; 84100; 84484; 85025; 85027; 85610; 85730; 86850; 86900; 86901; 87086; 93005; 93010; 94010; 94760; 97116-GP; 97161-GP; 99285-25; C1781; Q9967; Q9968

== ENCOUNTER 2023-08-17 17:06 | Inpatient (IN) | payer OTHER ==
[2023-08-17 19:27] VITALS: BMI 24.3
[2023-08-17] MEDS ORDERED: LOPERAMIDE HCL 2 MG CAPSULE PO PRN (22:08)
[2023-08-17] MEDS ORDERED: IBUPROFEN 400 MG TABLET (FP) PO PRN (22:08)
[2023-08-17] MEDS ORDERED: NALOXONE HCL (KLOXXADO) 8 MG SPRAY NS PRN (22:08)
[2023-08-17] MEDS ORDERED: NALOXONE HCL 0.4 MG/ML VIAL IM PRN (22:08)
[2023-08-17] MEDS ORDERED: hydrOXYzine PAMOATE 25 MG CAPSULE (FP) PO PRN (22:08)
[2023-08-17] MEDS ORDERED: guaiFENesin 600 MG TABLET.ER (FP) PO PRN (22:08)
[2023-08-17] MEDS ORDERED: BENZOCAINE/MENTHOL (CHLORASEPTIC ) LOZENGE MM PRN (22:08)
[2023-08-17] MEDS ORDERED: MAGNESIUM HYDROX 2400MG/30ML ORAL SUSPENSION 30 ML CUP PO PRN (22:08)
[2023-08-17] MEDS ORDERED: MAG HYDROX/AL HYDROX/SIMETH 30 ML UNIT-DOSE CUP PO PRN (22:08)
[2023-08-17] MEDS ORDERED: POLYETHYLENE GLYCOL (HEALTHYLAX) 3350 17 GM PACKET PO PRN (22:08)
[2023-08-17] MEDS ORDERED: COLLOIDAL OATMEAL 1 BAR EACH TP PRN (22:08)
[2023-08-17] MEDS ORDERED: BENZONATATE 200 MG CAPSULE PO PRN (22:08)
[2023-08-18] MEDS ORDERED: MELATONIN 5 MG TABLETS ONE (00:17)
[2023-08-18] MEDS: MELATONIN 5 MG TABLETS PO SCH ×2 (00:20→21:36)
[2023-08-18 08:24] LABS: PH,URINE 5.5 (5.0-8.0); URINE APPEARANCE CLEAR; URINE BILIRUBIN NEGATIVE (NEGATIVE); URINE COLOR YELLOW; URINE GLUCOSE (UA) NEGATIVE (NEGATIVE); URINE KETONE NEGATIVE (NEGATIVE); URINE LEUK ESTERASE NEGATIVE (NEGATIVE); URINE NITRITE NEGATIVE (NEGATIVE); URINE PROTEIN NEGATIVE (NEGATIVE); URINE UROBILINOGEN 0.2 mg/dL (0.2-1.0)
[2023-08-18 08:29] LABS: HEMATOCRIT 40.9 % (35.4-49); HEMOGLOBIN 13.6 GM/dL (11.7-16.9); MCHC 33.2 g/dl (32.0-35.9); MEAN CELL VOLUME 90.2 fl (80-96); MEAN PLT VOLUME 9.4 fl (7.5-11.1); PLATELET COUNT 189 10^3/uL (134-434); RBC 4.53 M/mm3 (4.00-5.60); RDW 13.6 % (11.9-15.9); WHITE BLOOD COUNT 5.8 K/mm3 (4.0-10.0)
[2023-08-18 08:36] LABS: CHLORIDE 105 mmol/L (98-107); POTASSIUM 4.3 mmol/L (3.5-5.1); SODIUM 140 mmol/L (136-145)
[2023-08-18 08:42] LABS: CALCIUM 9.1 mg/dL (8.5-10.1)
[2023-08-18 08:43] LABS: ALBUMIN 3.3 g/dl (3.4-5.0); ANION GAP 5 mmol/L (4-13); BLOOD UREA NITROGEN 12.6 mg/dL (7-18); CO2 30 mmol/L (21-32); GLUCOSE,RANDOM 120 mg/dL (74-106)
[2023-08-18 08:46] LABS: CREATININE 0.9 mg/dL (0.55-1.3); SGOT/AST 13 U/L (15-37); SGPT/ALT 14 U/L (13-61)
[2023-08-18 08:47] LABS: BILIRUBIN,TOTAL 0.6 mg/dL (0.2-1); TOT PROT 6.5 g/dl (6.4-8.2)
[2023-08-18 08:48] LABS: ALK PHOS 102 U/L (45-117)
[2023-08-18] MEDS: PRENATAL VITAMINS W/ FOLIC ACID TABLET (FP) PO SCH (10:23)
[2023-08-18] MEDS: NICOTINE 14 MG/24 HOURS TOPICAL PATCH TD SCH (10:23)
[2023-08-18] MEDS: QUEtiapine FUMARATE 100 MG TABLET (FP) PO SCH (21:36)
[2023-08-18] MEDS: THIAMINE HCL 100 MG TABLET (FP) PO SCH (21:36)
[2023-08-19] MEDS: IBUPROFEN 600 MG TABLET (FP) PO PRN ×2 (10:28→21:06)
[2023-08-19] MEDS: NICOTINE 14 MG/24 HOURS TOPICAL PATCH TD SCH (10:29)
[2023-08-19] MEDS: PRENATAL VITAMINS W/ FOLIC ACID TABLET (FP) PO SCH (10:29)
[2023-08-19] MEDS: QUEtiapine FUMARATE 100 MG TABLET (FP) PO SCH (21:05)
[2023-08-19] MEDS: MELATONIN 5 MG TABLETS PO SCH (21:05)
[2023-08-19] MEDS: THIAMINE HCL 100 MG TABLET (FP) PO SCH (21:05)
[2023-08-20] MEDS: NICOTINE 14 MG/24 HOURS TOPICAL PATCH TD SCH (10:18)
[2023-08-20] MEDS: ACETAMINOPHEN 325 MG TABLET (FP) PO PRN (10:18)
[2023-08-20] MEDS: PRENATAL VITAMINS W/ FOLIC ACID TABLET (FP) PO SCH (10:18)
[2023-08-20] MEDS: MELATONIN 5 MG TABLETS PO SCH (22:49)
[2023-08-20] MEDS: QUEtiapine FUMARATE 100 MG TABLET (FP) PO SCH (22:49)
[2023-08-20] MEDS: THIAMINE HCL 100 MG TABLET (FP) PO SCH (22:49)
[2023-08-21] MEDS: NICOTINE 14 MG/24 HOURS TOPICAL PATCH TD SCH (10:29)
[2023-08-21] MEDS: PRENATAL VITAMINS W/ FOLIC ACID TABLET (FP) PO SCH (10:29)
[2023-08-21] MEDS: ACETAMINOPHEN 325 MG TABLET (FP) PO PRN (16:39)
[2023-08-21] MEDS: QUEtiapine FUMARATE 100 MG TABLET (FP) PO SCH (21:10)
[2023-08-21] MEDS: MELATONIN 5 MG TABLETS PO SCH (21:10)
[2023-08-21] MEDS: THIAMINE HCL 100 MG TABLET (FP) PO SCH (21:10)
[2023-08-22 06:56] VITALS: BP 123/83; PULSE 85; RESP 18; TEMP 97.7
[2023-08-22] MEDS: NICOTINE 14 MG/24 HOURS TOPICAL PATCH TD SCH (09:41)
[2023-08-22] MEDS: PRENATAL VITAMINS W/ FOLIC ACID TABLET (FP) PO SCH (09:41)
== END 2023-08-22 14:56 | disposition left against medical advice (07) | DRG 770 ==
LOC: YASAS 17:06 → Y3W 08-18 00:30
PROVIDERS: ADMIT Allergy & Immunology; ATTEND Psychiatry & Neurology Pain Medicine
PROC: HZ42ZZZ Group Counseling for Substance Abuse Treatment, Cognitive-Behavioral (ICD-10-PCS; principal; 2023-08-18)
DX: F10.20 Alcohol dependence, uncomplicated (principal); F14.20 Cocaine dependence, uncomplicated; F17.210 Nicotine dependence, cigarettes, uncomplicated; F31.9 Bipolar disorder, unspecified; B18.1 Chronic viral hepatitis B without delta-agent; B18.2 Chronic viral hepatitis C; R73.03 Prediabetes; F91.8 Other conduct disorders; Z91.199 Patient's noncompliance with other medical treatment and regimen due to unspecified reason; Z86.11 Personal history of tuberculosis; Z86.19 Personal history of other infectious and parasitic diseases; Z62.810 Personal history of physical and sexual abuse in childhood; Z99.89 Dependence on other enabling machines and devices
CPT/HCPCS: 36415; 71045-TC-FY; 80053; 80307; 81003; 85027; 86780; 87635

== ENCOUNTER 2023-08-25 23:14 | Emergency (ER) | payer OTHER ==
[2023-08-25 23:19] VITALS: BMI 24.3
[2023-08-26 05:58] LABS: OPIATES, URI NEGATIVE (NEGATIVE); URINE BARBITURATES NEGATIVE (NEGATIVE)
[2023-08-26 05:59] LABS: METHADONE, UR NEGATIVE (NEGATIVE); PHENCYCLIDINE,URINE NEGATIVE (NEGATIVE); URINE AMPHETAMINES NEGATIVE (NEGATIVE); URINE BENZODIAZEPINES NEGATIVE (NEGATIVE)
[2023-08-26 06:02] LABS: COCAINE, UR POSITIVE (NEGATIVE)
[2023-08-26 11:05] LABS: EPI CELLS 8 /uL (0-25.1); HYALINE CASTS 1 /uL (0-3.1); PH,URINE 5.5 (5.0-8.0); URINE APPEARANCE CLEAR; URINE BACTERIA 8 /uL (0-1359); URINE BILIRUBIN NEGATIVE (NEGATIVE); URINE COLOR YELLOW; URINE GLUCOSE (UA) NEGATIVE (NEGATIVE); URINE KETONE TRACE (NEGATIVE); URINE LEUK ESTERASE TRACE (NEGATIVE); URINE NITRITE NEGATIVE (NEGATIVE); URINE PROTEIN NEGATIVE (NEGATIVE); URINE RBC 16 /uL (0-23.9); URINE WBC 23 /uL (0-25.8)
[2023-08-26 15:46] VITALS: BP 131/68; PULSE 76; RESP 17; TEMP 97.9
== END 2023-08-26 16:22 | disposition home or self-care (01) ==
LOC: JER 23:14
DX: R10.30 Lower abdominal pain, unspecified (principal)
CPT/HCPCS: 74176-TC; 80307; 81003; 87086; 99284-25

== ENCOUNTER 2023-09-01 08:03 | Emergency (ER) | payer OTHER ==
[2023-09-01 09:19] VITALS: BMI 25.0
[2023-09-01] MEDS ORDERED: ACETAMINOPHEN 500 MG TABLET (FP) PO ONE (09:54)
[2023-09-01] MEDS ORDERED: SODIUM CHLORIDE 0.9% 500 ML INFUS.BAG IV ONE (09:54)
[2023-09-01] MEDS ORDERED: ACETAMINOPHEN 325 MG TABLET (FP) ONE (10:15)
[2023-09-01 14:32] VITALS: BP 120/69; PULSE 69; RESP 19; TEMP 97.3
== END 2023-09-01 18:58 | disposition home or self-care (01) ==
LOC: JER 08:03
DX: R10.32 Left lower quadrant pain (principal); R19.09 Other intra-abdominal and pelvic swelling, mass and lump
CPT/HCPCS: 99283-25

== ENCOUNTER 2023-12-14 03:31 | Emergency (ER) | payer SELFPAY ==
[2023-12-14 03:51] VITALS: BMI 23.2
[2023-12-14 07:36] VITALS: BP 107/59; PULSE 91; RESP 20; TEMP 98.9
== END 2023-12-14 09:54 | disposition home or self-care (01) ==
LOC: JER 03:31
DX: R07.9 Chest pain, unspecified (principal); F32.9 Major depressive disorder, single episode, unspecified; F19.10 Other psychoactive substance abuse, uncomplicated; R45.851 Suicidal ideations
CPT/HCPCS: 93005; 93010; 99283-25

== ENCOUNTER 2024-01-14 16:27 | Emergency (ER) | payer SELFPAY ==
[2024-01-14 16:34] VITALS: BMI 24.3
[2024-01-14 19:33] LABS: BASO % 0.7 % (0-2.0); EOS % 0.2 % (0-4.5); HEMATOCRIT 40.2 % (35.4-49); HEMOGLOBIN 13.9 GM/dL (11.7-16.9); LYMPH % 23.4 % (8-40); MCH 29.8 pg (25.7-33.7); MCHC 34.6 g/dl (32.0-35.9); MEAN CELL VOLUME 86.4 fl (80-96); MEAN PLT VOLUME 8.4 fl (7.5-11.1); MONO % 13.3 % (3.8-10.2); NEUT % 62.4 % (42.8-82.8); PLATELET COUNT 207 10^3/uL (134-434); RBC 4.66 M/mm3 (4.00-5.60); RDW 14.4 % (11.9-15.9); WHITE BLOOD COUNT 4.4 K/mm3 (4.0-10.0)
[2024-01-14 19:48] LABS: CHLORIDE 108 mmol/L (98-107); POTASSIUM 3.6 mmol/L (3.5-5.1); SODIUM 141 mmol/L (136-145)
[2024-01-14 19:50] LABS: ALBUMIN 3.8 g/dl (3.4-5.0); ANION GAP 5 mmol/L (4-13); BLOOD UREA NITROGEN 14.5 mg/dL (7-18); CALCIUM 9.2 mg/dL (8.5-10.1); CO2 28 mmol/L (21-32); GLUCOSE,RANDOM 164 mg/dL (74-106); MAGNESIUM 2.4 mg/dL (1.8-2.4)
[2024-01-14 19:53] LABS: CREATININE 1.2 mg/dL (0.55-1.3); SGOT/AST 15 U/L (15-37); SGPT/ALT 20 U/L (13-61)
[2024-01-14 19:55] LABS: BILIRUBIN,TOTAL 1.3 mg/dL (0.2-1); TOT PROT 6.8 g/dl (6.4-8.2)
[2024-01-14 19:56] LABS: ALK PHOS 116 U/L (45-117)
[2024-01-14 23:16] LABS: PH,URINE 5.5 (5.0-8.0); URINE APPEARANCE CLEAR; URINE BILIRUBIN NEGATIVE (NEGATIVE); URINE COLOR YELLOW; URINE GLUCOSE (UA) NEGATIVE (NEGATIVE); URINE KETONE TRACE (NEGATIVE); URINE LEUK ESTERASE NEGATIVE (NEGATIVE); URINE NITRITE NEGATIVE (NEGATIVE); URINE PROTEIN NEGATIVE (NEGATIVE)
[2024-01-14 23:25] LABS: OPIATES, URI NEGATIVE (NEGATIVE)
[2024-01-14 23:26] LABS: METHADONE, UR NEGATIVE (NEGATIVE); PHENCYCLIDINE,URINE NEGATIVE (NEGATIVE); URINE AMPHETAMINES NEGATIVE (NEGATIVE); URINE BARBITURATES NEGATIVE (NEGATIVE); URINE BENZODIAZEPINES NEGATIVE (NEGATIVE)
[2024-01-14 23:32] LABS: COCAINE, UR POSITIVE (NEGATIVE)
[2024-01-15 06:44] VITALS: TEMP 98.4
[2024-01-15 10:24] VITALS: BP 120/81; PULSE 66; RESP 20
[2024-01-15] MEDS ORDERED: ACETAMINOPHEN 325 MG TABLET (FP) ONE (10:41)
[2024-01-15] MEDS: ACETAMINOPHEN 500 MG TABLET (FP) PO ONE (10:45)
== END 2024-01-15 13:19 | disposition home or self-care (01) ==
LOC: JER 16:27 → JERFT 16:27 → JER 01-15 13:19
DX: F20.9 Schizophrenia, unspecified (principal); R45.850 Homicidal ideations; F19.10 Other psychoactive substance abuse, uncomplicated; Z20.822 Contact with and (suspected) exposure to COVID-19
CPT/HCPCS: 0241U-QW; 36415; 80053; 80307; 81003; 83735; 85025; 87086; 93005; 93010; 99284-25

== ENCOUNTER 2024-02-02 18:00 | Emergency (ER) | payer SELFPAY ==
[2024-02-02 18:07] VITALS: RESP 18; BMI 24.7
[2024-02-02] MEDS ORDERED: ACETAMINOPHEN 325 MG TABLET (FP) ONE (20:18)
[2024-02-02] MEDS ORDERED: LIDOCAINE 4% PATCH TP ONE (20:18)
[2024-02-02] MEDS: LIDOCAINE 5% TOPICAL PATCH TP ONE (20:29)
[2024-02-02] MEDS: ACETAMINOPHEN 325 MG TABLET (FP) PO ONE (20:29)
[2024-02-02 20:42] LABS: BASO % 0.7 % (0-2.0); EOS % 1.2 % (0-4.5); HEMATOCRIT 42.8 % (35.4-49); HEMOGLOBIN 14.3 GM/dL (11.7-16.9); LYMPH % 24.9 % (8-40); MCH 29.5 pg (25.7-33.7); MCHC 33.5 g/dl (32.0-35.9); MEAN CELL VOLUME 88.2 fl (80-96); MEAN PLT VOLUME 8.6 fl (7.5-11.1); NEUT % 58.2 % (42.8-82.8); PLATELET COUNT 189 10^3/uL (134-434); RBC 4.85 M/mm3 (4.00-5.60); RDW 14.7 % (11.9-15.9)
[2024-02-02 20:54] LABS: CHLORIDE 109 mmol/L (98-107); POTASSIUM 3.3 mmol/L (3.5-5.1); SODIUM 143 mmol/L (136-145)
[2024-02-02 20:58] LABS: ANION GAP 6 mmol/L (4-13); BLOOD UREA NITROGEN 11.6 mg/dL (7-18); CALCIUM 9.2 mg/dL (8.5-10.1); CO2 28 mmol/L (21-32); GLUCOSE,RANDOM 89 mg/dL (74-106); MAGNESIUM 2.7 mg/dL (1.8-2.4)
[2024-02-02 21:01] LABS: SGOT/AST 19 U/L (15-37); SGPT/ALT 22 U/L (13-61)
[2024-02-02 21:03] LABS: BILIRUBIN,TOTAL 1.5 mg/dL (0.2-1); TOT PROT 7.3 g/dl (6.4-8.2)
[2024-02-02 21:04] LABS: ALK PHOS 97 U/L (45-117)
[2024-02-02] MEDS: LIDOCAINE PATCH REMOVAL MC SCH (22:00)
[2024-02-02] MEDS ORDERED: POTASSIUM CHLORIDE TABS 20 MEQ TABLET.ER (FP) PO ONE (22:01)
[2024-02-02] MEDS: POTASSIUM CHLORIDE TABS 20 MEQ TABLET.ER (FP) PO ONE (22:21)
[2024-02-03 11:24] VITALS: BP 122/89; PULSE 74; TEMP 98.5
== END 2024-02-03 17:13 | disposition home or self-care (01) ==
LOC: JER 18:00
DX: M79.604 Pain in right leg (principal); M79.605 Pain in left leg; F99 Mental disorder, not otherwise specified; F32.9 Major depressive disorder, single episode, unspecified; Z59.00 Homelessness unspecified; Z20.822 Contact with and (suspected) exposure to COVID-19
CPT/HCPCS: 0241U-QW; 36415; 80053; 80307; 83735; 85025; 99283-25

== ENCOUNTER 2024-02-21 11:53 | Emergency (ER) | payer SELFPAY ==
[2024-02-21 12:02] VITALS: BP 139/95; PULSE 92; RESP 20; TEMP 98; BMI 24.6
== END 2024-02-21 17:05 | disposition home or self-care (01) ==
LOC: JER 11:53
DX: M79.606 Pain in leg, unspecified (principal); F19.10 Other psychoactive substance abuse, uncomplicated; Z59.00 Homelessness unspecified; Z99.89 Dependence on other enabling machines and devices
CPT/HCPCS: 99283-25

== ENCOUNTER 2024-05-30 02:53 | Emergency (ER) | payer OTHER ==
[2024-05-30 02:58] VITALS: BP 147/90; PULSE 64; RESP 18; TEMP 98.2; BMI 24.3
[2024-05-30] MEDS ORDERED: LIDOCAINE 4% PATCH TP ONE (03:17)
[2024-05-30] MEDS: LIDOCAINE 4% PATCH TP ONE (03:19)
[2024-05-30] MEDS ORDERED: ACETAMINOPHEN 325 MG TABLET (FP) ONE (03:48)
[2024-05-30] MEDS: ACETAMINOPHEN 325 MG TABLET (FP) PO ONE (03:49)
[2024-05-30] MEDS ORDERED: LIDOCAINE PATCH REMOVAL MC ONE (15:00)
== END 2024-05-30 06:48 | disposition home or self-care (01) ==
LOC: JER 02:53
DX: M25.511 Pain in right shoulder (principal); R51.9 Headache, unspecified; Z59.00 Homelessness unspecified
CPT/HCPCS: 99283-25

== ENCOUNTER 2024-12-21 19:35 | Emergency (ER) | payer OTHER ==
[2024-12-21 19:48] VITALS: BP 141/78; PULSE 71; RESP 16; TEMP 97.8; BMI 22.4
[2024-12-21 21:07] LABS: ABSOLUTE IMMATURE GRANULOCYTES 0.01 x10^3/uL (0.0-0.031); BASOPHILS # 0.02 x10^3/uL (0.01-0.08); EOSINOPHIL % 0.4 % (0.8-7.0); EOSINOPHILS # 0.02 x10^3/uL (0.04-0.54); HEMATOCRIT 40.3 % (40.1-51.0); HEMOGLOBIN 13.6 g/dL (13.7-17.5); MCHC 33.7 g/dl (32.3-36.5); MEAN CELL VOLUME 88.6 fl (79.0-92.2); MEAN PLT VOLUME 10.9 fl (9.4-12.4); MONOCYTE # 0.45 x10^3/uL (0.30-0.82); MONOCYTE % 9.7 % (5.3-12.2); PLATELET COUNT 200 x10^3/uL (163-337); RDW 13.8 % (12.2-16.1)
[2024-12-21 21:27] LABS: INR 1.11 (0.83-1.09); POTASSIUM 3.8 mmol/L (3.5-5.1); PROTHROMBIN TIME (PATIENT) 12.2 SEC (9.7-13.0)
[2024-12-21 21:29] LABS: CALCIUM 9.4 mg/dL (8.5-10.1)
[2024-12-21 21:30] LABS: ACTIVATED PTT 29.5 SECONDS (25.2-36.5); ALBUMIN 3.8 g/dl (3.4-5.0)
[2024-12-21 21:33] LABS: CREATININE 0.9 mg/dL (0.55-1.3)
[2024-12-21 21:35] LABS: TOT PROT 6.8 g/dl (6.4-8.2)
[2024-12-21 22:22] LABS: HCV DIAGNOSTIC IN-HOUSE W/RFLX NON-REACTIVE (NONREACTIVE); HIV INTERPRETATION NEGATIVE (NEGATIVE)
== END 2024-12-21 22:25 | disposition home or self-care (01) ==
LOC: JER 19:35
DX: R07.89 Other chest pain (principal)
CPT/HCPCS: 36415; 80053; 84484; 85025; 85610; 85730; 86803; 87389; 93005; 93010; 99284-25

== ENCOUNTER 2025-02-04 10:03 | Emergency (ER) | payer OTHER ==
[2025-02-04 10:17] VITALS: BP 103/77; PULSE 67; RESP 18; TEMP 97.9; BMI 24.3
== END 2025-02-04 14:40 | disposition home or self-care (01) ==
LOC: JER 10:03
DX: F10.139 Alcohol abuse with withdrawal, unspecified (principal)
CPT/HCPCS: 99283-25

== ENCOUNTER 2025-03-11 13:50 | Observation (INO) | payer OTHER ==
[2025-03-11] MEDS ORDERED: ONDANSETRON 4 MG/2 ML VIAL ONE (15:19)
[2025-03-11] MEDS ORDERED: ACETAMINOPHEN INJECTION 100 ML ONE (15:19)
[2025-03-11 15:25] LABS: ABSOLUTE IMMATURE GRANULOCYTES 0.05 x10^3/uL (0.0-0.031); BASOPHILS # 0.02 x10^3/uL (0.01-0.08); EOSINOPHIL % 0.0 % (0.8-7.0); EOSINOPHILS # 0.00 x10^3/uL (0.04-0.54); MCHC 33.9 g/dl (32.3-36.5); MEAN CELL VOLUME 86.6 fl (79.0-92.2); MEAN PLT VOLUME 11.0 fl (9.4-12.4); MONOCYTE # 0.74 x10^3/uL (0.30-0.82); MONOCYTE % 7.0 % (5.3-12.2); RDW 13.1 % (12.2-16.1)
[2025-03-11] MEDS: ACETAMINOPHEN 1000 MG/100 ML BAG IVPB ONE (15:36)
[2025-03-11] MEDS: ONDANSETRON 4 MG/2 ML VIAL IVPUSH ONE (15:37)
[2025-03-11] MEDS: SODIUM CHLORIDE 500 ML IV STA (15:37)
[2025-03-11 16:00] LABS: CO2 25.0 mmol/L (21-32); GLUCOSE,RANDOM 98.0 mg/dL (74-106)
[2025-03-11 16:03] LABS: CREATININE 2.3 mg/dL (0.55-1.3); SGOT/AST 33.0 U/L (15-37); SGPT/ALT 35.0 U/L (13-61)
[2025-03-11 16:04] LABS: TOT PROT 9.6 g/dl (6.4-8.2)
[2025-03-11 16:06] LABS: ALK PHOS 138.0 U/L (45-117)
[2025-03-11] MEDS: LACTATED RINGERS SOLUTION 1000 ML INFUS.BAG IV ONE (16:50)
[2025-03-11] MEDS ORDERED: hydrOXYzine PAMOATE 50 MG CAPSULE (FP) PO PRN (18:40)
[2025-03-11] MEDS ORDERED: NICOTINE 7 MG/24 HOURS TOPICAL PATCH TD ONE (19:28)
[2025-03-11] MEDS: LACTATED RINGERS SOLUTION 1,000 ML/1,000 ML INFUS.BAG IV SCH (19:37)
[2025-03-11] MEDS: NICOTINE 7 MG/24 HOURS TOPICAL PATCH TD SCH (19:47)
[2025-03-11 23:13] VITALS: BMI 24.6
[2025-03-11] MEDS: MIRTAZAPINE 15 MG TABLET (FP) PO SCH (23:23)
[2025-03-11] MEDS: HEPARIN NA (PORCINE) 5,000 UNITS/ML 1ML VIAL SQ SCH (23:24)
[2025-03-12 00:26] LABS: HIV INTERPRETATION NEGATIVE (NEGATIVE)
[2025-03-12 00:28] LABS: HCV DIAGNOSTIC IN-HOUSE W/RFLX NON-REACTIVE (NONREACTIVE)
[2025-03-12 08:27] LABS: ABSOLUTE IMMATURE GRANULOCYTES 0.02 x10^3/uL (0.0-0.031); BASOPHILS # 0.02 x10^3/uL (0.01-0.08); EOSINOPHIL % 0.6 % (0.8-7.0); EOSINOPHILS # 0.03 x10^3/uL (0.04-0.54); MCHC 34.0 g/dl (32.3-36.5); MEAN CELL VOLUME 86.6 fl (79.0-92.2); MEAN PLT VOLUME 11.3 fl (9.4-12.4); MONOCYTE # 0.87 x10^3/uL (0.30-0.82); MONOCYTE % 16.5 % (5.3-12.2); RDW 13.2 % (12.2-16.1)
[2025-03-12 08:34] LABS: INR 1.07 (0.83-1.09); PROTHROMBIN TIME (PATIENT) 11.7 SEC (9.7-13.0)
[2025-03-12 08:46] LABS: GLUCOSE,RANDOM 100.0 mg/dL (74-106)
[2025-03-12 08:49] LABS: SGOT/AST 27.0 U/L (15-37); SGPT/ALT 24.0 U/L (13-61)
[2025-03-12 08:50] LABS: CREATININE 1.2 mg/dL (0.55-1.3)
[2025-03-12 09:01] LABS: ALK PHOS 100.0 U/L (45-117); TOT PROT 7.0 g/dl (6.4-8.2)
[2025-03-12] MEDS ORDERED: PATIENT'S OWN MEDICATION (NON-FORMULARY) (Sertraline Hcl [Zoloft] 100 MG Tablet) PO SCH (10:00)
[2025-03-12] MEDS: SERTRALINE HCL 50 MG TABLET (FP) PO SCH (10:32)
[2025-03-12] MEDS: THIAMINE 100 MG TABLET PO SCH (14:38)
[2025-03-12] MEDS: FOLIC ACID 1 MG TABLET (FP) PO SCH (14:38)
[2025-03-12 14:55] VITALS: RESP 18
[2025-03-12 16:22] LABS: CO2 29.0 mmol/L (21-32)
[2025-03-12] MEDS: LACTATED RINGERS SOLUTION 1,000 ML/1,000 ML INFUS.BAG IV SCH (17:51)
[2025-03-13 07:47] LABS: ABSOLUTE IMMATURE GRANULOCYTES 0.01 x10^3/uL (0.0-0.031)
[2025-03-13 07:49] LABS: BASOPHILS # 0.02 x10^3/uL (0.01-0.08); EOSINOPHIL % 1.0 % (0.8-7.0); EOSINOPHILS # 0.04 x10^3/uL (0.04-0.54); IMMATURE PLATELET FRACTION # 5.50 x10^3/uL; MCHC 32.8 g/dl (32.3-36.5); MEAN CELL VOLUME 88.4 fl (79.0-92.2); MEAN PLT VOLUME 11.1 fl (9.4-12.4); MONOCYTE # 0.68 x10^3/uL (0.30-0.82); MONOCYTE % 16.5 % (5.3-12.2); RDW 13.1 % (12.2-16.1)
[2025-03-13 08:06] LABS: CO2 28.0 mmol/L (21-32); GLUCOSE,RANDOM 99.0 mg/dL (74-106)
[2025-03-13 08:09] LABS: SGOT/AST 24.0 U/L (15-37); SGPT/ALT 22.0 U/L (13-61)
[2025-03-13 08:11] LABS: CREATININE 0.9 mg/dL (0.55-1.3); TOT PROT 6.4 g/dl (6.4-8.2)
[2025-03-13 08:13] LABS: ALK PHOS 96.0 U/L (45-117)
[2025-03-13 15:16] VITALS: BP 116/58; PULSE 77; TEMP 98.6
== END 2025-03-13 14:40 | disposition other institution (70) ==
LOC: JER 13:50 → JERBED 17:30 → J8W 22:16
PROVIDERS: ADMIT Student in an Organized Health Care Education/Training Program; ATTEND Nurse Practitioner Family
DX: N17.9 Acute kidney failure, unspecified (principal); E86.0 Dehydration; F14.10 Cocaine abuse, uncomplicated; F10.10 Alcohol abuse, uncomplicated; F31.9 Bipolar disorder, unspecified; F17.210 Nicotine dependence, cigarettes, uncomplicated; R07.89 Other chest pain; E80.6 Other disorders of bilirubin metabolism; R45.4 Irritability and anger; R11.2 Nausea with vomiting, unspecified; R73.03 Prediabetes; R10.9 Unspecified abdominal pain; Z59.00 Homelessness unspecified
CPT/HCPCS: 36415; 80053; 82248; 83690; 83735; 84100; 84484; 85025; 85610; 86803; 87389; 93005; 93010; 96360; 96361; 96374; 99285-25; G0378